=== PATIENT | male | born 2000 | race African-American/Black ===

== ENCOUNTER 2018-03-24 13:01 | Emergency (ER) | payer MEDICAID, SELFPAY ==
[2018-03-24 13:02] VITALS: BP 132/106; PULSE 88; RESP 18; TEMP 36.1; O2SAT 99; BMI 30.9
--- NOTE | 2018-03-24 13:22 | RAD_ITS ---
STUDY: X-RAY - RIGHT SHOULDER REASON FOR EXAM: Male, 17 years old. Right shoulder pain following injury. TECHNIQUE: 4 view(s) of the shoulder. COMPARISON: None. FINDINGS: Normal glenohumeral articulation. Normal acromioclavicular joint. Normal acromion. Normal humeral head and visualized proximal humerus. The soft tissue structures are unremarkable. Normal visualized pulmonary apex. RAD/Shoulder min 2 Views IMPRESSION: Normal x-ray examination of the shoulder. Electronically Signed: Hakeem Delcid MD at 14:14 EST Tel [phone], Service support ,
[2018-03-24] MEDS: Ibuprofen 600 MG Tablet PO (13:27)
--- NOTE | 2018-03-24 14:26 | ED.VISSUMM ---
- ER Visit Summary Date of Service: 03/24/18 Chief Complaint: Right shoulder pain History of Present Illness: The patient is a 17 M with right shoulder pain for days. The patient placed some a portion football. He felt something move or shift in his right shoulder. Complains of pain to the area near the AC joint. No other associated symptoms like weakness or numbness. No chest pain or shortness of breath. No neck pain. Physical Examination: Vitals unremarkable. Neck is unremarkable. Nontender. Shoulder inspection shows some diffuse swelling, very mild. Tender to palpation near the AC joint. No other tenderness. No deformities. No laxity. Good range of motion. Neurovascular intact distally. Test Results: X-rays negative. Emergency Department Course and Treatment: Patient likely has a strain. Rest, ice. Anti-inflammatories for pain. Follow-up with primary care. Treatment Plan: As above Disposition: Discharged Impression: 1. Right shoulder pain This note was generated with [employer] dictation software. It may contain incorrect words, spelling, and punctuation that were not noted in review of the chart prior to signing ED Disposition - Plan for ED Patient: Chief Complaint: Upper Extremity Injury Referrals: Sara Bonilla DO [Primary Care Provider] -
--- NOTE | 2018-03-24 14:28 | ED.DEP ---
ED Disposition - Plan for ED Patient: Chief Complaint: Upper Extremity Injury Instructions: Shoulder Problems Prescriptions: Ibuprofen [Motrin] 800 mg PO TID PRN PRN #20 tab PRN Reason: Pain Referrals: Sara Bonilla DO [Primary Care Provider] -
--- OUTSIDE RECORDS SUMMARY | 2018-05-10 18:53 | XMS RPT_ITS ---
:2000 Author Organization [facility] Care Team Providers Name Role Phone Sara Bonilla Primary Care Unavailable Rhys Cotter Attending Unavailable PROBLEMS PROBLEMS No Problem Records FoundPROCEDURES PROCEDURES No Procedure Records FoundRESULTS RESULTS EMERGENCY DEPARTMENT Observed: 03/24/2018 Status: F Source: [place] SUMMARY 3:36 PM [facility] Medical Records Department [address] [facility] [address] Emergency Department Summary 03/24/18 1426 MR#: [id number] Acct: [id number] Name: MARK RUTH Rep #: [id number] : 2000 17 From: Rhys Cotter MD PCP: Sara Bonilla DO Status: DEP ER - ER Visit Summary Date of Service: 03/24/18 Chief Complaint: Right shoulder pain History of Present Illness: The patient is a 17 M with right shoulder pain for days. The patient placed some a portion football. He felt something move or shift in his right shoulder. Complains of pain to the area near the AC joint. No other associated symptoms like weakness or numbness. No chest pain or shortness of breath. No neck pain. Physical Examination: Vitals unremarkable. Neck is unremarkable. Nontender. Shoulder inspection shows some diffuse swelling, very mild. Tender to palpation near the AC joint. No other tenderness. No deformities. No laxity. Good range of motion. Neurovascular intact distally. Test Results: X-rays negative. Emergency Department Course and Treatment: Patient likely has a strain. Rest, ice. Anti-inflammatories for pain. Follow-up with primary care. Treatment Plan: As above Disposition: Discharged Impression: 1. Right shoulder pain This note was generated with [employer] dictation software. It may contain incorrect words, spelling, and punctuation that were not noted in review of the chart prior to signing ED Disposition - Plan for ED Patient: Chief Complaint: Upper Extremity Injury Referrals: Sara Bonilla DO [Primary Care Provider] - What to do if you have Problems For any increased pain, shortness of breath, bleeding, nausea or vomiting, chest pain, or any unexpected problems, contact your Primary Care Provider. Call [facility] ([phone]) or report to the closest Emergency Room. Call 911 if necessary. 03/24/18 1536 <Electronically signed by Rhys Cotter MD> Date Rhys Cotter MD Cosigner Signature (If Indicated): Date CC: Sara Bonilla DO DISCHARGE INSTRUCTION Observed: 03/24/2018 Status: F Source: [place] 3:36 PM [facility] Medical Records Department [address] [place] [id number] Discharge Instruction 03/24/18 1428 MR#: [id number] Acct: [id number] Name: MARK RUTH SHANTANU Andre Rep #: [id number] : 2000 17 From: Rhys Cotter MD PCP: Sara Bonilla DO Status: DEP ER ED Disposition - Plan for ED Patient: Chief Complaint: Upper Extremity Injury Instructions: Shoulder Problems Prescriptions: Ibuprofen [Motrin] 800 mg PO TID PRN PRN #20 tab PRN Reason: Pain Referrals: Sara Bonilla DO [Primary Care Provider] - What to do if you have Problems For any increased pain, shortness of breath, bleeding, nausea or vomiting, chest pain, or any unexpected problems, contact your Primary Care Provider. Call [facility] ([phone]) or report to the closest Emergency Room. Call 911 if necessary. 03/24/18 1536 <Electronically signed by Rhys Cotter MD> Date Rhys Cotter MD Cosigner Signature (If Indicated): Date CC: Sara Bonilla DO SHOULDER MIN 2 VIEWS Observed: 03/24/2018 Status: F Source: [place] 1:22 PM [facility] Imaging Services [address] [place] [address] [place] [address] Shoulder min 2 Views MR#: [id number] Acct: [id number] Name: MARK RUTH Rep #: [id number] : 2000 M 17 From: Hakeem Delcid MD PCP: Sara Bonilla DO Status: REG ER Study: Shoulder min 2 Views Date of Exam: 03/24/18 Exam# [id number] Ordering Dr: Rhys Cotter MD STUDY: X-RAY - RIGHT SHOULDER REASON FOR EXAM: Male, 17 years old. Right shoulder pain following injury. TECHNIQUE: 4 view(s) of the shoulder. COMPARISON: None. FINDINGS: Normal glenohumeral articulation. Normal acromioclavicular joint. Normal acromion. Normal humeral head and visualized proximal humerus. The soft tissue structures are unremarkable. Normal visualized pulmonary apex. RAD/Shoulder min 2 Views IMPRESSION: Normal x-ray examination of the shoulder. Electronically Signed: Hakeem Delcid MD at 14:14 EST Tel [phone], Service support , CC: Rhys Cotter MD; Sara Bonilla DO Hose Inspector: Signed ALLERGIES ALLERGIES DATE TYPE / CODE NAME / CODE REACTION SEVERITY SOURCE 03/24/2018 Drug iodine/F0060 Hives Unknown [facility] Allergy/4160 84248([facility] 96300(SNOMED ) Repository CT) ENCOUNTERS ENCOUNTERS ADMIT/DISCHARGE ACCOUNT ADMITTING ENCOUNTER LOCATION SOURCE NUMBER CLASS 03/24/2018/ [id number] Emergency Navarro Navarro 8 [facility] ing:ED Repository PAYERS PAYERS ENCOUNTER GUARANTOR PAYER SUBSCRIBER SOURCE 03/24/2018 MARK SHANTANU L Primary MARKDanny FOURNIER L [facility] Insurance:EV VINSONOB: [facility] [id number] [address] StreetPolic Number: Repository [address]Qbe: [phone] [phone] () Date:[id number] [address] [place] [address]ST: 03/24/2018 Secondary NOT GIVENUNK [place] Insurance:SELF PAY [facility] Number: Effective Repository Date:2018-03-24
== END 2018-03-24 14:49 | disposition home or self-care (01) ==
PROVIDERS: Emergency Provider Emergency Medicine; Family Provider Internal Medicine; PCP Internal Medicine
DX: M25.511 Pain in right shoulder (principal)
CPT/HCPCS: 73030; 99283

== ENCOUNTER 2018-05-12 13:07 | Emergency (ER) | payer MEDICAID, SELFPAY ==
[2018-05-12 13:09] VITALS: PULSE 87; RESP 18; TEMP 36.3; O2SAT 99; BMI 30.7
--- NOTE | 2018-05-12 14:21 | CT_ITS ---
STUDY: CT BRAIN WITHOUT CONTRAST REASON FOR EXAM: Male, 17 years old. Headaches and confusion. History of head trauma. RADIATION DOSAGE (If Supplied By Facility): CTDIvol = ( 60.81 ) mGy, DLP = ( 1604.86 ) mGycm TECHNIQUE: Transaxial CT imaging of the brain was performed without administration of intravenous contrast material. Individualized dose optimization techniques were used for this CT. COMPARISON: None. FINDINGS: Normal soft tissue structures. Normal calvarium. Normal size ventricles and extra-axial spaces for the patient's age. Normal white matter tracts of the cerebral hemispheres. Normal basal ganglia and thalami. Normal brainstem. Normal cerebellum. There is no intracranial hemorrhage. There are no findings of an acute ischemic infarction. Normal visualized paranasal sinuses. CT/Brain/Head without Contrast IMPRESSION: Normal unenhanced CT scan of the brain. Electronically Signed: Hakeem Delcid MD at 15:06 EST , Service support ,
--- NOTE | 2018-05-12 14:56 | ED.DCSUM_ITS ---
- ER Visit Summary Date of Service: 05/12/18 Chief Complaint: Head injury History of Present Illness: The patient is a 17 M presenting after head injury. 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 He states on Friday he was at practice and collided with another player. He states their helmets hit. He did not lose consciousness. No amnesia to the event. He states initially he felt well and developed a gradual onset headache yesterday. He has had no dizziness. Denies nausea or vomiting. He had some trouble focusing and concentrating. Denies other complaints. Physical Examination: Vitals are stable. Patient is afebrile. Alert no acute distress. HEENT exam is unremarkable. Neck is supple, nontender Lungs are clear and equal bilaterally. Heart is regular rate and rhythm. Abdomen is soft nontender nondistended. Extremities are unremarkable. Skin is warm and dry. No focal neurologic deficit. Normal strength and sensation Remainder of exam is unremarkable. Emergency Department Course and Treatment: CT head shows no acute process. Advised head injury instructions. Advised to follow-up with his instructor trainer canine service and Dr Oakley pesticide control inspector for no doc. Advised return to ED for worsening complaints. Just prior to discharge, patient is now requesting STD testing. Patient states he had unprotected intercourse and is now experiencing mild penile discharge. He denies dysuria or rash. Denies pain. Gonorrhea chlamydia test sent. He is given Rocephin and Zithromax. Advised to follow-up with primary care physician. Disposition: Discharge home Impression: Concussion without loss of consciousness, concern for STD This note was generated with [employer] dictation software. It may contain incorrect words, spelling, and punctuation that were not noted in review of the chart pr ior to signing ED Disposition - Plan for ED Patient: Chief Complaint: Confusion Instructions: ED Concussion Referrals: Abel Oakley MD [STAFF PHYSICIAN] -
--- NOTE | 2018-05-12 15:11 | ED.DEP ---
ED Disposition - Plan for ED Patient: Chief Complaint: Confusion Instructions: ED Concussion Referrals: Abel Oakley MD [STAFF PHYSICIAN] -
[2018-05-12 15:33] VITALS: BP 130/79
[2018-05-12] MEDS: Azithromycin 250 MG Tablet 1000 MG PO (15:45)
[2018-05-12 17:33] LABS: Chlamydia Trachomatis by PCR POSITIVE (Negative); Neisserai gonorrhoeae by PCR Positive (Negative); Probe Check PASS
--- NOTE | 2018-05-12 18:04 | ED.RN ---
LAB CALLED POSITIVE CHLAM/ESTHER RESULT. ATTEMPTED TO CONTACT PT AT 3500 BY PHONE. UNABLE TO LEAVE MESSAGE DUE TO VOICE MAILBOX NOT BEING SET UP. INFORMED CHARGE NURSE TYREE HOPKINS.
== END 2018-05-12 16:24 | disposition home or self-care (01) ==
LOC: ED 14:58
PROVIDERS: Emergency Provider Emergency Medicine
DX: S06.0X0A Concussion without loss of consciousness, initial encounter (principal); W51.XXXA Accidental striking against or bumped into by another person, initial encounter; Y93.61 Activity, american tackle football; Y92.9 Unspecified place or not applicable; Y99.8 Other external cause status; R36.9 Urethral discharge, unspecified
CPT/HCPCS: 70450; 87491; 87591; 96372; 99283

== ENCOUNTER 2018-08-13 22:29 | Emergency (ER) | payer MEDICAID, SELFPAY ==
[2018-08-13 22:31] VITALS: BP 128/75; PULSE 67; RESP 18; TEMP 36.6; O2SAT 99; BMI 30.5
--- NOTE | 2018-08-13 22:57 | RAD_ITS ---
STUDY: X-RAY - RIGHT HAND REASON FOR EXAM: Male, 17 years old. Right hand pain after punching injury. TECHNIQUE: 3 view(s) of the hand. COMPARISON: None. FINDINGS: Normal radiocarpal articulation. Normal distal radioulnar joint. Normal visualized carpal bones. Normal carpal articulations Normal carpometacarpal articulation of the thumb. Normal second through fifth carpometacarpal joints. Normal metacarpi. Normal metacarpophalangeal joint of the thumb. Normal interphalangeal joint of the thumb. Normal proximal and distal phalanges of the thumb. Normal metacarpophalangeal joints of the second through fifth fingers. Normal proximal and distal interphalangeal joints of the second through fifth fingers. Normal phalanges of the second through fifth fingers. Soft tissue swelling. RAD/Hand Min 3 Views IMPRESSION: Soft tissue injury without underlying fracture or dislocation. Electronically Signed: Linnette Martinez MD at 23:32 EDT , Service support ,
--- NOTE | 2018-08-13 22:57 | EKG12_ITS ---
Test Reason : CP Blood Pressure : / mmHG Vent. Rate : 062 BPM Atrial Rate : 062 BPM P-R Int : 148 ms QRS Dur : 080 ms QT Int : 362 ms P-R-T Axes : 049 086 036 degrees QTc Int : 367 ms Normal sinus rhythm with sinus arrhythmia Normal ECG Confirmed by GEGE CHUN, CINDY ([id number]), acquisition editor KORIN ESCOBAR ([id number]) on 08/18/2018 1:55:06 PM Referred By: LALY Confirmed By:CINDY DE GUZMAN MD
--- NOTE | 2018-08-13 23:00 | ED.RN ---
NO OLD EKGS IN MUSE
--- NOTE | 2018-08-13 23:10 | RAD_ITS ---
STUDY: X-RAY CHEST REASON FOR EXAM: Male, 17 years old. Intermittent chest pain. TECHNIQUE: Single AP portable view of the chest. COMPARISON: None. FINDINGS: The lungs are clear and expanded. There is no demonstrated pleural abnormality. Normal size heart. Normal mediastinum and cecilia. Normal visualized pulmonary arteries. Normal visualized aortic arch and descending thoracic aorta. Normal visualized thoracic spine. Normal visualized ribs, clavicles, and shoulders. There is no demonstrated abnormality of the visualized soft tissue structures of the upper abdomen. RAD/Chest 1 View (Portable) IMPRESSION: Normal x-ray examination of the chest. Electronically Signed: Linnette Martinez MD at 23:31 EDT , Service support ,
[2018-08-13 23:14] LABS: Absolute Lymphocyte Count 2.64 X10^3/ul (0.83-4.51); Absolute Neutrophil Count 2.4 X10^3/uL (2.0-7.7); Basophil# 0.02 X10^3/uL; Basophil% 0.3 % (0-1); Eosinophil# 0.25 X10^3/uL; Eosinophils% 4.4 % (0-5); Hematocrit 39.6 % (40-54); Hemoglobin 13.7 g/dl (13.0-16.5); Lymphocyte # 2.64 X10^3/ul (4.0); Lymphocyte % 46.1 % (19-41); Mean Corp Hgb Conc 34.6 g/gl (32-36); Mean Corpuscular Hgb 26.6 pg (27.0-32.0); Mean Corpuscular Volume 76.7 fL (80-94); Mean Platelet Vol. 10.1 fl (6.2-12.0); Monocyte# 0.45 X10^3/uL; Monocyte% 7.9 % (0-10); Neutrophil # 2.36 X10^3/uL (2.7-7.7); Neutrophil % 41.1 % (47-70); POSITIVE COUNT NO; POSITIVE DIFFERENTIAL NO; POSITIVE MORPHOLOGY NO; Platelet Count 205 K/mm3 (150-450); RBC Distribution Width CV 13.3 % (11.6-14.6); RBC Distribution Width SD 37.7 fl (35.1-43.9); Red Blood Count 5.16 M/mm3 (4.6-6.2); White Blood Count 5.7 K/mm3 (4.4-11.0)
[2018-08-13 23:30] LABS: Anion Gap 4 (5-15); BUN 14 mg/dL (7-18); BUN/Creat Ratio 11.6 RATIO (10-20); Calcium,Total 9.1 mg/dL (8.5-10.1); Chloride 106 mmol/L (98-107); Creatinine, Serum 1.21 mg/dL (0.70-1.30); EST Glomerular Filtration Rate 81 mL/min (>60); Est Glom Filt Rate - Afr Amer 99 mL/min (>60); Estimated Creatinine Clearance 101.39 ml/min; Glucose 89 mg/dL (74-106); Potassium 4.4 mmol/L (3.5-5.1); Sodium Level 138 mmol/L (136-145)
[2018-08-13 23:31] LABS: D-Dimer Quantitative (DVT/PE) 0.38 FEU/ug/m (0.27-0.49)
[2018-08-13] MEDS: Ketorolac 30 MG/ML Syringe IV (23:34)
[2018-08-13] MEDS: 0.9% Normal Saline 1,000 ML 150 ML IV (23:34)
--- NOTE | 2018-08-13 23:40 | ED.VISSUMM ---
- ER Visit Summary Date of Service: 08/13/18 Chief Complaint: Chest pain, hand injury History of Present Illness: The patient is a 17 M who complains of right hand pain after punching a door earlier today. He is right-hand dominant. He is also complaining of intermittent chest pain over the past couple of months. He states it occurs approximately twice a week. He gets sudden sharp pain in the left upper chest that lasts up to 10 minutes and then resolves. He does not get short of breath with it. He denies chest pain currently. Most recent episode was last evening. Physical Examination: Vital signs unremarkable. Patient resting in bed in no acute distress. Head neck examination unremarkable. Heart is regular rate and rhythm. Lung sounds are clear. Chest wall is nontender. Abdomen is soft and nontender. Right upper extremity examination was tenderness of the fifth metacarpal with edema. Superficial lacerations are noted to the PIP joint of the third and fourth fingers were consistent with skin tears. He has full range of motion of all digits. There is no tenderness to palpation of the elbow, wrist, or shoulder. Test Results: EKG is sinus at 62 with no sign of acute ischemia. CBC and chemistry studies normal. Troponin and d-dimer are both negative. Portable chest x-ray is normal. Right hand x-ray reveals soft tissue injury without fracture. Emergency Department Course and Treatment: Patient was given Toradol for pain. Test results were discussed with him. Right hand wounds will be cleansed and dressed. Patient be referred to Dr. Mackay for follow-up, next doc on no doc list. Treatment Plan: [] Disposition: Discharge Impression: 1. Atypical chest pain 2. Right hand contusion This note was generated with [employer] dictation software. It may contain incorrect words, spelling, and punctuation that were not noted in review of the chart prior to signing ED Disposition - Plan for ED Patient: Disposition: Home or Assisted Living Instructions: ED Chest Pain Atypical Unkn Cause, ED Contusion Hand Referrals: Kristine Mackay MD [STAFF PHYSICIAN] - As soon as possible
[2018-08-13 23:56] VITALS: BP 148/88; PULSE 66; RESP 16; O2SAT 98
== END 2018-08-13 23:57 | disposition home or self-care (01) ==
PROVIDERS: Emergency Provider Emergency Medicine
DX: R07.89 Other chest pain (principal); S60.221A Contusion of right hand, initial encounter; S61.212A Laceration without foreign body of right middle finger without damage to nail, initial encounter; S61.214A Laceration without foreign body of right ring finger without damage to nail, initial encounter; W22.8XXA Striking against or struck by other objects, initial encounter; Y93.9 Activity, unspecified; Y92.9 Unspecified place or not applicable
CPT/HCPCS: 71045; 73130; 80048; 84484; 85025; 85379; 93005; 96374; 99284

== ENCOUNTER 2019-05-23 21:05 | Emergency (ER) | payer MEDICAID, SELFPAY ==
[2019-05-23 21:05] VITALS: BP 137/96; PULSE 73; RESP 16; TEMP 36.9; O2SAT 100; BMI 29.4
--- NOTE | 2019-05-23 21:20 | ED.VIS.INJ ---
History of Present Illness Chief Complaint: Head Injury Informant: Patient Onset: Yesterday Mechanism/Context: Blunt Injury Quality of Pain: Dull, Aching Location: Global headache with associated symptoms Current Severity: Mild Maximum Severity: Moderate Worsened by: Activity Relieved by: Nothing Associated Symptoms: - - Dazed. Negative for: Parasthesias, Weakness, Loss of function, Inability to ambulate, Loss of consciousness, Amnesia Narrative: Patient is a 18-year-old who was involved in a closed head injury in football yesterday. He was dazed. No loss of conscious. He states he rested for 20 minutes . He then went back in and exited from the game because of worsening symptoms. He does report sleep disturbance, nausea, visual disturbance, feeling foggy. Patient states he does not feel his normal self. Because his symptoms did not resolve he presents for evaluation. He has had a prior concussion. He is not on an anticoagulant. Prior similar symptoms: Yes Recent Illness/Hospitalization: No - Past Medical History (1) Closed head injury Status: Acute Past Medical History - Allergies and Home Meds Allergies/Adverse Reactions: Allergies iodine Allergy (Verified 05/23/19 21:05) Hives banana Adverse Reaction (Verified 05/23/19 21:05) Nausea/Vom/Diarrhea Primary Care Physician: Care Physician,No Primary [Primary Care Provider] - Prior records reviewed: Yes Surgical History: no surgical history Lives: Spouse/ Significant Other Smoking Status: Never smoker Alcohol: Rare Drugs: None Review of Systems General: Reports: Malaise. Denies: Chills, Fever, Sweats Eyes: Reports: Blurred Vision - bilaterally. Denies: Visual changes - bilaterally ENT: Reports: - - Denies tinnitus or decreased hearing. Denies: Bilateral ear pain, Rhinorrhea, Sore throat Cardiovascular: Denies: Chest pain, Palpitations Respiratory: Denies: Dyspnea, Cough, Dyspnea on exertion Gastrointestinal: Reports: Nausea. Denies: Abdominal pain, Vomiting, Diarrhea, Constipation, Melena, Hematochezia, -, - Genitourinary: Denies: Dysuria, Hematuria, Frequency Musculoskeletal: Denies: Myalgias, Arthralgias, Neck pain, Back pain, Swelling, Extremity Pain Skin: Denies: Rash, Wounds Neurological: Reports: Headache. Denies: Weakness, Parasthesia, Numbness Hematologic: Denies: Easy bruising, Easy bleeding Physical Exam Vital Signs/Narrative: Vital Signs Temp Pulse Resp BP Pulse Ox 05/23/19 21:05 98.4 F 73 16 137/96 H 100 Inital Vital Signs reviewed: Yes General: Well nourished, Well developed Head: Normocephalic, Atraumatic Eyes: Perrl, EOMI ENT: TM's clear, No hemotympanum or drainage, No trauma Neck: Nontender, Full ROM Cardiovascular: Regular rate, Regular rhythm, No murmurs, Normal S1, Normal S2 Respiratory: No distress, CTA bilaterally, Chest nontender Abdomen: Soft, Nontender, Nondistended, Normal bowel sounds Back: Nontender Skin: Normal color, No rash Neurological: Alert, Oriented x3, Cranial nerves II-XII grossly intact, Normal Strength, Normal Sensation, Normal DTR - There is no clonus or Babinski sign. S, Normal Gait, - - Cerebellar exam is normal Psychological: Normal affect - Glascow Coma Scale Eye Opening: Spontaneous Motor: Obeys Commands Verbal: Oriented Coma Scale Total: 15 Diagnostic/Tx/Re-eval - Medical Decision Making With history of being dazed and symptoms of concussion and a normal neurologic exam and no history of loss conscious or use of anticoagulant imaging is not indicated per the [place] CT head rule in the [place] rule. Patient was made aware of this. Patient was told 95% of patients with concussion have resolution of their symptoms within 4 to 6 weeks. Was instructed to avoid activity that causes his symptoms to worsen. ED Disposition - Plan for ED Patient: Disposition: Home or Assisted Living Diagnosis: Concussion without loss of consciousness Instructions: CONCUSSION, No Wake Up Referrals: Care Physician,No Primary [Primary Care Provider] - Additional Instructions: Low up with the primary care physician you were assigned to by your insurance carrier, Enevate if no improvement in 4 weeks
[2019-05-23 21:40] VITALS: BP 139/85; PULSE 67
[2019-05-23] MEDS: Ibuprofen 400 MG Tablet 800 MG PO (21:48)
[2019-05-23 21:49] VITALS: BP 139/85; PULSE 67; RESP 14
== END 2019-05-23 21:50 | disposition home or self-care (01) ==
PROVIDERS: Emergency Provider Emergency Medicine
DX: S06.0X0A Concussion without loss of consciousness, initial encounter (principal); X58.XXXA Exposure to other specified factors, initial encounter; Y93.61 Activity, american tackle football; Y99.8 Other external cause status
CPT/HCPCS: 99283

== ENCOUNTER 2019-06-06 19:18 | Emergency (ER) | payer MEDICAID, SELFPAY ==
[2019-06-06 19:19] VITALS: BP 150/111; PULSE 74; RESP 18; TEMP 37.2; O2SAT 97; BMI 29.4
--- NOTE | 2019-06-06 19:30 | RAD_ITS ---
STUDY: X-RAY - RIGHT FOOT CLINICAL: Male, 18 years old patient with right-sided foot pain and swelling after playing football yesterday. TECHNIQUE: 3 view(s) of the foot. COMPARISON: Prior comparison studies are not available for review at this time. FINDINGS: Normal talus, calcaneus, and tarsal bones. Intertarsal articulations are within normal limits. There is a nondisplaced fracture of the proximal fifth metatarsal approximately 3.2 cm distal to the tarsal metatarsal articulation. The first, second, third and fourth metatarsals have a grossly normal appearance. Normal metatarsophalangeal joint of the great toe. Normal tibial and fibular sesamoid bones. Normal interphalangeal joint of the great toe. Normal phalanges of the great toe. Normal second through fifth metatarsophalangeal joints. Normal interphalangeal joints and phalanges of the lesser toes. There is non-specific soft tissue swelling of the foot. RAD/Foot min 3 Views IMPRESSION: Acute undisplaced fracture of the proximal fifth metatarsal is suggestive of a [place] fracture. Electronically Signed: Liliam Allen MD at 20:10 EST , Service support ,
--- NOTE | 2019-06-06 21:11 | ED.DCSUM_ITS ---
History of Present Illness Chief Complaint: Lower Extremity Injury Informant: Patient Onset: Yesterday Current Severity: Moderate Maximum Severity: Moderate Narrative: Patient presents for injury to the right foot. Patient states he was at practice yesterday and wearing some new cleats. When he planted his foot and went to turn he felt a popping sensation in the lateral portion of his right foot. He did have surgery for a fracture of the fifth metatarsal on the left foot in the past. He is concerned he may have broken his foot again. Patient also presents with a burn to his left index finger that occurred yest erday. - Past Medical History (1) S/P foot surgery, left Status: Resolved Past Medical History - Allergies and Home Meds Allergies/Adverse Reactions: Allergies iodine Allergy (Verified 06/06/19 19:19) Hives banana Adverse Reaction (Verified 06/06/19 19:19) Nausea/Vom/Diarrhea Primary Care Physician: Hector Allen DPM [STAFF PHYSICIAN] - As soon as possible Prior records reviewed: Yes Surgical History: no surgical history Lives: With Family Smoking Status: Never smoker Review of Systems General: Denies: Chills, Fever Eyes: Denies: Visual changes - bilaterally ENT: Denies: Bilateral ear pain Cardiovascular: Denies: Chest pain Respiratory: Denies: Dyspnea, Cough Gastrointestinal: Denies: Abdominal pain, Nausea, Vomiting, Diarrhea Musculoskeletal: Reports: Extremity Pain Skin: Denies: Rash Neurological: Denies: Headache Allergy: Denies: Uticaria Physical Exam Vital Signs/Narrative: Vital Signs Temp Pulse Resp BP Pulse Ox 06/06/19 19:19 98.9 F 74 18 150/111 H 97 Inital Vital Signs reviewed: Yes General: Well nourished, Well developed Head: Normocephalic ENT: Moist mucous membranes Neck: Supple Cardiovascular: Regular rate, Regular rhythm Respiratory: No distress, CTA bilaterally Abdomen: Soft, Nontender Extremities: - - Patient has a second-degree burn to the distal aspect left index finger with blister intact. No sign of infection.Right lower extremity examination reveals tenderness and edema over the fifth metatarsal. Strong pulses are noted. Neurological: Alert, Oriented x3 Psychological: Normal affect Diagnostic/Tx/Re-eval Impressions Foot X-Ray 06/06/19 19:30 IMPRESSION: Acute undisplaced fracture of the proximal fifth metatarsal is suggestive of a Longo fracture. Electronically Signed: Liliam Allen MD at 20:10 EST , Service support , 06/06/19 19:30 Xray Foot [Foot min 3 Views] [RAD] Stat - Medical Decision Making X-ray results are discussed with the patient. Foot is placed in a posterior splint and he is given crutches. He is to remain nonweightbearing on the right leg. 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 Left index finger burn is cleansed and dressed with Silvadene cream. Patient given a prescription for [place] for pain control. ED Disposition - Plan for ED Patient: Disposition: Home or Assisted Living Diagnosis: Longo fracture, Second degree burn Instructions: FRACTURE, Foot Prescriptions: Hydrocodone Bitart/Apap 5-325 [[place] 5MG-325MG] 1 tab PO Q6H PRN PRN 3 Days #10 tab PRN Reason: Pain Prescription Printed Referrals: Hector Allen DPM [STAFF PHYSICIAN] - As soon as possible
[2019-06-06] MEDS: Silver Sulfadiazine 1% Crm 50 gm Bottle 1 APPLIC TOPICAL (21:16)
[2019-06-06 21:30] VITALS: RESP 16
== END 2019-06-06 21:30 | disposition home or self-care (01) ==
PROVIDERS: Emergency Provider Emergency Medicine
DX: S92.354A Nondisplaced fracture of fifth metatarsal bone, right foot, initial encounter for closed fracture (principal); X58.XXXA Exposure to other specified factors, initial encounter; Y93.61 Activity, american tackle football; Y92.9 Unspecified place or not applicable; Y99.8 Other external cause status; T23.222A Burn of second degree of single left finger (nail) except thumb, initial encounter; X08.8XXA Exposure to other specified smoke, fire and flames, initial encounter
CPT/HCPCS: 29515; 73630; 99283; A4216

== ENCOUNTER 2019-06-09 19:31 | Emergency (ER) | payer MEDICAID, SELFPAY ==
[2019-06-09 19:32] VITALS: BP 128/104; PULSE 63; RESP 18; TEMP 36.7; O2SAT 99; BMI 29.4
[2019-06-09 20:17] VITALS: RESP 16
--- NOTE | 2019-06-09 20:18 | ED.VISSUMM ---
- ER Visit Summary Date of Service: 06/09/19 Chief Complaint: Right foot pain History of Present Illness: The patient is a 18 M who continues with right foot pain. He was seen here a couple of days ago and diagnosed with a Longo fracture. He was given [place] for pain but it is not helping. He is scheduled to see orthopedics in 2 days. He has not been using ice and he has been elevating at home. He states his pain was unbearable tonight so he called EMS to bring him in. He has not been using any NSAIDs with this. He has not been walking on it. Physical Examination: Vital signs reviewed. Right foot exam reveals a splint in place and intact. He has no upper leg pain. No swelling. He can wiggle his toes normally. Capillary refills less than 2 seconds. Test Results: None performed Emergency Department Course and Treatment: The patient has been nonweightbearing. His splint appears clean and dry as if he has not been walking on it. There is no swelling. I will give the patient oxycodone here and for home to take instead of his [place]. I did do an OARRS report and his only prescription was the one given to him here. He will follow-up as scheduled in less than 48 hours Treatment Plan: [] Disposition: Discharge Impression: Right fifth metatarsal fracture, subsequent visit This note was generated with [employer] dictation software. It may contain incorrect words, spelling, and punctuation that were not noted in review of the chart prior to signing ED Disposition - Plan for ED Patient: Disposition: Home or Assisted Living Instructions: FRACTURE, Foot Prescriptions: Oxycodone [Oxyir] 5 mg PO Q6H PRN PRN 3 Days #10 tablet PRN Reason: Pain/Inflammation Transmission Status: Received by ANKITA PARED[facility]-[address] [facility] Referrals: Care Physician,No Primary [Primary Care Provider] -
[2019-06-09] MEDS: oxyCODONE 5 MG Tablet PO (20:33)
== END 2019-06-09 20:35 | disposition home or self-care (01) ==
PROVIDERS: Emergency Provider Emergency Medicine
DX: S92.351A Displaced fracture of fifth metatarsal bone, right foot, initial encounter for closed fracture (principal); X58.XXXA Exposure to other specified factors, initial encounter; Y93.9 Activity, unspecified; Y92.9 Unspecified place or not applicable
CPT/HCPCS: 99284

== ENCOUNTER 2019-06-24 11:07 | Day surgery (SDC) | payer MEDICAID, SELFPAY ==
[2019-06-24] VITALS (8 sets, daily range): BP systolic 120–134; BP diastolic 63–93; PULSE 63–80; RESP 15–16; TEMP 36.1–36.8; O2SAT 95–100; BMI 29.7
[2019-06-24] MEDS: Lactated Ringers 1,000 ML 100 ML IV ×2 (11:33→15:05)
[2019-06-24] MEDS: Cefazolin 2 GM in 0.9% Normal Saline 100 ML IV (12:30)
--- NOTE | 2019-06-24 12:52 | RAD_ITS ---
STUDY: X-RAY - RIGHT FOOT CLINICAL: Fracture repair. TECHNIQUE: 17 intraoperative images of the foot. COMPARISON: Radiographs 06/06/2019. FINDINGS: There is an orthopedic screw transfixing a fifth metatarsal fracture in anatomic alignment and position. 418 seconds of fluoroscopy time was used. Electronically Signed: Camden Valadez MD at 15:28 EDT Tel , Service support , RAD/Foot min 3 Views
[2019-06-24] MEDS: Bupivacaine Mpf 0.5% 30 ML VIAL (14:00)
--- NOTE | 2019-06-24 14:24 | DCINST_ITS ---
Discharge Diet: No Restrictions Discharge Activity: May Not Drive, May Not Shower, Use Walker, Use Crutches Weight Bearing Status: No weight bearing Keep extremity elevated above heart level: Right Leg Additional Activity Instructions:: 1. Keep dressing clean, dry, intact to the right foot, ankle, leg. Do not get dressing wet. If get dressing wet, call office immediately for further instructions. Protect dressing when bathing with a cast protector or plastic bag and tape. I recommend sponge bathing at this time. Do not change or remove dressing. 2. Ice around right knee 20 minutes on, 20 minutes off, every hour while you are awake for the next 7 days. 3. Elevate right foot above level of heart as much as possible over the next 7 days. 4. No walking or standing on right foot. Use crutches or a walker for assistance. 5. Begin taking Percocet (pain medication) tonJune 24, 2019. Supplement with [id number] ibuprofen as needed. 6. Begin taking doxycycline (antibiotic) tomorrow, June 25, 2019 as instructed. This will be twice a day. 7. Begin taking aspirin tomorrow, June 25, 2019 as instructed. This will be once a day. Call your doctor if your incision/area has: Sudden Increased Bleeding, Increased Pain/ Swelling Call your doctor if you observe: Fever of 101 or Higher, Coldness, Increased Pain, Shortness of breath, Increased palpitations (irregular heartbeat), Calf discomfort, Uncontrolled pain Suture Line Care: Avoid Pulling/Pushing, Avoid Pinching/Bending Cleanse incision/area with: Do not get Incision Wet, Keep Dressing Clean & Dry Allergies/Adverse Reactions: Allergies iodine Allergy (Verified 06/24/19 11:15) Hives banana Adverse Reaction (Verified 06/24/19 11:15) Nausea/Vom/Diarrhea Medications to take at Discharge NK 06/23/19 Primary Care Physician: Care Physician,No Primary [Primary Care Provider] - Test Results: Test results from this visit will be discussed in further detail at your follow- up appointment, if applicable. Please Follow Up With: Hector Allen DPM When: as scheduled Proposed Discharge Date: 06/24/19
--- NOTE | 2019-06-24 14:32 | PCM.OPRPT ---
Problem List (1) Fracture of fifth metatarsal bone Status: Acute Qualifiers: Encounter type: subsequent encounter Fracture type: closed Fracture alignment: nondisplaced Laterality: right Fracture healing: with routine healing Qualified Code(s): S92.354D - Nondisplaced fracture of fifth metatarsal bone, right foot, subsequent encounter for fracture with routine healing (2) Longo fracture Status: Acute Qualifiers: Encounter type: subsequent encounter Fracture type: closed Laterality: right Fracture healing: with routine healing Qualified Code(s): S99.191D - Other physeal fracture of right metatarsal, subsequent encounter for fracture with routine healing Report of Operation Date of Procedure: 06/24/19 Pre-Operative Diagnosis: 1. Right foot fifth metatarsal fracture, nondisplaced. Classified as a Longo fracture. 2. Right foot metatarsus adductus Post-Operative Diagnosis: Same as preoperative Surgery/Procedure Performed:: Open reduction with internal fixation of fifth metatarsal fracture right foot Description of Surgical Findings:: Consistent with diagnosis. Reduction of deformity achieved and held with internal fixation. color maker formulator: Bettye Peres Type of Anesthesia:: General - With a lateral ankle block given to the right ankle consisting of 10 cc of 0.5% Marcaine plain Anesthesiologist: Chip Marshall Special Medications: 2 g of Ancef given preoperatively Specimen's removed: None Drains: None Estimated Blood Loss (mL): 2 Description of Procedure: Pathology: None Anesthesia: General with a lateral ankle block given to the right lower extremity consisting of 10 cc of 0.5 the Marcaine plain distributed in a lateral ankle block fashion Hemostasis: Pneumatic calf tourniquet placed to level the right calf at 250 mmHg for 83 Minutes Estimated blood loss: 2 mL Materials: Sherice 4.0 x 50 mm partially-threaded cannulated screw. Size 3-0 Vicryl. Size 3-0 nylon Injectables: None Complications: None Condition: Stable Indications: Patient is a 18-year-old male with no significant past medical history who has a chief complaint of painful ambulation of his right foot. 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 At that time, while patient was at football practice, he felt a pop in his right foot. He had immediate pain afterwards and had difficulty ambulating. This was located over the fifth metatarsal. Patient followed up in the emergency department on June 06 at [facility]. X-rays were taken at that time. This revealed a transverse nondisplaced fracture of the fifth metatarsal of the right foot. This was classified as a Longo fracture. Patient ended up following up with me in my office on June 20. I discussed with the patient his current clinical condition along with his x-ray findings. I discussed with the patient his activities of daily living. 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 Patient states that he had a similar injury on his left foot which was surgically repaired. I discussed with the patient the conservative and surgical interventions for this along with the risks and benefits to both treatment options. Due to his level of activity and desire to return to sports quickly, I suggested surgical intervention. Patient was agreeable to this, and was requesting surgery so that he may return to activities as soon as possible. Operative report: Before the patient was brought to the operating room, the risks, benefits, possible outcomes, possible complications of the procedure discussed with the patient. All the patient's questions were answered to his satisfaction and all of his concerns were addressed. No guarantees were made as to the outcome of the procedure. Risks include but not limited to infection, delayed and nonhealing bone, delayed or nonhealing wounds, loss of limb, loss of life, DVT, limitation of function and use of foot after procedure. Patient understood all aspects of the procedure, and consent was then signed by the patient. Patient was then brought to the operating room and placed on the operating table in supine position. After timeout, under general anesthesia, well-padded pneumatic calf tourniquet was placed to level of the right calf. The right foot, ankle, leg were then scrubbed, prepped, draped in the usual sterile manner. Attention was then directed to the fifth metatarsal the right foot. At this time, radiographic evaluation was used to determine the base of the fifth metatarsal, level of the fracture, and fifth metatarsal head. Furthermore, K wires were used to determine the lateral and dorsal longitudinal axes of the fifth metatarsal. These were all drawn on the patient. Next, live radiographic evaluation was used to insert the K wire for the cannulated screw from the proximal aspect of the fifth metatarsal extending distally into the medullary canal. This proved difficult due to the patient's metatarsus adductus deformity. Multiple attempts were made to pass this K wire. Radiograph evaluation was performed until adequate positioning of the K wire was had. Once adequate positioning was had, multiple radiographic views were performed once again to make sure the K wire was centered in the medullary canal. This was confirmed after radiographic evaluation. At this time, an incision was made where the K wire entered the skin on the lateral aspect of the right foot proximal to the fifth metatarsal. This incision was approximately 1.5 cm in length and was in a longitudinal fashion. This incision was deepened utilizing sharp and blunt dissection. Care was taken to retract all vital neural and vascular structures. All bleeders were cauterized and ligated as necessary. At this time, drilling and tapping was performed in a cannulated fashion over the K wire of the fifth metatarsal medullary canal. This K wire was then measured at this time a BabyBus 4.0 x 50 mm partially-threaded cannulated screw was placed over the K wire and inserted in standard AO fixation. Of note during insertion of the screw was the adequate compression of the fifth metatarsal fracture. Once the screw was fully inserted, the K wire was then removed. Multiple radiographic views were performed. The fracture was noted to be reduced and compressed when compared to preoperative assessment and the screw was noted to be held within the medullary canal. At this time, the surgical site was irrigated with copious amounts of normal sterile saline. The subcutaneous tissues were reapproximated and coapted utilizing 3-0 Vicryl. The skin was reapproximated coapted utilizing 3-0 nylon in a a simple interrupted and horizontal mattress fashion. At this time, the pneumatic calf tourniquet was then released and a prompt hyperemic response noted to the entirety of the right lower extremity. The surgical site was then dressed with Xeroform, and a dry sterile dressing setting of 4 x 4 gauze, ABD pads, wrapped with Kerlix. The right foot and ankle were then wrapped with an Israel bandage. At this time, cast padding was wrapped for the metatarsal heads extending proximally to level just distal to the tibial tuberosity. A posterior splint was fashioned to the right lower extremity and was adhered to the right lower extremity utilizing Israel bandages. Care was taken to make sure that the foot and ankle held in neutral position as the posterior splint dried. Neurovascular status was assessed at the end of application and deemed intact to the right lower extremity. The patient tolerated the anesthesia and the procedure well and was transported to the PACU with vital signs stable neurovascular status intact to the right lower extremity. After period of postoperative monitoring, patient be discharged home with written and oral instructions for wound care and follow-up. The surgical garment fitter, the nurse practitioner, was utilized throughout the entire procedure. She help with patient positioning, holding of limb, holding of retractors. She helped with bandage application and cast application. Without the surgical garment fitter, surgical time would have been increased and surgical outcome could have been less optimal. - Complications None - Admit VTE Documentation VTE Present on Admission: No VTE Mechan Device Prophylaxis: SCD's VTE Pharm Prophylaxis ordered?: Yes
--- NOTE | 2019-06-24 15:40 | RAD_ITS ---
STUDY: X-RAY - RIGHT FOOT CLINICAL: Male, 18 years old. POST OP ORIF RIGHT 5TH MT TECHNIQUE: 3 view(s) of the foot. COMPARISON: June 06, 2019 FINDINGS: Normal talus, calcaneus, and tarsal bones. Normal visualized subtalar, talonavicular, calcaneocuboid, tarsal and tarsometatarsal articulations. There is a screw traversing fracture of the proximal shaft of the fifth metatarsal. Normal metatarsophalangeal joint of the great toe. Normal tibial and fibular sesamoid bones. Normal interphalangeal joint of the great toe. Normal phalanges of the great toe. Normal second through fifth metatarsophalangeal joints. Normal interphalangeal joints and phalanges of the lesser toes. There is casting material. RAD/Foot min 3 Views IMPRESSION: Status post ORIF fifth metatarsal fracture. Electronically Signed: Ibrahima Blakely MD at 16:15 EDT , Service support ,
== END 2019-06-24 17:06 | disposition home or self-care (01) ==
LOC: SDC 11:08 → AC 11:09
PROVIDERS: Referring Provider Podiatrist Foot & Ankle Surgery; Visit Provider Podiatrist Foot & Ankle Surgery
PROC: (CPT 28485; principal; 2019-06-24 12:15)
DX: S92.354A Nondisplaced fracture of fifth metatarsal bone, right foot, initial encounter for closed fracture (principal); X58.XXXA Exposure to other specified factors, initial encounter; Y93.61 Activity, american tackle football; Y92.9 Unspecified place or not applicable; Y99.8 Other external cause status; Q66.221 Congenital metatarsus adductus, right foot; Z79.82 Long term (current) use of aspirin
CPT/HCPCS: 01480; 28485; 73630; 76000; C1713; J7120; J2405

== ENCOUNTER 2019-08-17 16:21 | Emergency (ER) | payer MEDICAID, SELFPAY ==
[2019-06-24 11:20] VITALS: BMI 29.7
[2019-08-17 16:22] VITALS: BP 130/71; PULSE 76; RESP 16; TEMP 36.4
[2019-08-17 16:23] VITALS: BP 130/71; PULSE 76; RESP 16; TEMP 36.4; BMI 28.3
--- NOTE | 2019-08-17 17:16 | ED.VIS.GI ---
History of Present Illness Chief Complaint: Abd Pain Informant: Patient - Abdominal Pain/Flank Pain Onset: Month(s) Context: Gradual Onset Timing: Intermittent Quality: Dull Location: Epigastric - Nausea/Vomiting/Emesis GI Symptom: Nausea - Diarrhea/Melena/Hematochezia GI Symptom: Negative for: Diarrhea, Melena, Hematochezia Associated Symptoms: Dysuria. Negative for: Frequency, Hematuria, Urgency Narrative: Patient is a 18-year-old male presenting with 2 complaints. The first is that he has had intermittent abdominal pain for the past 2 months. He states it is in his epigastric region. It does not radiate. He notes for the past 2 days it is been more constant. He is had some mild associated nausea but no episodes of vomiting. He states his bowel movements have been less but he correlates that with decreased appetite as well. He denies any fever or chills. Patient also notes that he had unprotected sex recently. He has been having dysuria. He denies any penile discharge, testicular pain or rash. He is concerned he might have a sexually transmitted infections. He is not sure if his partner had an STD. He denies any other complaints at this time. He does not have a primary care doctor. Past Medical History - Allergies and Home Meds Allergies/Adverse Reactions: Allergies iodine Allergy (Verified 08/17/19 17:01) Hives banana Adverse Reaction (Verified 08/17/19 17:01) Nausea/Vom/Diarrhea Primary Care Physician: Neha Ponce DO [STAFF PHYSICIAN] - Past Medical History: None Surgical History: noncontributory Smoking Status: Never smoker Review of Systems General: Denies: Chills, Fever, Sweats Eyes: Denies: Visual changes - bilaterally, Diplopia ENT: Denies: Rhinorrhea, Sore throat Cardiovascular: Denies: Chest pain, Palpitations Respiratory: Denies: Dyspnea, Cough, Dyspnea on exertion Gastrointestinal: Reports: Abdominal pain, Nausea. Denies: Vomiting, Diarrhea, Melena, Hematochezia Genitourinary: Reports: Dysuria. Denies: Hematuria, Frequency Musculoskeletal: Denies: Back pain, Extremity Pain Skin: Denies: Rash, Wounds Neurological: Denies: Headache, Weakness, Numbness Physical Exam Vital Signs/Narrative: Vital Signs Temp Pulse Resp BP 08/17/19 16:23 97.6 F L 76 16 130/71 H 08/17/19 16:22 97.6 F L 76 16 130/71 H Inital Vital Signs reviewed: Yes General: Well nourished, Well developed, No Acute Distress Head: Normocephalic, Atraumatic Eyes: Perrl, EOMI ENT: Moist mucous membranes, No rhinorrhea Neck: Supple, Nontender Cardiovascular: Regular rate, Regular rhythm, No murmurs Respiratory: No distress, CTA bilaterally, Chest nontender Abdomen: Soft, Nontender, Nondistended, Normal bowel sounds : - - Deferred Back: Nontender, Normal Inspection Extremities: Nontender, No edema Skin: Normal color, No rash Neurological: Alert, Oriented x3, Cranial nerves II-XII grossly intact, Normal Strength, Normal Sensation Psychological: Normal affect, Normal Mood Diagnostic/Tx/Re-eval Laboratory Data 08/17/19 08/17/19 08/17/19 16:50 16:50 17:18 WBC 7.1 RBC 5.21 Hgb 13.9 Hct 41.5 MCV 79.7 L MCH 26.7 L MCHC 33.5 RDW Std Deviation 35.8 RDW Coeff of Rhonda 12.7 Plt Count 214 MPV 10.1 Immature Gran % (Auto) 0.300 Neut % (Auto) 53.2 Lymph % (Auto) 37.0 [place] % (Auto) 6.9 Eos % (Auto) 2.2 Baso % (Auto) 0.4 Absolute Neuts (auto) 3.8 Absolute Lymphs (auto) 2.64 Nucleated RBC % 0 Sodium 139 Potassium 3.9 Chloride 107 Carbon Dioxide 30.0 Anion Gap 2 L BUN 11 Creatinine 1.21 Estim Creat Clear Calc 100.55 Est GFR (MDRD) Af Amer 98 Est GFR (MDRD) Non-Af 81 BUN/Creatinine Ratio 9.1 L Glucose 104 Calcium 9.2 Total Bilirubin 1.40 H AST 21 ALT 25 Alkaline Phosphatase 97 Total Protein 7.6 Albumin 4.1 Globulin 3.5 Albumin/Globulin Ratio 1.2 Lipase 83 Urine Color Yellow Urine Clarity Clear Urine pH 7.0 Ur Specific [place] 1.015 Urine Protein Negative Urine Glucose (UA) Normal Urine Ketones Negative Urine Occult Blood Negative Urine Nitrite Negative Urine Bilirubin Negative Urine Urobilinogen 1 H Ur Leukocyte Esterase 25 H Urine RBC 0 SEEN Urine WBC 5-10 SEEN Ur Squamous Epith Cells 0 SEEN Urine Bacteria 0 SEEN Urine Mucus 1+ Chlam trachomat DNA PCR N.gonorrhoeae DNA (PCR) 08/17/19 17:18 WBC RBC Hgb Hct MCV MCH MCHC RDW Std Deviation RDW Coeff of Rhonda Plt Count MPV Immature Gran % (Auto) Neut % (Auto) Lymph % (Auto) [place] % (Auto) Eos % (Auto) Baso % (Auto) Absolute Neuts (auto) Absolute Lymphs (auto) Nucleated RBC % Sodium Potassium Chloride Carbon Dioxide Anion Gap BUN Creatinine Estim Creat Clear Calc Est GFR (MDRD) Af Amer Est GFR (MDRD) Non-Af BUN/Creatinine Ratio Glucose Calcium Total Bilirubin AST ALT Alkaline Phosphatase Total Protein Albumin Globulin Albumin/Globulin Ratio Lipase Urine Color Urine Clarity Urine pH Ur Specific [place] Urine Protein Urine Glucose (UA) Urine Ketones Urine Occult Blood Urine Nitrite Urine Bilirubin Urine Urobilinogen Ur Leukocyte Esterase Urine RBC Urine WBC Ur Squamous Epith Cells Urine Bacteria Urine Mucus Chlam trachomat DNA PCR Negative N.gonorrhoeae DNA (PCR) Negative - Medical Decision Making Patient is evaluated for concern for sexually has been infection secondary to dysuria and unprotected sex as well as 2 months of intermittent epigastric abdominal pain. He is hemodynamically stable. His physical exam is benign.Work-up including CBC, CMP, lipase and urinalysis are grossly unremarkable. He does have 25 leukoesterase in his urine with no bacteria and 0-5 white blood cells. Gonorrhea and Chlamydia are pending however patient be treated empirically with azithromycin and IV Rocephin. Patient total bili is mildly elevated at 1.4 but chart review shows that this seems to be his baseline. With normal vital signs in 2 months of symptoms I do not think patient requires emergent imaging. He is referred for PCP for further outpatient testing and evaluation. Patient does state that he eats a lot of spicy food and he is counseled to adhere to a more bland diet as this might help his symptoms. Patient is counseled on signs and symptoms requiring return to the emergency room. Patient verbalizes agreement and understand this plan. Patient discharged home in stable and improved condition. ED Disposition - Plan for ED Patient: Disposition: Home or Assisted Living Diagnosis: Abdominal pain in male, Concern about STD in male without diagnosis Instructions: ED GC Male, ED Unknown Causes of Abdominal Pain Male Referrals: Neha Ponce DO [STAFF PHYSICIAN] - Additional Instructions: The exact cause of your change in appetite abdominal discomfort is not clear. Your lab work for your abdomen was normal and I do not think you require emergent imaging or further testing at this time. You have been referred to primary care doctor for further evaluation of it. You been treated just in case for gonorrhea and chlamydia. Your lab results will result within 24 hours. You will be contacted if they are positive. Please do not have any sexual intercourse until your results either come back negative or both you and your partner have been treated for 7 days.
[2019-08-17 17:24] LABS: Absolute Lymphocyte Count 2.64 X10^3/uL (0.83-4.51); Absolute Neutrophil Count 3.8 X10^3/uL (2.0-7.7); Basophil# 0.03 X10^3/uL; Basophil% 0.4 % (0-1); Eosinophil# 0.16 X10^3/uL; Eosinophils% 2.2 % (0-5); Hematocrit 41.5 % (40-54); Hemoglobin 13.9 g/dL (13.0-16.5); Lymphocyte # 2.64 X10^3/ul (4.0); Mean Corp Hgb Conc 33.5 g/dL (32-36); Mean Corpuscular Hgb 26.7 pg (27.0-32.0); Mean Corpuscular Volume 79.7 fL (80-94); Mean Platelet Vol. 10.1 fl (6.2-12.0); Monocyte# 0.49 X10^3/uL; Monocyte% 6.9 % (0-10); NRBC Flagged by Analyzer 0 % (0-5); Neutrophil # 3.79 X10^3/uL (2.7-7.7); Neutrophil % 53.2 % (47-70); Platelet Count 214 K/mm3 (150-450); RBC Distribution Width CV 12.7 % (11.6-14.6); RBC Distribution Width SD 35.8 fl (35.1-43.9); Red Blood Count 5.21 M/mm3 (4.6-6.2); White Blood Count 7.1 K/mm3 (4.4-11.0)
[2019-08-17 17:26] LABS: Bacteria 0 SEEN /hpf (None Seen); Red Blood Cells-Urine 0 SEEN /hpf (0-5); Squamous Epithelial Cells - UA 0 SEEN /hpf (0-5)
[2019-08-17] MEDS: 0.9% Normal Saline 1,000 ML 1000 ML IV (17:44)
[2019-08-17] MEDS: Ondansetron 4 MG/2 ML Vial IV (17:44)
[2019-08-17 17:48] LABS: ALB/GLOB Ratio 1.2 RATIO (0.9-2.4); AST(SGOT) 21 U/L (15-37); Alanine Aminotransfer ALT/SGPT 25 U/L (16-61); Albumin, Serum 4.1 g/dL (3.2-5.0); Alkaline Phosphatase 97 U/L (45-117); Anion Gap 2 (5-15); BUN 11 mg/dL (7-18); BUN/Creat Ratio 9.1 RATIO (10-20); Calcium,Total 9.2 mg/dL (8.5-10.1); Chloride 107 mmol/L (98-107); Creatinine, Serum 1.21 mg/dL (0.70-1.30); EST Glomerular Filtration Rate 81 mL/min (>60); Est Glom Filt Rate - Afr Amer 98 mL/min (>60); Estimated Creatinine Clearance 100.55 ml/min; Globulin 3.5 g/dL (2.2-4.2); Glucose 104 mg/dL (74-106); Lipase 83 U/L (73-393); Potassium 3.9 mmol/L (3.5-5.1); Protein, Total 7.6 g/dL (6.4-8.2); Sodium Level 139 mmol/L (136-145)
[2019-08-17 18:10] LABS: Color, Urine Yellow (Yellow); Glucose, Dipstick Normal (Normal); Ketone-Dipstick Negative (Negative); Leukocyte Esterase-Dipstick 25 /ul (Negative); Nitrite-Dipstick Negative (Negative); Occult Blood-Urine Negative /ul (Negative); Protein-Dipstick Negative (Negative); Specific Gravity, Urine 1.015 (1.002-1.030); Urine Bilirubin Dipstick Negative (Negative); Urine Clarity Clear (Clear); Urine Urobilinogen 1 mg/dl (Normal)
[2019-08-17] MEDS: Famotidine 200 MG/20 ML MDV 20 MG in 0.9% Normal Saline (Pres. free 8 ML 300 MG IV (18:10)
[2019-08-17 18:36] LABS: Mucous, Urine 1+ /hpf (<or=2+); White Blood Cells 5-10 SEEN /hpf (0-5)
[2019-08-17] MEDS: Azithromycin 250 MG Tablet 1000 MG PO (19:20)
[2019-08-17 20:01] LABS: Chlamydia Trachomatis by PCR Negative (Negative); Neisserai gonorrhoeae by PCR Negative (Negative); Probe Check PASS; Sample Adequacy Control PASS; Specimen Processing Control PASS
== END 2019-08-17 19:36 | disposition home or self-care (01) ==
PROVIDERS: Emergency Provider Emergency Medicine
DX: R10.13 Epigastric pain (principal); R30.0 Dysuria; Z72.51 High risk heterosexual behavior
CPT/HCPCS: 80053; 81001; 83690; 85025; 87491; 87591; 96361; 96372; 96374; 96375; 99284; J7030; A4216; J2405; J3490

== ENCOUNTER 2020-04-25 12:36 | Emergency (ER) | payer MEDICAID, SELFPAY ==
[2020-04-25 12:36] VITALS: BP 144/94; PULSE 75; RESP 16; TEMP 37.1; O2SAT 98; BMI 31.2
--- NOTE | 2020-04-25 13:04 | EKG12_ITS ---
Test Reason : CP Blood Pressure : / mmHG Vent. Rate : 073 BPM Atrial Rate : 073 BPM P-R Int : 142 ms QRS Dur : 082 ms QT Int : 340 ms P-R-T Axes : 047 081 047 degrees QTc Int : 374 ms Normal sinus rhythm with sinus arrhythmia Normal ECG Confirmed by BRIAN CHUN, JESSENIA ([id number]), editor news URBAN MARES ([id number]) on 04/27/2020 11:29:21 AM Referred By: MECHELLE Confirmed By:JESSENIA TORRES MD
--- NOTE | 2020-04-25 13:04 | ED.VIS.GEN ---
History of Present Illness Chief Complaint: Chest Pain Informant: Patient Narrative: 1-year-old male presenting with chest pain. He states is been ongoing problem for months although over the last week its been hurting more constantly. He describes it as stinging pain. He does not have shortness of breath, lightheadedness. He has no cough or cold symptoms. 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 Patient has no cardiac history. No history of DVT/PE. Past Medical History - Allergies and Home Meds Allergies/Adverse Reactions: Allergies iodine Allergy (Verified 04/25/20 13:01) Hives banana Adverse Reaction (Verified 04/25/20 13:01) Nausea/Vom/Diarrhea Primary Care Physician: Care Physician,No Primary [Primary Care Provider] - Prior records reviewed: Yes Past Medical History: None Surgical History: noncontributory Lives: Alone Smoking Status: Former smoker Alcohol: Rare Drugs: None Review of Systems General: Denies: Chills, Fever, Sweats Eyes: Denies: Visual changes - bilaterally, Diplopia ENT: Denies: Rhinorrhea, Sore throat Cardiovascular: Reports: Chest pain. Denies: Palpitations, Heart racing Respiratory: Denies: Dyspnea, Cough, Dyspnea on exertion Gastrointestinal: Denies: Abdominal pain, Nausea, Vomiting, Diarrhea, Melena, Hematochezia Musculoskeletal: Denies: Back pain, Extremity Pain Skin: Denies: Rash, Wounds Neurological: Denies: Headache, Weakness, Numbness Psych: Denies: Depression, Anxiety Physical Exam Vital Signs/Narrative: Vital Signs Temp Pulse Resp BP Pulse Ox 04/25/20 12:36 98.7 F 75 16 144/94 H 98 Inital Vital Signs reviewed: Yes Head: Normocephalic, Atraumatic Eyes: Perrl, EOMI ENT: Moist mucous membranes, No rhinorrhea Cardiovascular: Regular rate, Regular rhythm Respiratory: No distress, CTA bilaterally, Chest nontender Extremities: Nontender, No edema Skin: Normal color, No rash. Negative for: Cyanosis, Diaphoresis Neurological: Alert, Oriented x3, Cranial nerves II-XII grossly intact Psychological: Normal affect, Normal Mood Diagnostic/Tx/Re-eval - Rhythm Strip Rhythm Strip: Sinus Rhythm Rate: 73 - EKG Initial EKG Interpretation: No Acute Injury Pattern, Sinus Arrythmia - Medical Decision Making Patient presenting with intermittent chest pain which he states has been going on for a couple of months. He states he previously had chest pain several years ago and was diagnosed with anemia. He has not really followed up since then. Patient states that he was having chest pain for the past week. He does not have any red flag signs or symptoms with it. This pain is nonradiating. Heart score is 0. AG performed on arrival and interpreted by myself shows a normal sinus rhythm with slight sinus arrhythmia. There is no ST elevations or depressions. Chest x-ray is interpreted by myself shows no acute process. Patient's blood work is within normal limits. Troponin is negative. Patient is PERC negative so I have a low suspicion for PE. Feel patient is safe to be discharged home in stable condition at this time. He is given return precautions. Impression: 1. Chest pain ED Disposition - Plan for ED Patient: Disposition: Home or Assisted Living Instructions: ED Chest Pain, Uncertain Cause Referrals: Care Physician,No Primary [Primary Care Provider] -
[2020-04-25 13:11] VITALS: O2SAT 99
[2020-04-25 13:11] LABS: Absolute Lymphocyte Count 2.01 X10^3/uL (0.83-4.51); Absolute Neutrophil Count 1.9 X10^3/uL (2.0-7.7); Basophil# 0.02 X10^3/uL; Basophil% 0.5 % (0-1); Eosinophil# 0.18 X10^3/uL; Eosinophils% 4.1 % (0-5); Hematocrit 41.8 % (40-54); Hemoglobin 13.8 g/dL (13.0-16.5); Lymphocyte # 2.01 X10^3/ul (4.0); Lymphocyte % 45.6 % (19-41); Mean Corpuscular Hgb 25.7 pg (27.0-32.0); Mean Corpuscular Volume 77.8 fL (80-94); Mean Platelet Vol. 10.3 fl (6.2-12.0); Monocyte# 0.34 X10^3/uL; Monocyte% 7.7 % (0-10); NRBC Flagged by Analyzer 0 % (0-5); Neutrophil # 1.85 X10^3/uL (2.7-7.7); Neutrophil % 41.9 % (47-70); Platelet Count 217 K/mm3 (150-450); RBC Distribution Width CV 12.8 % (11.6-14.6); RBC Distribution Width SD 36.2 fl (35.1-43.9); Red Blood Count 5.37 M/mm3 (4.6-6.2); White Blood Count 4.4 K/mm3 (4.4-11.0)
--- NOTE | 2020-04-25 13:15 | RAD_ITS ---
STUDY: X-RAY CHEST REASON FOR EXAM: Male, 19 years old. COMPLAINS OF and quot;ACHING and quot; IN LEFT ARM SINCE THIS AM. EXERTIONAL DYSPNEA, DISCOMFORT MOVES UP NECK AND JAW WITH EXERTION. TECHNIQUE: Single AP portable view of the chest. COMPARISON: Comparison is made with prior study dated 08/13/2018. FINDINGS: EKG electrodes are seen. The lungs are clear and expanded. There is no demonstrated pleural abnormality. Normal size heart. Normal mediastinum and cecilia. Normal visualized pulmonary arteries. Normal visualized aortic arch and descending thoracic aorta. Normal visualized thoracic spine. Normal visualized ribs, clavicles, and shoulders. There is no demonstrated abnormality of the visualized soft tissue structures of the upper abdomen. RAD/Chest 1 View (Portable) IMPRESSION: Normal x-ray examination of the chest. Electronically Signed: Hakeem Delcid, at 13:56 EST , Service support ,
[2020-04-25 13:30] LABS: Anion Gap 5 (5-15); BUN 10 mg/dL (7-18); Calcium,Total 9.1 mg/dL (8.5-10.1); Chloride 108 mmol/L (98-107); Creatinine, Serum 1.11 mg/dL (0.70-1.30); EST Glomerular Filtration Rate 89 mL/min (>60); Est Glom Filt Rate - Afr Amer 107 mL/min (>60); Glucose 96 mg/dL (74-106); Potassium 3.9 mmol/L (3.5-5.1); Sodium Level 140 mmol/L (136-145)
[2020-04-25 14:00] VITALS: BP 112/78; PULSE 78; RESP 16; O2SAT 98
== END 2020-04-25 14:03 | disposition home or self-care (01) ==
PROVIDERS: Emergency Provider Student in an Organized Health Care Education/Training Program
DX: R07.9 Chest pain, unspecified (principal); Z87.891 Personal history of nicotine dependence
CPT/HCPCS: 71045; 80048; 84484; 85025; 93005; 99285; A4216

== ENCOUNTER 2020-07-08 15:46 | Emergency (ER) | payer MEDICAID, SELFPAY ==
[2020-07-08 15:47] VITALS: BP 139/78; PULSE 89; RESP 16; TEMP 36.8; O2SAT 100; BMI 31.7
--- NOTE | 2020-07-08 15:56 | ED.VIS.GEN ---
History of Present Illness Chief Complaint: Ear Problem Informant: Patient Onset: Days Context: Gradual Onset Current Severity: Moderate Maximum Severity: Moderate Narrative: Patient presents with bilateral ear pressure for the past several days. Patient states has had problems with wax buildup in his ears in the past but is never required irrigation. He has pressure in the bilateral ears and some decreased hearing. He states it feels as if there are earplugs in his ears. He denies any other URI type symptoms. Past Medical History - Allergies and Home Meds Allergies/Adverse Reactions: Allergies iodine Allergy (Verified 07/08/20 15:47) Hives banana Adverse Reaction (Verified 07/08/20 15:47) Nausea/Vom/Diarrhea Primary Care Physician: Care Physician,No Primary [Primary Care Provider] - Surgical History: noncontributory Lives: With Family Smoking Status: Former smoker Review of Systems General: Denies: Chills, Fever Eyes: Denies: Visual changes - bilaterally ENT: Reports: Bilateral ear pain Cardiovascular: Denies: Chest pain, Palpitations Respiratory: Denies: Dyspnea, Cough Gastrointestinal: Denies: Abdominal pain, Vomiting Musculoskeletal: Denies: Extremity Pain Skin: Denies: Rash Neurological: Denies: Headache Hematologic: Denies: Easy bruising, Easy bleeding Allergy: Denies: Uticaria Physical Exam Vital Signs/Narrative: Vital Signs Temp Pulse Resp BP Pulse Ox 07/08/20 15:47 98.2 F 89 16 139/78 H 100 Inital Vital Signs reviewed: Yes General: Well nourished, Well developed Head: Normocephalic ENT: Moist mucous membranes, - - Dense cerumen bilateral ear canals Neck: Supple Cardiovascular: Regular rate, Regular rhythm Respiratory: No distress, CTA bilaterally Abdomen: Soft, Nontender Extremities: Nontender Skin: Normal color Neurological: Alert, Oriented x3 Psychological: Normal affect Diagnostic/Tx/Re-eval - Medical Decision Making Debrox drops were placed in both ears. Both ears were irrigated. Significant cerumen was irrigated from the left ear and on repeat evaluation TM is clear. Small amount of cerumen was cleared from the right ear and on reevaluation he does still have significant cerumen. He does feel that the right ear is improved. He will go home with Debrox and use this before showers. ED Disposition - Plan for ED Patient: Disposition: Home or Assisted Living Diagnosis: Cerumen impaction Instructions: ED Cerumen Impaction Treated Referrals: Chandrakant Sandhu MD [STAFF PHYSICIAN] - As Needed
[2020-07-08] MEDS: Carbamide Peroxide 15 ML Bottle 5 DRP OTIC (16:00)
== END 2020-07-08 17:15 | disposition home or self-care (01) ==
PROVIDERS: Emergency Provider Emergency Medicine
DX: H61.23 Impacted cerumen, bilateral (principal); Z87.891 Personal history of nicotine dependence
CPT/HCPCS: 99282

== ENCOUNTER 2020-07-09 12:19 | Emergency (ER) | payer MEDICAID, SELFPAY ==
[2020-07-08 15:47] VITALS: BMI 31.7
[2020-07-09 12:20] VITALS: BP 151/81; PULSE 99; RESP 16; TEMP 35.7; O2SAT 99; BMI 31.8
--- NOTE | 2020-07-09 12:53 | ED.VIS.GEN ---
History of Present Illness Chief Complaint: Laceration Informant: Patient Narrative: Patient is a 19-year-old previously healthy male who [facility] for laceration to his right cheek. He states that he was playing competitive flag football whenever one of his competitors duct and hit him with his head. Bleeding has been controlled prior to arrival in the ED. Not any blood thinning medications. Patient denies losing consciousness during the episode. He does have a mild headache and states he does have photophobia. He did get nauseous at one point but no episodes of vomiting. The nausea has since improved. Denies any neck pain. No chest pain or shortness of breath. He states that his last tetanus shot was 1 year ago. Past Medical History - Allergies and Home Meds Allergies/Adverse Reactions: Allergies iodine Allergy (Verified 07/09/20 12:20) Hives banana Adverse Reaction (Verified 07/09/20 12:20) Nausea/Vom/Diarrhea Primary Care Physician: Care Physician,No Primary [Primary Care Provider] - 7 Days for suture removal Prior records reviewed: Yes Past Medical History: None Surgical History: noncontributory Smoking Status: Former smoker Review of Systems All systems negative except as indicated General: Denies: Chills, Fever, Sweats Eyes: Denies: Diplopia ENT: Denies: Rhinorrhea, Sore throat Cardiovascular: Denies: Chest pain, Palpitations Respiratory: Denies: Dyspnea, Cough, Dyspnea on exertion Gastrointestinal: Reports: Nausea - Resolved. Denies: Abdominal pain, Vomiting Musculoskeletal: Denies: Neck pain, Back pain, Extremity Pain Skin: Reports: Wounds. Denies: Rash Neurological: Reports: Headache. Denies: Weakness, Numbness Physical Exam Vital Signs/Narrative: Vital Signs Temp Pulse Resp BP Pulse Ox 07/09/20 12:20 96.3 F L 99 16 151/81 H 99 General: Well nourished, Well developed, No Acute Distress Head: Normocephalic, - - Stable facial bones. No raccoon eyes or pacheco sign. Eyes: Perrl, EOMI ENT: Moist mucous membranes, No rhinorrhea Neck: Supple, Nontender Cardiovascular: Regular rate, Regular rhythm, No murmurs Respiratory: No distress, CTA bilaterally, Chest nontender Abdomen: Soft, Nontender, Nondistended, Normal bowel sounds Back: Nontender Extremities: Nontender Skin: Normal color, No rash, - - 2 cm horizontal linear laceration over the right maxilla. No active bleeding. Neurological: Alert, Oriented x3, Cranial nerves II-XII grossly intact, Normal Strength, Normal Sensation Psychological: Normal affect, Normal Mood Diagnostic/Tx/Re-eval - Medical Decision Making Patient presents to the ED for laceration to right cheek. I believe patient likely sustained a mild concussion given his photophobia and mild headache. I do not feel he needs any CT imaging of his head as he is neuro intact. Symptoms are mild at this point. I have very low concern for traumatic intracranial bleed. Will repair the laceration with sutures. This is being anesthetized with topical let. Wound was repaired without issue. He is to monitor for evidence of infection. Scar formation was addressed with him including using sunscreen as well as Mederma lotion. Sutures will need removed in 5 to 7 days. Concussion symptoms were discussed with him. He understands and is agreeable this plan. Discharged home in stable condition. All questions answered. Procedures Procedure(s): Laceration repair: Informed consent was obtained before procedure started. The appropriate timeout was taken. The area was prepped and draped in the usual sterile fashion. Local anesthesia was achieved using LET. The wound was copiously irrigated. 4 6-0 Ethilon simple interrupted sutures were placed. Antibiotic ointment was applied to the area and anticipatory guidance, as well as standard post procedure care, was explained. Return precautions are given. The patient tolerated the procedure well without any apparent complications. Follow-up visit set for suture removal and evaluation of laceration. ED Disposition - Plan for ED Patient: Disposition: Home or Assisted Living Diagnosis: Facial laceration, Concussion Instructions: ED Concussion, ED Laceration: All Closures Referrals: Care Physician,No Primary [Primary Care Provider] - 7 Days for suture removal
--- NOTE | 2020-07-09 12:54 | ED.RN ---
PT DEMANDING TO BE SEEN CAN YOU GET SOMEONE IN HERE NOW, IT HURTS REALLY BAD. EXPLAINED THEY WOULD BE IN SOON POSSIBLE. PT MUMBLED SOMETHING AND WENT BACK IN ROOM.
[2020-07-09] MEDS: Lidocaine/Epi/Tetracaine 50 ML 1 APPLIC TOPICAL (13:00)
== END 2020-07-09 13:50 | disposition home or self-care (01) ==
PROVIDERS: Emergency Provider Emergency Medicine
DX: S06.0X0A Concussion without loss of consciousness, initial encounter (principal); S01.411A Laceration without foreign body of right cheek and temporomandibular area, initial encounter; W50.0XXA Accidental hit or strike by another person, initial encounter; Y93.62 Activity, american flag or touch football; Y92.9 Unspecified place or not applicable; Y99.9 Unspecified external cause status; Z87.891 Personal history of nicotine dependence
CPT/HCPCS: 12011; 99282

== ENCOUNTER 2020-07-17 13:37 | Emergency (ER) | payer MEDICAID, SELFPAY ==
[2020-07-17 13:38] VITALS: BP 129/86; PULSE 73; RESP 15; TEMP 36.8; O2SAT 97; BMI 31.4
--- NOTE | 2020-07-17 14:01 | ED.VIS.GEN ---
History of Present Illness Chief Complaint: Suture Remv Informant: Patient Narrative: 27-year-old male presents for wound check and suture removal. Patient stated laceration to the right cheek. He states that it seems to be healing up okay does have any concerns for infection. Past Medical History - Allergies and Home Meds Allergies/Adverse Reactions: Allergies iodine Allergy (Verified 07/17/20 13:38) Hives banana Adverse Reaction (Verified 07/17/20 13:38) Nausea/Vom/Diarrhea Primary Care Physician: Care Physician,No Primary [Primary Care Provider] - Past Medical History: None Surgical History: noncontributory Smoking Status: Former smoker Alcohol: None Drugs: None Review of Systems General: Denies: Chills, Fever, Sweats Eyes: Denies: Visual changes - bilaterally, Diplopia ENT: Denies: Rhinorrhea, Sore throat Cardiovascular: Denies: Chest pain, Palpitations Respiratory: Denies: Dyspnea, Cough, Dyspnea on exertion Gastrointestinal: Denies: Abdominal pain, Nausea, Vomiting, Diarrhea, Melena, Hematochezia Genitourinary: Denies: Dysuria, Hematuria, Frequency Musculoskeletal: Denies: Back pain, Extremity Pain Skin: Reports: Wounds. Denies: Rash Neurological: Denies: Headache, Weakness, Numbness Physical Exam Vital Signs/Narrative: Vital Signs Temp Pulse Resp BP Pulse Ox 07/17/20 13:38 98.3 F 73 15 129/86 H 97 Inital Vital Signs reviewed: Yes General: Well nourished, Well developed, No Acute Distress Head: Normocephalic, - - There is a healing linear laceration over the right anterior cheek. No concerns of infection Eyes: Perrl, EOMI ENT: Moist mucous membranes, No rhinorrhea Neck: Supple, Nontender Cardiovascular: Regular rate, Regular rhythm, No murmurs Respiratory: No distress, CTA bilaterally, Chest nontender Abdomen: Soft, Nontender, Nondistended, Normal bowel sounds Back: Nontender, Normal Inspection Extremities: Nontender, No edema Skin: Normal color, No rash Neurological: Alert, Oriented x3, Cranial nerves II-XII grossly intact, Normal Strength, Normal Sensation Psychological: Normal affect, Normal Mood Diagnostic/Tx/Re-eval - Medical Decision Making 4 sutures were removed. Wound care discussed with patient. He notes understanding including skin hydration and sunscreen. ED Disposition - Plan for ED Patient: Disposition: Home or Assisted Living Diagnosis: Visit for wound check, Visit for suture removal Instructions: ED Stitches/Staple Removal No ... Referrals: Care Physician,No Primary [Primary Care Provider] -
== END 2020-07-17 14:06 | disposition home or self-care (01) ==
PROVIDERS: Emergency Provider Emergency Medicine
DX: Z48.02 Encounter for removal of sutures (principal); Z87.891 Personal history of nicotine dependence
CPT/HCPCS: 99282

== ENCOUNTER 2020-10-24 10:33 | Emergency (ER) | payer MEDICAID, SELFPAY ==
[2020-10-24 10:34] VITALS: BP 156/75; PULSE 103; RESP 18; TEMP 36.6; O2SAT 100; BMI 30.8
--- NOTE | 2020-10-24 10:47 | EDS_ITS ---
HPI History of Present Illness Chief Complaint: Sore Throat Detail of Chief Complaint: Patient presents with a sore throat that he has had off and on all year but Informant: patient Narrative Narrative: Patient complains of increased soreness to the left side of his neck. He states that oftentimes while he sleeping he will stop breathing for 30 seconds at a time according to his girlfriend. He will often wake up tired in the morning. Denies any fevers or cough. No sick contacts noted. He has no primary care physician. Prior similar symptoms: Yes PFSH PFSH Home Medications NK 06/23/19 [History Last Taken Unknown] Allergy/AdvReac Type Severity Reaction Status Date / Time iodine Allergy Hives Verified 10/24/20 10:34 banana AdvReac Nausea/Vom/ Verified 10/24/20 10:34 Diarrhea Social History Smoking Status: Never smoker ROS ROS ED Constitutional Constitutional ED: Reports systems reviewed and no addt'l complaints, except as documented and other Details: Snoring ; Denies body ache(s), change in weight or chills Eyes Eyes: Denies acute decrease in peripheral vision, change in vision, double vision or loss of vision ENT ENT ED: Reports none and sore throat; Denies ear pain, lip swelling, loss taste/smell, neck pain or otalgia Cardiovascular Cardiovascular: Reports none; Denies abdominal pain, chest pain with activity, leg edema, lightheadedness, palpitations, rapid heart rate or syncope Respiratory/Chest Respiratory/Chest: Reports none; Denies change in mental status, dry cough, dyspnea, hemoptysis, shortness of breath at rest or shortness of breath with exertion Gastrointestinal Gastrointestinal: Reports none; Denies abdominal pain, change in stool character, diarrhea, hematemesis, hematochezia, melena, rectal bleeding or vomiting Genitourinary Genitourinary ED: Reports none; Denies abdominal discomfort, anuria, dysuria, genital pain or polyuria Musculoskeletal Musculoskeletal: Reports none; Denies arthralgias, back pain, difficulty walking, extremity pain, muscle weakness or myalgias Integumentary Reports none; Denies abscess or rash Neurologic Neurologic: Reports none; Denies abnormal gait, confusion, focal weakness, frequent falls, headache(s), loss of vision, numbness, paresthesias, radicular pain, vertigo or weakness Psychiatric Psychiatric: Reports systems reviewed and no addt'l complaints, except as d ocumented and none; Denies behavioral changes, confusion, difficulty concentrating, hallucinations, suicidal ideation, tactile hallucinations or visual hallucinations Endocrine Endocrinology: Denies none, cold intolerance, excessive sweating, fatigue or heat intolerance Hematologic/Lymphatic Hematologic/Lymphatic: Reports none; Denies anemia, easy bleeding or easy bruising Allergic/Immunologic Allergic/Immunologic ED: Denies as per HPI, none, lip swelling, mouth swelling, throat swelling, tongue swelling or hives EXAM Physical Exam Const Vital Signs: 10/24/20 10:34 Temperature 98 F Temperature Source Temporal Pulse Rate 103 H Respiratory Rate 18 Blood Pressure 156/75 H Blood Pressure Mean 102 Pulse Ox 100 Oxygen Delivery Method Room Air Positive well nourished and well developed General Appearance ED: well developed and NAD HEENT Reports TM's clear and moist mucous membranes HEENT Narrative: No significant pharyngeal erythema noted. Right tonsil slightly smaller than left on exam. Uvula midline. No trismus. No exudates. No cervical adenopathy noted. Patient does have some tenderness palpation over the left anterior sternocleidomastoid that seems to reproduce his pain. normocephalic and atraumatic; Negative for trauma or tenderness Tympanic Membrane ED: Yes TM's clear Eyes PERRL and EOMs intact bilaterally General Eye ED: Negative for pale conjunctiva or scleral icterus Neck no lymphadenopathy, supple and no JVD General: Negative for tenderness Chest Wall inspection of chest normal and palpation of chest normal Chest: Negative for tenderness Resp normal respiratory effort and clear to auscultation bilaterally Effort and Inspection: Negative for respiratory distress or pain with movement Auscultation: Negative for rhonchi, wheezes or diminished lung sounds Cardio regular rate, regular rhythm, S1 normal heart sound, S2 normal heart sound and no murmurs Peripheral Pulses: pulses 2+ throughout GI normal to inspection, nondistended, normoactive bowel sounds, soft to palpation, non-tender, non-distended and no masses Back/Spine no CVA tenderness and no thoracic nor lumbar tenderness Extremity normal to inspection General Extremety ED: Negative for edema General Extremity: Negative for edema Neuro oriented x3, CN's II-XII intact bilaterally, no sensory deficits noted and gait normal Sensorium / Orientation: awake, alert, oriented to person, oriented to place and oriented to time Motor Exam: strength 5/5 throughout and strength abnormal Psych mental status grossly normal Skin no rashes or lesions noted and no wounds MDM MDM MDM Narrative Medical decision making narrative: Patient's strep screen was negative. I suspect some of the sore throat may be irritation from snoring and possible sleep apnea. Patient will be referred to primary care physician for follow-up in possible further testing such as sleep study. Discharge Plan Triage Chief Complaint: Sore Throat ED Provider: Ramesh Peterson Dx/Rx/DC Orders Clinical Impression: Pharyngitis, Apnea, sleep Instructions: What Are Snoring and Sleep Apnea?, ED Sleep Apnea, Obstructive, ED Pharyngitis, Viral Prescriptions: No Action NK RF: 0 Primary Care Provider: Care Physician,No Primary Referrals: Abdoul Epstein MD [STAFF PHYSICIAN] - 3-5 Days Care Physician,No Primary [Primary Care Provider] - Disposition Disposition: Home, Self Care
== END 2020-10-24 11:45 | disposition home or self-care (01) ==
PROVIDERS: Emergency Provider Emergency Medicine
DX: J02.9 Acute pharyngitis, unspecified (principal); G47.30 Sleep apnea, unspecified
CPT/HCPCS: 87880; 99282

== ENCOUNTER 2020-11-28 15:41 | Emergency (ER) | payer MEDICAID, SELFPAY ==
[2020-11-28 15:42] VITALS: BP 133/80; PULSE 66; RESP 18; TEMP 37.1; O2SAT 100; BMI 32.8
--- NOTE | 2020-11-28 16:14 | RAD_ITS ---
STUDY: X-RAY - UNILATERAL RIBS ( RIGHT ) WITH CHEST REASON FOR EXAM: Male, 20 years old. injury/pain TECHNIQUE - RIBS: 4 view(s) of the ribs. TECHNIQUE - CHEST: Single PA view of the chest. COMPARISON: Chest x-ray dated April 25, 2020 FINDINGS - RIBS: Normal visualized ribs without a demonstrated fracture. FINDINGS - CHEST: The lungs are clear and expanded. There is no demonstrated pleural abnormality. Normal size heart. Normal mediastinum and cecilia. Normal visualized pulmonary arteries. Normal visualized aortic arch and descending thoracic aorta. Normal visualized thoracic spine. Normal visualized ribs, clavicles, and shoulders. There is no demonstrated abnormality of the visualized soft tissue structures of the upper abdomen. RAD/Ribs Uni Min 3V w/PA Chest IMPRESSION: RIBS: Normal x-ray examination of the ribs. CHEST: Normal x-ray examination of the chest. Electronically Signed: Real Reddy MD at 17:19 EDT , Service support ,
--- NOTE | 2020-11-28 16:16 | EDS_ITS ---
HPI History of Present Illness Chief Complaint: Chest Other Informant: patient Onset/Context/Timing Onset: Days (2) Mechanism/Context: Blunt Injury (catching football and landing on back) Location of pain/injuries: - (right ribcage) Quality of Pain: Aching Location: right lateral, anterior lower, and posterior lower ribs Current Severity: Moderate Maximum Severity: Severe Worsened by: moving, breathing, palpation Relieved by: remaining still Associated Symptoms Associated Symptoms: Negative for Parasthesias, Weakness, Loss of function, Inability to ambulate and Loss of consciousness Narrative Narrative: Patient was playing flag football with some friends, he jumped and landed on his back catching a ball and had immediate pain in his right side. The next morning it hurt a lot worse as it does today. He went to urgent care but they did nothing and sent him here. He has been urinating without any difficulty or hematuria. He has had no hemoptysis. It does hurt to breathe. He has been having normal bowel movements without any blood. No nausea or vomiting. The discomfort goes into his right abdomen a little. He mostly indicates areas with ribs. PFSH PFSH no medical history Home Medications tramadol 50 mg PO Q4H PRN PRN 2 Days #12 tab 11/28/20 [Rx Last Taken Unknown] Allergy/AdvReac Type Severity Reaction Status Date / Time iodine Allergy Hives Verified 11/28/20 15:44 banana AdvReac Nausea/Vom/ Verified 11/28/20 15:44 Diarrhea Surgical History (Updated 11/28/20 @ 15:49 by Carolina Bowman) History of foot surgery Social History Smoking Status: Never smoker ROS ROS ED Constitutional Constitutional ED: Denies chills or fever(s) Eyes Eyes: Denies change in vision or diplopia ENT ENT ED: Denies rhinorrhea or sore throat Cardiovascular Cardiovascular: Denies chest pain or palpitations Respiratory/Chest Respiratory/Chest: Denies cough or dyspnea Gastrointestinal Gastrointestinal: Denies abdominal pain, diarrhea, nausea or vomiting Genitourinary Genitourinary ED: Denies dysuria or hematuria Musculoskeletal Musculoskeletal: Denies back pain or neck pain Integumentary Denies abscess or rash Neurologic Neurologic: Denies headache(s), paresthesias or weakness Psychiatric Psychiatric: Denies anxiety or suicidal thoughts EXAM Physical Exam Const Vital Signs: 11/28/20 15:42 Temperature 98.7 F Temperature Source Oral Pulse Rate 66 Respiratory Rate 18 Blood Pressure 133/80 H Blood Pressure Mean 97 Pulse Ox 100 Oxygen Delivery Method Room Air Positive well nourished and well developed General Appearance ED: well developed and NAD HEENT Reports moist mucous membranes normocephalic and atraumatic Eyes PERRL and EOMs intact bilaterally Neck full ROM and supple Resp normal respiratory effort and clear to auscultation bilaterally Resp Narrative: Equal breath sounds present bilaterally Cardio regular rate, regular rhythm and no murmurs GI non-tender and non-distended GI Narrative: Specifically no right upper quadrant subcostal tenderness Auscultation: normoactive bowel sounds Palpation: soft Back/Spine no CVA tenderness and normal to inspection Back/Spine Narrative: R posterior lower-lateral rib cage, but more at the lowermost right anterior ribs. No crepitance. Patient states this area is swollen, I do not palpate any subcutaneous emphysema. Sternum and spine are both nontender. General Back: other FROM but w/ pain Extremity normal to inspection General Extremety ED: Negative for edema, pulses abnormal or tenderness General Extremity: Negative for edema or pulses abnormal Neuro oriented x3, CN's II-XII intact bilaterally and no sensory deficits noted Sensorium / Orientation: awake and alert Motor Exam: strength 5/5 throughout Skin no rashes or lesions noted and no wounds MDM MDM MDM Narrative Medical decision making narrative: X-ray showed no acute rib fractures or pneumothorax. I am not concerned about an intra-abdominal organ injury given his lack of any concerning symptoms there. No sign of pulmonary contusion on radiography. Patient is ambulatory and very little discomfort in the emergency department after [place]. Certainly not able to rule out a nondisplaced rib fracture, given appropriate discharge instructions. 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 Radiography Diagnostic Testing: Radiology Impression Ribs w/Chest X-Ray 11/28/20 16:14 IMPRESSION: RIBS: Normal x-ray examination of the ribs. CHEST: Normal x-ray examination of the chest. Electronically Signed: Real Reddy MD at 17:19 EDT , Service support , Discharge Plan Triage Chief Complaint: Chest Other Other Complaint: Abd Pain ED Provider: Ibrahima Galloway Dx/Rx/DC Orders Clinical Impression: Contusion of rib on right side Instructions: ED Rib Contusion or Minor Fracture Prescriptions: New tramadol 50 MG tablet 50 mg PO Q4H PRN PRN (Reason: Pain) 2 Days Qty: 12 RF: 0 Primary Care Provider: Care Physician,No Primary Referrals: [facility] [GROUP OF PHYSICIANS] - As Needed Care Physician,No Primary [Primary Care Provider] - Disposition Disposition: Home, Self Care
[2020-11-28] MEDS: HYDROcodone Bitartrate/Apap 5/325 Tablet PO (16:19)
[2020-11-28 18:26] VITALS: PULSE 80; RESP 14; O2SAT 99
== END 2020-11-28 18:27 | disposition home or self-care (01) ==
PROVIDERS: Emergency Provider Emergency Medicine
DX: S20.211A Contusion of right front wall of thorax, initial encounter (principal); W18.39XA Other fall on same level, initial encounter; Y93.61 Activity, american tackle football; Y92.9 Unspecified place or not applicable; Y99.8 Other external cause status
CPT/HCPCS: 71101; 99282

== ENCOUNTER 2021-07-23 08:01 | Day surgery (SDC) | payer MEDICAID, SELFPAY ==
[2021-07-23] VITALS (7 sets, daily range): BP systolic 121–129; BP diastolic 51–87; PULSE 67–84; RESP 16; TEMP 36.1–36.8; O2SAT 96–100; BMI 32.0
[2021-07-23] MEDS: Lactated Ringers 1,000 ML 15 ML IV (08:52)
[2021-07-23] MEDS: Cefazolin 2 GM in 0.9% Normal Saline 100 ML IV (09:56)
[2021-07-23] MEDS: Epinephrine (1 mg/ml) 1 MG/ML VIAL (10:04)
[2021-07-23] MEDS: Lidocaine 1% /Epi 1:100 (50ml) 50 ML VIAL (10:05)
--- NOTE | 2021-07-23 11:06 | PCM.OPRPT ---
Report of Operation Date of Procedure: 07/23/21 Pre-Operative Diagnosis: Internal derangement left knee Post-Operative Diagnosis: same Surgery/Procedure Performed:: Arthroscopically assisted partial medial meniscectomy Description of Surgical Findings:: Report of Operation Date of Procedure: 07/23/2021 Preoperative Diagnosis: Left knee, internal derangement Postoperative Diagnosis: Left knee, posterior horn medial meniscal tear Operation: Diagnostic and operative arthroscopy of the left knee with arthroscopic partial medial meniscectomy Surgeon: Dr Vern Olson DO Anesthesia: General Anesthesiologist: Roger Sylvester M.D. Description of Procedure: With appropriate informed consent, the patient was taken to the operative suite. After induction of general and regional anesthesia and administration of the preoperative antibiotics, the well leg was fitted with JONG and SCD's and well padded. The left knee was placed into the arthroscopy leg stephenson, prepped and draped sterilely. The standard arthroscopy portals were pre-injected with 0.5% Marcaine with epinephrine. A lateral portal was established. The diagnostic arthroscopy was begun. The patellofemoral joint revealed no pathology. The medial compartment was entered and the medial portal was established. A probe was utilized to probe the medial meniscus. There was a posterior horn, macerated MMT. ACL and PCL were probed and intact. The lateral compartment was entered. There was no pathology. Subsequently, a partial [medial ] meniscectomy was performed using a combination of straight and angled basket punches. The meniscotome was then utilized to remove the fragments of cartilage and then to smooth the remainder of the meniscus to a firm and stable rim. Thereafter, the arthroscopy instruments and fluid were removed. The portals were closed with interrupted sutures of 4-0 nylon followed by application of a sterile well-padded dressing and MARIO wrap. The patient was extubated and transferred to the PACU in stable and satisfactory condition. Vern Olson DO Surgeon: Vern Olson Type of Anesthesia: General Anesthesiologist: Roger Sylvester Admit VTE Documentation VTE Present on Admission: No VTE Mechan Device Prophylaxis: SCD's and Thigh High JONG Hose Reason prophylaxis not ordered:: Treatment Not Indicated
[2021-07-23] MEDS: HYDROcodone Bitartrate/Apap 5/325 Tablet PO (12:11)
== END 2021-07-23 23:59 | disposition home or self-care (01) ==
LOC: SDC 08:06 → AC 08:07
PROVIDERS: Referring Provider Orthopaedic Surgery; Visit Provider Orthopaedic Surgery
PROC: (CPT 29870; principal; 2021-07-23 09:30)
DX: S83.242A Other tear of medial meniscus, current injury, left knee, initial encounter (principal); X58.XXXA Exposure to other specified factors, initial encounter; Y93.61 Activity, american tackle football
CPT/HCPCS: 29881; 87426; J7120; J2405

== ENCOUNTER 2021-10-25 07:56 | Emergency (ER) | payer MEDICAID, SELFPAY ==
[2021-10-25 07:57] VITALS: BP 134/85; PULSE 67; RESP 16; TEMP 36.6; O2SAT 100; BMI 31.4
--- NOTE | 2021-10-25 08:03 | ED.RN ---
PRAKASH COLLINS NOT FOUND IN DIRECTORY FOR TESTING. 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
--- NOTE | 2021-10-25 08:09 | ED.VIS.LOWEX ---
HPI History of Present Illness Chief Complaint: Wound Detail of Chief Complaint: Puncture wound to left foot Informant: patient Narrative Narrative: Patient presents the emergency department complaint of a puncture wound to his left foot that occurred yesterday while at work. Patient states that he stepped backwards and stepped on a board with a michael nail in it. Patient was wearing tennis shoes and socks. Patient immediately pulled his foot off of it. Initially he did not think much of it. Patient woke up this morning with soreness in his foot with walking. Patient unsure of his last tetanus shot. [facility] Medical History (Updated 10/25/21 @ 08:[address] Ramesh Peterson DO) Anemia Anxiety Depression Former smoker Injury of head and neck Rash Seizures Shortness of breath on exertion Home Medications ciprofloxacin HCl 500 mg tablet 500 mg PO BID #20 TABLETS 10/25/21 [Rx Last Taken Unknown] Allergy/AdvReac Type Severity Reaction Status Date / Time iodine Allergy Hives Verified 10/25/21 08:00 banana AdvReac Nausea/Vom/ Verified 10/25/21 08:00 Diarrhea Surgical History (Updated 07/16/21 @ 15:00 by Re Zarco) History of foot surgery Social History Smoking Status: Former smoker ROS ROS ED Review of Systems ROS Unobtainable: other Constitutional Constitutional ED: Reports lethargy; Denies chills, fever(s), sweats or weight loss Eyes Eyes: Denies blurry vision, change in vision or diplopia ENT ENT ED: Denies rhinorrhea or sore throat Cardiovascular Cardiovascular: Denies chest pain, orthopnea or racing heartbeat Respiratory/Chest Respiratory/Chest: Reports dyspnea and dyspnea on exertion; Denies cough, orthopnea or sputum Gastrointestinal Gastrointestinal: Denies abdominal pain, diarrhea, nausea or vomiting Genitourinary Genitourinary ED: Denies dysuria, hematuria or urinary frequency Musculoskeletal Musculoskeletal: Reports other Details: Left foot puncture wound/discomfort left foot ; Denies arthralgias, back pain, myalgias or neck pain Integumentary Denies abscess, Abrasions or rash Neurologic Neurologic: Denies headache(s) or weakness Psychiatric Psychiatric: Denies anxiety, depression or suicidal thoughts Endocrine Endocrinology: Denies polydipsia, polyphagia or polyuria Hematologic/Lymphatic Hematologic/Lymphatic: Denies easy bleeding, easy bruising or lymphadenopathy Allergic/Immunologic Allergic/Immunologic ED: Denies mouth swelling, tongue swelling or urticaria EXAM Physical Exam Const Vital Signs: 10/25/21 07:57 Temperature 98 F Temperature Source Temporal Pulse Rate 67 Respiratory Rate 16 Blood Pressure 134/85 H Blood Pressure Mean 101 Pulse Ox 100 Oxygen Delivery Method Room Air Positive well nourished and well developed General Appearance ED: well developed and NAD HEENT Reports TM's clear and moist mucous membranes normocephalic and atraumatic; Negative for trauma or tenderness Tympanic Membrane ED: Yes TM's clear Eyes PERRL and EOMs intact bilaterally General Eye ED: Negative for pale conjunctiva or scleral icterus Neck no lymphadenopathy, supple and no JVD General: Negative for tenderness Chest Wall inspection of chest normal and palpation of chest normal Chest: Negative for tenderness Resp normal respiratory effort and clear to auscultation bilaterally Effort and Inspection: Negative for respiratory distress or pain with movement Auscultation: Negative for rhonchi, wheezes or diminished lung sounds Cardio regular rate, regular rhythm, S1 normal heart sound, S2 normal heart sound and no murmurs Peripheral Pulses: pulses 2+ throughout GI normal to inspection, nondistended, normoactive bowel sounds, soft to palpation, non-tender, non-distended and no masses Back/Spine no CVA tenderness and no thoracic nor lumbar tenderness Extremity Extremity Narrative: Left foot-patient has a small puncture wound noted to the plantar aspect of the midfoot. No bleeding. No foreign bodies noted within the wound. No significant erythema noted. He has some mild tenderness to palpation of the area. Neurovascular intact distally. General Extremety ED: Negative for edema General Extremity: Negative for edema Neuro oriented x3, CN's II-XII intact bilaterally, no sensory deficits noted and gait normal Sensorium / Orientation: awake, alert, oriented to person, oriented to place and oriented to time Motor Exam: strength 5/5 throughout and strength abnormal Psych mental status grossly normal Skin no rashes or lesions noted and no wounds MDM MDM MDM Narrative Medical decision making narrative: Patient had an x-ray of the foot to rule out foreign body. Given that he was wearing tennis shoes with rubber soles we started patient on Cipro to cover for Pseudomonas. Patient was given Adacel tetanus booster. Patient will be referred to corporate care for follow-up within the next 3 to 5 days. Patient advised to return if worsening pain, increased swelling, redness, fever, or condition should worsen anyway. Radiography Diagnostic Testing: Three-view x-rays left foot obtained interpreted by myself as no acute foreign bodies. Radiology in agreement. Discharge Plan Triage Chief Complaint: Wound ED Provider: Ramesh Peterson Dx/Rx/DC Orders Clinical Impression: Puncture wound of foot, left Instructions: ED Puncture Wound (Foot) Prescriptions: New ciprofloxacin HCl [ciprofloxacin HCl] 500 mg tablet 500 mg PO BID Qty: 20 0RF Primary Care Provider: Care Physician,No Primary Referrals: [facility] [GROUP OF PHYSICIANS] - 3-5 Days Care Physician,No Primary [Primary Care Provider] - Disposition Disposition: Home, Self Care
[2021-10-25] MEDS: Ciprofloxacin 500 MG Tablet PO (08:12)
[2021-10-25] MEDS: Diphth,Pertuss(Acell),Tet Vac 0.5 ML Vial IM (08:13)
--- NOTE | 2021-10-25 08:30 | RAD_ITS ---
STUDY: X-RAY - LEFT FOOT CLINICAL: Male, 20 years old. Puncture wound, ro FB TECHNIQUE: 3 view(s) of the foot. COMPARISON: Comparison is made with prior study dated 06/24/2019. FINDINGS: Normal talus, calcaneus, and tarsal bones. Normal visualized subtalar, talonavicular, calcaneocuboid, tarsal and tarsometatarsal articulations. Healed fracture at the base of the fifth metatarsal with screw fixation device. Normal metatarsophalangeal joint of the great toe. Normal tibial and fibular sesamoid bones. Normal interphalangeal joint of the great toe. Normal phalanges of the great toe. Normal second through fifth metatarsophalangeal joints. Normal interphalangeal joints and phalanges of the lesser toes. No radiopaque foreign body is seen. RAD/Foot min 3 Views IMPRESSION: Healed fracture of the base of the fifth metatarsal with screw fixation. No radiopaque foreign body is seen. Electronically Signed: Hakeem Delcid MD at 8:50 EDT ,
== END 2021-10-25 08:45 | disposition home or self-care (01) ==
PROVIDERS: Emergency Provider Emergency Medicine; Visit Provider Emergency Medicine
DX: S91.332A Puncture wound without foreign body, left foot, initial encounter (principal); W45.0XXA Nail entering through skin, initial encounter; Y99.0 Civilian activity done for income or pay; Z23 Encounter for immunization; Z87.891 Personal history of nicotine dependence
CPT/HCPCS: 73630; 90471; 90715; 99283

== ENCOUNTER 2021-11-20 10:23 | Emergency (ER) | payer MEDICAID, SELFPAY ==
[2021-11-20 10:24] VITALS: BP 145/93; PULSE 67; RESP 18; TEMP 36.6; O2SAT 100; BMI 33.1
--- NOTE | 2021-11-20 11:26 | RAD_ITS ---
STUDY: X-RAY - RIGHT SHOULDER REASON FOR EXAM: Male, 21 years old. Injury/Pain TECHNIQUE: 4 view(s) of the shoulder. COMPARISON: Comparison is made with prior study dated 03/24/2018. FINDINGS: Normal glenohumeral articulation. Normal acromioclavicular joint. Normal acromion. Normal humeral head and visualized proximal humerus. The soft tissue structures are unremarkable. Normal visualized pulmonary apex. RAD/Shoulder min 2 Views IMPRESSION: Normal x-ray examination of the shoulder. Electronically Signed: Hakeem Delcid MD at 12:02 EDT ,
--- NOTE | 2021-11-20 11:53 | CM.ED ---
SW Note Referral Source: Case Find Referral Reason: No Primary Care Physician (PCP) SW reviewed chart and noted that patient has no PCP. SW provided patient with list of [facility] and [facility] Physician List for reference. No other issues or concerns voiced at this time. SW remains available for any additional needs. Plan: Provided patient with PCP information Mariposa RODRIGUEZ
--- NOTE | 2021-11-20 12:35 | EX.ED.UPPERE ---
HPI History of Present Illness HPI Narrative: Patient presents with right shoulder pain that has been getting worse over the last 3 days. Patient states he was hit on his shoulder. Patient states this occurred while he was playing football. Patient describes the pain as sharp and aching. Patient states the pain is worse whenever he throws a football. Patient states nothing makes his pain any better. Patient does admit to some numbness and tingling in the shoulder area. Patient denies any weakness. Patient denies any other injuries. Chief Complaint: Upper Extremity Injury Informant: patient Occured/Mechanism Mechanism/Context: Yes direct blow Onset/Context/Timing Onset: Days (3) Context: Sudden Onset Timing: Continuous Quality of Pain: Sharp and Aching Location: Right shoulder Worsened by: Throwing Relieved by: Nothing Associated Symptoms Associated Symptoms: Positive for Parasthesia; Negative for Weakness or Loss of Funtion [facility] Medical History Anemia Anxiety Depression Former smoker Injury of head and neck Rash Seizures Shortness of breath on exertion Home Medications ciprofloxacin HCl 500 mg tablet 500 mg PO BID #20 TABLETS 10/25/21 [Rx Last Taken Unknown] hydrocodone-acetaminophen 5-325mg 5mg-325mg 1 tab PO Q6H PRN PRN Pain 3 days #10 TABLETS 11/20/21 [Rx Last Taken Unknown] naproxen 500 mg tablet 500 mg PO BID PRN #20 tabs 11/20/21 [Rx Last Taken Unknown] Allergy/AdvReac Type Severity Reaction Status Date / Time iodine Allergy Hives Verified 11/20/21 10:25 banana AdvReac Nausea/Vom/ Verified 11/20/21 10:25 Diarrhea Surgical History History of foot surgery Social History Smoking Status: Former smoker ROS ROS ED Constitutional Constitutional ED: Denies chills or fever(s) Eyes Eyes: Denies blurry vision or change in vision ENT ENT ED: Denies rhinorrhea or sore throat Cardiovascular Cardiovascular: Denies chest pain or palpitations Respiratory/Chest Respiratory/Chest: Denies cough or dyspnea Gastrointestinal Gastrointestinal: Denies nausea or vomiting Genitourinary Genitourinary ED: Denies dysuria or hematuria Musculoskeletal Musculoskeletal: Denies back pain or neck pain Integumentary Denies abscess or rash Neurologic Neurologic: Denies headache(s) or weakness Allergic/Immunologic Allergic/Immunologic ED: Denies mouth swelling or urticaria EXAM Physical Exam Const Vital Signs: 11/20/21 10:24 Temperature 97.8 F Temperature Source Temporal Pulse Rate 67 Respiratory Rate 18 Blood Pressure 145/93 H Blood Pressure Mean 110 Pulse Ox 100 Oxygen Delivery Method Room Air Positive well nourished and well developed General Appearance ED: well developed and NAD HEENT Reports moist mucous membranes normocephalic and atraumatic Extremity Extremity Narrative: There is diffuse tenderness over the right shoulder. There is no bony crepitance or step-off. There is no edema or ecchymosis. Range of motion was limited in all motions of the right shoulder secondary to pain. Strength is 5/5 bilaterally in the upper extremities. Sensation was intact to light touch in the radial, median, ulnar, and axillary areas. Radial pulses are equal bilaterally. Neuro oriented x3, CN's II-XII intact bilaterally, moves all extremities, no focal motor deficits and no sensory deficits noted Sensorium / Orientation: alert Motor Exam: strength 5/5 throughout Psych mental status grossly normal MDM MDM MDM Narrative Medical decision making narrative: X-rays of the right shoulder were obtained. There are 4 views. On my interpretation, there is no acute fracture. There is no dislocation. There is no soft tissue swelling. Radiologist also interpreted the x-rays and agrees. Patient was advised of his findings. Patient was given a prescription for a short course of [place]. Patient was instructed use ice to the area. Patient was given a sling for comfort. Patient was given a note for work. Patient was instructed to follow-up with his primary care physician in 5 to 7 days. Patient understood and was agreeable with the plan. All questions were answered. Radiography Diagnostic Testing: Clinical Impression(s) from Imaging Studies Shoulder X-Ray 11/20/21 11:26 IMPRESSION: Normal x-ray examination of the shoulder. Electronically Signed: Hakeem Delcid MD at 12:02 EDT , Discharge Plan Triage Chief Complaint: Upper Extremity Injury ED Provider: Rufus Larson Dx/Rx/DC Orders Clinical Impression: Right shoulder strain Instructions: ED Shoulder Sprain Prescriptions: New hydrocodone-acetaminophen [hydrocodone-acetaminophen] 5-325 mg tablet 1 tab PO Q6H PRN PRN (Reason: Pain) 3 Days Qty: 10 0RF naproxen 500 mg tablet 500 mg PO BID PRN Qty: 20 0RF No Action ciprofloxacin HCl [ciprofloxacin HCl] 500 mg tablet 500 mg PO BID Qty: 20 0RF Stand Alone Forms: Work Status Form Primary Care Provider: Care Physician,No Primary Referrals: Rashid Avila MD [NON-STAFF] - 5-7 Days Care Physician,No Primary [Primary Care Provider] - Disposition Disposition: Home, Self Care
== END 2021-11-20 12:53 | disposition home or self-care (01) ==
PROVIDERS: Emergency Provider Emergency Medicine; Visit Provider Emergency Medicine
DX: S46.911A Strain of unspecified muscle, fascia and tendon at shoulder and upper arm level, right arm, initial encounter (principal); W22.8XXA Striking against or struck by other objects, initial encounter; Y93.61 Activity, american tackle football; Z87.891 Personal history of nicotine dependence
CPT/HCPCS: 73030; 99283

== ENCOUNTER 2021-12-05 16:04 | Emergency (ER) | payer MEDICAID, SELFPAY ==
[2021-12-05 16:05] VITALS: BP 142/85; PULSE 96; RESP 14; TEMP 36.9; O2SAT 99; BMI 32.8
--- NOTE | 2021-12-05 16:27 | RAD_ITS ---
STUDY: X-RAY - RIGHT HAND REASON FOR EXAM: Male, 21 years old. trauma TECHNIQUE: 3 view(s) of the hand. COMPARISON: None. FINDINGS: Normal radiocarpal articulation. Normal distal radioulnar joint. Normal visualized carpal bones. Normal carpal articulations Normal carpometacarpal articulation of the thumb. Normal second through fifth carpometacarpal joints. Normal metacarpi. Normal metacarpophalangeal joint of the thumb. Normal interphalangeal joint of the thumb. Normal proximal and distal phalanges of the thumb. Normal metacarpophalangeal joints of the second through fifth fingers. Normal proximal and distal interphalangeal joints of the second through fifth fingers. Normal phalanges of the second through fifth fingers. The soft tissue structures are unremarkable. RAD/Hand Min 3 Views IMPRESSION: Normal x-ray examination of the hand. Electronically Signed: Vj Ramirez MD at 16:47 EDT ,
--- NOTE | 2021-12-05 16:54 | EX.ED.UPPERE ---
HPI History of Present Illness Chief Complaint: Upper Extremity Injury Informant: patient Narrative Narrative: Patient was playing with his young son last night. He jumped back and his right hand hit back against a wall. He is right-hand dominant. He has discomfort in the dorsum of the right hand really overlying the third through fifth metacarpal area. No other injury. Pressing makes it worse rest makes it better. PFSH PFSH Medical History Anemia Anxiety Depression Former smoker Injury of head and neck Rash Seizures Shortness of breath on exertion Allergy/AdvReac Type Severity Reaction Status Date / Time iodine Allergy Hives Verified 12/05/21 16:05 banana AdvReac Nausea/Vom/ Verified 12/05/21 16:05 Diarrhea Surgical History History of foot surgery Social History Smoking Status: Former smoker EXAM Physical Exam Const Vital Signs: 12/05/21 16:05 Temperature 98.4 F Temperature Source Temporal Pulse Rate 96 Respiratory Rate 14 Blood Pressure 142/85 H Blood Pressure Mean 104 Pulse Ox 99 Oxygen Delivery Method Room Air Positive well nourished and well developed General Appearance ED: well developed HEENT atraumatic Resp normal respiratory effort Extremity full ROM Extremity Narrative: There may be just a hint of dorsal swelling in the right hand. There is some local tenderness overlying the fourth and fifth metatarsal area. No wrist scaphoid or other tenderness. No tenderness in the fingers. No rotational or angular deformity noted. Capillary refill sensation is normal. Neuro no focal motor deficits and no sensory deficits noted Psych mental status grossly normal Skin General Skin Exam: Negative for petechiae Lesions: no lesions Rashes: no rashes MDM MDM MDM Narrative Medical decision making narrative: 4 view x-ray of the hand on right side looked at by me and read by radiology shows no acute process. There is an ulnar styloid fracture but this looks to be old and well calcified. Ice rest should be appropriate for this. Radiography Diagnostic Testing: Clinical Impression(s) from Imaging Studies Hand X-Ray 12/05/21 16:27 IMPRESSION: Normal x-ray examination of the hand. Electronically Signed: Vj Ramirez MD at 16:47 EDT , Discharge Plan Triage Chief Complaint: Upper Extremity Injury ED Provider: Arnaldo Mello Dx/Rx/DC Orders Clinical Impression: Contusion of hand, right Instructions: ED Hand Contusion Primary Care Provider: Care Physician,No Primary Referrals: Chandrakant Sandhu MD [Med Staff - Active Staff] - 1 Week if not improving Care Physician,No Primary [Primary Care Provider] - Disposition Disposition: Home, Self Care
[2021-12-05 17:08] VITALS: BP 124/77; PULSE 62; RESP 15; O2SAT 98
== END 2021-12-05 17:09 | disposition home or self-care (01) ==
PROVIDERS: Emergency Provider Emergency Medicine; Visit Provider Emergency Medicine
DX: S60.221A Contusion of right hand, initial encounter (principal); W22.01XA Walked into wall, initial encounter; Y93.89 Activity, other specified; Y99.8 Other external cause status; Z87.891 Personal history of nicotine dependence
CPT/HCPCS: 73130; 99281

== ENCOUNTER 2021-12-08 20:04 | Emergency (ER) | payer MEDICAID, SELFPAY ==
[2021-12-08 20:04] VITALS: BP 122/82; PULSE 78; RESP 16; TEMP 37; O2SAT 96; BMI 32.3
--- NOTE | 2021-12-08 21:38 | EX.ED.DYSGE1 ---
HPI History of Present Illness Chief Complaint: Headache Informant: patient Narrative Narrative: Patient complains that there is a small bump on the front right side of his head that is been there for for 5 years. His grandmother learned about it today and said he has to go to the emergency department because that could be a tumor or a cyst. There has been no change in this in years. It does not really hurt. If he presses on it a lot it bothers him. He is not having headaches nausea vomiting or weight loss. No fevers. Nothing specific brought him today other than his grandmother recommending he come in today. [facility] Medical History Anemia Anxiety Depression Former smoker Injury of head and neck Rash Seizures Shortness of breath on exertion Home Medications NK 12/08/21 [History Last Taken Unknown] Allergy/AdvReac Type Severity Reaction Status Date / Time iodine Allergy Hives Verified 12/08/21 20:07 banana AdvReac Nausea/Vom/ Verified 12/08/21 20:07 Diarrhea Surgical History History of foot surgery Social History Smoking Status: Former smoker ROS ROS ED Constitutional Constitutional ED: Denies chills or fever(s) Eyes Eyes: Denies blurry vision, change in vision or diplopia ENT ENT ED: Reports other Details: See history of present illness ; Denies ear pain, rhinorrhea or sore throat Gastrointestinal Gastrointestinal: Denies nausea or vomiting Musculoskeletal Musculoskeletal: Denies arthralgias or myalgias Integumentary Reports other Details: See history of present illness. No drainage or change in size of spot. Neurologic Neurologic: Denies headache(s) Hematologic/Lymphatic Hematologic/Lymphatic: Denies easy bleeding or easy bruising Allergic/Immunologic Allergic/Immunologic ED: Denies urticaria EXAM Physical Exam Const Vital Signs: 12/08/21 20:04 Temperature 98.6 F Temperature Source Temporal Pulse Rate 78 Respiratory Rate 16 Blood Pressure 122/82 H Blood Pressure Mean 95 Pulse Ox 96 Oxygen Delivery Method Room Air Positive well nourished and well developed General Appearance ED: well developed and NAD HEENT HEENT Narrative: In the front right side of his head there is an area that is missing a little bit of hair. There may be a small epidermal inclusion cyst type structure in that area. It is not red. It is not tender. It is not fluctuant. It does not need drainage or acute treatment Eyes EOMs intact bilaterally General Eye ED: Negative for scleral icterus Neck no lymphadenopathy and supple Neuro oriented x3 Neuro Narrative: Normal gait balance and coordination. Psych mental status grossly normal Skin Skin Narrative: See above description MDM MDM MDM Narrative Medical decision making narrative: Patient had a very small bump on his head. This is about 1/2 cm round. It has been unchanged for 4 or 5 years. This is appropriate for outpatient therapy. This needs no treatment at this time. He will be referred to dermatology. Discharge Plan Triage Chief Complaint: Headache ED Provider: Arnaldo Mello Dx/Rx/DC Orders Clinical Impression: Lesion of skin of scalp Instructions: ED Epidermoid Cyst, No Infection Prescriptions: No Action NK Primary Care Provider: Care Physician,No Primary Referrals: Bakari Pizarro MD [Med Staff - Seasonal Tax Preparer] - As Needed (Call Friday for an appointment when able to get in) Care Physician,No Primary [Primary Care Provider] - Disposition Disposition: Home, Self Care
[2021-12-08 22:01] VITALS: BP 120/76; PULSE 79; RESP 18; O2SAT 100
== END 2021-12-08 22:02 | disposition home or self-care (01) ==
PROVIDERS: Emergency Provider Emergency Medicine; Visit Provider Emergency Medicine
DX: L98.9 Disorder of the skin and subcutaneous tissue, unspecified (principal); Z87.891 Personal history of nicotine dependence
CPT/HCPCS: 99281

== ENCOUNTER 2023-03-12 12:45 | Emergency (ER) | payer MEDICAID, SELFPAY ==
[2023-03-12 12:46] VITALS: BP 141/103; PULSE 97; RESP 16; TEMP 36.2; O2SAT 99; BMI 29.1
--- NOTE | 2023-03-12 13:16 | EX.ED.UPPERE ---
HPI History of Present Illness Chief Complaint: Laceration Informant: patient Narrative Narrative: Ambidextrous male presents with laceration left hand prior to arrival. Open of car door handle that had broken plastic he pulled on it cut his hand. Bleeding controlled. Tetanus 2 years ago. No anticoagulation medicines. History of sutures in the past. [facility] Medical History Anemia Anxiety Depression Former smoker Injury of head and neck Rash Seizures Shortness of breath on exertion Home Medications NK 12/08/21 [History Last Taken Unknown] Allergy/AdvReac Type Severity Reaction Status Date / Time iodine Allergy Hives Verified 03/12/23 12:47 banana AdvReac Nausea/Vom/ Verified 03/12/23 12:47 Diarrhea Surgical History History of foot surgery Social History Smoking Status: Current every day smoker tobacco type: e-cigarettes ROS ROS ED Constitutional Constitutional ED: Denies chills, fever(s) or sweats Eyes Eyes: Denies change in vision ENT ENT ED: Denies dysphagia or sore throat Cardiovascular Cardiovascular: Denies chest pain, leg edema, palpitations or racing heartbeat Respiratory/Chest Respiratory/Chest: Denies cough, dyspnea or dyspnea on exertion Gastrointestinal Gastrointestinal: Denies abdominal pain, diarrhea, nausea or vomiting Genitourinary Genitourinary ED: Denies dysuria, hematuria or urinary frequency Musculoskeletal Musculoskeletal: Denies back pain, extremity pain or neck pain Integumentary Reports wounds; Denies rash Neurologic Neurologic: Denies headache(s), paresthesias or weakness EXAM Physical Exam Const Vital Signs: 03/12/23 12:46 Temperature 97.2 F L Temperature Source Temporal Pulse Rate 97 Respiratory Rate 16 Blood Pressure 141/103 H Blood Pressure Mean 115 Pulse Ox 99 Oxygen Delivery Method Room Air Positive well nourished and well developed General Appearance ED: well developed and NAD HEENT Reports moist mucous membranes normocephalic and atraumatic Eyes PERRL, EOMs intact bilaterally and conjunctivae normal General Eye ED: Yes normal appearance of both eyes Neck no lymphadenopathy and supple General: Negative for tenderness Chest Wall Chest: Negative for tenderness Resp normal respiratory effort and normal air movement Effort and Inspection: symmetric chest movement; Negative for respiratory distress Cardio regular rate, regular rhythm and no murmurs Peripheral Pulses: pulses 2+ throughout GI normal to inspection, nondistended, normoactive bowel sounds and non-tender Palpation: Negative for guarding or rebound tenderness present Back/Spine no CVA tenderness and no thoracic nor lumbar tenderness Extremity Extremity Narrative: Left upper extremity: Hand examination. First webspace between thumb and index 1 cm laceration right the middle of the web, no subcu to exposure. There is dried blood around the area, there is no active bleeding. Full range of motion of the digits without paresthesias. General Extremety ED: Negative for edema or tenderness General Extremity: Negative for edema Neuro oriented x3 and no sensory deficits noted Sensorium / Orientation: awake and alert Skin Skin Narrative: See above MDM MDM MDM Narrative Medical decision making narrative: Interventions / MDM: Differential diagnosis: Left hand laceration Diagnosis considered but do not suspect: No clinical tendon injury My EKG interpretation: N/A Imaging independently reviewed and interpreted by myself: N/A External documents reviewed: N/A Test considered but not ordered:N/A ED course: Patient laceration is superficial injury dried blood however in a high tension area at the webspace. Area was cleansed and 2 sutures were placed. Discussed refraining from heavy lifting and allow this to heal. Wound care discussed. Outpatient follow-up given. All questions answered. Procedure note: Verbal consent. Normal sterile conditions. Skin areas prepped normal sterile fashion. 2 cc 1% lidocaine used for local analgesia. wound cleansed with normal saline. Total of 2, 5-0 simple interrupted nylon sutures were placed with good approximation. Bacitracin placed myself, dressing placed by myself. Patient tolerated procedure well. Re-evaluation: stable Disposition discussed with patient/family/significant other: Patient Case discussed with consulting clinician: N/A This note was generated with [employer] dictation software. It may contain incorrect words, spelling, and punctuation that were not noted in checking the note before signing. Discharge Plan Triage Chief Complaint: Laceration ED Provider: Max Krueger Dx/Rx/DC Orders Clinical Impression: Injury of hand, left, Laceration of hand, left Instructions: ED Laceration, Hand: All Closures Prescriptions: No Action NK Stand Alone Forms: ED Work / School Excuse Primary Care Provider: Care Physician,No Primary Referrals: Linda Vee MD [Med Staff - [employer] Manager] - 10-14 Days suture removal Care Physician,No Primary [Primary Care Provider] - Activity Restrictions/Additional Instructions: 2 sutures placed to your left hand. No heavy lifting with left hand avoid dehiscence. Wound care as discussed. Sutures to stay 10 to 14 days before removal. Call for follow-up as given for you. Disposition Disposition: Home, Self Care Discharge Date/Time: 03/12/23 14:10
[2023-03-12] MEDS: Lidocaine 1% (20 ml mdv) 20 ML Vial INFILT (13:21)
== END 2023-03-12 14:10 | disposition home or self-care (01) ==
PROVIDERS: Emergency Provider Emergency Medicine; Visit Provider Emergency Medicine
DX: S61.412A Laceration without foreign body of left hand, initial encounter (principal); F17.290 Nicotine dependence, other tobacco product, uncomplicated; X58.XXXA Exposure to other specified factors, initial encounter
CPT/HCPCS: 12001; 99283

== ENCOUNTER 2023-10-24 19:56 | Emergency (ER) | payer MEDICAID, SELFPAY ==
[2023-10-24 19:57] VITALS: BP 142/90; PULSE 96; RESP 16; TEMP 37.2; O2SAT 97; BMI 30.9
--- NOTE | 2023-10-24 20:07 | EDS_ITS ---
HPI History of Present Illness Chief Complaint: Ear Problem Detail of Chief Complaint: Decreased hearing, right ear pain and wooziness Informant: patient Onset/Context/Timing Onset: Yesterday Context: Sudden Onset Timing: Continuous and Waxes and wanes Quality: Pain Location: Right ear Current Severity: Mild Maximum Severity: Severe Worsened by: Lying on his right side Relieved by: Nothing Associated Symptoms Associated Symptoms: Movement/motion Narrative Narrative: Patient is 22-year-old male. Patient's symptoms started after he used a Q-tip. He had decreased hearing. He also complains of ear pain. Complains of wooziness or his balance being off. He denies double vision blurred vision loss of vision. He does report mild nasal congestion. Eyes postnasal drainage. No sore throat. [place] cough. No shortness of breath. [place] fever or chills. He denies dental pain. Prior similar symptoms: No Recent Illness/Hospitalization: No PFSH PFSH Medical History Depression Anxiety Rash Anemia Injury of head and neck Seizures Former smoker Shortness of breath on exertion Home Medications ?Medication ?Instructions ?Recorded ?Last Taken ?Type NK 12/08/21 Unknown History Allergy/AdvReac Type Severity Reaction Status Date / Time iodine Allergy Hives Verified 10/24/23 19:59 banana AdvReac Nausea/Vom/ Verified 10/24/23 19:59 Diarrhea Surgical History History of foot surgery Social History Smoking Status: Current every day smoker tobacco type: e-cigarettes ROS ROS ED Constitutional Constitutional ED: Denies chills, fever(s), subjective, sweats or weight loss Eyes Eyes: Denies blurry vision, change in vision or diplopia ENT ENT ED: Reports ear pain right; Denies rhinorrhea or sore throat Cardiovascular Cardiovascular: Denies chest pain Respiratory/Chest Respiratory/Chest: Denies cough, dyspnea or dyspnea on exertion Gastrointestinal Gastrointestinal: Denies nausea or vomiting Musculoskeletal Musculoskeletal: Denies neck pain Neurologic Neurologic: Denies headache(s) or paresthesias Allergic/Immunologic Allergic/Immunologic ED: Denies mouth swelling, tongue swelling or urticaria EXAM Physical Exam Const Vital Signs: 10/24/23 19:57 Temperature 99.0 F Temperature Source Oral Pulse Rate 96 Respiratory Rate 16 Blood Pressure 142/90 H Blood Pressure Mean 107 Pulse Ox 97 Oxygen Delivery Method Room Air Positive well nourished and well developed General Appearance ED: well developed and NAD; Negative for pallor HEENT Reports moist mucous membranes HEENT Narrative: Ears are normal. Patient complains of pain with pulling on the right auricle portion of the right tragus. External auditory canal on the right is remarkable for cerumen impaction. There is mild amount of wax noted in the left external canal. TM on the left is normal. There is no discomfort or pulling on the auricle portion of the tragus. There is no TMJ tenderness. Posterior pharynx is normal. Uvula is midline. There is no deviation with protrusion. Eyes PERRL and EOMs intact bilaterally General Eye ED: Negative for pale conjunctiva or scleral icterus Neck no lymphadenopathy, supple and no JVD Resp normal respiratory effort Cardio regular rate and regular rhythm Neuro oriented x3 and CN's II-XII intact bilaterally Sensorium / Orientation: alert Psych mental status grossly normal Skin no rashes or lesions noted, no wounds and skin turgor normal General Skin Exam: Negative for jaundice or pallor MDM MDM MDM Narrative Medical decision making narrative: Patient has symptoms consistent with peripheral positional vertigo due to cerumen impaction. Will instill/place Debrox right side and then irrigate. Will reassess patient after treatments. This would explain all of his symptoms. Treatment and Re-Evaluation :: Nurse did Debrox. She was unsuccessful in removing the cerumen. Patient's ear was irrigated multiple times by me. The cerumen has been removed. Able to see the TM. There is significant irritation of the external auditory canal. Will prescribe Cortisporin otic drops. Discharge Plan Triage Chief Complaint: Ear Problem ED Provider: Ramez Partida Dx/Rx/DC Orders Clinical Impression: Hearing loss of right ear due to cerumen impaction, Otitis externa of right ear Instructions: ED External Ear Infection (Adult), ED Earwax Removal Prescriptions: No Action NK Primary Care Provider: Care Physician,No Primary Referrals: Care Physician,No Primary [Primary Care Provider] - Doctor,Your [Non-Staff] - 3-5 Days if not improving Activity Restrictions/Additional Instructions: Instill 4 drops of Cortisporin suspension right ear 4 times a day for the next 5 to 7 days Do not use Q-tips in an attempt to clean your ears. There is a product you can buy from the pharmacy to help clean your ear canals. The name of your doctor is located on your insurance card issued to you by [facility] Print Language: [place]an Disposition Disposition: Home, Self Care
[2023-10-24] MEDS: Carbamide Peroxide 15 ML Bottle 5 DRP OTIC (20:19)
[2023-10-25 00:40] VITALS: BP 125/70; PULSE 88; RESP 16; TEMP 36.6; O2SAT 99
== END 2023-10-25 00:42 | disposition home or self-care (01) ==
PROVIDERS: Emergency Provider Emergency Medicine; Visit Provider Emergency Medicine
DX: H61.21 Impacted cerumen, right ear (principal); H60.501 Unspecified acute noninfective otitis externa, right ear; F17.290 Nicotine dependence, other tobacco product, uncomplicated
CPT/HCPCS: 99282

== ENCOUNTER 2024-01-25 22:25 | Emergency (ER) | payer MEDICAID, SELFPAY ==
[2024-01-25 22:25] VITALS: BP 139/88; PULSE 77; RESP 16; TEMP 36.6; O2SAT 98; BMI 33.4
--- NOTE | 2024-01-25 22:38 | EX.ED.GENINJ ---
HPI History of Present Illness Chief Complaint: Other, Pain/Inj Informant: patient Onset/Context/Timing Onset: Today and Hours Mechanism/Context: Blunt Injury Current Severity: Mild Maximum Severity: Mild Narrative Narrative: Healthy 23-year-old male was playing with a little boy when the little boy accidentally moved his head quickly and hit the patient in the nose. No LOC. No vomiting. No bleeding. He is not on any blood thinners. Denies any other acute complaints. Prior similar symptoms: No Recent Illness/Hospitalization: No PFSH PFSH Medical History Depression Anxiety Rash Anemia Injury of head and neck Seizures Former smoker Shortness of breath on exertion Home Medications ?Medication ?Instructions ?Recorded ?Last Taken ?Type NK 12/08/21 Unknown History Allergy/AdvReac Type Severity Reaction Status Date / Time iodine Allergy Hives Verified 01/25/24 22:27 banana AdvReac Nausea/Vom/ Verified 01/25/24 22:27 Diarrhea Surgical History History of foot surgery Social History Smoking Status: Current every day smoker tobacco type: e-cigarettes ROS ROS ED ROS Narrative Denies recent illness. Constitutional Constitutional ED: Denies chills or fever(s) Eyes Eyes: Denies blurry vision ENT ENT ED: Denies ear pain Cardiovascular Cardiovascular: Denies chest pain Respiratory/Chest Respiratory/Chest: Denies cough Gastrointestinal Gastrointestinal: Denies abdominal pain Genitourinary Genitourinary ED: Denies dysuria Musculoskeletal Musculoskeletal: Denies arthralgias Integumentary Denies abscess Neurologic Neurologic: Denies headache(s) Psychiatric Psychiatric: Denies anxiety Endocrine Endocrinology: Denies cold intolerance Hematologic/Lymphatic Hematologic/Lymphatic: Denies easy bleeding Allergic/Immunologic Allergic/Immunologic ED: Denies mouth swelling EXAM Physical Exam Narrative Exam Narrative: Well-appearing 23-year-old male. Vital signs stable afebrile. H EENT exam pupils round react to light. Minimal tenderness of the proximal nasal bridge. No deformity. No laceration. No significant swelling. There is no blood in his nares or active bleeding. No blood in his posterior pharynx. TMs are normal bilaterally. Scalp and the rest of his face there is no tenderness or bruising or swelling. Neck nontender full range of motion. Lungs clear. Heart regular rate and rhythm. Otherwise exam normal. Neurologic exam normal. GCS 15. NIH 0. He ambulates without any difficulty. Const Vital Signs: 01/25/24 22:25 Temperature 98 F Temperature Source Oral Pulse Rate 77 Respiratory Rate 16 Blood Pressure 139/88 H Blood Pressure Mean 105 Pulse Ox 98 Oxygen Delivery Method Room Air Positive well nourished and well developed; Negative for cachectic, contractures or unkempt General Appearance ED: well developed; Negative for unkempt, cachectic or contractures Nutritional Appearance: Negative for cachectic HEENT Reports TM's clear HEENT Narrative: Minimal nasal bridge tenderness. No bony deformity or swelling. trauma and tenderness; Negative for atraumatic Tympanic Membrane ED: Yes TM's clear Eyes PERRL and EOMs intact bilaterally Neck full ROM General: Negative for tenderness Chest Wall inspection of chest normal and palpation of chest normal Resp normal respiratory effort and clear to auscultation bilaterally Cardio regular rhythm, S1 normal heart sound, S2 normal heart sound and no murmurs GI normal to inspection, nondistended, normoactive bowel sounds, non-tender, non-distended and no masses Back/Spine normal to inspection and no thoracic nor lumbar tenderness Extremity normal to inspection and full ROM Neuro oriented x3, CN's II-XII intact bilaterally, moves all extremities, no focal motor deficits, no sensory deficits noted and gait normal An Coma Scale: document GCS findings Spontaneous Obeys Commands Oriented 15 Sensorium / Orientation: alert Motor Exam: strength 5/5 throughout Psych mental status grossly normal and thought process normal Appearance: Negative for unkempt Skin no rashes or lesions noted, no wounds, skin turgor normal and no jaundice MDM MDM MDM Narrative Medical decision making narrative: 23-year-old male with minor head injury earlier today. No LOC. No blood thinners. Normal neurologic exam. He does not need any imaging. There is no signs of any bony deformity, significant swelling or significant tenderness. He does not need any facial bone imaging. Ice to the area. Tylenol Motrin for pain. Follow-up as needed. Discharge Plan Triage Chief Complaint: Other, Pain/Inj ED Provider: Pedro Goodman Dx/Rx/DC Orders Clinical Impression: Closed head injury, Facial contusion Instructions: ED Facial Contusion Prescriptions: No Action NK Primary Care Provider: Care Physician,No Primary Referrals: Jostin Degroot MD [Med Staff - Binder [employer] Wrapper Packer] - As Needed Care Physician,No Primary [Primary Care Provider] - Activity Restrictions/Additional Instructions: Ice to your face. To decrease pain and swelling. Alternate Tylenol for pain and Motrin for pain and swelling. Follow-up as needed. Print Language: [place]an Disposition Disposition: Home, Self Care
== END 2024-01-25 22:50 | disposition home or self-care (01) ==
LOC: ED 22:42
PROVIDERS: Emergency Provider Emergency Medicine; Visit Provider Emergency Medicine
DX: S00.83XA Contusion of other part of head, initial encounter (principal); F17.290 Nicotine dependence, other tobacco product, uncomplicated; X58.XXXA Exposure to other specified factors, initial encounter
CPT/HCPCS: 99282

== ENCOUNTER 2024-02-03 23:18 | Emergency (ER) | payer MEDICAID, SELFPAY ==
[2024-02-03 23:20] VITALS: BP 129/109; PULSE 67; RESP 18; TEMP 35.9; O2SAT 99; BMI 32.1
--- OUTSIDE RECORDS SUMMARY | 2024-02-04 00:09 | XMS RPT_ITS | CCD ---
Author Organization [facility] Care Team Providers Care Relish Blender Name Role Phone [facility] Ad[facility] Unava ilable [facility] Attending Unava ilable [facility] Primary Care Unava ilable [facility] Attending Unava ilable [facility] Primary Care Unava ilable [facility] Admitting Unava DR DODIE Khoury MD Primary Care Physician [phone] Unavailable Primary Care Provider UnavailAysha Sanders MD Primary Care Provider Aysha Dolan MD Primary Care Provider Aysha Dolan MD Primary Care Provider DR DODIE JOHNSON MD Primary Care Physician DR DODIE JOHNSON MD Primary Care Unavailab MARSHA Watkins DO Attending Unavailable Unavailable Primary Care Provider Unavailabl e Unavailable Primary Care Provider Unavailabl STONEY Grover Referring Unavailable Tomas Wheeler (Hist) Primary Care Provider Un available Allergies Allergy Classification Reported Allergen(s) Allergy Type Date of Onset Reaction(s) Facility (3 sources) Bananas Food allergy [facility] (3 sources) Povidone-Iodine; Translations: [povidone iodine topical] Drug Allergy [facility] Comment on above: Hives (20 sources) Iodine; Translations: [IODINE] Drug Allergy 01-26-2021 Rash [facility] (12 sources) Banana Extract; Translations: [BANANA] Drug Allergy 11-28-2020 Other: See Comments [facility] Medications Current Medications Medication Drug Class(es) Dates Sig (Normalized) Sig (Original) amoxicillin 875 mg / clavulanate 125 mg oral tablet (1 source) Penicillin-class Antibacterial Start: 12-11-2023 End: 12-18-2023 take 1 tablet by mouth twice daily amoxicillin-clavu lanate potassium (AUGMENTIN) 875-125 mg per tablet Take 1 tablet by mouth two times a day for 7 days. 14 tablet 12/11/2023 12/18/2023 Active benzonatate 100 mg oral capsule (2 sources) Non-narcotic Antitussive Start: 12-10-2023 End: 12-25-2023 take 1 capsule by mouth every eight hours as needed for cough benzonatate (TESSALON PERLE) 100 mg capsule Indications: URI, acute Take 1 capsule by mouth every 8 hours as needed for cough for up to 15 days. 30 capsule 12/10/2023 12/25/2023 Active doxycycline monohydrate 100 mg oral capsule (4 sources) Tetracycline-class Drug Start: 06-25-2023 End: 07-02-2023 take 1 capsule by mouth twice daily doxycycline monohydrate (MONODOX) 100 mg capsule Take 1 capsule by mouth two times a day for 7 days. 14 capsule 0 06/25/2023 07/02/2023 Active Start: 03-25-2023 End: 04-01-2023 take 1 tablet by mouth twice daily doxycycline monohydrate 100 mg tablet Indications: Skin infection Take 1 tablet by mouth two times a day for 7 days. 14 tablet 0 03/25/2023 04/01/2023 Active Comment on above: Take 1 tablet by frankie two times a day for 7 days. Take 1 capsule by mo [facility] two times a day for 7 days. Completed/Discontinued Medications Medication Drug Class(es) Dates Sig (Normalized) Sig (Original) polyethylene glycol 3350 42645 mg powder for oral solution (20 sources) Osmotic Laxative Start: 05-15-2021 End: 12-10-2023 polyethylene glycol 3350 (MIRALAX) 17 gram packet Take 1 Packet by mouth once daily. Dissolve dose in 4 - 8 ounces of liquid and take as directed. 14 Each 05/15/2021 12/10/2023 Discontinued Comment on above: Take 1 Packet by frankie th once daily. Dissolve dose in 4 - 8 ounces of liquid and take as directed. predniSONE 10 mg oral tablet (10 sources) Start: 09-13-2022 End: 12-10-2023 predniSONE (DELTASONE) 10 mg tablet Take 4 tabs daily for 3 days, then 2 tabs daily for 3 days, then 1 tab daily for 3 days with food. 21 tablet 09/13/2022 12/10/2023 Discontinued Comment on above: Take 4 tabs daily fo r 3 days, then 2 tabs daily for 3 days, then 1 tab daily for 3 days with food. Problems Active Problems Problem Classification Problem Date Documented Da te Episodic/Chronic Abdominal pain (1 source) Generalized abdominal pain; Translations: [Generalized abdominal pain] 05-15-2021 Episodic Genitourinary symptoms and ill-defined conditions (1 source) Scalding pain on urination ; Translations: [Dysuria] Episodic Other aftercare (1 source) Removal of sutures done; Translations: [Encounter for removal of sutures] 03-25-2023 Episodic Other bone disease and musculoskeletal deformities (1 source) Tietze's disease; Translations: [Chondrocostal junction syndrome [Tietze]] Onset: 09-16-2022 Episodic Other gastrointestinal disorders (1 source) Acute constipation; Translations: [Constipation, unspecified] 05-15-2021 Episodic Other injuries and conditions due to external causes (1 source) Injury of lower leg; Translations: [Unspecified injury of unspecified lower leg, initial encounter] Onset: 02-25-2021 Episodic Other non-traumatic joint disorders (1 source) Pain in right knee; Translations: [Other acute pain] Episodic Other skin disorders (1 source) Disorder of skin; Translations: [Disorder of the skin and subcutaneous tissue, unspecified] Onset: 11-29-2022 Episodic Other upper respiratory infections (1 source) Bacterial sinusitis; Translations: [Chronic sinusitis, unspecified] 12-11-2023 Chronic Other upper respiratory infections (7 sources) Pharyngitis; Translations: [Acute pharyngitis, unspecified] Episodic Skin and subcutaneous tissue infections (1 source) Infection of skin; Translations: [Local infection of the skin and subcutaneous tissue, unspecified] 03-25-2023 Episodic Spondylosis; intervertebral disc disorders; other back problems (1 source) Low back pain; Translations: [Right-sided low back pain without sciatica, unspecified chronicity] 02-03-2023 Episodic Viral infection (2 sources) Viral disease; Translations: [Viral infection, unspecified] Episodic Past or Other Problems Problem Classification Problem Date Documented Da te Episodic/Chronic Immunizations and screening for infectious disease (7 sources) Contact with or exposure to other viral diseases; Translations: [Close exposure to COVID-19 virus] Onset: 03-25-2023 Episodic Results Test Name Value Interpretation Reference Range Jonh Morton 12-11-2023 CNOV Office Visit ([facility]WSTR) SEKOU RUTH ([id number]) 2000 M Date Time Provider Department 12/11/23 11:00 AM NURIS SANCHEZ [facility] During your visit today, we recorded the following information about you: Temperature Pulse Respiration Blood pressure 98.5 degrees 107/minute 21/minute 112/78 Weight 104 kg Nuris Sanchez PA 12/11/2023 11:22 AM Signed This note was created using NoteWriter. Subjective Sekou Ruth is a 23 year old male. HPI 23-year-old male presents for sinus congestion, sore throat, cough for about 8 or 9 days. Patient was seen here yesterday and had COVID/flu/RSV and strep swabs which were negative. Patient states that today symptoms are worse. He is having worsening nasal congestion, sinus pressure, sinus pain, cough. He was wheezing yesterday. No chest pain or shortness of breath. States he has a history of asthma as a child, does not use inhalers regularly. He was given Tessalon Perles yesterday for his cough which helped slightly. Patient denies any vomiting or diarrhea. His kids were recently sick as well. No other complaint. No past medical history on file. No past surgical history on file. ALLERGIES Banana and Iodine MEDICATIONS benzonatate (TESSALON PERLE) 100 mg capsule Take 1 capsule by mouth every 8 hours as needed for cough for up to 15 days. amoxicillin-clavulan ate potassium (AUGMENTIN) 875-125 mg per tablet Take 1 tablet by mouth two times a day for 7 days. No family history on file. Social History Tobacco Use Smoking status: Never Passive exposure: Yes Smokeless tobacco: Current Tobacco comments: mom smokes outside of home, vape Substance Use Topics Alcohol use: No Drug use: Never Review of Systems Constitutional: Positive for fever (Last week, resolved). Negative for chills. HENT: Positive for congestion, sinus pressure, sinus pain and sore throat. Respiratory: Positive for cough and wheezing. Negative for shortness of breath. Gastrointestinal: Negative for diarrhea and vomiting. Objective BP 112/78 Pulse 107 Temp 36.9 ?C (98.5 ?F) Resp 21 Wt 104 kg (229 lb 4.5 oz) SpO2 97% Physical Exam Vitals and nursing note reviewed. Constitutional: General: He is not in acute distress. Appearance: Normal appearance. He is not toxic-appearing. HENT: Right Ear: Tympanic membrane and ear canal normal. Left Ear: Tympanic membrane and ear canal normal. Nose: Mucosal edema and congestion present. Right Sinus: Maxillary sinus tenderness and frontal sinus tenderness present. Left Sinus: Maxillary sinus tenderness and frontal sinus tenderness present. Mouth/Throat: Mouth: Mucous membranes are moist. Eyes: Conjunctiva/sclera: Conjunctivae normal. Cardiovascular: Rate and Rhythm: Normal rate and regular rhythm. Pulmonary: Effort: Pulmonary effort is normal. Breath sounds: Normal breath sounds. No wheezing, rhonchi or rales. Skin: General: Skin is warm and dry. Neurological: Mental Status: He is alert. Assessment and Plan ASSESSMENT/PLAN: 1. Bacterial sinusitis - ICD9: 473.9, 041.9, ICD10: J32.9, B96.89 -Symptoms x 8 to 9 days. Seen yesterday, viral swabs negative. Worsening sinus symptoms today. - Will begin treatment with Augmentin 875 mg PO BID for 7 days - The patient should also be given OTC decongestants prn for the first 5-7 days of treatment. - Supportive care with plenty of fluids, rest, and analgesia prn. Diagnosis and treatment plan were discussed and questions were answered to the patient's satisfaction. Pt acknowledged understanding of concepts and follow up plan. Specific signs and symptoms that would indicate the need for higher level of care were discussed in detail warranting prompt ER evaluation. JEFFERSON Boyle Allergies As of Date: 12/11/2023 Noted Allergy Reaction BANANA 11/28/2020 14 - Other: See Comments IODINE 01/26/2021 2 - Rash Date Reviewed: 12/11/2023 Reviewed by: Yelitza Davenport MA - Fully Assessed Reason for Visit: Sore Throat [200] Cmt: Runny nose, cough, congestion x 1 week Primary Visit Diagnosis:Bacterial sinusitis [J32.9, B96.89] Order(s):amoxicillin -clavulanate potassium (AUGMENTIN) 875-125 mg per tabletTake 1 tablet by mouth two times a day for 7 days.Disp: 14 tabletRfl: 0 Prescriptions as of 12/11/2023 - amoxicillin-clavulan ate potassium (AUGMENTIN) 875-125 mg per tablet Take 1 tablet by mouth two times a day for 7 days. - benzonatate (TESSALON PERLE) 100 mg capsule Take 1 capsule by mouth every 8 hours as needed for cough for up to 15 days. Problem List As Of Date: 12/11/2023 (None) Prescriptions ordered this encounter Disp Refills Start End AMOXICILLIN 875 MG-POTASSIUM CLAVULA* 14 t* 0 12/11/2023 12/18/2023 Route: ORAL Sig: Take 1 tablet by mouth two times a day for 7 days. Letter Text Encounter Status:Closed b (more content not included)... Normal [facility] CNOVon 12-10-2023 CNOV Office Visit ([facility]) SEKOU RUTH ([id number]) 2000 M Date Time Provider Department 12/10/23 11:00 AM STEPAN NICOLAS [facility] During your visit today, we recorded the following information about you: Temperature Pulse Respiration Blood pressure 97.5 degrees 79/minute 16/minute 114/78 Weight 103.2 kg Stepan Nicolas MD 12/10/2023 11:16 AM Signed Patient presents with: Cough: Cough, congestion, ANDRES and sinus x 1 week HPI: Feeling sick for 1 week. One of his kids were sick last week. Positive symptoms: Cough, wheezing, sputum production, Sinus pressure, Headache, Nasal Congestion, Chills, Malaise, Fatigue, Diarrhea, improving sore throat Negative symptoms: Fever, Vomiting, OTC: Tylenol MEDICATIONS: No current outpatient medications on file. No current facility-administere d medications for this visit. ALLERGIES: ALLERGIES Allergen Reactions Banana Other: See Comments Iodine Rash VITALS: BP 114/78 Pulse 79 Temp 36.4 ?C (97.5 ?F) (Tympanic) Resp 16 Wt 103.2 kg (227 lb 8.2 oz) SpO2 97% PHYSICAL EXAM: GEN: mildly ill appearing HEENT: PERRL, EOMI, conjunctiva clear Ears: canals clear. TMs without erythema, bulge, or effusion Sinuses: non-tender frontal sinus, non-tender maxillary sinuses Throat: moist mucous membranes, mild erythema, no exudate Neck: supple, no thyromegaly, no lymphadenopathy HEART: regular rate and rhythm, no murmurs LUNGS: clear to auscultation, no wheezes or crackles, no increased WOB ASSESSMENT/PLAN: 1. URI, acute - ICD9: 465.9, ICD10: J06.9 - suspect viral URI, differential includes COVID-19 which is prevalent in the community. - Discussed supportive care treatment with home isolation, rest, cold medicine, and analgesia. - Red flags to seek further treatment include chest pain, shortness of breath, and lethargy; in the ER if severe. - COVID AND INFLUENZA A/B AND RSV PCR, ROUTINE - BENZONATATE 100 MG CAPSULE Stepan Nicolas MD Allergies As of Date: 12/10/2023 Noted Allergy Reaction BANANA 11/28/2020 14 - Other: See Comments IODINE 01/26/2021 2 - Rash Date Reviewed: 12/10/2023 Reviewed by: Justyna Ellison LPN - Fully Assessed Reason for Visit: Cough [28] Cmt: Cough, congestion, ANDRES and sinus x 1 week Primary Visit Diagnosis:URI, acute [J06.9] Order(s):COVID AND INFLUENZA A/B AND RSV PCR, ROUTINE [SQCVFLRS] Order #: [id number] FUTURE benzonatate (TESSALON PERLE) 100 mg capsuleTake 1 capsule by mouth every 8 hours as needed for cough for up to 15 days.Disp: 30 capsuleRfl: 0 COVID AND INFLUENZA A/B AND RSV PCR, ROUTINE [SQCVFLRS] Order #: [id number]. #:[id number] Prescriptions as of 12/10/2023 - benzonatate (TESSALON PERLE) 100 mg capsule Take 1 capsule by mouth every 8 hours as needed for cough for up to 15 days. Problem List As Of Date: 12/10/2023 (None) Prescriptions ordered this encounter Disp Refills Start End BENZONATATE 100 MG CAPSULE 30 c* 0 12/10/2023 12/25/2023 Route: ORAL Sig: Take 1 capsule by mouth every 8 hours as needed for cough for up to 15 days. Medications Discontinued During This Encounter Prescriptions - polyethylene glycol 3350 (MIRALAX) 17 gram packet (Discontinued) Reported on 06/24/2023 - predniSONE (DELTASONE) 10 mg tablet (Discontinued) Reported on 06/24/2023 Level of Service: OFFICE/OUTPATIENT ESTABLISHED MOD MDM 30 MIN [25914] Letter Text Encounter Status:Closed by STEPNA NICOLAS on 12/10/23 Normal [facility] COVID AND INFLUENZA A/B AND RSV PCR, ROUTINEon 12-10-2023 SARS-CoV-2 (COVID-19) RNA ISREAL+probe Ql (Unsp spec) SARS-COV-2 (AGENT OF COVID-19) RNA: Not detected INFLUENZA A RNA: Not detected INFLUENZA B RNA: Not detected RESPIRATORY SYNCYTIAL VIRUS (RSV) RNA: Not detected Normal [facility] Comment on above: Performed By: #### C VFLRS ####[facility] LABCLIA [id number] [address] OF [facility] CNOVon 11-11-2023 CNOV Office Visit (WSTR) SEKOU RUTH ([id number]) 2000 M Date Time Provider Department 11/11/23 1:15 PM NURIS SANCHEZ [facility] During your visit today, we recorded the following information about you: Temperature Pulse Respiration Blood pressure 98.9 degrees 114/minute 16/minute 110/72 Weight 104.1 kg Nuris Sanchez PA 11/11/2023 1:10 PM Signed Rest, increase water intake Motrin or Tylenol as needed for fever or pain. Salt water gargles, chloraseptic spray or lozenges as needed for sore throat. Warm beverages, honey. Nasal saline spray as needed Cool mist humidifier at night A cold normally lasts 7-10 days. If your symptoms are lasting longer, develop fever, or worsening by that time instead of improving then return to clinic or follow up with PCP for re-evaluation. Tylenol (generic acetaminophen) 500 mg-2 tabs every 8 hrs. as needed for fever and aches Ibuprofen 600 mg (3-200mg tablets) every 6 hours -Mucinex (generic is fine) Guaifenesin 1200 mg twice daily to help with cough and to thin out mucus Nuris Sanchez PA 11/11/2023 1:16 PM Signed This note was created using Iterate Studioriter. Subjective Sekou Ruth is a 23 year old male. HPI 23-year-old male presents for runny nose, sore throat, headache x 4 days. Patient states he started getting sore throat and headache about 4 days ago. He started getting runny nose and mild cough yesterday. No vomiting or diarrhea. Still able to eat and drink. No fevers. No chest pain or shortness of breath. No sick contacts that he is aware of. Has not tried anything [id number] for symptoms. No other complaint. History reviewed. No pertinent past medical history. No past surgical history on file. ALLERGIES Banana and Iodine MEDICATIONS predniSONE (DELTASONE) 10 mg tablet Take 4 tabs daily for 3 days, then 2 tabs daily for 3 days, then 1 tab daily for 3 days with food. (Patient not taking: Reported on 06/24/2023) polyethylene glycol 3350 (MIRALAX) 17 gram packet Take 1 Packet by mouth once daily. Dissolve dose in 4 - 8 ounces of liquid and take as directed. (Patient not taking: Reported on 06/24/2023) No family history on file. Social History Tobacco Use Smoking status: Never Passive exposure: Yes Smokeless tobacco: Current Tobacco comments: mom smokes outside of home, vape Substance Use Topics Alcohol use: No Drug use: Never Review of Systems Constitutional: Negative for chills and fever. HENT: Positive for congestion and sore throat. Respiratory: Positive for cough. Negative for shortness of breath. Gastrointestinal: Negative for diarrhea and vomiting. Neurological: Positive for headaches. Objective BP 110/72 Pulse 114 Temp 37.2 ?C (98.9 ?F) (Tympanic) Resp 16 Wt 104.1 kg (229 lb 8 oz) SpO2 96% Physical Exam Vitals and nursing note reviewed. Constitutional: General: He is not in acute distress. Appearance: Normal appearance. He is not toxic-appearing. HENT: Right Ear: Tympanic membrane and ear canal normal. Left Ear: Tympanic membrane and ear canal normal. Nose: Nose normal. Mouth/Throat: Mouth: Mucous membranes are moist. Pharynx: Uvula midline. Posterior oropharyngeal erythema present. Tonsils: No tonsillar exudate or tonsillar abscesses. 1+ on the right. 1+ on the left. Eyes: Conjunctiva/sclera: Conjunctivae normal. Cardiovascular: Rate and Rhythm: Normal rate and regular rhythm. Pulmonary: Effort: Pulmonary effort is normal. Breath sounds: Normal breath sounds. No wheezing, rhonchi or rales. Skin: General: Skin is warm and dry. Neurological: Mental Status: He is alert. Assessment and Plan ASSESSMENT/PLAN: 1. Sore throat - ICD9: 462, ICD10: J02.9 (primary diagnosis) - suspect viral - Group A strep molecular testing negative - Discussed supportive care treatment with fluids, rest and analgesia. - The patient may also use warm salt water gargles, throat lozenges and/or OTC throat spray as needed. - STREP A MOLECULAR (POC) 2. URI, acute - ICD9: 465.9, ICD10: J06.9 - Discussed viral etiology and rationale for treatment. - Symptomatic treatment with prn analgesia - Supportive care with fluids and rest -Declines COVID/flu swab. Diagnosis and treatment plan were discussed and questions were answered to the patient's satisfaction. Pt acknowledged understanding of concepts and follow up plan. Specific signs and symptoms that would indicate the need for higher level of care were discussed in detail warranting prompt ER evaluation. JEFFERSON Boyle Allergies As of Date: 11/11/2023 Noted Allergy Reaction BANANA 11/28/2020 14 - Other: See Comments IODINE 01/26/2021 2 - Rash Date Reviewed: 11/11/2023 Reviewed by: Justyna Ellison LPN - Fully Assessed Reason for Visit: Cough [28] Cmt: Cough, congestion, ST, sinus and runny nose x 5 days Primary Visit Di (more content not included)... Normal [facility] STREP A MOLECULAR (POC)on Procedural Control Valid [facility] Strep A (POCT) Negative Negative [facility] CNPNon 07-02-2023 CNPN Telephone ([facility]) SEKOU RUTH ([id number]) 2000 M Date Time Provider Department [facility] your visit today, we recorded the following information about you: Rory Olivares, RN 07/02/2023 1:13 PM Signed Jackeline nurse from [facility] calling in regards to pt who in currently an inmate there. She states pt told them he is positive for chlamydia and is supposed to be on an antibiotic. Pt told her he had a prescription at the pharmacy. He told her either [facility] or [facility] in [place]. Jackeline called both pharmacies and they do not have a prescription for the patient. Per epic, pt did test positive for chlamydia and was prescribed Doxycycline which is supposed to be at [facility]. Called [facility] and prescription is there and ready to be picked up. Called Jackeline back and notified. She states pt will not be able to leave and pick it up. Prescription name, dosage and directions given to Jackeline. Allergies As of Date: 07/02/2023 Noted Allergy Reaction BANANA 11/28/2020 14 - Other: See Comments IODINE 01/26/2021 2 - Rash Date Reviewed: 06/24/2023 Reviewed by: Stoney Bullock APRN.POWER SYSTEM ELECTRICAL ENGINEER - Fully Assessed Reason for Visit: Patient Question [7646] antibiotic [Other] Prescriptions as of 07/02/2023 - doxycycline monohydrate (MONODOX) 100 mg capsule Take 1 capsule by mouth two times a day for 7 days. - predniSONE (DELTASONE) 10 mg tablet Take 4 tabs daily for 3 days, then 2 tabs daily for 3 days, then 1 tab daily for 3 days with food. - polyethylene glycol 3350 (MIRALAX) 17 gram packet Take 1 Packet by mouth once daily. Dissolve dose in 4 - 8 ounces of liquid and take as directed. Problem List As Of Date: 07/02/2023 (None) Encounter Status:Closed by RORY OLIVARES on 07/02/23 [facility] SEKOU RUTH ([id number]) 2000 M Date Time Provider Department 06/25/23 CIELO BAILEY [facility] During your visit today, we recorded the following information about you: Cielo Bailey APRN.POWER SYSTEM ELECTRICAL ENGINEER 06/25/2023 8:48 AM Signed Positive for chlamydia. Negative for gonorrhea. Negative for trichomonas. Chlamydia is an STI. IT is treatable with ATB. Doxycyline called into [facility] [place] need tested and treated. No sex for 2 weeks. Please advise patient. Yelitza Davenport MA 06/25/2023 9:12 AM Signed Left message for pt to call back. YUNI Burris Laurie Lynn, LPN 06/25/2023 9:23 AM Signed Spoke with pt and information listed below given. Pt verbalizes understanding. Thuy Hawley LPN Allergies As of Date: 06/25/2023 Noted Allergy Reaction BANANA 11/28/2020 14 - Other: See Comments IODINE 01/26/2021 2 - Rash Date Reviewed: 06/24/2023 Reviewed by: Stoney Bullock APRN.POWER SYSTEM ELECTRICAL ENGINEER - Fully Assessed Reason for Visit: Results [95] Order(s):doxycycline monohydrate (MONODOX) 100 mg capsuleTake 1 capsule by mouth two times a day for 7 days.Disp: 14 capsuleRfl: 0 Prescriptions as of 06/25/2023 - doxycycline monohydrate (MONODOX) 100 mg capsule Take 1 capsule by mouth two times a day for 7 days. - predniSONE (DELTASONE) 10 mg tablet Take 4 tabs daily for 3 days, then 2 tabs daily for 3 days, then 1 tab daily for 3 days with food. - polyethylene glycol 3350 (MIRALAX) 17 gram packet Take 1 Packet by mouth once daily. Dissolve dose in 4 - 8 ounces of liquid and take as directed. Problem List As Of Date: 06/25/2023 (None) Prescriptions ordered this encounter Disp Refills Start End DOXYCYCLINE MONOHYDRATE 100 MG CAPSU* 14 c* 0 06/25/2023 07/02/2023 Route: ORAL Sig: Take 1 capsule by mouth two times a day for 7 days. Encounter Status:Closed by THUY HAWLEY on 06/25/23 Normal [facility] C. trachomatis+N. gonorrhoea e DNA ISREAL+probe Ql (Unsp spec)on 06-24-2023 C. trachomatis rRNA ISREAL+probe Ql (Unsp spec) Positive Abnormal Negative for Chlamydia trachomatis by amplificaton [facility] Comment on above: Order Comment: Speci men Type: URINE SPECIMENOrdering Facility: [facility] Address: [address] [place] [address] Performed By: #### T RVAMP, [id number] ####[facility] [facility]IA [id number] [place] [address] [place] N. gonorrhoeae rRNA SIREAL+probe Ql (Unsp spec) Negative Normal Negative for Neisseria gonorrhoeae by amplification [facility] Comment on above: Order Comment: Speci men Type: URINE SPECIMENOrdering Facility: [facility] Address: [address] [place] [address] Performed By: #### T RVAMP, 63486-9 ####[facility] LABCLIA [id number] [place] [address] [place] CNOVon 06-24-2023 CNOV Office Visit (UCWSTR) RUTH,SEKOU ([id number]) 2000 M Date Time Provider Department 06/24/23 12:45 PM STONEY BULLOCK [facility] During your visit today, we recorded the following information about you: Temperature Pulse Respiration Blood pressure 98.1 degrees 80/minute 20/minute 138/84 Weight 98 kg Stoney Bullock APRN.POWER SYSTEM ELECTRICAL ENGINEER 06/24/2023 1:10 PM Signed Subjective HPI HPI Sekou Ruth is a 22 year old male who presents today for CC of girlfriend cheated, concerns for std. Denies any s/s. Denies gu rash, drainage. Denies urinary s/s. .Patient presents with: STD: Testing wanted d/t GF cheating, no s/s No past medical history on file. No past surgical history on file. ALLERGIES Banana and Iodine MEDICATIONS predniSONE (DELTASONE) 10 mg tablet Take 4 tabs daily for 3 days, then 2 tabs daily for 3 days, then 1 tab daily for 3 days with food. (Patient not taking: Reported on 06/24/2023) polyethylene glycol 3350 (MIRALAX) 17 gram packet Take 1 Packet by mouth once daily. Dissolve dose in 4 - 8 ounces of liquid and take as directed. (Patient not taking: Reported on 06/24/2023) No family history on file. Social History Tobacco Use Smoking status: Never Passive exposure: Yes Smokeless tobacco: Current Tobacco comments: mom smokes outside of home, vape Substance Use Topics Alcohol use: No Drug use: Never Review of Systems Constitutional: Negative for chills, fever and weight loss. Respiratory: Negative for cough, shortness of breath and wheezing. Cardiovascular: Negative for chest pain and palpitations. Gastrointestinal: Negative for abdominal pain, blood in stool, constipation, diarrhea, heartburn, melena, nausea and vomiting. Genitourinary: Negative for dysuria, flank pain, frequency, hematuria and urgency. Musculoskeletal: Negative for myalgias. Objective Blood pressure 138/84, pulse 80, temperature 36.7 ?C (98.1 ?F), resp. rate 20, weight 98 kg (216 lb 0.8 oz), SpO2 98%. Physical Exam Constitutional: General: He is not in acute distress. Appearance: Normal appearance. He is not toxic-appearing. Cardiovascular: Rate and Rhythm: Normal rate and regular rhythm. Heart sounds: Normal heart sounds. Pulmonary: Effort: Pulmonary effort is normal. Breath sounds: Normal breath sounds. Abdominal: General: Bowel sounds are normal. Palpations: Abdomen is soft. Tenderness: There is no abdominal tenderness. Skin: General: Skin is warm and dry. ASSESSMENT/PLAN: 1. Possible exposure to STD - ICD9: V01.6, ICD10: Z20.2 No treatment today Call/treat per results. - TRICHOMONAS VAGINALIS NAAT - GONORRHEA/CHLAMYDIA NAAT Stoney Bullock APRN.TERESA Allergies As of Date: 06/24/2023 Noted Allergy Reaction BANANA 11/28/2020 14 - Other: See Comments IODINE 01/26/2021 2 - Rash Date Reviewed: 06/24/2023 Reviewed by: Stoney Bullock APRN.POWER SYSTEM ELECTRICAL ENGINEER - Fully Assessed Reason for Visit: STD [102] Cmt: Testing wanted d/t GF cheating, no s/s Primary Visit Diagnosis:Possible exposure to STD [Z20.2] Order(s):TRICHOMONAS VAGINALIS NAAT [SQTRVAMP] Order #: [id number]. #:[id number] GONORRHEA/CHLAMYDIA NAAT [SQGCCT] Order #: [id number]. #:[id number] Prescriptions as of 06/24/2023 - predniSONE (DELTASONE) 10 mg tablet Take 4 tabs daily for 3 days, then 2 tabs daily for 3 days, then 1 tab daily for 3 days with food. - polyethylene glycol 3350 (MIRALAX) 17 gram packet Take 1 Packet by mouth once daily. Dissolve dose in 4 - 8 ounces of liquid and take as directed. Problem List As Of Date: 06/24/2023 (None) Encounter Status:Closed by STONEY BULLOCK on 06/24/23 Normal [facility] TRICHOMONAS VAGINALIS NAATon 06-24-2023 T. vaginalis DNA ISREAL+probe Ql (Unsp spec) Negative Normal Negative for Trichomonas vaginalis by amplification [facility] Comment on above: Order Comment: Speci men Type: URINE SPECIMENOrdering Facility: [facility] Address: [address] [place] [address] Performed By: #### T RVAMP, 85637-9 ####[facility] LABCLIA [id number] [address] OF [facility] 03[facility] SEKOU RUTH ([id number]) 2000 M Date Time Provider Department 03/26/23 CIELO BAILEY [facility] During your visit today, we recorded the following information about you: Cielo Bailey APRN.[facility] 03/26/2023 5:31 PM Signed Remaining labs have resulted. Hepatitis negative HIV negative Syphilis negative Follow up with PCP as needed. Janett Britt 03/26/2023 5:46 PM Signed Patient given results and verbalized understanding of instructions given. Janett Britt Allergies As of Date: 03/26/2023 Noted Allergy Reaction BANANA 11/28/2020 14 - Other: See Comments IODINE 01/26/2021 2 - Rash Date Reviewed: 03/25/2023 Reviewed by: Stoney Bullock APRN.POWER SYSTEM ELECTRICAL ENGINEER - Fully Assessed Reason for Visit: Results [95] Prescriptions as of 03/26/2023 - doxycycline monohydrate 100 mg tablet Take 1 tablet by mouth two times a day for 7 days. - predniSONE (DELTASONE) 10 mg tablet Take 4 tabs daily for 3 days, then 2 tabs daily for 3 days, then 1 tab daily for 3 days with food. - polyethylene glycol 3350 (MIRALAX) 17 gram packet Take 1 Packet by mouth once daily. Dissolve dose in 4 - 8 ounces of liquid and take as directed. Problem List As Of Date: 03/26/2023 (None) Encounter Status:Closed by JANETT BRITT on 03/26/23 [facility] SEKOU [facility] ([id number]) 2000 Date Time Provider Department 03/26/23 CIELO BAILEY [facility] During your visit today, we recorded the following information about you: Cielo Bailey APRN.[facility] 03/26/2023 9:31 AM Signed Gonorrhea and chlamydia are negative. Additional labs pending. We will reach out when those return. Suzy Pearson 03/26/2023 10:20 AM Signed Tried patients number and the number could not be completed as dialed ro when dial a 1 first it was a busy signal. Deb Simms LPN 03/26/2023 10:51 AM Signed Pt notified of results AND message, pt voiced understanding. Dbe Morales LPN Allergies As of Date: 03/26/2023 Noted Allergy Reaction BANANA 11/28/2020 14 - Other: See Comments IODINE 01/26/2021 2 - Rash Date Reviewed: 03/25/2023 Reviewed by: Stoney Bullock APRN.POWER SYSTEM ELECTRICAL ENGINEER - Fully Assessed Reason for Visit: Results [95] Prescriptions as of 03/26/2023 - doxycycline monohydrate 100 mg tablet Take 1 tablet by mouth two times a day for 7 days. - predniSONE (DELTASONE) 10 mg tablet Take 4 tabs daily for 3 days, then 2 tabs daily for 3 days, then 1 tab daily for 3 days with food. - polyethylene glycol 3350 (MIRALAX) 17 gram packet Take 1 Packet by mouth once daily. Dissolve dose in 4 - 8 ounces of liquid and take as directed. Problem List As Of Date: 03/26/2023 (None) Encounter Status:Closed by DEB MORALES on 03/26/23 Normal [facility] C. trachomatis+N. gonorrhoea e DNA ISREAL+probe Ql (Unsp spec)on 03-25-2023 C. trachomatis rRNA ISREAL+probe Ql (Unsp spec) Negative Normal Negative for Chlamydia trachomatis by amplificaton [facility] Comment on above: Order Comment: Speci men Type: URINE SPECIMENOrdering Facility: [facility] Address: [address] [place] [address] Performed By: #### 3 6902-5 ####[facility] LABCLIA [id number] [place] [address] [place] N. gonorrhoeae rRNA ISREAL+probe Ql (Unsp spec) Negative Normal Negative for Neisseria gonorrhoeae by amplification [facility] Comment on above: Order Comment: Speci men Type: URINE SPECIMENOrdering Facility: [facility] Address: [address] [place] [address] Performed By: #### 3 6902-5 ####[facility] LABCLIA [id number] [place] [address] [facility] [place] CNOVon 03-25-2023 CNOV Office Visit (UCWSTR) SEKOU RUTH ([id number]) 2000 M Date Time Provider Department 03/25/23 1:15 PM STONEY BULLOCK [facility] During your visit today, we recorded the following information about you: Temperature Pulse Respiration Blood pressure 97.4 degrees 94/minute 16/minute 110/80 Weight 98.4 kg Stoney Bullock APRN.POWER SYSTEM ELECTRICAL ENGINEER 03/25/2023 1:52 PM Signed Subjective HPI HPI Sekou Ruth is a 22 year old male who presents today for CC of stitches removed from left hand, placed 10 days ago. Has been getting red and painful. Possible std exposure, has been having urinary frequency/burning. Denies testicular pain or rash. .Patient presents with: STD check and suture removal: STD check-fatigue and burning x 1 month and suture removal x 1 left hand placed in ER x 10 days History reviewed. No pertinent past medical history. No past surgical history on file. ALLERGIES Banana and Iodine MEDICATIONS doxycycline monohydrate 100 mg tablet Take 1 tablet by mouth two times a day for 7 days. predniSONE (DELTASONE) 10 mg tablet Take 4 tabs daily for 3 days, then 2 tabs daily for 3 days, then 1 tab daily for 3 days with food. (Patient not taking: Reported on 02/03/2023) polyethylene glycol 3350 (MIRALAX) 17 gram packet Take 1 Packet by mouth once daily. Dissolve dose in 4 - 8 ounces of liquid and take as directed. (Patient not taking: No sig reported) No family history on file. Social History Tobacco Use Smoking status: Never Passive exposure: Yes Smokeless tobacco: Current Tobacco comments: mom smokes outside of home, vape Substance Use Topics Alcohol use: No Drug use: Never Review of Systems Constitutional: Negative for chills, fever and weight loss. Respiratory: Negative for cough, shortness of breath and wheezing. Cardiovascular: Negative for chest pain and palpitations. Gastrointestinal: Negative for abdominal pain, blood in stool, constipation, diarrhea, heartburn, melena, nausea and vomiting. Genitourinary: Positive for dysuria and frequency. Negative for flank pain, hematuria and urgency. Musculoskeletal: Negative for myalgias. Objective Blood pressure 110/80, pulse 94, temperature 36.3 ?C (97.4 ?F), temperature source Tympanic, resp. rate 16, weight 98.4 kg (217 lb), SpO2 97%. Physical Exam Constitutional: General: He is not in acute distress. Appearance: Normal appearance. He is not toxic-appearing. Cardiovascular: Rate and Rhythm: Normal rate and regular rhythm. Heart sounds: Normal heart sounds. Pulmonary: Effort: Pulmonary effort is normal. Breath sounds: Normal breath sounds. Abdominal: General: Bowel sounds are normal. Palpations: Abdomen is soft. Tenderness: There is no abdominal tenderness. Musculoskeletal: Hands: Skin: General: Skin is warm and dry. ASSESSMENT/PLAN: 1. Possible exposure to STD - ICD9: V01.6, ICD10: Z20.2 (primary diagnosis) Testing as below, treat per results Will be on doxy for infection around hand laceration - SYPHILIS TOTAL W/REFLEX - HIV 1 2 COMBO(AG/AB),WITH REFLEX TO DIFFERENTIATION - HEPATITIS C ANTIBODY IA WITH CONFIRMATION - HEP B SURF AG SCRN - GONORRHEA/CHLAMYDIA NAAT 2. Skin infection - ICD9: 686.9, ICD10: L08.9 - Begin treatment with doxy - No lymphangetic streaking, this was defined for patient to watch for and to seek medical care immediately if appears - Follow up for recheck in three days if no better or worse - DOXYCYCLINE MONOHYDRATE 100 MG TABLET 3. Visit for suture removal - ICD9: V58.32, ICD10: Z48.02 Site cleansed and 2 simple interrupted sutures removed. Laceration remained well approximated after removal. Stoney Bullock APRN.TERESA Allergies As of Date: 03/25/2023 Noted Allergy Reaction BANANA 11/28/2020 14 - Other: See Comments IODINE 01/26/2021 2 - Rash Date Reviewed: 03/25/2023 Reviewed by: Stoney Bullock APRN.POWER SYSTEM ELECTRICAL ENGINEER - Fully Assessed Reason for Visit: STD check and suture removal [Other] Cmt: STD check-fatigue and burning x 1 month and suture removal x 1 left hand placed in ER x 10 days Primary Visit Diagnosis:Possible exposure to STD [Z20.2] Other Visit Diagnoses:Skin infection [L08.9] Visit for suture removal [Z48.02] Order(s):SYPHILIS TOTAL W/REFLEX [SQSYPHTX] Order #: [id number] FUTURE HIV 1 2 COMBO(AG/AB),WITH REFLEX TO DIFFERENTIATION [SQHIV12] Order #: [id number] FUTURE HEPATITIS C ANTIBODY IA WITH CONFIRMATION [VAOKVQ1F] Order #: [id number] FUTURE HEP B SURF AG SCRN [SQHBSAG] Order #: [id number] FUTURE GONORRHEA/CHLAMYDIA NAAT [SQGCCT] Order #: [id number] FUTURE doxycycline monohydrate 100 mg tabletTake 1 tablet by mouth two times a day for 7 days.Disp: 14 tabletRfl: 0 Prescriptions as of 03/25/2023 - doxycycline monohydrate 100 mg tablet Take 1 tablet by mouth two times a day for 7 days. - predniSONE (DELTASONE) 10 mg tablet Take 4 tabs daily for 3 day (more content not included)... Normal [facility] HBV surface Ag Ser Qlon 03-14 HBV surface Ag Ql (S) Negative Normal Negative [facility] Comment on above: Order Comment: Speci men Type: BLOOD SPECIMENOrdering Facility: [facility] Address: [address] [place] [address] Performed By: #### 3 1201-7, 5195-3, 96625-8 ####[facility] LABCLIA [id number] [place] [address] [place] HCV Ab Ser Qlon 03-25-2023 HCV Ab Ql (S) Negative Normal Negative [facility] Comment on above: Order Comment: Speci men Type: BLOOD SPECIMENOrdering Facility: [facility] Address: [address] [place] [address] Result Comment: The result suggests no evidence of active infection with Hepatitis C virus. Should recent infection be suspected, repeat testing may be considered 4-6 weeks after this draw. Performed By: #### 1 6128-1 ####[facility] LABCLIA [id number] [place] [address] [place] HIV 1+2 Ab IA Qlon 3 HIV 1 and 2 Ab IA.rapid Nom Normal [facility] Comment on above: Order Comment: Speci men Type: BLOOD SPECIMENOrdering Facility: [facility] Address: [address] [place] [address] Result Comment: Test not indicated. Performed By: #### 3 1201-7, 5195-3, 93912-4 ####[facility] LABIA [id number] [place] [address] [place] HIV 1+2 Ab+HIV1 p24 Ag IA Ql Non-Reactive Normal Nonreactive [facility] Comment on above: Order Comment: Speci men Type: BLOOD SPECIMENOrdering Facility: [facility] Address: [address] [place] [address] Performed By: #### 3 1201-7, 5195-3, 58085-9 ####[facility] LABIA [id number] [place] [address] [place] HIV immunoassay testing algorithm interpretation (S/P/Bld) [Interp] Normal [facility] Comment on above: Order Comment: Speci men Type: BLOOD SPECIMENOrdering Facility: [facility] Address: [address] [place] [address] Result Comment: No e vidence of HIV-1 or HIV-2 infection. Should recent infection be suspected, repeat testing may be considered 2-3 weeks after this draw. [place] Rev. Code 3701.243(E): This information has been disclosed to you from confidential records protected from disclosure by state law. ???You shall make no further disclosure of this information without the specific, written, and informed release of the individual to whom it pertains or as otherwise permitted by state law. A general authorization for the release of medical or other information is not sufficient for the purpose of the release of HIV test results or diagnoses. Performed By: #### 3 1201-7, 5195-3, 81156-9 ####[facility] LABCLIA [id number] [place] [address] [place] Reagin and Treponema pallidu m IgG and IgM [Interp]on 03-25-2023 T. pallidum IgG+IgM IA Ql (S) Non-Reactive Normal Nonreactive [facility] Comment on above: Order Comment: Speci men Type: BLOOD SPECIMENOrdering Facility: [facility] Address: [address] [place] [address] Performed By: #### 3 1201-7, 5195-3, 23881-9 ####[facility] LABIA [id number] [place] [address] [place] Reagin+T pallidum IgG+IgM Se rPl-Impon 03-25-2023 Reagin and Treponema pallidum IgG and IgM [Interp] Cannot exclude recent Treponemal infection if specimen collected within 7-10 days after appearance of suspect lesions or 2-3 weeks after an exposure. Clinical correlation is required. Normal [facility] Comment on above: Order Comment: Speci men Type: BLOOD SPECIMENOrdering Facility: [facility] Address: [address] [place] [address] Performed By: #### 3 1201-7, 5195-3, 30984-3 ####[facility] [id number] [place] [address] [place] Bacteria Ur Culton 3 Bacteria identified Cx Nom (U) CULTURE, URINE: No growth (<1,000 CFU/ml) Normal [facility] Comment on above: Performed By: #### 6 30-4 ####[facility] LABIA [id number] [place] [address] [place] CNOVon 02-03-2023 CNOV Office Visit (UCWSTR) SEKOU RUTH ([id number]) 2000 M Date Time Provider Department 02/03/23 2:00 PM SANTO DELA CRUZ [facility] During your visit today, we recorded the following information about you: Temperature Pulse Respiration Blood pressure 98.7 degrees 92/minute 21/minute 112/78 Weight 94.3 kg Santo Dela Cruz PA-C 02/03/2023 3:12 PM Signed 02/03/2023 Patient presents with: Kidney Problem: Lower back/kidney pain on right side x 4 months SUBJECTIVE: This is a 22 year old that is here today for Complaint(s) of right flank pain x 4 months intermittent. No pain currently. Was having a dull aching pain this morning. States he notices when he runs the pain is worse. The past few days drinking more caffeine, soda. Denies fever/chills, hematuria, dysuria, increase frequency. Questionable history of kidney stones, never formally diagnosed with imaging. Denies nausea, vomiting, diarrhea, cough, SOB, No past medical history on file. ALLERGIES Banana and Iodine MEDICATIONS Current Outpatient Medications Medication Sig predniSONE (DELTASONE) 10 mg tablet Take 4 tabs daily for 3 days, then 2 tabs daily for 3 days, then 1 tab daily for 3 days with food. (Patient not taking: Reported on 02/03/2023) polyethylene glycol 3350 (MIRALAX) 17 gram packet Take 1 Packet by mouth once daily. Dissolve dose in 4 - 8 ounces of liquid and take as directed. (Patient not taking: No sig reported) No current facility-administere d medications for this visit. SOCIAL HISTORY Social History Tobacco Use Smoking status: Never Passive exposure: Yes Smokeless tobacco: Current Tobacco comments: mom smokes outside of home, vape Substance Use Topics Alcohol use: No Drug use: Never REVIEW OF SYSTEMS See HPI OBJECTIVE: BP 112/78 Pulse 92 Temp 37.1 ?C (98.7 ?F) Resp 21 Wt 94.3 kg (207 lb 12.8 oz) SpO2 97% APPEARANCE Well appearing, alert, in no acute distress, well-hydrated, well nourished. HEART RRR with normal S1 and S2, LUNG clear to auscultation, No wheezing, rhonchi, rales. ABDOMEN soft, non-tender, non-distended, without organomegaly or palpable masses, no tenderness to palpation. Negative Roberts's, no rebound, rigidity , guarding BACK: Normal exam, no CVA TTP ASSESSMENT/PLAN: 1. Right-sided low back pain without sciatica, unspecified chronicity - ICD9: 724.2, ICD10: M54.50 Reviewed red flags and when to seek care sooner. US kidney to evaluate, - UA DIP, URINE (POC)- + protein and bilirubin - URINE CULTURE - COMP METABOLIC PANEL - CBC + DIFF - US KIDNEY/BLADDER The patient indicates understanding of these issues and agrees with the plan. Santo Dela Cruz PA-C 02/03/2023 Allergies As of Date: 02/03/2023 Noted Allergy Reaction BANANA 11/28/2020 14 - Other: See Comments IODINE 01/26/2021 2 - Rash Date Reviewed: 02/03/2023 Reviewed by: Yelitza Davenport MA - Fully Assessed Reason for Visit: Kidney Problem [61] Cmt: Lower back/kidney pain on right side x 4 months Primary Visit Diagnosis:Right-side d low back pain without sciatica, unspecified chronicity [M54.50] Order(s):UA DIP, URINE (POC) [[id number]] Order #: [id number]. #:[id number] URINE CULTURE [SQURCUL] Order #: [id number]. #:[id number] COMP METABOLIC PANEL [SQCMP] Order #: [id number] FUTURE CBC + DIFF [SQCBCDIF] Order #: [id number] FUTURE US KIDNEY/BLADDER [[id number]] Order #: [id number] FUTURE Prescriptions as of 02/03/2023 - predniSONE (DELTASONE) 10 mg tablet Take 4 tabs daily for 3 days, then 2 tabs daily for 3 days, then 1 tab daily for 3 days with food. - polyethylene glycol 3350 (MIRALAX) 17 gram packet Take 1 Packet by mouth once daily. Dissolve dose in 4 - 8 ounces of liquid and take as directed. Problem List As Of Date: 02/03/2023 (None) Level of Service: OFFICE/OUTPATIENT ESTABLISHED LOW MDM 20-29 MIN [55930] Letter Text Encounter Status:Closed by SANTO DELA CRUZ on 02/03/23 Normal [facility] UA DIP, URINE (POC)on 2022 BILIRUBIN UA (POCT) Small Abnormal Negative [place] [facility] CLARITY UA (POCT) Clear [facility] COLOR UA (POCT) Dark yellow [facility] GLUCOSE UA (POCT) Negative Negative mg/dL [facility] Hemoglobin Ql (U) Negative Negative [facility] KETONE UA (POCT) 15 mg/dL Abnormal Negative mg/dL [facility] LEUKOCYTES UA (POCT) Negative Negative [facility] NITRITE UA (POCT) Negative Negative [facility] PH UA (POCT) 5.5 4.5 - 8.0 [facility] Protein Ql (U) 30 mg/dL Abnormal Negative mg/dL [facility] SPECIFIC GRAVITY UA (POCT) 1.020 1.005 - 1.030 [facility] UROBILINOGEN UA (POCT) 1.0 E.U./dL Normal E.U./dL [facility] .Auto Diffon 09-16-2022 Basophil, Absolute 0.0 10 3/mcL Normal 0.0-0.2 [facility] ([place]) Comment on above: Performed By: #### C DELICIA ALONZO ANEU, MDW, BMP, GFR, TROPHS #### [address] [address] Basophils/100 WBC (Bld) 0.5 % Normal 0.0-2.5 [facility] ([place]) Comment on above: Performed By: #### C DELICIA ALONZO ANEU, MDW, ESMER, GFR, TROPHS #### [id number] [place], [place] [address] Eosinophil, Absolute 0.1 10 3/mcL Normal 0.0-0.4 [facility] ([place]) Comment on above: Performed By: #### C DELICIA ALONZO ANEU, MDW, BMP, GFR, TROPHS #### [address] [address] Eosinophils/100 WBC (Bld) 2.5 % Normal 0.0-7.0 [facility] ([place]) Comment on above: Performed By: #### C BC, ADSANTOS, ANEU, MDW, BMP, GFR, TROPHS #### [address] [address] Lymphocyte, Absolute 1.9 10 3/mcL Normal 0.8-3.9 [facility] ([place]) Comment on above: Performed By: #### C BC, ADSANTOS, ANEU, MDW, BMP, GFR, TROPHS #### [address] [address] Lymphocytes/100 WBC (Bld) 40.6 % Normal 10.0-50.0 [facility] ([place]) Comment on above: Performed By: #### C BC, DELICIA, ANEU, MDW, BMP, GFR, TROPHS #### [address] [address] Monocyte, Absolute 0.4 10 3/mcL Normal 0.2-1.0 [facility] ([place]) Comment on above: Performed By: #### C CLINTON, DELICIA, ARBEN, MDW, BMP, GFR, TROPHS #### [address] [address] Monocytes/100 WBC (Bld) 8.5 % Normal 1.7-13.0 [facility] ([place]) Comment on above: Performed By: #### C BC, DELICIA, ARBEN, MDW, BMP, GFR, TROPHS #### [address] [address] Neutrophils/100 WBC (Bld) 47.9 % Normal 37.0-80.0 [facility] ([place]) Comment on above: Performed By: #### C BC, ADSANTOS, ANEU, MDW, BMP, GFR, TROPHS #### [address] [address] .GFRon 09-16-2022 GFR 106 ml/min/1.73sqm Normal [facility] ([place]) Comment on above: Result Comment: GFR Population mean for , Non- Americans Ages 20-29 = 116 mL/min/1.73 sq.m. Ages 30-39 = 107 mL/min/1.73 sq.m. Ages 40-49 = 99 mL/min/1.73 sq.m. Ages 50-59 = 93 mL/min/1.73 sq.m. Ages 60-69 = 85 mL/min/1.73 sq.m. Ages 70+ = 75 mL/min/1.73 sq.m. Chronic Kidney Disease: Less than 60 mL/min/1.73 square meters End Stage Renal Disease: Less than 15 mL/min/1.73 square meters Performed By: #### C DELICIA ALONZO ANEU, MDW, BMP, GFR, TROPHS #### [address] [address] GFR Non- 88 ml/min/1.73sqm Normal [facility] ([place]) Comment on above: Result Comment: GFR Population mean for , Non- Americans Ages 20-29 = 116 mL/min/1.73 sq.m. Ages 30-39 = 107 mL/min/1.73 sq.m. Ages 40-49 = 99 mL/min/1.73 sq.m. Ages 50-59 = 93 mL/min/1.73 sq.m. Ages 60-69 = 85 mL/min/1.73 sq.m. Ages 70+ = 75 mL/min/1.73 sq.m. Chronic Kidney Disease: Less than 60 mL/min/1.73 square meters End Stage Renal Disease: Less than 15 mL/min/1.73 square meters Performed By: #### C DELICIA ALONZO ANEU, MDW, BMP, GFR, TROPHS #### [address] [address] .MDWon 09-16-2022 Monocyte Distribution Width 17.24 Normal 0.00-20.00 [facility] ([place]) Comment on above: Result Comment: For ED adult patients suspected of sepsis, MDW<=20.0 does not rule out sepsis or risk of sepsis Performed By: #### C BC, ADIFF, ANEU, MDW, BMP, GFR, TROPHS #### [address] [address] .NEUABSon 09-16-2022 Neutrophil, Absolute 2.3 10 3/mcL Low 2.9-6.2 [facility] ([place]) Comment on above: Performed By: #### C BC, ADIFF, ANEU, MDW, BMP, GFR, TROPHS #### [address] [address] BMPon 09-16-2022 BUN/Creatinine Ratio 12 ratio Normal 7-27 [facility] ([place]) Comment on above: Performed By: #### C BC, ADSANTOS, ANEU, MDW, BMP, GFR, TROPHS #### [place] [id number] Calcium [Mass/Vol] 9.1 mg/dL Normal 8.4-10.2 [facility] ([place]) Comment on above: Performed By: #### C BC, ADSANTOS, ANEU, MDW, BMP, GFR, TROPHS #### [address] [address] Chloride [Moles/Vol] 103 mmol/L Normal 98-107 [facility] ([place]) Comment on above: Performed By: #### C BC, ADIFF, ANEU, MDW, BMP, GFR, TROPHS #### [address] [address] CO2 [Moles/Vol] 28 mmol/L Normal 22-29 [facility] ([place]) Comment on above: Performed By: #### C BC, ADIFF, ANEU, MDW, BMP, GFR, TROPHS #### [address] [address] Creatinine [Mass/Vol] 1.05 mg/dL Normal 0.70-1.30 [facility] ([place]) Comment on above: Performed By: #### C BC, ADIFF, ANEU, MDW, BMP, GFR, TROPHS #### [address] [address] Electrolyte Balance 9.0 mEq/L Normal 4.0-15.0 [facility] ([place]) Comment on above: Performed By: #### C CLINTON, ARBEN NESBITT, MDW, BMP, GFR, TROPHS #### [address] [address] Glucose [Mass/Vol] 95 mg/dL Normal 70-105 [facility] ([place]) Comment on above: Performed By: #### C CLINTON, DELICIA, ARBEN, MDW, BMP, GFR, TROPHS #### [address] [address] Potassium [Moles/Vol] 4.1 mmol/L Normal 3.5-5.1 [facility] ([place]) Comment on above: Performed By: #### C CLINTON, DELICIA, ARBEN, MDW, BMP, GFR, TROPHS #### [address] [address] Sodium [Moles/Vol] 140 mmol/L Normal 136-145 [facility] ([place]) Comment on above: Performed By: #### C CLINTON, DELICIA, ARBEN, MDW, BMP, GFR, TROPHS #### [address] [address] Urea nitrogen [Mass/Vol] 13 mg/dL Normal 7-18 [facility] ([place]) Comment on above: Performed By: #### C CLINTON, DELICIA, ARBEN, MDW, BMP, GFR, TROPHS #### [address] [address] CBCon 09-16-2022 Erythrocyte distribution width (RBC) [Ratio] 13.5 % Normal 11.5-14.5 [facility] ([place]) Comment on above: Performed By: #### C CLINTON, DELICIA, ARBEN, MDW, BMP, GFR, TROPHS #### [address] [address] Hematocrit (Bld) [Volume fraction] 42.4 % Normal 42.0-52.0 [facility] ([place]) Comment on above: Performed By: #### C CLINTON, DELICIA, ARBEN, MDW, BMP, GFR, TROPHS #### [address] [address] Hgb 14.1 G/dL Normal 14.0-18.0 [facility] ([place]) Comment on above: Performed By: #### C CLINTON, DELICIA, ARBEN, MDW, BMP, GFR, TROPHS #### [address] [address] MCH (RBC) [Entitic mass] 26.0 pg Low 27.0-31.2 [facility] ([place]) Comment on above: Performed By: #### C CLINTNO, DEILCIA, ARBEN, MDW, BMP, GFR, TROPHS #### [place] [address] MCHC 33.2 G/dL Normal 31.8-35.4 [facility] ([place]) Comment on above: Performed By: #### C CLINTON, DELICIA, ARBEN, MDW, BMP, GFR, TROPHS #### [place] [id number] MCV (RBC) [Entitic vol] 78.4 fL Low 80.0-94.0 [facility] ([place]) Comment on above: Performed By: #### C DELICIA ALONZO, ARBEN, MDW, BMP, GFR, TROPHS #### [address] [address] Platelet 224 10 3/mcL Normal 130-400 [facility] ([place]) Comment on above: Performed By: #### C DELICIA ALONZO ANEU, MDW, BMP, GFR, TROPHS #### [address] [address] Platelet mean volume (Bld) [Entitic vol] 8.0 fL Normal 7.4-10.4 [facility] ([place]) Comment on above: Performed By: #### C DELICIA ALONZO, ARBEN, MDW, BMP, GFR, TROPHS #### [address] [address] RBC 5.41 10 6/mcL Normal 4.04-6.13 [facility] ([place]) Comment on above: Performed By: #### C CLINTON, DELICIA, ARBEN, W, BMP, GFR, TROPHS #### [place] [id number] [place], [place] [address] WBC 4.8 10 3/mcL Normal 4.6-10.8 [facility] ([place]) Comment on above: Performed By: #### C CLINTON, DELICIA, ARBEN, W, BMP, GFR, TROPHS #### [facility] [address] [place], [place] [address] LABORATORYOrdered By: Cindy Valle on 09-16-2022 Basophil, Absolute 0.0 103/mcL Invalid Interpretation Code 0.0 - 0.2 10^3/mcL AO Workflow SS Basophils/100 WBC (Bld) 0.5 % Invalid Interpretation Code 0.0 - 2.5 % AO Workflow SS Eosinophil, Absolute 0.1 103/mcL Invalid Interpretation Code 0.0 - 0.4 10^3/mcL AO Workflow SS Eosinophils/100 WBC (Bld) 2.5 % Invalid Interpretation Code 0.0 - 7.0 % AO Workflow SS Erythrocyte distribution width (RBC) [Ratio] 13.5 % Invalid Interpretation Code 11.5 - 14.5 % AO Workflow SS Hematocrit (Bld) [Volume fraction] 42.4 % Invalid Interpretation Code 42.0 - 52.0 % AO Workflow SS Hemoglobin (Bld) [Mass/Vol] 14.1 G/dL Invalid Interpretation Code 14.0 - 18.0 G/dL AO Workflow SS Lymphocyte, Absolute 1.9 103/mcL Invalid Interpretation Code 0.8 - 3.9 10^3/mcL AO Workflow SS Lymphocytes/100 WBC (Bld) 40.6 % Invalid Interpretation Code 10.0 - 50.0 % AO Workflow SS MCH (RBC) [Entitic mass] 26.0 pg Invalid Interpretation Code 27.0 - 31.2 pg AO Workflow SS MCHC 33.2 G/dL Invalid Interpretation Code 31.8 - 35.4 G/dL AO Workflow SS MCV (RBC) [Entitic vol] 78.4 fL Invalid Interpretation Code 80.0 - 94.0 fL AO Workflow SS Monocyte distribution width Auto (Bld) [Entitic vol] 17.24 Invalid Interpretation Code 0.00 - 20.00 AO Workflow SS Comment on above: Result Comment: For ED adult patients suspected of sepsis, MDW<=20.0 does not rule out sepsis or risk of sepsis Monocyte, Absolute 0.4 103/mcL Invalid Interpretation Code 0.2 - 1.0 10^3/mcL AO Workflow SS Monocytes/100 WBC (Bld) 8.5 % Invalid Interpretation Code 1.7 - 13.0 % AO Workflow SS Neutrophil, Absolute 2.3 103/mcL Invalid Interpretation Code 2.9 - 6.2 10^3/mcL AO Workflow SS Neutrophils/100 WBC (Bld) 47.9 % Invalid Interpretation Code 37.0 - 80.0 % AO Workflow SS Platelet mean volume (Bld) [Entitic vol] 8.0 fL Invalid Interpretation Code 7.4 - 10.4 fL AO Workflow SS Platelets (Bld) [#/Vol] 224 103/mcL Invalid Interpretation Code 130 - 400 10^3/mcL AO Workflow SS RBC (Bld) [#/Vol] 5.41 106/mcL Invalid Interpretation Code 4.04 - 6.13 10^6/mcL AO Workflow SS WBC (Bld) [#/Vol] 4.8 103/mcL Invalid Interpretation Code 4.6 - 10.8 10^3/mcL AO Workflow SS LABORATORYOrdered By: SYSTEM SYSTEM on 09-16-2022 Calcium [Mass/Vol] 9.1 mg/dL Invalid Interpretation Code 8.4 - 10.2 mg/dL AO ADM SS Chloride [Moles/Vol] 103 mmol/L Invalid Interpretation Code 98 - 107 mmol/L AO ADM SS CO2 [Moles/Vol] 28 mmol/L Invalid Interpretation Code 22 - 29 mmol/L AO ADM SS Creatinine [Mass/Vol] 1.05 mg/dL Invalid Interpretation Code 0.70 - 1.30 mg/dL AO ADM SS Electrolyte Balance 9.0 mEq/L Invalid Interpretation Code 4.0 - 15.0 mEq/L AO ADM SS GFR/1.73 sq M.predicted among blacks MDRD (S/P/Bld) [Vol rate/Area] 106 ml/min/1.73sqm Invalid Interpretation Code AO Chemistry S GFR/1.73 sq M.predicted among non-blacks MDRD (S/P/Bld) [Vol rate/Area] 88 ml/min/1.73sqm Invalid Interpretation Code AO Chemistry S Glucose [Mass/Vol] 95 mg/dL Invalid Interpretation Code 70 - 105 mg/dL AO ADM SS Potassium [Moles/Vol] 4.1 mmol/L Invalid Interpretation Code 3.5 - 5.1 mmol/L AO ADM SS Sodium [Moles/Vol] 140 mmol/L Invalid Interpretation Code 136 - 145 mmol/L AO ADM SS Troponin I.cardiac DL <= 0.01 ng/mL [Mass/Vol] 4.5 ng/L Invalid Interpretation Code 0.0 - 76.2 ng/L AO ADM SS Urea nitrogen [Mass/Vol] 13 mg/dL Invalid Interpretation Code 7 - 18 mg/dL AO ADM SS Urea nitrogen/Creatinine [Mass ratio] 12 ratio Invalid Interpretation Code 7 - 27 ratio AO ADM SS TROPHSon 09-16-2022 Troponin I High Sensitivity 4.5 ng/L Normal 0.0-76.2 [facility] ([place]) Comment on above: Performed By: #### C CLINTON, DELICIA, ARBEN, MDW, BMP, GFR, TROPHS #### [place] [id number] [place], [place] [address] XR CHEST 1 VIEWon 09-16-2022 XR CHEST 1 VIEW ORIGINAL EXAMINATION: ONE XRAY VIEW OF THE CHEST 09/16/2022 11:25 am COMPARISON: None. HISTORY: ORDERING SYSTEM PROVIDED HISTORY: Reason for Exam: chest pain FINDINGS: The cardiomediastinal silhouette demonstrates a normal appearance. No consolidative opacity is identified. There is no pleural effusion or pneumothorax. No free air seen beneath the level of the diaphragm. The bony thorax appears acutely intact. IMPRESSION: No evidence of an acute process. Interpreted by: Wellington Martinez MD Preliminary Report By: Wellington Martinez MD Electronically signed By Wellington Martinez MD Dictated Date: 09/16/2022 11:28:15 AM Prelim Date: 09/16/2022 11:29:00 AM Sign Date: 09/16/2022 11:29:00 AM Ordering Provider: MARSHA Villaseñor [facility] ([place]) UA DIP, URINE (POC)on 2022 BILIRUBIN UA (POCT) Negative Negative [facility] CLARITY UA (POCT) Clear [facility] COLOR UA (POCT) Yellow [facility] GLUCOSE UA (POCT) Negative Negative mg/dL [facility] HEMOGLOBIN/BLOOD UA (POCT) Trace-intact Abnormal Negative [facility] KETONE UA (POCT) Negative Negative mg/dL [facility] LEUKOCYTES UA (POCT) Negative Negative [facility] NITRITE UA (POCT) Negative Negative [facility] PH UA (POCT) 7.0 4.5 - 8.0 [facility] Protein Ql (U) Negative Negative mg/dL [facility] SPECIFIC GRAVITY UA (POCT) 1.010 1.005 - 1.030 [facility] UROBILINOGEN UA (POCT) 0.2 E.U./dL Normal E.U./dL [facility] STREP A MOLECULAR (POC)on Procedural Control Valid [facility] Strep A (POCT) Negative Negative [facility] STREP A MOLECULAR (POC)on Procedural Control Valid [facility] Strep A (POCT) Negative Negative [facility] XR Abdomen Supine and Uprigh ton 05-15-2021 IMPRESSION: Nonobstructive bowel gas pattern. Director Professional Services: AGAPITO Transcribe Date/Time: May 15 2021 2:47P Dictated by : LAURIE OVIEDO MD This examination was interpreted and the report reviewed and electronically signed by: LAURIE OVIEDO MD on May 15 2021 2:48PM [facility] DIVISION OF RADIOLOGY * * *Final Report* * * DATE OF EXAM: May 15 2021 2:37PM WOX [id number] - XR ABDOMEN 1V SUPINE / PROCEDURE REASON: multiple diagnoses * * * * Physician Interpretation * * * * EXAM TITLE: XR ABDOMEN 1V SUPINE EXAM DATE/TIME: 05/15/2021 2:37 PM COMPARISON: None. CLINICAL INDICATION/HISTORY: Bloating. TECHNIQUE: AP views of the abdomen are presented. FINDINGS: No abnormally dilated bowel loops identified. Air is seen in a few nondistended small bowel loops. There are a few phleboliths in the pelvis. The bony structures appear intact. DIVISION OF RADIOLOGY Provider, [facility] [place] - 05/15/2021 * * *Final Report* * * DATE OF EXAM: May 15 2021 2:37PM WOX [id number] - XR ABDOMEN 1V SUPINE / PROCEDURE REASON: multiple diagnoses * * * * Physician Interpretation * * * * EXAM TITLE: XR ABDOMEN 1V SUPINE EXAM DATE/TIME: 05/15/2021 2:37 PM COMPARISON: None. CLINICAL INDICATION/HISTORY: Bloating. TECHNIQUE: AP views of the abdomen are presented. FINDINGS: No abnormally dilated bowel loops identified. Air is seen in a few nondistended small bowel loops. There are a few phleboliths in the pelvis. The bony structures appear intact. IMPRESSION IMPRESSION: Nonobstructive bowel gas pattern. Director Professional Services: PSCB Transcribe Date/Time: May 15 2021 2:47P Dictated by : LAURIE OVIEDO MD This examination was interpreted and the report reviewed and electronically signed by: LAURIE OVIEDO MD on May 15 2021 2:48PM EST [facility] Radiology Study observation (narrative) [facility] XR Abdomen Supine and Uprigh tOrdered By: Cctiff Provider on 05-15-2021 [facility] Vital Signs Date Time Vital Sign Value Performing Clinician Facility 12-11-2023 11:07-0400 Body temperature 98.49 [degF] Krislyn Aberegg PA Work Phone: [facility] 12-11-2023 11:07-0400 Body weight 104 kg Krislyn Aberegg PA Work Phone: [facility] 12-11-2023 11:07-0400 Diastolic blood pressure 78 mm[Hg] Krislyn Aberegg PA Work Phone: [facility] 12-11-2023 11:07-0400 Heart rate 107 /min Krislyn Aberegg PA Work Phone: [facility] 12-11-2023 11:07-0400 Respiratory rate 21 /min Krislyn Aberegg PA Work Phone: [facility] 12-11-2023 11:07-0400 SaO2% (BldA) [Mass fraction] 97 % Krislyn Aberegg PA Work Phone: [facility] 12-11-2023 11:07-0400 Systolic blood pressure 112 mm[Hg] Krislyn Aberegg PA Work Phone: [facility] 12-10-2023 10:48-0400 Body temperature 97.5 [degF] Stepan Nicolas MD Work Phone: [facility] 12-10-2023 10:48-0400 Body weight 103.2 kg Stepan Nicolas MD Work Phone: [facility] 12-10-2023 10:48-0400 Diastolic blood pressure 78 mm[Hg] Stepan Nicolas MD Work Phone: [facility] 12-10-2023 10:48-0400 Heart rate 79 /min Stepan Nicolas MD Work Phone: [facility] 12-10-2023 10:48-0400 Respiratory rate 16 /min Stepan Nicolas MD Work Phone: [facility] 12-10-2023 10:48-0400 SaO2% (BldA) [Mass fraction] 97 % Stepan Nicolas MD Work Phone: [facility] 12-10-2023 10:48-0400 Systolic blood pressure 114 mm[Hg] Stepan Nicolas MD Work Phone: [facility] 11-11-2023 13:01-0400 Body temperature 98.91 [degF] Krislyn Aberegg PA Work Phone: [facility] 11-11-2023 13:01-0400 Body weight 104.1 kg Krislyn Aberegg PA Work Phone: [facility] 11-11-2023 13:01-0400 Diastolic blood pressure 72 mm[Hg] Krislyn Aberegg PA Work Phone: [facility] 11-11-2023 13:01-0400 Heart rate 114 /min Krislyn Aberegg PA Work Phone: [facility] 11-11-2023 13:01-0400 Respiratory rate 16 /min Krislyn Aberegg PA Work Phone: [facility] 11-11-2023 13:01-0400 SaO2% (BldA) [Mass fraction] 96 % Krislyn Aberegg PA Work Phone: [facility] 11-11-2023 13:01-0400 Systolic blood pressure 110 mm[Hg] Nuris Sanchez PA Work Phone: [facility] 06-24-2023 12:49-0400 Body temperature 98.1 [degF] Stoney Kobe SANITATION WORKER.POWER SYSTEM ELECTRICAL ENGINEER Work Phone: [facility] 06-24-2023 12:49-0400 Body weight 98 kg Stoney Kobe SANITATION WORKER.POWER SYSTEM ELECTRICAL ENGINEER Work Phone: [facility] 06-24-2023 12:49-0400 Diastolic blood pressure 84 mm[Hg] Stoney Kobe SANITATION WORKER.POWER SYSTEM ELECTRICAL ENGINEER Work Phone: [facility] 06-24-2023 12:49-0400 Heart rate 80 /min Stoney Kobe SANITATION WORKER.POWER SYSTEM ELECTRICAL ENGINEER Work Phone: [facility] 06-24-2023 12:49-0400 Respiratory rate 20 /min Stoney Kobe SANITATION WORKER.POWER SYSTEM ELECTRICAL ENGINEER Work Phone: [facility] 06-24-2023 12:49-0400 SaO2% (BldA) [Mass fraction] 98 % Stoney Kobe SANITATION WORKER.POWER SYSTEM ELECTRICAL ENGINEER Work Phone: [facility] 06-24-2023 12:49-0400 Systolic blood pressure 138 mm[Hg] Stoney Kobe SANITATION WORKER.POWER SYSTEM ELECTRICAL ENGINEER Work Phone: [facility] 03-25-2023 12:55-0500 Body temperature 97.39 [degF] Stoney Kobe SANITATION WORKER.POWER SYSTEM ELECTRICAL ENGINEER Work Phone: [facility] 03-25-2023 12:55-0500 Body weight 98.43 kg Stoney Kobe SANITATION WORKER.POWER SYSTEM ELECTRICAL ENGINEER Work Phone: [facility] 03-25-2023 12:55-0500 Diastolic blood pressure 80 mm[Hg] Stoney Kobe SANITATION WORKER.POWER SYSTEM ELECTRICAL ENGINEER Work Phone: [facility] 03-25-2023 12:55-0500 Heart rate 94 /min Stoney Kobe SANITATION WORKER.POWER SYSTEM ELECTRICAL ENGINEER Work Phone: [facility] 03-25-2023 12:55-0500 Respiratory rate 16 /min Stoney Bullock SANITATION WORKER.POWER SYSTEM ELECTRICAL ENGINEER Work Phone: [facility] 03-25-2023 12:55-0500 SaO2% (BldA) [Mass fraction] 97 % Stoney Bullock SANITATION WORKER.POWER SYSTEM ELECTRICAL ENGINEER Work Phone: [facility] 03-25-2023 12:55-0500 Systolic blood pressure 110 mm[Hg] Stoney Bullock SANITATION WORKER.POWER SYSTEM ELECTRICAL ENGINEER Work Phone: [facility] 02-03-2023 14:29-0400 Heart rate 92 /min Santo Bogner PA-C Work Phone: [facility] 02-03-2023 14:11-0400 Body temperature 98.71 [degF] Santo Bogner PA-C Work Phone: [facility] 02-03-2023 14:11-0400 Body weight 94.26 kg Santo Bogner PA-C Work Phone: [facility] 02-03-2023 14:11-0400 Diastolic blood pressure 78 mm[Hg] Santo Bogner PA-C Work Phone: [facility] 02-03-2023 14:11-0400 Respiratory rate 21 /min Santo Bogner PA-C Work Phone: [facility] 02-03-2023 14:11-0400 SaO2% (BldA) [Mass fraction] 97 % Santo Bogner PA-C Work Phone: [facility] 02-03-2023 14:11-0400 Systolic blood pressure 112 mm[Hg] Santo Bogner PA-C Work Phone: [facility] 11-29-2022 18:53-0400 Body height 178 cm CARMELITA DANIELLE MD [facility] 11-29-2022 18:53-0400 Body temperature 98.78 [degF] CARMELITA DANIELLE MD [facility] 11-29-2022 18:53-0400 Body weight 102 kg CARMELITA DANIELLE MD [facility] 11-29-2022 18:53-0400 Diastolic Blood Pressure Non-Invasive 76 1 CARMELITA DANIELLE MD [facility] 11-29-2022 18:53-0400 Heart rate 86 /min CARMELITA DANIELLE MD [facility] 11-29-2022 18:53-0400 Respiratory rate 16 /min CARMELITA DANIELLE MD [facility] 11-29-2022 18:53-0400 Systolic Blood Pressure Non-Invasive 119 1 CARMELITA DANIELLE MD [facility] 09-16-2022 13:13-0400 Diastolic Blood Pressure Non-Invasive 74 1 MARSHA FROMMELT DO [facility] 09-16-2022 13:13-0400 Heart rate 75 /min MARSHA FROMMELT DO [facility] 09-16-2022 13:13-0400 Respiratory rate 16 /min MARSHA FROMMELT DO [facility] 09-16-2022 13:13-0400 Systolic Blood Pressure Non-Invasive 119 1 MARSHA FROMMELT DO [facility] 09-16-2022 12:14-0400 Heart rate 68 /min MARSHA FROMMELT DO [facility] 09-16-2022 12:14-0400 Respiratory rate 16 /min MARSHA FROMMELT DO [facility] 09-16-2022 11:30-0400 Diastolic Blood Pressure Non-Invasive 70 1 MARSHA JUAREZT DO [facility] 09-16-2022 11:30-0400 Heart rate 72 /min MARSHA JUAREZT DO [facility] 09-16-2022 11:30-0400 Respiratory rate 16 /min MARSHA JUAREZT DO [facility] 09-16-2022 11:30-0400 Systolic Blood Pressure Non-Invasive 108 1 MARSHA JUAREZT DO [facility] 09-16-2022 10:27-0400 Body height 177.8 cm MARSHA JUAREZT DO [facility] 09-16-2022 10:27-0400 Body temperature 97.16 [degF] MARSHA JUAREZT [facility] 09-16-2022 10:27-0400 Body weight 104.5 kg MARSHA JUAREZT DO [facility] 09-16-2022 10:27-0400 Diastolic Blood Pressure Non-Invasive 62 1 MARSHA JUAREZT DO [facility] 09-16-2022 10:27-0400 Heart rate 90 /min MARSHA JUAREZT DO [facility] 09-16-2022 10:27-0400 Systolic Blood Pressure Non-Invasive 109 1 MARSHA JUAREZT DO [facility] 09-13-2022 16:59-0400 Body temperature 98.6 [degF] Cielo Bailey APRN.POWER SYSTEM ELECTRICAL ENGINEER Work Phone: [facility] 06-02-2023 16:59-0400 Body weight 102.24 kg Cielo Bailey SANITATION WORKER.POWER SYSTEM ELECTRICAL ENGINEER Work Phone: [facility] 09-13-2022 16:59-0400 Diastolic blood pressure 68 mm[Hg] Cielo Bailey SANITATION WORKER.POWER SYSTEM ELECTRICAL ENGINEER Work Phone: [facility] 09-13-2022 16:59-0400 Heart rate 93 /min Cielo Bailey SANITATION WORKER.POWER SYSTEM ELECTRICAL ENGINEER Work Phone: [facility] 09-13-2022 16:59-0400 Respiratory rate 18 /min Cielo Bailey SANITATION WORKER.POWER SYSTEM ELECTRICAL ENGINEER Work Phone: [facility] 09-13-2022 16:59-0400 SaO2% (BldA) [Mass fraction] 97 % Cielo Bailey SANITATION WORKER.POWER SYSTEM ELECTRICAL ENGINEER Work Phone: [facility] 09-13-2022 16:59-0400 Systolic blood pressure 122 mm[Hg] Cielo Bailey SANITATION WORKER.POWER SYSTEM ELECTRICAL ENGINEER Work Phone: [facility] 07-03-2022 11:04-0400 Body temperature 98.1 [degF] Jerad Pendlebury SANITATION WORKER.POWER SYSTEM ELECTRICAL ENGINEER Work Phone: [facility] 07-03-2022 11:04-0400 Body weight 106.78 kg Jerad Pendlebury SANITATION WORKER.POWER SYSTEM ELECTRICAL ENGINEER Work Phone: [facility] 07-03-2022 11:04-0400 Diastolic blood pressure 72 mm[Hg] Jerad Pendlebury SANITATION WORKER.POWER SYSTEM ELECTRICAL ENGINEER Work Phone: [facility] 07-03-2022 11:04-0400 Heart rate 102 /min Jerad Pendlebury SANITATION WORKER.POWER SYSTEM ELECTRICAL ENGINEER Work Phone: [facility] 07-03-2022 11:04-0400 Respiratory rate 16 /min Jerad Pendlebury SANITATION WORKER.POWER SYSTEM ELECTRICAL ENGINEER Work Phone: [facility] 07-03-2022 11:04-0400 SaO2% (BldA) [Mass fraction] 97 % Jerad Pendlebury SANITATION WORKER.POWER SYSTEM ELECTRICAL ENGINEER Work Phone: [facility] 07-03-2022 11:04-0400 Systolic blood pressure 108 mm[Hg] Jerad Shultz SANITATION WORKER.POWER SYSTEM ELECTRICAL ENGINEER Work Phone: [facility] [facility] 03-27-2022 11:57-0500 Body temperature 97.81 [degF] Rosaura [place] Point SANITATION WORKER.POWER SYSTEM ELECTRICAL ENGINEER Work Phone: [facility] 03-27-2022 11:57-0500 Body weight 108.41 kg Rosaura Holden SANITATION WORKER.POWER SYSTEM ELECTRICAL ENGINEER Work Phone: [facility] 03-27-2022 11:57-0500 Diastolic blood pressure 62 mm[Hg] Rosaura [place] SANITATION WORKER.POWER SYSTEM ELECTRICAL ENGINEER Work Phone: [facility] 03-27-2022 11:57-0500 Heart rate 88 /min Rosaura [place] SANITATION WORKER.POWER SYSTEM ELECTRICAL ENGINEER Work Phone: [facility] 03-27-2022 11:57-0500 Respiratory rate 16 /min Rosaura [place] SANITATION WORKER.POWER SYSTEM ELECTRICAL ENGINEER Work Phone: [facility] 03-27-2022 11:57-0500 SaO2% (BldA) [Mass fraction] 98 % Rosaura [place] SANITATION WORKER.POWER SYSTEM ELECTRICAL ENGINEER Work Phone: [facility] 03-27-2022 11:57-0500 Systolic blood pressure 110 mm[Hg] Rosaura Holden SANITATION WORKER.POWER SYSTEM ELECTRICAL ENGINEER Work Phone: [facility] 12-11-2021 08:24-0400 Body temperature 97 [degF] Cielo Bailey SANITATION WORKER.POWER SYSTEM ELECTRICAL ENGINEER Work Phone: [facility] 12-11-2021 08:24-0400 Body weight 103.87 kg Cielo Bailey SANITATION WORKER.POWER SYSTEM ELECTRICAL ENGINEER Work Phone: [facility] 12-11-2021 08:24-0400 Diastolic blood pressure 72 mm[Hg] Cielo Bailey SANITATION WORKER.POWER SYSTEM ELECTRICAL ENGINEER Work Phone: [facility] 12-11-2021 08:24-0400 Heart rate 86 /min Icelo Bailey SANITATION WORKER.POWER SYSTEM ELECTRICAL ENGINEER Work Phone: [facility] 12-11-2021 08:24-0400 Respiratory rate 16 /min Cielo Bailey SANITATION WORKER.POWER SYSTEM ELECTRICAL ENGINEER Work Phone: [facility] 12-11-2021 08:24-0400 SaO2% (BldA) [Mass fraction] 99 % Cielo Bailey SANITATION WORKER.POWER SYSTEM ELECTRICAL ENGINEER Work Phone: [facility] 12-11-2021 08:24-0400 Systolic blood pressure 120 mm[Hg] Cielo Bailey SANITATION WORKER.POWER SYSTEM ELECTRICAL ENGINEER Work Phone: [facility] 10-18-2021 11:10-0400 Body temperature 97.81 [degF] Jerad Pendlebury SANITATION WORKER.POWER SYSTEM ELECTRICAL ENGINEER Work Phone: [facility] 10-18-2021 11:10-0400 Body weight 101.42 kg Jerad Pendlebury SANITATION WORKER.POWER SYSTEM ELECTRICAL ENGINEER Work Phone: [facility] 10-18-2021 11:10-0400 Diastolic blood pressure 74 mm[Hg] Jerad Pendlebury SANITATION WORKER.POWER SYSTEM ELECTRICAL ENGINEER Work Phone: [facility] 10-18-2021 11:10-0400 Heart rate 77 /min Jerad Pendlebury SANITATION WORKER.POWER SYSTEM ELECTRICAL ENGINEER Work Phone: [facility] 10-18-2021 11:10-0400 Respiratory rate 16 /min Jerad Pendlebury SANITATION WORKER.POWER SYSTEM ELECTRICAL ENGINEER Work Phone: [facility] 10-18-2021 11:10-0400 SaO2% (BldA) [Mass fraction] 96 % Jerad Pendlebury SANITATION WORKER.POWER SYSTEM ELECTRICAL ENGINEER Work Phone: [facility] 10-18-2021 11:10-0400 Systolic blood pressure 106 mm[Hg] Jerad Pendlebury SANITATION WORKER.POWER SYSTEM ELECTRICAL ENGINEER Work Phone: [facility] 09-06-2021 19:14-0400 Body temperature 98.4 [degF] Cielo Bailey SANITATION WORKER.POWER SYSTEM ELECTRICAL ENGINEER Work Phone: [facility] 09-06-2021 19:14-0400 Body weight 101.79 kg Cielo Bailey SANITATION WORKER.POWER SYSTEM ELECTRICAL ENGINEER Work Phone: [facility] 09-06-2021 19:14-0400 Diastolic blood pressure 76 mm[Hg] Cielo Bailey SANITATION WORKER.POWER SYSTEM ELECTRICAL ENGINEER Work Phone: [facility] 09-06-2021 19:14-0400 Heart rate 81 /min Cielo Bailey SANITATION WORKER.POWER SYSTEM ELECTRICAL ENGINEER Work Phone: [facility] 09-06-2021 19:14-0400 Respiratory rate 14 /min Cielo Bailey SANITATION WORKER.POWER SYSTEM ELECTRICAL ENGINEER Work Phone: [facility] 09-06-2021 19:14-0400 SaO2% (BldA) [Mass fraction] 97 % Cielo Bailey SANITATION WORKER.POWER SYSTEM ELECTRICAL ENGINEER Work Phone: [facility] 09-06-2021 19:14-0400 Systolic blood pressure 120 mm[Hg] Cielo Bailey SANITATION WORKER.POWER SYSTEM ELECTRICAL ENGINEER Work Phone: [facility] 09-05-2021 12:17-0400 Body temperature 98.71 [degF] Stoney Kobe SANITATION WORKER.POWER SYSTEM ELECTRICAL ENGINEER Work Phone: [facility] 09-05-2021 12:17-0400 Body weight 101.15 kg Stoney Kobe SANITATION WORKER.POWER SYSTEM ELECTRICAL ENGINEER Work Phone: [facility] 09-05-2021 12:17-0400 Diastolic blood pressure 72 mm[Hg] Stoney Kobe SANITATION WORKER.POWER SYSTEM ELECTRICAL ENGINEER Work Phone: [facility] 09-05-2021 12:17-0400 Heart rate 92 /min Stoney Kobe SANITATION WORKER.POWER SYSTEM ELECTRICAL ENGINEER Work Phone: [facility] 09-05-2021 12:17-0400 Respiratory rate 16 /min Stoney Kobe SANITATION WORKER.POWER SYSTEM ELECTRICAL ENGINEER Work Phone: [facility] 09-05-2021 12:17-0400 SaO2% (BldA) [Mass fraction] 99 % Stoney Kobe SANITATION WORKER.POWER SYSTEM ELECTRICAL ENGINEER Work Phone: [facility] 09-05-2021 12:17-0400 Systolic blood pressure 110 mm[Hg] Stoney Kobe AMISH Work Phone: [facility] 02-25-2021 20:38-0500 Body temperature 98.6 [degF] DR KIRTI ARORA MD [facility] 02-25-2021 20:38-0500 Diastolic blood pressure 88 mm[Hg] DR KIRTI ARORA MD [facility] 02-25-2021 20:38-0500 Heart rate 80 /min DR KIRTI ARORA MD [facility] 02-25-2021 20:38-0500 Mean blood pressure 100 mm[Hg] DR KIRTI ARORA MD [facility] 02-25-2021 20:38-0500 Respiratory rate 16 /min DR KIRTI ARORA MD [facility] 02-25-2021 20:38-0500 Systolic blood pressure 124 mm[Hg] DR KIRTI ARORA MD [facility] Encounters Encounter Date Encounter Type Care Provider Facility Start: 12-11-2023 End: 12-11-2023 [facility] Facility:[facility] Start: 12-11-2023 End: 12-11-2023 Patient encounter procedure Nuris PAULINO Work Phone: [facility] Comment on above: Bacterial sinusitis (Primary Dx) Start: 12-10-2023 End: 12-10-2023 [facility] Facility:[facility] Start: 12-10-2023 End: 12-10-2023 Office outpatient visit 25 minutes Stepan Nicolas MD Work Phone: [facility] Comment on above: URI, acute (Primary Dx) Start: 11-11-2023 End: 11-11-2023 [facility] Start: 11-11-2023 End: 11-11-2023 Patient encounter procedure Nuris PAULINO Work Phone: [facility] Comment on above: Sore throat (Primary Dx); URI, acute Start: 07-02-2023 Telephone encounter [facility] Work Phone: [facility] Comment on above: Patient Question; an tibiotic Start: 06-25-2023 Telephone encounter Cielo Abraham ggs SANITATION WORKER.POWER SYSTEM ELECTRICAL ENGINEER Work Phone: [facility] Comment on above: Results Start: 06-24-2023 End: 06-24-2023 [facility] Start: 06-24-2023 End: 06-24-2023 Patient encounter procedure Stoney Bullock SANITATION WORKER.POWER SYSTEM ELECTRICAL ENGINEER Work Phone: [facility] Comment on above: Possible exposure to STD (Primary Dx) Start: 03-26-2023 Telephone encounter Cielo Abraham ggs SANITATION WORKER.POWER SYSTEM ELECTRICAL ENGINEER Work Phone: [facility] Comment on above: Results Start: 03-25-2023 End: 03-25-2023 [facility] Start: 03-25-2023 End: 03-25-2023 Patient encounter procedure Stoney Kobe SANITATION WORKER.POWER SYSTEM ELECTRICAL ENGINEER Work Phone: [facility] Comment on above: Possible exposure to STD (Primary Dx); Skin infection; Visit for suture removal Start: 02-03-2023 End: 02-03-2023 [facility] Start: 02-03-2023 End: 02-03-2023 Office outpatient visit 15 minutes Santo Dela Cruz PA-C Work Phone: [facility] Comment on above: Right-sided low back pain without sciatica, unspecified chronicity (Primary Dx) Start: 11-29-2022 End: 11-29-2022 Emergency department patient visit CARMELITA DANIELLE MD [facility] Start: 11-07-2022 Telephone encounter No Pcp SANITATION WORKER Int martin Michelle Comment on above: Patient Question Start: 09-16-2022 End: 09-16-2022 Emergency department patient visit DR DODIE JOHNSON MD Facility:[facility] Start: 09-16-2022 End: 09-16-2022 Emergency department patient visit MARSHA SHANKS DO [facility] Start: 09-13-2022 End: 09-13-2022 Patient encounter procedure Cielo Bailey SANITATION WORKER.POWER SYSTEM ELECTRICAL ENGINEER Work Phone: [facility] Comment on above: Acute pain of both k nees (Primary Dx) Start: 07-04-2022 ambulatory Crissy GAMBOA [employer] Comment on above: Results, Lab Start: 07-03-2022 End: 07-03-2022 Office outpatient visit 15 minutes Jerad Shultz SANITATION WORKER.POWER SYSTEM ELECTRICAL ENGINEER Work Phone: [facility] Comment on above: Burning with urinati on (Primary Dx); Screening for STD (sexually transmitted disease) Start: 03-27-2022 End: 03-27-2022 Patient encounter procedure Rosaura Hatch SANITATION WORKER.POWER SYSTEM ELECTRICAL ENGINEER Work Phone: [facility] Comment on above: URI, acute (Primary Dx) Start: 02-12-2022 Telephone encounter Stoney cifuentes SANITATION WORKER.POWER SYSTEM ELECTRICAL ENGINEER Work Phone: [facility] Comment on above: Results Start: 12-25-2021 Telephone encounter Arabella Tran APRN.POWER SYSTEM ELECTRICAL ENGINEER Work Phone: [facility] Comment on above: Results Start: 12-12-2021 Telephone encounter Stoney cifuentes SANITATION WORKER.POWER SYSTEM ELECTRICAL ENGINEER Work Phone: [facility] Comment on above: Results Start: 12-11-2021 End: 12-11-2021 Patient encounter procedure Cielo Bailey SANITATION WORKER.POWER SYSTEM ELECTRICAL ENGINEER Work Phone: [facility] Comment on above: Exposure to COVID-19 virus (Primary Dx) Start: 10-18-2021 End: 10-18-2021 Patient encounter procedure Jerad Shultz SANITATION WORKER.POWER SYSTEM ELECTRICAL ENGINEER Work Phone: [facility] Comment on above: Pharyngitis, unspeci fied etiology (Primary Dx); Viral illness Start: 09-07-2021 Telephone encounter Arabella Tran SANITATION WORKER.POWER SYSTEM ELECTRICAL ENGINEER Work Phone: [facility] Comment on above: Results Start: 09-06-2021 End: 09-06-2021 Patient encounter procedure Cielo Bailey SANITATION WORKER.POWER SYSTEM ELECTRICAL ENGINEER Work Phone: [facility] Comment on above: Pharyngitis, unspeci fied etiology (Primary Dx); Exposure to COVID-19 virus; URI, acute Start: 09-06-2021 Telephone encounter Stepan Burton MD Work Phone: [facility] Comment on above: Results Start: 09-05-2021 End: 09-05-2021 Patient encounter procedure Stoney Bullock SANITATION WORKER.POWER SYSTEM ELECTRICAL ENGINEER Work Phone: [facility] Comment on above: Close exposure to [place] VID-19 virus (Primary Dx); Viral syndrome Start: 05-15-2021 End: 05-15-2021 Subsequent hospital visit by physician Xr [facility] Work Phone: Radiology Comment on above: Generalized abdomina l pain [R10.84] Start: 02-25-2021 End: 02-25-2021 Emergency department patient visit DR KIRTI ARORA MD [facility] Start: 04-05-2020 End: 04-05-2020 Patient encounter procedure [facility] Start: 11-12-2019 End: 11-12-2019 Patient encounter procedure [facility] Procedures Date Procedure Procedure Detail Performing Clinician Start: 11-11-2023 STREP A MOLECULAR (POC) Nuris PAULINO Work Phone: Start: 02-03-2023 Urnls dip stick/tabl et rgnt auto w/o microscopy Stepan Nicolas MD Work Phone: Start: 07-03-2022 Urnls dip stick/tabl et rgnt auto w/o microscopy Stoney Bullock SANITATION WORKER.POWER SYSTEM ELECTRICAL ENGINEER Work Phone: Start: 10-18-2021 STREP A MOLECULAR (POC) Jerad Shultz SANITATION WORKER.POWER SYSTEM ELECTRICAL ENGINEER Work Phone: Start: 09-06-2021 STREP A MOLECULAR (POC) Cielo Bailey SANITATION WORKER.POWER SYSTEM ELECTRICAL ENGINEER Work Phone: Start: 05-15-2021 Radiologic exam abdo men 1 view Cielo Bailey SANITATION WORKER.POWER SYSTEM ELECTRICAL ENGINEER Work Phone: Arthroscopy of knee MARSHA [facility] [employer] Comment on above: left mcl None (qualifier value) CHARL LIBRADO [facility] [employer] Open reduction of fr acture with internal fixation CARMELITA DANIELLE MD Comment on above: metatarsal Plan of Treatment Date Care Activity Detail Author Start: 10-26-2031 Urine microalbumin profile DTaP,Tdap,Td Vaccine (8 - Td or Tdap) [facility] Start: 12-14-2023 Covid-19 Vaccine ( season) Covid-19 Vaccine ( season) [facility] Start: 12-14-2023 Influenza vaccination Influenza Vacc ine (#1) [facility] Start: 12-10-2023 End: 12-24-2023 COVID & INFLUENZA A/B & RSV PCR, ROUTINE COVID & INFLUENZA A/B & RSV PCR, ROUTINE Microbiology Routine URI, acute Expected: 12/10/2023, Expires: 12/24/2023 [facility] Work Phone: Comment on above: Expected: 12/10/2023 , Expires: 12/24/2023 Start: 04-14-2023 Depression Assessment Depression Ass essment [facility] Start: 03-25-2023 End: 06-24-2023 Chlamydia trachomatis+Neisseria gonorrhoeae DNA [Presence] in Unspecified specimen by ISREAL with probe detection [facility] Work Phone: Comment on above: Expected: 03/25/2023 , Expires: 06/24/2023 Start: 03-25-2023 End: 06-24-2023 Hepatitis B virus surface Ag [Presence] in Serum [facility] Work Phone: Comment on above: Expected: 03/25/2023 , Expires: 06/24/2023 Start: 03-25-2023 End: 06-24-2023 Hepatitis C virus Ab [Presence] in Serum [facility] Work Phone: Comment on above: Expected: 03/25/2023 , Expires: 06/24/2023 Start: 03-25-2023 End: 06-24-2023 HIV 1+2 Ab [Presence] in Serum or Plasma by Immunoassay [facility] Work Phone: Comment on above: Expected: 03/25/2023 , Expires: 06/24/2023 Start: 03-25-2023 End: 06-24-2023 SYPHILIS TOTAL W/REFLEX [facility] Work Phone: Comment on above: Expected: 03/25/2023 , Expires: 06/24/2023 Start: 02-03-2023 End: 05-05-2023 CBC W Auto Differential panel - Blood CBC + DIFF Lab Routine Right-sided low back pain without sciatica, unspecified chronicity Expected: 02/03/2023, Expires: 05/05/2023 [facility] Work Phone: Comment on above: Expected: 02/03/2023 , Expires: 05/05/2023 Start: 02-03-2023 End: 05-05-2023 Comprehensive metabolic 2000 panel - Serum or Plasma COMP METABOLIC PANEL Lab Routine Right-sided low back pain without sciatica, unspecified chronicity Expected: 02/03/2023, Expires: 05/05/2023 [facility] Work Phone: Comment on above: Expected: 02/03/2023 , Expires: 05/05/2023 Start: 12-13-2022 Covid-19 Vaccine () Covid-19 Vaccine () [facility] Start: 12-13-2022 Influenza vaccination [facility] Start: 07-03-2022 End: 09-02-2022 Hepatitis B virus surface Ag [Presence] in Serum HEP B SURF AG SCRN Lab Routine Burning with urination Screening for STD (sexually transmitted disease) Expected: 07/03/2022, Expires: 09/02/2022 [facility] Work Phone: Comment on above: Expected: 07/03/2022 , Expires: 09/02/2022 Start: 07-03-2022 End: 09-02-2022 Hepatitis C virus Ab [Presence] in Serum HEP C AB IA W/CONF SCRN Lab Routine Burning with urination Screening for STD (sexually transmitted disease) Expected: 07/03/2022, Expires: 09/02/2022 [facility] Work Phone: Comment on above: Expected: 07/03/2022 , Expires: 09/02/2022 Start: 07-03-2022 End: 09-02-2022 HIV 1+2 Ab [Presence] in Serum or Plasma by Immunoassay HIV 1 2 COMBO(AG/AB),WITH REFLEX TO DIFFERENTIATION Lab Routine Burning with urination Screening for STD (sexually transmitted disease) Expected: 07/03/2022, Expires: 09/02/2022 [facility] Work Phone: Comment on above: Expected: 07/03/2022 , Expires: 09/02/2022 Start: 07-03-2022 End: 09-02-2022 SYPHILIS TOTAL W/REFLEX SYPHILIS TOTAL W/REFLEX Lab Routine Burning with urination Screening for STD (sexually transmitted disease) Expected: 07/03/2022, Expires: 09/02/2022 [facility] Work Phone: Comment on above: Expected: 07/03/2022 , Expires: 09/02/2022 Start: 04-14-2022 [facility] Start: 12-13-2021 Influenza vaccination [facility] Start: 12-11-2021 End: 12-25-2021 Influenza virus A and B RNA and SARS-CoV-2 (COVID-19) N gene panel - Respiratory specimen by ISREAL with probe detection COVID WITH FLUA+B, ROUTINE Microbiology Routine Exposure to COVID-19 virus Expected: 12/11/2021, Expires: 12/25/2021 [facility] Work Phone: Comment on above: Expected: 12/11/2021 , Expires: 12/25/2021 Start: 09-06-2021 End: 09-20-2021 Influenza virus A and B RNA and SARS-CoV-2 (COVID-19) N gene panel - Respiratory specimen by ISREAL with probe detection COVID WITH FLUA+B, ROUTINE Microbiology Routine Pharyngitis, unspecified etiology Expected: 09/06/2021, Expires: 09/20/2021 [facility] Work Phone: Comment on above: Expected: 09/06/2021 , Expires: 09/20/2021 Start: 04-14-2021 DEPRESSION ASSESSMENT DEPRESSION ASS [facility] Start: 2016 Anxiety Screening Anxiety Screening [facility] Start: 2016 Depression Screening Depression Scre [facility] Start: 2016 [facility] Start: 2016 Hepatitis C screening Hepatitis C [facility] Start: 2016 HIV SCREENING HIV SCREENING [facility] Start: 2016 HIV screening HIV Screening [facility] Start: 2014 Meningococcal B Vaccine: Consider Based On Risk (1 of 2 - Patient Seeks Protection) Meningococcal B Vaccine: Consider Based On Risk (1 of 2 - Patient Seeks Protection) [facility] Start: 2014 MENINGOCOCCAL B: Consider based on risk (1 of 2 - Patient Seeks Protection) MENINGOCOCCAL B: Consider based on risk (1 of 2 - Patient Seeks Protection) [facility] Start: 2013 HPV Vaccine (1 - Mal e 3-dose series) HPV Vaccine (1 - Male 3-dose series) [facility] Start: 2012 PEDS TO ADULT TRANSITION ANNUAL ASSESSMENT PEDS TO ADULT TRANSITION ANNUAL ASSESSMENT [facility] Start: 2010 Adult depression screening assessment DEPRESSION SCREENING [facility] Start: 2010 PEDS TO ADULT TRANSITION INITIAL DISCUSSION PEDS TO ADULT TRANSITION INITIAL DISCUSSION [facility] Start: 2009 HPV VACCINE (1 - Mal e 2-dose series) HPV VACCINE (1 - Male 2-dose series) [facility] Start: 2009 Urine microalbumin profile DTAP,TDAP,TD (5 - Tdap) [facility] Start: 2008 MENINGOCOCCAL B: Consider based on risk (1 of 2 - Risk Bexsero 2-dose series) MENINGOCOCCAL B: Consider based on risk (1 of 2 - Risk Bexsero 2-dose series) [facility] Start: 11-06-2007 HPV VACCINE (1 - Mal e 2-dose series) HPV VACCINE (1 - Male 2-dose series) [facility] Start: 11-06-2003 COVID-19 VACCINE (#1) COVID-19 VACCI NE (#1) [facility] Start: 07-25-2000 HEPATITIS B (4 of 4 - 4-dose series) HEPATITIS B (4 of 4 - 4-dose series) [facility] Start: 05-08-1999 COVID-19 VACCINE (#1) COVID-19 VACCI NE (#1) [facility] Bacteria identified in Urine by Culture URINE CULTURE Microbiology Routine Burning with urination Ordered: 07/03/2022 [facility] Work Phone: Comment on above: Ordered: 07/03/2022 Bacteria identified in Urine by Culture URINE CULTURE Microbiology Routine Right-sided low back pain without sciatica, unspecified chronicity 02/03/2023 2:47 PM EDT [facility] Work Phone: Chlamydia trachomatis+Neisseria gonorrhoeae DNA [Presence] in Unspecified specimen by ISREAL with probe detection GONORRHEA/CHLAMYDIA NAAT Lab Routine Possible exposure to STD 06/24/2023 1:22 PM EDT [facility] Work Phone: Chlamydia trachomatis+Neisseria gonorrhoeae DNA [Presence] in Urine by ISREAL with probe detection GC/CHLAMYDIA AMPLIF, URINE Microbiology Routine Burning with urination Screening for STD (sexually transmitted disease) Ordered: 07/03/2022 [facility] Work Phone: Comment on above: Ordered: 07/03/2022 Influenza virus A an d B RNA and SARS-CoV-2 (COVID-19) N gene panel - Respiratory specimen by ISREAL with probe detection COVID WITH FLUA+B, ROUTINE Microbiology Routine Viral illness 10/18/2021 11:20 AM EDT [facility] Work Phone: Influenza virus A an d B RNA and SARS-CoV-2 (COVID-19) N gene panel - Respiratory specimen by ISREAL with probe detection COVID WITH FLUA+B, ROUTINE Microbiology Routine URI, acute Ordered: 03/27/2022 [facility] Work Phone: Comment on above: Ordered: 03/27/2022 SARS-CoV-2 (COVID-19 ) RNA [Presence] in Respiratory specimen by ISREAL with probe detection 2019 CORONAVIRUS Microbiology Routine Close exposure to COVID-19 virus Viral syndrome Ordered: 09/05/2021 [facility] Work Phone: Comment on above: Ordered: 09/05/2021 TRICHOMONAS VAGINALI S NAAT TRICHOMONAS VAGINALIS NAAT Lab Routine Possible exposure to STD 06/24/2023 1:22 PM EDT [facility] Work Phone: End: 03-04-2024 US KIDNEY/BLADDER US KIDNEY/BLADDER Radiology Routine Right-sided low back pain without sciatica, unspecified chronicity 1 Occurrences starting 02/03/2023 until 03/04/2024 [facility] Work Phone: Comment on above: 1 Occurrences starti ng 02/03/2023 until 03/04/2024 End: 10-13-2023 XR KNEE GENERAL 4V AP BOTH/PA BOTH/LAT/MERC BILATERAL XR KNEE GENERAL 4V AP BOTH/PA BOTH/LAT/MERC BILATERAL Radiology STAT Acute pain of both knees 1 Occurrences starting 09/13/2022 until 10/13/2023 [facility] Work Phone: Comment on above: 1 Occurrences starti ng 09/13/2022 until 10/13/2023 [facility] Immunizations Immunization Date Immunization Notes Care Provider Sunil garcias 05-11-2020 influenza virus vaccine, unspecified formulation Santo Dela Cruz PA-C Work Phone: [facility] 12-24-2006 measles, mumps and rubella virus vaccine Stoney Kobe SANITATION WORKER.POWER SYSTEM ELECTRICAL ENGINEER Work Phone: [facility] Work Phone: 12-24-2006 poliovirus vaccine, inactivated Stoney Bullock SANITATION WORKER.[facility] Work Phone: [facility] Work Phone: 12-24-2006 tetanus and diphther ia toxoids, adsorbed, preservative free, for adult use (2 Lf of tetanus toxoid and 2 Lf of diphtheria toxoid) Stoney Bullock APRN.[facility] Work Phone: [facility] [facility] Work Phone: 12-24-2006 varicella virus vaccine Stoney Bullock SANITATION WORKER.POWER SYSTEM ELECTRICAL ENGINEER Work Phone: [facility] Work Phone: 12-14-2002 pneumococcal conjuga te vaccine, 7 valent Stoney Bullock SANITATION WORKER.[facility] Work Phone: [facility] Work Phone: 12-16-2001 haemophilus influenz ae type b vaccine, HbOC conjugate Stoney Bullock SANITATION WORKER.POWER SYSTEM ELECTRICAL ENGINEER Work Phone: [facility] Work Phone: 11-11-2000 diphtheria, tetanus toxoids and acellular pertussis vaccine Stoney Bullock SANITATION WORKER.POWER SYSTEM ELECTRICAL ENGINEER Work Phone: [facility] Work Phone: 09-15-2000 diphtheria, tetanus toxoids and acellular pertussis vaccine Stoney Bullock SANITATION WORKER.POWER SYSTEM ELECTRICAL ENGINEER Work Phone: [facility] Work Phone: 09-15-2000 haemophilus influenz ae type b vaccine, HbOC conjugate Stoney Bullock SANITATION WORKER.POWER SYSTEM ELECTRICAL ENGINEER Work Phone: [facility] Work Phone: 09-15-2000 pneumococcal conjuga te vaccine, 7 valent Stoney Kobe SANITATION WORKER.POWER SYSTEM ELECTRICAL ENGINEER Work Phone: [facility] Work Phone: 09-15-2000 poliovirus vaccine, inactivated Stoney King SANITATION WORKER.POWER SYSTEM ELECTRICAL ENGINEER Work Phone: [facility] Work Phone: 07-21-2000 diphtheria, tetanus toxoids and acellular pertussis vaccine Stoney King SANITATION WORKER.POWER SYSTEM ELECTRICAL ENGINEER Work Phone: [facility] Work Phone: 07-17-2000 haemophilus influenz ae type b vaccine, HbOC conjugate Stoney King SANITATION WORKER.POWER SYSTEM ELECTRICAL ENGINEER Work Phone: [facility] Work Phone: 07-17-2000 hepatitis B vaccine, pediatric or pediatric/adolescent dosage Stoney Kobe SANITATION WORKER.[facility] Work Phone: [facility] Work Phone: 07-17-2000 pneumococcal conjuga te vaccine, 7 valent Stoney Kobe SANITATION WORKER.POWER SYSTEM ELECTRICAL ENGINEER Work Phone: [facility] Work Phone: 07-17-2000 poliovirus vaccine, inactivated Stoney King SANITATION WORKER.POWER SYSTEM ELECTRICAL ENGINEER Work Phone: [facility] Work Phone: 07-17-2000 hepatitis B vaccine, unspecified formulation Cielo Bailey SANITATION WORKER.POWER SYSTEM ELECTRICAL ENGINEER Work Phone: [facility] 05-30-2000 diphtheria, tetanus toxoids and acellular pertussis vaccine Stoney King SANITATION WORKER.POWER SYSTEM ELECTRICAL ENGINEER Work Phone: [facility] Work Phone: 05-30-2000 haemophilus influenz ae type b vaccine, HbOC conjugate Stoney King SANITATION WORKER.POWER SYSTEM ELECTRICAL ENGINEER Work Phone: [facility] Work Phone: 05-30-2000 hepatitis B vaccine, pediatric or pediatric/adolescent dosage Stoney Kobe SANITATION WORKER.POWER SYSTEM ELECTRICAL ENGINEER Work Phone: [facility] Work Phone: 05-30-2000 poliovirus vaccine, inactivated Stoney Bullock SANITATION WORKER.POWER SYSTEM ELECTRICAL ENGINEER Work Phone: [facility] Work Phone: 03-10-2000 measles, mumps and rubella virus vaccine Stoney Bullock SANITATION WORKER.POWER SYSTEM ELECTRICAL ENGINEER Work Phone: [facility] Work Phone: 03-10-2000 varicella virus vaccine Stoney King SANITATION WORKER.POWER SYSTEM ELECTRICAL ENGINEER Work Phone: [facility] Work Phone: 1998 hepatitis B vaccine, pediatric or pediatric/adolescent dosage Stoney King SANITATION WORKER.POWER SYSTEM ELECTRICAL ENGINEER Work Phone: [facility] Work Phone: Payers Date Payer Category Payer Unknown [id number] 2014 Medicaid [place] [employer] [employer] [id number] 2014-Present [phone] [place] [id number] Medicaid [id number] 2014 Medicaid [id number] 1998 Unknown [id number] Social History Date Type Detail Facility Start: 03-21-2021 End: 12-11-2021 Never smoked tobacco (finding) [facility] Sex Assigned At [facility] Start: 05-15-2021 End: 09-05-2021 Alcohol intake Current non-drinker of alcohol (finding) [facility] Start: 2000 Sex Assigned At Not on file [facility] Start: 04-15-2021 End: 10-18-2021 Exposure to SARS-CoV-2 (event) Not sure [facility] Work Phone: History of tobacco use Passive smoker [facility] Work Phone: Start: 03-21-2021 End: 12-11-2021 Tobacco use and exposure Smokeless tobacco non-user [facility] Work Phone: Start: 12-11-2021 Tobacco Comment mom smokes out side of home [facility] Start: 12-01-2021 End: 12-11-2021 Exposure to SARS-CoV-2 (event) Yes [facility] Work Phone: Start: 09-13-2022 Tobacco use and exposure User of smokeless tobacco [facility] Start: 09-13-2022 Tobacco Comment mom smokes out side of home, vape [facility] Tobacco Nicotine Use: Va ping Product in Last 90 Days. Type: Electronic Cigarettes (Vaping). [facility] Start: 11-28-2020 End: 09-13-2022 History of Social function [facility] Start: 11-28-2020 End: 09-13-2022 Tobacco use panel [facility] National Score (1-100), lower number is lower risk 80 [facility] Functional Status Date Assessment Result Facility 11-29-2022 Functional Status ID band on, Allergy Band on, Call device within reach, Bed in low position, Wheels locked [facility] 09-16-2022 Functional Status Up ad rahat [facility] 09-16-2022 Functional Status Standard Safet y Visitor at bedside [facility] 09-16-2022 Functional Status [facility] Mental Status Date Assessment Result Facility 11-29-2022 Mental Status Oriented x 4 [facility] 09-16-2022 Mental Status Orientation Oriented x 4 [facility] 09-16-2022 Mental Status [facility] Clinical Notes 02-25-2021 to 12-11-2023 Nuris Sanchez PA - 12/11/2023 11:20 AM Stepan Wen MD - 12/10/2023 10:59 AM Nuris Rogers PA - 11/11/2023 1:10 PM EDTPatient InstructionsPatient Instructions Note Date & Type Note Facility 12-11-2023 Note HNO ID: [id number] Author: NURIS SANCHEZ PA Service: ? Author Type: Physician Senior Production Manager Type: Progress Notes Filed: 12/11/2023 11:22 Note Text: This note was created using [employer]. Subjective Sekou Ruth is a 23 year old male. HPI 23-year-old male presents for sinus congestion, sore throat, cough for about 8 or 9 days. Patient was seen here yesterday and had COVID/flu/RSV and strep swabs which were negative. Patient states that today symptoms are worse. He is having worsening nasal congestion, sinus pressure, sinus pain, cough. He was wheezing yesterday. No chest pain or shortness of breath. States he has a history of asthma as a child, does not use inhalers regularly. He was given Tessalon Perles yesterday for his cough which helped slightly. Patient denies any vomiting or diarrhea. His kids were recently sick as well. No other complaint. No past medical history on file. No past surgical history on file. ALLERGIES Banana and Iodine MEDICATIONS benzonatate (TESSALON PERLE) 100 mg capsule Take 1 capsule by mouth every 8 hours as needed for cough for up to 15 days. amoxicillin-clavulanate potassium (AUGMENTIN) 875-125 mg per tablet Take 1 tablet by mouth two times a day for 7 days. No family history on file. Social History Tobacco Use Smoking status: Never Passive exposure: Yes Smokeless tobacco: Current Tobacco comments: mom smokes outside of home, vape Substance Use Topics Alcohol use: No Drug use: Never Review of Systems Constitutional: Positive for fever (Last week, resolved). Negative for chills. HENT: Positive for congestion, sinus pressure, sinus pain and sore throat. Respiratory: Positive for cough and wheezing. Negative for shortness of breath. Gastrointestinal: Negative for diarrhea and vomiting. Objective BP 112/78 Pulse 107 Temp 36.9 ?C (98.5 ?F) Resp 21 Wt 104 kg (229 lb 4.5 oz) SpO2 97% Physical Exam Vitals and nursing note reviewed. Constitutional: General: He is not in acute distress. Appearance: Normal appearance. He is not toxic-appearing. HENT: Right Ear: Tympanic membrane and ear canal normal. Left Ear: Tympanic membrane and ear canal normal. Nose: Mucosal edema and congestion present. Right Sinus: Maxillary sinus tenderness and frontal sinus tenderness present. Left Sinus: Maxillary sinus tenderness and frontal sinus tenderness present. Mouth/Throat: Mouth: Mucous membranes are moist. Eyes: Conjunctiva/sclera: Conjunctivae normal. Cardiovascular: Rate and Rhythm: Normal rate and regular rhythm. Pulmonary: Effort: Pulmonary effort is normal. Breath sounds: Normal breath sounds. No wheezing, rhonchi or rales. Skin: General: Skin is warm and dry. Neurological: Mental Status: He is alert. Assessment and Plan ASSESSMENT/PLAN: 1. Bacterial sinusitis - ICD9: 473.9, 041.9, ICD10: J32.9, B96.89 -Symptoms x 8 to 9 days. Seen yesterday, viral swabs negative. Worsening sinus symptoms today. - Will begin treatment with Augmentin 875 mg PO BID for 7 days - The patient should also be given OTC decongestants prn for the first 5-7 days of treatment. - Supportive care with plenty of fluids, rest, and analgesia prn. Diagnosis and treatment plan were discussed and questions were answered to the patient's satisfaction. Pt acknowledged understanding of concepts and follow up plan. Specific signs and symptoms that would indicate the need for higher level of care were discussed in detail warranting prompt ER evaluation. JEFFERSON Boyle [facility] 12-11-2023 History of Presen t illness Narrative This note was created using [employer]. Subjective Sekou Ruth is a 23 year old male. HPI 23-year-old male presents for sinus congestion, sore throat, cough for about 8 or 9 days. Patient was seen here yesterday and had COVID/flu/RSV and strep swabs which were negative. Patient states that today symptoms are worse. He is having worsening nasal congestion, sinus pressure, sinus pain, cough. He was wheezing yesterday. No chest pain or shortness of breath. States he has a history of asthma as a child, does not use inhalers regularly. He was given Tessalon Perles yesterday for his cough which helped slightly. Patient denies any vomiting or diarrhea. His kids were recently sick as well. No other complaint. No past medical history on file. No past surgical history on file. ALLERGIES Banana and Iodine MEDICATIONS benzonatate (TESSALON PERLE) 100 mg capsule Take 1 capsule by mouth every 8 hours as needed for cough for up to 15 days. amoxicillin-clavulanate potassium (AUGMENTIN) 875-125 mg per tablet Take 1 tablet by mouth two times a day for 7 days. No family history on file. Social History Tobacco Use Smoking status: Never Passive exposure: Yes Smokeless tobacco: Current Tobacco comments: mom smokes outside of home, vape Substance Use Topics Alcohol use: No Drug use: Never Review of Systems Constitutional: Positive for fever (Last week, resolved). Negative for chills. HENT: Positive for congestion, sinus pressure, sinus pain and sore throat. Respiratory: Positive for cough and wheezing. Negative for shortness of breath. Gastrointestinal: Negative for diarrhea and vomiting. Objective BP 112/78 Pulse 107 Temp 36.9 C (98.5 F) Resp 21 Wt 104 kg (229 lb 4.5 oz) SpO2 97% Physical Exam Vitals and nursing note reviewed. Constitutional: General: He is not in acute distress. Appearance: Normal appearance. He is not toxic-appearing. HENT: Right Ear: Tympanic membrane and ear canal normal. Left Ear: Tympanic membrane and ear canal normal. Nose: Mucosal edema and congestion present. Right Sinus: Maxillary sinus tenderness and frontal sinus tenderness present. Left Sinus: Maxillary sinus tenderness and frontal sinus tenderness present. Mouth/Throat: Mouth: Mucous membranes are moist. Eyes: Conjunctiva/sclera: Conjunctivae normal. Cardiovascular: Rate and Rhythm: Normal rate and regular rhythm. Pulmonary: Effort: Pulmonary effort is normal. Breath sounds: Normal breath sounds. No wheezing, rhonchi or rales. Skin: General: Skin is warm and dry. Neurological: Mental Status: He is alert. Assessment and Plan ASSESSMENT/PLAN: 1. Bacterial sinusitis - ICD9: 473.9, 041.9, ICD10: J32.9, B96.89 -Symptoms x 8 to 9 days. Seen yesterday, viral swabs negative. Worsening sinus symptoms today. - Will begin treatment with Augmentin 875 mg PO BID for 7 days - The patient should also be given OTC decongestants prn for the first 5-7 days of treatment. - Supportive care with plenty of fluids, rest, and analgesia prn. Diagnosis and treatment plan were discussed and questions were answered to the patient's satisfaction. Pt acknowledged understanding of concepts and follow up plan. Specific signs and symptoms that would indicate the need for higher level of care were discussed in detail warranting prompt ER evaluation. JEFFERSON Boyle documented in this encounter [facility] 12-10-2023 Note HNO ID: [id number] Author: STEPAN NICOLAS MD Service: ? Author Type: Physician Type: Progress Notes Filed: 12/10/2023 11:16 Note Text: Patient presents with: Cough: Cough, congestion, ANDRES and sinus x 1 week HPI: Feeling sick for 1 week. One of his kids were sick last week. Positive symptoms: Cough, wheezing, sputum production, Sinus pressure, Headache, Nasal Congestion, Chills, Malaise, Fatigue, Diarrhea, improving sore throat Negative symptoms: Fever, Vomiting, OTC: Tylenol MEDICATIONS: No current outpatient medications on file. No current facility-administered medications for this visit. ALLERGIES: ALLERGIES Allergen Reactions Banana Other: See Comments Iodine Rash VITALS: BP 114/78 Pulse 79 Temp 36.4 ?C (97.5 ?F) (Tympanic) Resp 16 Wt 103.2 kg (227 lb 8.2 oz) SpO2 97% PHYSICAL EXAM: GEN: mildly ill appearing HEENT: PERRL, EOMI, conjunctiva clear Ears: canals clear. TMs without erythema, bulge, or effusion Sinuses: non-tender frontal sinus, non-tender maxillary sinuses Throat: moist mucous membranes, mild erythema, no exudate Neck: supple, no thyromegaly, no lymphadenopathy HEART: regular rate and rhythm, no murmurs LUNGS: clear to auscultation, no wheezes or crackles, no increased WOB ASSESSMENT/PLAN: 1. URI, acute - ICD9: 465.9, ICD10: J06.9 - suspect viral URI, differential includes COVID-19 which is prevalent in the community. - Discussed supportive care treatment with home isolation, rest, cold medicine, and analgesia. - Red flags to seek further treatment include chest pain, shortness of breath, and lethargy; in the ER if severe. - COVID AND INFLUENZA A/B AND RSV PCR, ROUTINE - BENZONATATE 100 MG CAPSULE Stepan Nicolas MD [facility] 12-10-2023 History of Presen t illness Narrative Patient presents with: Cough: Cough, congestion, ANDRES and sinus x 1 week HPI: Feeling sick for 1 week. One of his kids were sick last week. Positive symptoms: Cough, wheezing, sputum production, Sinus pressure, Headache, Nasal Congestion, Chills, Malaise, Fatigue, Diarrhea, improving sore throat Negative symptoms: Fever, Vomiting, OTC: Tylenol MEDICATIONS: No current outpatient medications on file. No current facility-administered medications for this visit. ALLERGIES: ALLERGIES Allergen Reactions Banana Other: See Comments Iodine Rash VITALS: BP 114/78 Pulse 79 Temp 36.4 C (97.5 F) (Tympanic) Resp 16 Wt 103.2 kg (227 lb 8.2 oz) SpO2 97% PHYSICAL EXAM: GEN: mildly ill appearing HEENT: PERRL, EOMI, conjunctiva clear Ears: canals clear. TMs without erythema, bulge, or effusion Sinuses: non-tender frontal sinus, non-tender maxillary sinuses Throat: moist mucous membranes, mild erythema, no exudate Neck: supple, no thyromegaly, no lymphadenopathy HEART: regular rate and rhythm, no murmurs LUNGS: clear to auscultation, no wheezes or crackles, no increased WOB ASSESSMENT/PLAN: 1. URI, acute - ICD9: 465.9, ICD10: J06.9 - suspect viral URI, differential includes COVID-19 which is prevalent in the community. - Discussed supportive care treatment with home isolation, rest, cold medicine, and analgesia. - Red flags to seek further treatment include chest pain, shortness of breath, and lethargy; in the ER if severe. - COVID & INFLUENZA A/B & RSV PCR, ROUTINE - BENZONATATE 100 MG CAPSULE Stepan Nicolas MD documented in this encounter [facility] 11-11-2023 Note HNO ID: [id number] Author: NURIS SANCHEZ PA Service: ? Author Type: Physician Senior Production Manager Type: Progress Notes Filed: 11/11/2023 13:16 Note Text: This note was created using [employer]. Subjective Sekou Ruth is a 23 year old male. HPI 23-year-old male presents for runny nose, sore throat, headache x 4 days. Patient states he started getting sore throat and headache about 4 days ago. He started getting runny nose and mild cough yesterday. No vomiting or diarrhea. Still able to eat and drink. No fevers. No chest pain or shortness of breath. No sick contacts that he is aware of. Has not tried anything [id number] for symptoms. No other complaint. History reviewed. No pertinent past medical history. No past surgical history on file. ALLERGIES Banana and Iodine MEDICATIONS predniSONE (DELTASONE) 10 mg tablet Take 4 tabs daily for 3 days, then 2 tabs daily for 3 days, then 1 tab daily for 3 days with food. (Patient not taking: Reported on 06/24/2023) polyethylene glycol 3350 (MIRALAX) 17 gram packet Take 1 Packet by mouth once daily. Dissolve dose in 4 - 8 ounces of liquid and take as directed. (Patient not taking: Reported on 06/24/2023) No family history on file. Social History Tobacco Use Smoking status: Never Passive exposure: Yes Smokeless tobacco: Current Tobacco comments: mom smokes outside of home, vape Substance Use Topics Alcohol use: No Drug use: Never Review of Systems Constitutional: Negative for chills and fever. HENT: Positive for congestion and sore throat. Respiratory: Positive for cough. Negative for shortness of breath. Gastrointestinal: Negative for diarrhea and vomiting. Neurological: Positive for headaches. Objective BP 110/72 Pulse 114 Temp 37.2 ?C (98.9 ?F) (Tympanic) Resp 16 Wt 104.1 kg (229 lb 8 oz) SpO2 96% Physical Exam Vitals and nursing note reviewed. Constitutional: General: He is not in acute distress. Appearance: Normal appearance. He is not toxic-appearing. HENT: Right Ear: Tympanic membrane and ear canal normal. Left Ear: Tympanic membrane and ear canal normal. Nose: Nose normal. Mouth/Throat: Mouth: Mucous membranes are moist. Pharynx: Uvula midline. Posterior oropharyngeal erythema present. Tonsils: No tonsillar exudate or tonsillar abscesses. 1+ on the right. 1+ on the left. Eyes: Conjunctiva/sclera: Conjunctivae normal. Cardiovascular: Rate and Rhythm: Normal rate and regular rhythm. Pulmonary: Effort: Pulmonary effort is normal. Breath sounds: Normal breath sounds. No wheezing, rhonchi or rales. Skin: General: Skin is warm and dry. Neurological: Mental Status: He is alert. Assessment and Plan ASSESSMENT/PLAN: 1. Sore throat - ICD9: 462, ICD10: J02.9 (primary diagnosis) - suspect viral - Group A strep molecular testing negative - Discussed supportive care treatment with fluids, rest and analgesia. - The patient may also use warm salt water gargles, throat lozenges and/or OTC throat spray as needed. - STREP A MOLECULAR (POC) 2. URI, acute - ICD9: 465.9, ICD10: J06.9 - Discussed viral etiology and rationale for treatment. - Symptomatic treatment with prn analgesia - Supportive care with fluids and rest -Declines COVID/flu swab. Diagnosis and treatment plan were discussed and questions were answered to the patient's satisfaction. Pt acknowledged understanding of concepts and follow up plan. Specific signs and symptoms that would indicate the need for higher level of care were discussed in detail warranting prompt ER evaluation. JEFFERSON Boyle [facility] 11-11-2023 History of Presen t illness Narrative This note was created using [employer]. Subjective Sekou Ruth is a 23 year old male. HPI 23-year-old male presents for runny nose, sore throat, headache x 4 days. Patient states he started getting sore throat and headache about 4 days ago. He started getting runny nose and mild cough yesterday. No vomiting or diarrhea. Still able to eat and drink. No fevers. No chest pain or shortness of breath. No sick contacts that he is aware of. Has not tried anything [id number] for symptoms. No other complaint. History reviewed. No pertinent past medical history. No past surgical history on file. ALLERGIES Banana and Iodine MEDICATIONS predniSONE (DELTASONE) 10 mg tablet Take 4 tabs daily for 3 days, then 2 tabs daily for 3 days, then 1 tab daily for 3 days with food. (Patient not taking: Reported on 06/24/2023) polyethylene glycol 3350 (MIRALAX) 17 gram packet Take 1 Packet by mouth once daily. Dissolve dose in 4 - 8 ounces of liquid and take as directed. (Patient not taking: Reported on 06/24/2023) No family history on file. Social History Tobacco Use Smoking status: Never Passive exposure: Yes Smokeless tobacco: Current Tobacco comments: mom smokes outside of home, vape Substance Use Topics Alcohol use: No Drug use: Never Review of Systems Constitutional: Negative for chills and fever. HENT: Positive for congestion and sore throat. Respiratory: Positive for cough. Negative for shortness of breath. Gastrointestinal: Negative for diarrhea and vomiting. Neurological: Positive for headaches. Objective BP 110/72 Pulse 114 Temp 37.2 C (98.9 F) (Tympanic) Resp 16 Wt 104.1 kg (229 lb 8 oz) SpO2 96% Physical Exam Vitals and nursing note reviewed. Constitutional: General: He is not in acute distress. Appearance: Normal appearance. He is not toxic-appearing. HENT: Right Ear: Tympanic membrane and ear canal normal. Left Ear: Tympanic membrane and ear canal normal. Nose: Nose normal. Mouth/Throat: Mouth: Mucous membranes are moist. Pharynx: Uvula midline. Posterior oropharyngeal erythema present. Tonsils: No tonsillar exudate or tonsillar abscesses. 1+ on the right. 1+ on the left. Eyes: Conjunctiva/sclera: Conjunctivae normal. Cardiovascular: Rate and Rhythm: Normal rate and regular rhythm. Pulmonary: Effort: Pulmonary effort is normal. Breath sounds: Normal breath sounds. No wheezing, rhonchi or rales. Skin: General: Skin is warm and dry. Neurological: Mental Status: He is alert. Assessment and Plan ASSESSMENT/PLAN: 1. Sore throat - ICD9: 462, ICD10: J02.9 (primary diagnosis) - suspect viral - Group A strep molecular testing negative - Discussed supportive care treatment with fluids, rest and analgesia. - The patient may also use warm salt water gargles, throat lozenges and/or OTC throat spray as needed. - STREP A MOLECULAR (POC) 2. URI, acute - ICD9: 465.9, ICD10: J06.9 - Discussed viral etiology and rationale for treatment. - Symptomatic treatment with prn analgesia - Supportive care with fluids and rest -Declines COVID/flu swab. Diagnosis and treatment plan were discussed and questions were answered to the patient's satisfaction. Pt acknowledged understanding of concepts and follow up plan. Specific signs and symptoms that would indicate the need for higher level of care were discussed in detail warranting prompt ER evaluation. JEFFERSON Boyle documented in this encounter [facility] 11-11-2023 Instructions Nuris Sanchez PA - 11/11/2023 1:10 PM EDT Rest, increase water intake Motrin or Tylenol as needed for fever or pain. Salt water gargles, chloraseptic spray or lozenges as needed for sore throat. Warm beverages, honey. Nasal saline spray as needed Cool mist humidifier at night A cold normally lasts 7-10 days. If your symptoms are lasting longer, develop fever, or worsening by that time instead of improving then return to clinic or follow up with PCP for re-evaluation. Tylenol (generic acetaminophen) 500 mg-2 tabs every 8 hrs. as needed for fever and aches Ibuprofen 600 mg (3-200mg tablets) every 6 hours -Mucinex (generic is fine) Guaifenesin 1200 mg twice daily to help with cough and to thin out mucus documented in this encounter [facility] 07-02-2023 Miscellaneous Notes Jackeline nurse from [facility] calling in regards to pt who in currently an inmate there. She states pt told them he is positive for chlamydia and is supposed to be on an antibiotic. Pt told her he had a prescription at the pharmacy. He told her either [facility] or [facility] in [place]. Jackeline called both pharmacies and they do not have a prescription for the patient. Per epic, pt did test positive for chlamydia and was prescribed Doxycycline which is supposed to be at [facility]. Called [facility] [place] and prescription is there and ready to be picked up. Called Jackeline back and notified. She states pt will not be able to leave and pick it up. Prescription name, dosage and directions given to Jackeline. documented in this encounter [facility] 06-25-2023 Miscellaneous Notes Spoke with pt and information listed below given. Pt verbalizes understanding. Thuy Hawley LPN Left message for pt to call back. Yelitza Davenport MA Positive for chlamydia. Negative for gonorrhea. Negative for trichomonas. Chlamydia is an STI. IT is treatable with ATB. Doxycyline called into [facility] [place]. Partners need tested and treated. No sex for 2 weeks. Please advise patient. documented in this encounter [facility] 06-24-2023 Note HNO ID: [id number] Author: STONEY BULLOCK APRN.TERESA Service: ? Author Type: Nurse Practitioner Type: Progress Notes Filed: 06/24/2023 13:10 Note Text: Subjective HPI HPI Sekou Ruth is a 22 year old male who presents today for CC of girlfriend cheated, concerns for std. Denies any s/s. Denies gu rash, drainage. Denies urinary s/s. .Patient presents with: STD: Testing wanted d/t GF cheating, no s/s No past medical history on file. No past surgical history on file. ALLERGIES Banana and Iodine MEDICATIONS predniSONE (DELTASONE) 10 mg tablet Take 4 tabs daily for 3 days, then 2 tabs daily for 3 days, then 1 tab daily for 3 days with food. (Patient not taking: Reported on 06/24/2023) polyethylene glycol 3350 (MIRALAX) 17 gram packet Take 1 Packet by mouth once daily. Dissolve dose in 4 - 8 ounces of liquid and take as directed. (Patient not taking: Reported on 06/24/2023) No family history on file. Social History Tobacco Use Smoking status: Never Passive exposure: Yes Smokeless tobacco: Current Tobacco comments: mom smokes outside of home, vape Substance Use Topics Alcohol use: No Drug use: Never Review of Systems Constitutional: Negative for chills, fever and weight loss. Respiratory: Negative for cough, shortness of breath and wheezing. Cardiovascular: Negative for chest pain and palpitations. Gastrointestinal: Negative for abdominal pain, blood in stool, constipation, diarrhea, heartburn, melena, nausea and vomiting. Genitourinary: Negative for dysuria, flank pain, frequency, hematuria and urgency. Musculoskeletal: Negative for myalgias. Objective Blood pressure 138/84, pulse 80, temperature 36.7 ?C (98.1 ?F), resp. rate 20, weight 98 kg (216 lb 0.8 oz), SpO2 98%. Physical Exam Constitutional: General: He is not in acute distress. Appearance: Normal appearance. He is not toxic-appearing. Cardiovascular: Rate and Rhythm: Normal rate and regular rhythm. Heart sounds: Normal heart sounds. Pulmonary: Effort: Pulmonary effort is normal. Breath sounds: Normal breath sounds. Abdominal: General: Bowel sounds are normal. Palpations: Abdomen is soft. Tenderness: There is no abdominal tenderness. Skin: General: Skin is warm and dry. ASSESSMENT/PLAN: 1. Possible exposure to STD - ICD9: V01.6, ICD10: Z20.2 No treatment today Call/treat per results. - TRICHOMONAS VAGINALIS NAAT - GONORRHEA/CHLAMYDIA NAAT Stoney Bullock APRN.[facility] 06-24-2023 History of Presen t illness Narrative Subjective HPI HPI Sekou Ruth is a 22 year old male who presents today for CC of girlfriend cheated, concerns for std. Denies any s/s. Denies gu rash, drainage. Denies urinary s/s. .Patient presents with: STD: Testing wanted d/t GF cheating, no s/s No past medical history on file. No past surgical history on file. ALLERGIES Banana and Iodine MEDICATIONS predniSONE (DELTASONE) 10 mg tablet Take 4 tabs daily for 3 days, then 2 tabs daily for 3 days, then 1 tab daily for 3 days with food. (Patient not taking: Reported on 06/24/2023) polyethylene glycol 3350 (MIRALAX) 17 gram packet Take 1 Packet by mouth once daily. Dissolve dose in 4 - 8 ounces of liquid and take as directed. (Patient not taking: Reported on 06/24/2023) No family history on file. Social History Tobacco Use Smoking status: Never Passive exposure: Yes Smokeless tobacco: Current Tobacco comments: mom smokes outside of home, vape Substance Use Topics Alcohol use: No Drug use: Never Review of Systems Constitutional: Negative for chills, fever and weight loss. Respiratory: Negative for cough, shortness of breath and wheezing. Cardiovascular: Negative for chest pain and palpitations. Gastrointestinal: Negative for abdominal pain, blood in stool, constipation, diarrhea, heartburn, melena, nausea and vomiting. Genitourinary: Negative for dysuria, flank pain, frequency, hematuria and urgency. Musculoskeletal: Negative for myalgias. Objective Blood pressure 138/84, pulse 80, temperature 36.7 C (98.1 F), resp. rate 20, weight 98 kg (216 lb 0.8 oz), SpO2 98%. Physical Exam Constitutional: General: He is not in acute distress. Appearance: Normal appearance. He is not toxic-appearing. Cardiovascular: Rate and Rhythm: Normal rate and regular rhythm. Heart sounds: Normal heart sounds. Pulmonary: Effort: Pulmonary effort is normal. Breath sounds: Normal breath sounds. Abdominal: General: Bowel sounds are normal. Palpations: Abdomen is soft. Tenderness: There is no abdominal tenderness. Skin: General: Skin is warm and dry. ASSESSMENT/PLAN: 1. Possible exposure to STD - ICD9: V01.6, ICD10: Z20.2 No treatment today Call/treat per results. - TRICHOMONAS VAGINALIS NAAT - GONORRHEA/CHLAMYDIA NAAT Stoney Bullock APRN.[employer] ELECTRICAL ENGINEER documented in this encounter [facility] 03-26-2023 Miscellaneous Notes Patient given results and verbalized understanding of instructions given. Janett Britt Remaining labs have resulted. Hepatitis negative HIV negative Syphilis negative Follow up with PCP as needed. documented in this encounter [facility] 03-25-2023 History of Presen t illness Narrative Images from the original note were not included. Subjective HPI HPI Sekou Ruth is a 22 year old male who presents today for CC of stitches removed from left hand, placed 10 days ago. Has been getting red and painful. Possible std exposure, has been having urinary frequency/burning. Denies testicular pain or rash. .Patient presents with: STD check and suture removal: STD check-fatigue and burning x 1 month and suture removal x 1 left hand placed in ER x 10 days History reviewed. No pertinent past medical history. No past surgical history on file. ALLERGIES Banana and Iodine MEDICATIONS doxycycline monohydrate 100 mg tablet Take 1 tablet by mouth two times a day for 7 days. predniSONE (DELTASONE) 10 mg tablet Take 4 tabs daily for 3 days, then 2 tabs daily for 3 days, then 1 tab daily for 3 days with food. (Patient not taking: Reported on 02/03/2023) polyethylene glycol 3350 (MIRALAX) 17 gram packet Take 1 Packet by mouth once daily. Dissolve dose in 4 - 8 ounces of liquid and take as directed. (Patient not taking: No sig reported) No family history on file. Social History Tobacco Use Smoking status: Never Passive exposure: Yes Smokeless tobacco: Current Tobacco comments: mom smokes outside of home, vape Substance Use Topics Alcohol use: No Drug use: Never Review of Systems Constitutional: Negative for chills, fever and weight loss. Respiratory: Negative for cough, shortness of breath and wheezing. Cardiovascular: Negative for chest pain and palpitations. Gastrointestinal: Negative for abdominal pain, blood in stool, constipation, diarrhea, heartburn, melena, nausea and vomiting. Genitourinary: Positive for dysuria and frequency. Negative for flank pain, hematuria and urgency. Musculoskeletal: Negative for myalgias. Objective Blood pressure 110/80, pulse 94, temperature 36.3 C (97.4 F), temperature source Tympanic, resp. rate 16, weight 98.4 kg (217 lb), SpO2 97%. Physical Exam Constitutional: General: He is not in acute distress. Appearance: Normal appearance. He is not toxic-appearing. Cardiovascular: Rate and Rhythm: Normal rate and regular rhythm. Heart sounds: Normal heart sounds. Pulmonary: Effort: Pulmonary effort is normal. Breath sounds: Normal breath sounds. Abdominal: General: Bowel sounds are normal. Palpations: Abdomen is soft. Tenderness: There is no abdominal tenderness. Musculoskeletal: Hands: Skin: General: Skin is warm and dry. ASSESSMENT/PLAN: 1. Possible exposure to STD - ICD9: V01.6, ICD10: Z20.2 (primary diagnosis) Testing as below, treat per results Will be on doxy for infection around hand laceration - SYPHILIS TOTAL W/REFLEX - HIV 1 2 COMBO(AG/AB),WITH REFLEX TO DIFFERENTIATION - HEPATITIS C ANTIBODY IA WITH CONFIRMATION - HEP B SURF AG SCRN - GONORRHEA/CHLAMYDIA NAAT 2. Skin infection - ICD9: 686.9, ICD10: L08.9 - Begin treatment with doxy - No lymphangetic streaking, this was defined for patient to watch for and to seek medical care immediately if appears - Follow up for recheck in three days if no better or worse - DOXYCYCLINE MONOHYDRATE 100 MG TABLET 3. Visit for suture removal - ICD9: V58.32, ICD10: Z48.02 Site cleansed and 2 simple interrupted sutures removed. Laceration remained well approximated after removal. Stoney Bullock APRN.TERESA documented in this encounter [facility] 03-25-2023 Note HNO ID: [id number] Author: Stoney Bullock APRN.TERESA Service: ? Author Type: Nurse Practitioner Type: Progress Notes Filed: 03/25/2023 1:52 PM Note Text: Subjective HPI HPI Sekou Ruth is a 22 year old male who presents today for CC of stitches removed from left hand, placed 10 days ago. Has been getting red and painful. Possible std exposure, has been having urinary frequency/burning. Denies testicular pain or rash. .Patient presents with: STD check and suture removal: STD check-fatigue and burning x 1 month and suture removal x 1 left hand placed in ER x 10 days History reviewed. No pertinent past medical history. No past surgical history on file. ALLERGIES Banana and Iodine MEDICATIONS doxycycline monohydrate 100 mg tablet Take 1 tablet by mouth two times a day for 7 days. predniSONE (DELTASONE) 10 mg tablet Take 4 tabs daily for 3 days, then 2 tabs daily for 3 days, then 1 tab daily for 3 days with food. (Patient not taking: Reported on 02/03/2023) polyethylene glycol 3350 (MIRALAX) 17 gram packet Take 1 Packet by mouth once daily. Dissolve dose in 4 - 8 ounces of liquid and take as directed. (Patient not taking: No sig reported) No family history on file. Social History Tobacco Use Smoking status: Never Passive exposure: Yes Smokeless tobacco: Current Tobacco comments: mom smokes outside of home, vape Substance Use Topics Alcohol use: No Drug use: Never Review of Systems Constitutional: Negative for chills, fever and weight loss. Respiratory: Negative for cough, shortness of breath and wheezing. Cardiovascular: Negative for chest pain and palpitations. Gastrointestinal: Negative for abdominal pain, blood in stool, constipation, diarrhea, heartburn, melena, nausea and vomiting. Genitourinary: Positive for dysuria and frequency. Negative for flank pain, hematuria and urgency. Musculoskeletal: Negative for myalgias. Objective Blood pressure 110/80, pulse 94, temperature 36.3 ?C (97.4 ?F), temperature source Tympanic, resp. rate 16, weight 98.4 kg (217 lb), SpO2 97%. Physical Exam Constitutional: General: He is not in acute distress. Appearance: Normal appearance. He is not toxic-appearing. Cardiovascular: Rate and Rhythm: Normal rate and regular rhythm. Heart sounds: Normal heart sounds. Pulmonary: Effort: Pulmonary effort is normal. Breath sounds: Normal breath sounds. Abdominal: General: Bowel sounds are normal. Palpations: Abdomen is soft. Tenderness: There is no abdominal tenderness. Musculoskeletal: Hands: Skin: General: Skin is warm and dry. ASSESSMENT/PLAN: 1. Possible exposure to STD - ICD9: V01.6, ICD10: Z20.2 (primary diagnosis) Testing as below, treat per results Will be on doxy for infection around hand laceration - SYPHILIS TOTAL W/REFLEX - HIV 1 2 COMBO(AG/AB),WITH REFLEX TO DIFFERENTIATION - HEPATITIS C ANTIBODY IA WITH CONFIRMATION - HEP B SURF AG SCRN - GONORRHEA/CHLAMYDIA NAAT 2. Skin infection - ICD9: 686.9, ICD10: L08.9 - Begin treatment with doxy - No lymphangetic streaking, this was defined for patient to watch for and to seek medical care immediately if appears - Follow up for recheck in three days if no better or worse - DOXYCYCLINE MONOHYDRATE 100 MG TABLET 3. Visit for suture removal - ICD9: V58.32, ICD10: Z48.02 Site cleansed and 2 simple interrupted sutures removed. Laceration remained well approximated after removal. Stoney Bullock APRN.[facility] 02-03-2023 Note HNO ID: [id number] Author: Santo Dela Cruz PA-C Service: ? Author Type: Physician Senior Production Manager Type: Progress Notes Filed: 02/03/2023 3:12 PM Note Text: 02/03/2023 Patient presents with: Kidney Problem: Lower back/kidney pain on right side x 4 months SUBJECTIVE: This is a 22 year old that is here today for Complaint(s) of right flank pain x 4 months intermittent. No pain currently. Was having a dull aching pain this morning. States he notices when he runs the pain is worse. The past few days drinking more caffeine, soda. Denies fever/chills, hematuria, dysuria, increase frequency. Questionable history of kidney stones, never formally diagnosed with imaging. Denies nausea, vomiting, diarrhea, cough, SOB, No past medical history on file. ALLERGIES Banana and Iodine MEDICATIONS Current Outpatient Medications Medication Sig predniSONE (DELTASONE) 10 mg tablet Take 4 tabs daily for 3 days, then 2 tabs daily for 3 days, then 1 tab daily for 3 days with food. (Patient not taking: Reported on 02/03/2023) polyethylene glycol 3350 (MIRALAX) 17 gram packet Take 1 Packet by mouth once daily. Dissolve dose in 4 - 8 ounces of liquid and take as directed. (Patient not taking: No sig reported) No current facility-administered medications for this visit. SOCIAL HISTORY Social History Tobacco Use Smoking status: Never Passive exposure: Yes Smokeless tobacco: Current Tobacco comments: mom smokes outside of home, vape Substance Use Topics Alcohol use: No Drug use: Never REVIEW OF SYSTEMS See HPI OBJECTIVE: BP 112/78 Pulse 92 Temp 37.1 ?C (98.7 ?F) Resp 21 Wt 94.3 kg (207 lb 12.8 oz) SpO2 97% APPEARANCE Well appearing, alert, in no acute distress, well-hydrated, well nourished. HEART RRR with normal S1 and S2, LUNG clear to auscultation, No wheezing, rhonchi, rales. ABDOMEN soft, non-tender, non-distended, without organomegaly or palpable masses, no tenderness to palpation. Negative Roberts's, no rebound, rigidity , guarding BACK: Normal exam, no CVA TTP ASSESSMENT/PLAN: 1. Right-sided low back pain without sciatica, unspecified chronicity - ICD9: 724.2, ICD10: M54.50 Reviewed red flags and when to seek care sooner. US kidney to evaluate, - UA DIP, URINE (POC)- + protein and bilirubin - URINE CULTURE - COMP METABOLIC PANEL - CBC + DIFF - US KIDNEY/BLADDER The patient indicates understanding of these issues and agrees with the plan. Santo Dela Cruz PA-C 02/03/2023 [facility] 02-03-2023 History of Presen t illness Narrative 02/03/2023 Patient presents with: Kidney Problem: Lower back/kidney pain on right side x 4 months SUBJECTIVE: This is a 22 year old that is here today for Complaint(s) of right flank pain x 4 months intermittent. No pain currently. Was having a dull aching pain this morning. States he notices when he runs the pain is worse. The past few days drinking more caffeine, soda. Denies fever/chills, hematuria, dysuria, increase frequency. Questionable history of kidney stones, never formally diagnosed with imaging. Denies nausea, vomiting, diarrhea, cough, SOB, No past medical history on file. ALLERGIES Banana and Iodine MEDICATIONS Current Outpatient Medications Medication Sig predniSONE (DELTASONE) 10 mg tablet Take 4 tabs daily for 3 days, then 2 tabs daily for 3 days, then 1 tab daily for 3 days with food. (Patient not taking: Reported on 02/03/2023) polyethylene glycol 3350 (MIRALAX) 17 gram packet Take 1 Packet by mouth once daily. Dissolve dose in 4 - 8 ounces of liquid and take as directed. (Patient not taking: No sig reported) No current facility-administered medications for this visit. SOCIAL HISTORY Social History Tobacco Use Smoking status: Never Passive exposure: Yes Smokeless tobacco: Current Tobacco comments: mom smokes outside of home, vape Substance Use Topics Alcohol use: No Drug use: Never REVIEW OF SYSTEMS See HPI OBJECTIVE: BP 112/78 Pulse 92 Temp 37.1 C (98.7 F) Resp 21 Wt 94.3 kg (207 lb 12.8 oz) SpO2 97% APPEARANCE Well appearing, alert, in no acute distress, well-hydrated, well nourished. HEART RRR with normal S1 and S2, LUNG clear to auscultation, No wheezing, rhonchi, rales. ABDOMEN soft, non-tender, non-distended, without organomegaly or palpable masses, no tenderness to palpation. Negative Roebrts's, no rebound, rigidity , guarding BACK: Normal exam, no CVA TTP ASSESSMENT/PLAN: 1. Right-sided low back pain without sciatica, unspecified chronicity - ICD9: 724.2, ICD10: M54.50 Reviewed red flags and when to seek care sooner. US kidney to evaluate, - UA DIP, URINE (POC)- + protein and bilirubin - URINE CULTURE - COMP METABOLIC PANEL - CBC + DIFF - US KIDNEY/BLADDER The patient indicates understanding of these issues and agrees with the plan. Santo Dela Cruz PA-C 02/03/2023 documented in this encounter [facility] 11-29-2022 Hospital Discharg e instructions Patient Education 11/29/2022 19:16:51 AA Junie PALUMBO(CUSTOM) What causes lesions on your scalp? Painful sores, blisters, or bumps that form on the scalp may be caused by: Infection of the hair shafts (folliculitis) or the skin (such as impetigo). An allergic skin reaction (contact dermatitis). Viral infections, such as chickenpox and shingles. Document Released: 03/31/2006 Document Revised: 03/17/2013 Document Reviewed: 04/01/2014 ExitCare Patient Information 2014 [email or web address]. This information is not intended to replace advice given to you by your health care provider. Make sure you discuss any questions you have with your health care provider. Follow Up Care 11/29/2022 18:33:51 With:varun cardona dermatology Address: When:5 to 7 days Comments:[facility] 11-29-2022 Note Discharge Instructions Thank you for allowing [facility] to assist you with your healthcare needs. The following is important discharge information regarding your hospital visit. Diagnosis from Today's Visit Headache Skin lesion What to Do Next Instructions from Your Care Team No qualifying data available. Post Acute Orders No qualifying data available. You Need to Schedule the Following Appointments Follow Up with varun elliott When Within 5 to 7 days Why: [facility] Where: Allergies Bananas povidone iodine topical Medications Please ask your primary doctor or pharmacist before taking any other medication not listed, including over the counter drugs, herbal medications, vitamins and or supplements as they may interact with your home medications. Please take this list to your next doctor s visit. Bring all medications you take, including over the counter medications, herbals and other supplements with you to your doctor s visit. Patients and families are reminded to discard old lists and to update any records with all medication providers or retail pharmacies. Education Materials What causes lesions on your scalp? Painful sores, blisters, or bumps that form on the scalp may be caused by: Infection of the hair shafts (folliculitis) or the skin (such as impetigo). An allergic skin reaction (contact dermatitis). Viral infections, such as chickenpox and shingles. Document Released: 03/31/2006 Document Revised: 03/17/2013 Document Reviewed: 04/01/2014 ExitCare Patient Information 2014 [email or web address]. This information is not intended to replace advice given to you by your health care provider. Make sure you discuss any questions you have with your health care provider. Additional Information VACCINATE! IT SAVES LIVES! Members of the community who have not yet received the COVID-19 vaccine and would like to receive it can visit one of [facility] vaccine clinics. There are many vaccine clinic locations within the [facility]. For locations and available times, please visit [email or web address] It is important to note that some COVID mobile vaccine clinics are held outdoors and may be canceled in rainy or stormy conditions. To learn more about pediatric vaccinations (ages 5-11), we invite you to visit the [facility] webpage. [email or web address] To learn more about the COVID-19 vaccine, we invite you to visit the CDC website for a list of frequently asked questions. https://www.cdc.gov/coronavirus/ 2019-ncov/vaccines/faq.html [facility] Patient Portal Access Instructions: Stay connected with your healthcare team and access your personal medical information anytime with the [facility] Patient Portal. If you would like a full copy of your medical records please contact the [facility] Medical Records Department Friday through Friday between 8a.m. and 4:30p.m. Please follow the directions below to access the portal: 1.Access the email account you provided upon registration to the hospital.2.Look for an invitation email from [facility].3.Open the email and access the invitation link: Accept Invitation to [facility]4.Fill in the required kim to create your account. Sign into [email or web address] with your username and password that you created in the above steps to stay up to date. You can then view a summary of results, a summary of your visits, and the ability to download your summaries to your computer or send the information securely to a physician. Remember that your healthcare information is confidential, so carefully consider who you will allow to register on the [facility] Patient Portal for access to your information. You can also access the [facility] Patient Portal on the Stepsss. Simply click on Health Records under Health Data and then click on the [facility] logo. HOW TO SAFELY DISPOSE OF PRESCRIPTION MEDICATIONS Please use one of the following methods to safely dispose of your unused medications. 1.Use a drug disposal kit: the drug disposal pouch allows you to safely discard your old and unused drugs. Ask your nurse to give you one when you are discharged.2.Visit a local take-back location: Many local pharmacies and police departments have programs that collect old and unwanted prescription drugs. Call your local pharmacy or go to http://Ogin.Avimoto/3K3Zu6t to find one close to you.3.Make use of household items: Use cat litter or old coffee grounds to dispose medications if other options are not available. Mix your drugs with these household products, seal them in an airtight container and throw it into the garbage. Call [facility]: [phone] to be sure your drugs can be disposed of in this way. Some medicines may require a different approach.4.Never flush your medications down the toilet. IF YOU HAVE BEEN PRESCRIBED AN OPIOIDS FOR PAIN If you have been prescribed an opioid (such as hydrocodone, oxycodone or morphine), it is critical to understand the possible side effects and risks of opioid pain medications. Even when taken as directed, opioids can have several side effects including: Tolerance, meaning you might need to take more of a medication for the same pain relief. Nausea, vomiting and/or constipation. Sleepiness, dizziness, dry mouth, confusion, depression or itching. Physical dependence, meaning you have withdrawal symptoms when a medication is stopped ? this can develop within a few days. KNOW YOUR RESPONSIBILITIES It is important to know exactly how much and how often to take the opioid pain medications you are prescribed. Never take opioids in higher amounts or more often than prescribed. Do not combine opioids with alcohol or other drugs that cause drowsiness, such as benzodiazepines, also known as benzos, including diazepam and alprazolam, muscle relaxants or sleep aids. Never sell or share prescription opioids. This is illegal. Store opioids in a secure place and out of reach of others (including children, family, friends and visitors). The last page(s) of this document has been signed and retained as a CHART COPY Signatures Patient Education Materials JERROD Zaman DI(CUSTOM) Medication Leaflets My discharge plan and instructions have been reviewed and explained to me and IFARAZ TREY-QUAN understand my current condition and have read and understand these discharge instructions. I have received a written copy of the plan/instructions. If I have questions, I am aware that I should contact my doctor. 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 Dr Dolan was assigned to Pt, but Pt had never seen her. Pt no showed Homa Aguirre SNOW PLOW TRACTOR OPERATOR on 08/01/21 and Lizet Damian POWER SYSTEM ELECTRICAL ENGINEER on 10/23/21 for establish care appointment. Then he no showed a EC f/u with Tati Chan SNOW PLOW TRACTOR OPERATOR on 09/19/22. Removed Dr Dolan as his PCP as he has never had an establish care visit with her or any other provider her. Tried to call Pt back and let him know that she isn't his provider and that we do not have any providers that are accepting Pts at this point in time. documented in this encounter [facility] 09-16-2022 Hospital Discharg e instructions Patient Education 09/16/2022 12:21:08 Chest Wall Pain, Costochondritis Chest Wall Pain: Costochondritis The chest pain that you have had today is caused by costochondritis. This condition is caused by an inflammation of the cartilage joining your ribs to your breastbone. It is not caused by heart or lung problems. Your healthcare team has made sure that the chest pain you feel is not from a life threatening cause of chest pain such as heart attack, collapsed lung, blood clot in the lung, tear in the aorta, or esophageal rupture. The inflammation may have been brought on by a blow to the chest, lifting heavy objects, intense exercise, or an illness that made you cough and sneeze a lot. It often occurs during times of emotional stress. It can be painful, but it is not dangerous. It usually goes away in 1 to 2 weeks. But it may happen again. Rarely, a more serious condition may cause symptoms similar to costochondritis. That s why it s important to watch for the warning signs listed below. Home care Follow these guidelines when caring for yourself at home: If you feel that emotional stress is a cause of your condition, try to figure out the sources of that stress. It may not be obvious. Learn ways to deal with the stress in your life. This can include regular exercise, muscle relaxation, meditation, or simply taking time out for yourself. You may use acetaminophen, ibuprofen, or naproxen to control pain, unless another pain medicine was prescribed. If you have liver or kidney disease or ever had a stomach ulcer, talk with your healthcare provider before using these medicines. You can also help ease pain by using a hot, wet compress or heating pad. Use this with or without a medicated skin cream that helps relieves pain. Do stretching exercise as advised by your provider. Take any prescribed medicines as directed. Follow-up care Follow up with your healthcare provider, or as advised, if you do not start to get better in the next 2 days. When to seek medical advice Call your healthcare provider right away if any of these occur: A change in the type of pain. Call if it feels different, becomes more serious, lasts longer, or spreads into your shoulder, arm, neck, jaw, or back. Shortness of breath or pain gets worse when you breathe Weakness, dizziness, or fainting Cough with dark-colored sputum (phlegm) or blood Abdominal pain Dark red or black stools Fever of 100.4 F (38 C) or higher, or as directed by your healthcare provider [id number] The [employer]. [address] [place] [address], [place] [address]. All rights reserved. This information is not intended as a substitute for professional medical care. Always follow your healthcare professional's instructions. Follow Up Care 09/16/2022 10:07:54 With:DODIE JOHNSON MD Address: [place] [address]- When:2-4 days [facility] 09-16-2022 Note Discharge Instructions Thank you for allowing [facility] to assist you with your healthcare needs. The following is important discharge information regarding your hospital visit. Diagnosis from Today's Visit Costochondritis Chest pain What to Do Next Instructions from Your Care Team Discharge Return to Work, School, or Sports (Return to Work, School, or Sports) - Ordered -- 09/17/22, May return to: work, 09/16/22 12:35:00 EDT Post Acute Orders No qualifying data available. You Need to Schedule the Following Appointments Follow Up with DODIE JOHNSON MD When Within 2-4 days Where: [place] [address]- Allergies Bananas povidone iodine topical Medications Please ask your primary doctor or pharmacist before taking any other medication not listed, including over the counter drugs, herbal medications, vitamins and or supplements as they may interact with your home medications. Please take this list to your next doctor s visit. Bring all medications you take, including over the counter medications, herbals and other supplements with you to your doctor s visit. Patients and families are reminded to discard old lists and to update any records with all medication providers or retail pharmacies. Education Materials Chest Wall Pain: Costochondritis The chest pain that you have had today is caused by costochondritis. This condition is caused by an inflammation of the cartilage joining your ribs to your breastbone. It is not caused by heart or lung problems. Your healthcare team has made sure that the chest pain you feel is not from a life threatening cause of chest pain such as heart attack, collapsed lung, blood clot in the lung, tear in the aorta, or esophageal rupture. The inflammation may have been brought on by a blow to the chest, lifting heavy objects, intense exercise, or an illness that made you cough and sneeze a lot. It often occurs during times of emotional stress. It can be painful, but it is not dangerous. It usually goes away in 1 to 2 weeks. But it may happen again. Rarely, a more serious condition may cause symptoms similar to costochondritis. That s why it s important to watch for the warning signs listed below. Home care Follow these guidelines when caring for yourself at home: If you feel that emotional stress is a cause of your condition, try to figure out the sources of that stress. It may not be obvious. Learn ways to deal with the stress in your life. This can include regular exercise, muscle relaxation, meditation, or simply taking time out for yourself. You may use acetaminophen, ibuprofen, or naproxen to control pain, unless another pain medicine was prescribed. If you have liver or kidney disease or ever had a stomach ulcer, talk with your healthcare provider before using these medicines. You can also help ease pain by using a hot, wet compress or heating pad. Use this with or without a medicated skin cream that helps relieves pain. Do stretching exercise as advised by your provider. Take any prescribed medicines as directed. Follow-up care Follow up with your healthcare provider, or as advised, if you do not start to get better in the next 2 days. When to seek medical advice Call your healthcare provider right away if any of these occur: A change in the type of pain. Call if it feels different, becomes more serious, lasts longer, or spreads into your shoulder, arm, neck, jaw, or back. Shortness of breath or pain gets worse when you breathe Weakness, dizziness, or fainting Cough with dark-colored sputum (phlegm) or blood Abdominal pain Dark red or black stools Fever of 100.4 F (38 C) or higher, or as directed by your healthcare provider [phone] [employer]. [address] [place] [address]. All rights reserved. This information is not intended as a substitute for professional medical care. Always follow your healthcare professional's instructions. Additional Information VACCINATE! IT SAVES LIVES! Members of the community who have not yet received the COVID-19 vaccine and would like to receive it can visit one of [facility] vaccine clinics. There are many vaccine clinic locations within the [facility]. For locations and available times, please visit [email or web address] [email or web address] It is important to note that some COVID mobile vaccine clinics are held outdoors and may be canceled in rainy or stormy conditions. To learn more about pediatric vaccinations (ages 5-11), we invite you to visit the [facility] webpage. [email or web address] [email or web address] [email or web address] To learn more about the COVID-19 vaccine, we invite you to visit the CDC website for a list of frequently asked questions. https://www.cdc.gov/coronavirus/ 2019-ncov/vaccines/faq.html [facility] Patient Portal Access Instructions: Stay connected with your healthcare team and access your personal medical information anytime with the [facility] Patient Portal. If you would like a full copy of your medical records please contact the [facility] Medical Records Department Friday through Friday between 8a.m. and 4:30p.m. Please follow the directions below to access the portal: 1.Access the email account you provided upon registration to the [facility].2.Look for an invitation email from [facility].3.Open the email and access the invitation link: Accept Invitation to [facility]4.Fill in the required kim to create your account. Sign into [email or web address] with your username and password that you created in the above steps to stay up to date. You can then view a summary of results, a summary of your visits, and the ability to download your summaries to your computer or send the information securely to a physician. Remember that your healthcare information is confidential, so carefully consider who you will allow to register on the [facility] Patient Portal for access to your information. You can also access the [facility] Patient Portal on the Joy[employer] pau. Simply click on Health Records under Health Data and then click on the [place] logo. HOW TO SAFELY DISPOSE OF PRESCRIPTION MEDICATIONS Please use one of the following methods to safely dispose of your unused medications. 1.Use a drug disposal kit: the drug disposal pouch allows you to safely discard your old and unused drugs. Ask your nurse to give you one when you are discharged.2.Visit a local take-back location: Many local pharmacies and police departments have programs that collect old and unwanted prescription drugs. Call your local pharmacy or go to http://bit.Avimoto/9V6Vy7t to find one close to you.3.Make use of household items: Use cat litter or old coffee grounds to dispose medications if other options are not available. Mix your drugs with these household products, seal them in an airtight container and throw it into the garbage. Call [facility]: [phone] to be sure your drugs can be disposed of in this way. Some medicines may require a different approach.4.Never flush your medications down the toilet. IF YOU HAVE BEEN PRESCRIBED AN OPIOIDS FOR PAIN If you have been prescribed an opioid (such as hydrocodone, oxycodone or morphine), it is critical to understand the possible side effects and risks of opioid pain medications. Even when taken as directed, opioids can have several side effects including: Tolerance, meaning you might need to take more of a medication for the same pain relief. Nausea, vomiting and/or constipation. Sleepiness, dizziness, dry mouth, confusion, depression or itching. Physical dependence, meaning you have withdrawal symptoms when a medication is stopped ? this can develop within a few days. KNOW YOUR RESPONSIBILITIES It is important to know exactly how much and how often to take the opioid pain medications you are prescribed. Never take opioids in higher amounts or more often than prescribed. Do not combine opioids with alcohol or other drugs that cause drowsiness, such as benzodiazepines, also known as benzos, including diazepam and alprazolam, muscle relaxants or sleep aids. Never sell or share prescription opioids. This is illegal. Store opioids in a secure place and out of reach of others (including children, family, friends and visitors). The last page(s) of this document has been signed and retained as a CHART COPY Signatures Patient Education Materials Chest Wall Pain, Costochondritis Medication Leaflets My discharge plan and instructions have been reviewed and explained to me and IFARAZ TREY-QUAN understand my current condition and have read and understand these discharge instructions. I have received a written copy of the plan/instructions. If I have questions, I am aware that I should contact my doctor. 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 HISTORY: ORDERING SYSTEM PROVIDED HISTORY: Reason for Exam: chest pain FINDINGS: The cardiomediastinal silhouette demonstrates a normal appearance. No consolidative opacity is identified. There is no pleural effusion or pneumothorax. No free air seen beneath the level of the diaphragm. The bony thorax appears acutely intact. IMPRESSION: No evidence of an acute process. Interpreted by: Wellington Martinez MD Preliminary Report By: Wellington Martinez MD Electronically signed By Wellington Martinez MD Dictated Date: 09/16/2022 11:28:15 AM Prelim Date: 09/16/2022 11:29:00 AM Sign Date: 09/16/2022 11:29:00 AM Ordering Provider: [facility] 09-16-2022 Note ORIGINAL EXAMINATION: ONE XRAY VIEW OF THE CHEST 09/16/2022 11:25 am COMPARISON: None. HISTORY: ORDERING SYSTEM PROVIDED HISTORY: Reason for Exam: chest pain FINDINGS: The cardiomediastinal silhouette demonstrates a normal appearance. No consolidative opacity is identified. There is no pleural effusion or pneumothorax. No free air seen beneath the level of the diaphragm. The bony thorax appears acutely intact. IMPRESSION: No evidence of an acute process. Interpreted by: Wellington Martinez MD Preliminary Report By: Wellington Martinez MD Electronically signed By Wellington Martinez MD Dictated Date: 09/16/2022 11:28:15 AM Prelim Date: 09/16/2022 11:29:00 AM Sign Date: 09/16/2022 11:29:00 AM Ordering Provider: [facility] 09-13-2022 History of Presen t illness Narrative This note was created using NoteWriter. Subjective Sekou Ruth is a 21 year old male. 21 year old male with PMH left knee MCL repair presents for complaints of knee pain. Acute onset several months ago. Bilateral knees Clicking Endorses that at times he feels that it will give out. 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 He has a history of MCL surgical repair, last year He is seen by [facility] Denies new trauma or injury Denies skin rash or lesions. Denies that he has followed up with [facility]. The history is provided by the patient. No bilingual speech language pathologist was used. Right knee injury: No Left knee injury: No Right knee condition: Recurrent Left knee condition: Recurrent Right knee severity: Moderate Left knee severity: Moderate Right knee progression: Unchanged Left knee progression: Unchanged Patient reports that right knee feels unstable. Patient reports that left knee feels unstable. Patient reports feeling right knee locking, popping and catching. Patient reports feeling left knee locking, popping and catching. Right job related: No Left job related: No Right knee aggravating factors: Bending or twisting, excessive training, change in inclines, deep squatting and regular daily ambulation. Left knee aggravating factors: Bending of twisting, excessive training, change in inclines, deep squatting and regular daily ambulation. Right knee alleviating factors: None. Left knee alleviating factors: None. No past medical history on file. No past surgical history on file. ALLERGIES Banana and Iodine MEDICATIONS predniSONE (DELTASONE) 10 mg tablet Take 4 tabs daily for 3 days, then 2 tabs daily for 3 days, then 1 tab daily for 3 days with food. polyethylene glycol 3350 (MIRALAX) 17 gram packet Take 1 Packet by mouth once daily. Dissolve dose in 4 - 8 ounces of liquid and take as directed. (Patient not taking: No sig reported) No family history on file. Social History Tobacco Use Smoking status: Never Passive exposure: Yes Smokeless tobacco: Current Tobacco comments: mom smokes outside of home, vape Substance Use Topics Alcohol use: No Drug use: Never Review of Systems Constitutional: Positive for activity change. Negative for appetite change, chills, diaphoresis, fatigue and fever. Respiratory: Negative for apnea, cough, choking and chest tightness. Cardiovascular: Negative for chest pain, palpitations and leg swelling. Gastrointestinal: Negative for abdominal pain, diarrhea, nausea and vomiting. Musculoskeletal: Bilateral knee pain Skin: Negative for color change, pallor, rash and wound. Allergic/Immunologic: Positive for food allergies. Negative for environmental allergies and immunocompromised state. Hematological: Negative for adenopathy. Does not bruise/bleed easily. Psychiatric/Behavioral: Negative for agitation and behavioral problems. Objective BP 122/68 Pulse 93 Temp 37 C (98.6 F) (Tympanic) Resp 18 Wt 102.2 kg (225 lb 6.4 oz) SpO2 97% Physical Exam Vitals and nursing note reviewed. Constitutional: General: He is not in acute distress. Appearance: Normal appearance. He is not ill-appearing, toxic-appearing or diaphoretic. HENT: Head: Normocephalic and atraumatic. Right Ear: External ear normal. Left Ear: External ear normal. Nose: Nose normal. No congestion or rhinorrhea. Mouth/Throat: Mouth: Mucous membranes are moist. Pharynx: Oropharynx is clear. No oropharyngeal exudate or posterior oropharyngeal erythema. Eyes: General: Right eye: No discharge. Left eye: No discharge. Extraocular Movements: Extraocular movements intact. Conjunctiva/sclera: Conjunctivae normal. Pupils: Pupils are equal, round, and reactive to light. Cardiovascular: Rate and Rhythm: Normal rate and regular rhythm. Pulses: Normal pulses. Heart sounds: Normal heart sounds. No murmur heard. No friction rub. No gallop. Pulmonary: Effort: Pulmonary effort is normal. No respiratory distress. Breath sounds: Normal breath sounds. No stridor. No wheezing, rhonchi or rales. Chest: Chest wall: No tenderness. Abdominal: General: Abdomen is flat. There is no distension. Palpations: Abdomen is soft. There is no mass. Tenderness: There is no abdominal tenderness. There is no guarding or rebound. Hernia: No hernia is present. Musculoskeletal: General: No swelling, tenderness, deformity or signs of injury. Normal range of motion. Cervical back: Normal range of motion and neck supple. No rigidity or tenderness. Right knee: No swelling, deformity, effusion, erythema or bony tenderness. Normal range of motion. No tenderness. No LCL laxity or MCL laxity. Normal alignment. Left knee: No swelling, deformity, effusion, erythema or bony tenderness. Normal range of motion. No tenderness. No LCL laxity or MCL laxity.Normal alignment. Right lower leg: No swelling, deformity, lacerations, tenderness or bony tenderness. No edema. Left lower leg: No swelling, deformity, lacerations, tenderness or bony tenderness. No edema. Lymphadenopathy: Cervical: No cervical adenopathy. Skin: General: Skin is warm and dry. Capillary Refill: Capillary refill takes less than 2 seconds. Coloration: Skin is not jaundiced or pale. Findings: No bruising, lesion or rash. Neurological: General: No focal deficit present. Mental Status: He is alert and oriented to person, place, and time. Cranial Nerves: No cranial nerve deficit. Sensory: No sensory deficit. Motor: No weakness. Coordination: Coordination normal. Gait: Gait normal. Deep Tendon Reflexes: Reflexes normal. Psychiatric: Mood and Affect: Mood normal. Behavior: Behavior normal. Thought Content: Thought content normal. Assessment and Plan ASSESSMENT/PLAN: 1. Acute pain of both knees - ICD9: 338.19, 719.46, ICD10: M25.561, M25.562 Ongoing for several months No knew trauma or injury Has an ortho, related to prior MCL Xrays ordered, but not obtained as imaging closed at time of exam Will return RX Prednisone Will follow up with ortho for further management Cielo Bailey APRN.POWER SYSTEM ELECTRICAL ENGINEER documented in this encounter [facility] 07-04-2022 Miscellaneous Notes Patient calling with request for lab result. from [facility]. Patient denies any new or worsening symptoms of which a provider is not aware: Yes. I conf to the [facility]. GO TO THE EMERGENCY ROOM OR CALL 911 IF: * You develop any new symptoms * Your condition worsens * You are concerned or anxious about your condition for any other reason. I documented in this encounter [facility] 07-03-2022 History of Presen t illness Narrative Subjective HPI Nontoxic-appearing male presents urgent care chief complaint dysuria. Duration of symptoms 3 to 4 days. Associated symptoms dysuria. Concerned about possible STD. States girlfriend was diagnosed with yeast infection. He was sexually active with or without protection. Presents today for evaluation. Denies any other concerns. Has had chlamydia in the past this does not feel similar. Denies any testicular pain scrotal swelling penile drainage rashes urinary frequency urgency. Denies any fever body aches chills productive cough chest pain shortness of breath pleuritic pain hemoptysis nausea vomiting abdominal pain change in bowel or bladder habits. Past medical history prescription medication use and allergies reviewed. .Patient presents with: STD check: STD check-burning x 3-4 days History reviewed. No pertinent past medical history. History reviewed. No pertinent surgical history. ALLERGIES Iodine MEDICATIONS polyethylene glycol 3350 (MIRALAX) 17 gram packet Take 1 Packet by mouth once daily. Dissolve dose in 4 - 8 ounces of liquid and take as directed. (Patient not taking: No sig reported) History reviewed. No pertinent family history. Social History Tobacco Use Smoking status: Never Passive exposure: Yes Smokeless tobacco: Never Tobacco comments: mom smokes outside of home Substance Use Topics Alcohol use: No Drug use: Never BP 108/72 Pulse 102 Temp 36.7 C (98.1 F) (Tympanic) Resp 16 Wt 106.8 kg (235 lb 6.4 oz) SpO2 97% Review of Systems Constitutional: Negative for chills, fever and malaise/fatigue. HENT: Negative for congestion, ear discharge, ear pain, sinus pain and sore throat. Eyes: Negative for blurred vision, pain, discharge and redness. Respiratory: Negative for cough, hemoptysis, sputum production, shortness of breath, wheezing and stridor. Cardiovascular: Negative for chest pain. Gastrointestinal: Negative for abdominal pain, diarrhea, nausea and vomiting. Genitourinary: Positive for dysuria. Negative for flank pain, frequency, hematuria and urgency. Musculoskeletal: Negative for myalgias. Skin: Negative for itching and rash. Neurological: Negative for dizziness and headaches. Objective Physical Exam Constitutional: General: He is not in acute distress. Appearance: He is not diaphoretic. HENT: Head: Normocephalic. Mouth/Throat: Mouth: Mucous membranes are moist. Pharynx: Oropharynx is clear. No oropharyngeal exudate or posterior oropharyngeal erythema. Eyes: Conjunctiva/sclera: Conjunctivae normal. Pupils: Pupils are equal, round, and reactive to light. Cardiovascular: Rate and Rhythm: Normal rate and regular rhythm. Heart sounds: Normal heart sounds. Pulmonary: Effort: Pulmonary effort is normal. No tachypnea, accessory muscle usage or respiratory distress. Breath sounds: Normal breath sounds. No stridor. Abdominal: Palpations: Abdomen is soft. Tenderness: There is no abdominal tenderness. There is no right CVA tenderness, left CVA tenderness, guarding or rebound. Genitourinary: Pubic Area: No rash. Penis: Circumcised. No tenderness or discharge. Testes: Right: Tenderness or swelling not present. Left: Tenderness or swelling not present. Epididymis: Right: No tenderness. Left: No tenderness. Musculoskeletal: Cervical back: Normal range of motion and neck supple. No rigidity or tenderness. Lymphadenopathy: Cervical: No cervical adenopathy. Lower Body: No right inguinal adenopathy. No left inguinal adenopathy. Skin: General: Skin is warm and dry. Neurological: Mental Status: He is alert and oriented to person, place, and time. ASSESSMENT/PLAN: 1. Burning with urination - ICD9: 788.1, ICD10: R30.0 (primary diagnosis) - UA DIP, URINE (POC) - URINE CULTURE - SYPHILIS TOTAL W/REFLEX - HIV 1 2 COMBO(AG/AB),WITH REFLEX TO DIFFERENTIATION - HEP C AB IA W/CONF SCRN - HEP B SURF AG SCRN - GC/CHLAMYDIA AMPLIF, URINE 2. Screening for STD (sexually transmitted disease) - ICD9: V74.5, ICD10: Z11.3 - SYPHILIS TOTAL W/REFLEX - HIV 1 2 COMBO(AG/AB),WITH REFLEX TO DIFFERENTIATION - HEP C AB IA W/CONF SCRN - HEP B SURF AG SCRN - GC/CHLAMYDIA AMPLIF, URINE Trace amount of blood noted on urine dip. No antibiotics at today's visit. STD panel obtained. Treat accordingly to test results. Follow-up with PCP 7 to 10 days for repeat evaluation and urine dip. Patient was educated on supportive therapies. Patient was instructed to immediately proceed to emergency room for any new, worsening, or symptoms lasting longer than anticipated. The patient's clinical presentation is otherwise unremarkable at this time. Based on exam and clinical finding, the patient is stable for discharge. Plan of care was discussed with patient. Patient verbalizes understanding and agrees to plan of care. This note was generated using Dragon software. It may contain errors in wording, punctuation, or spelling. Jerad Shultz APRN.CNP documented in this encounter [facility] 03-27-2022 History of Presen t illness Narrative This note was created using [employer]Hire[employer]. Subjective Sekou Ruth is a 21 year old male. Nasal Congestion Associated symptoms include congestion, coughing and headaches. Pt present with headache, nasal congestion and drainage x 2 days. Son is +RSV and step-daughter +Influenza. Yossi any fevers or chills. He has not used any OTC medications. Review of Systems HENT: Positive for congestion. Respiratory: Positive for cough. Neurological: Positive for headaches. Objective BP 110/62 Pulse 88 Temp 36.6 C (97.8 F) Resp 16 Wt 108.4 kg (239 lb) SpO2 98% Physical Exam HENT: Nose: Congestion present. Mouth/Throat: Mouth: Mucous membranes are moist. Cardiovascular: Rate and Rhythm: Regular rhythm. Pulmonary: Breath sounds: Normal breath sounds. Neurological: Mental Status: He is alert. Assessment and Plan ASSESSMENT/PLAN: 1. URI, acute - ICD9: 465.9, ICD10: J06.9 - Discussed viral etiology and rationale for treatment. - Symptomatic treatment with prn analgesia - Supportive care with fluids and rest - Follow up in one week if symptoms persist or sooner if worsening of symptoms - COVID WITH FLUA+B, ROUTINE Rosaura Hatch APRN.CNP Medical Decision Making: Problems: Low: Acute, uncomplicated illness or injury Data: Unique test(s) ordered: 1 Risk: Low: Low risk from testing/treatment Medical Decision Making Level: 3 - Low documented in this encounter [facility] 02-12-2022 Miscellaneous Notes Patient given results and verbalized understanding of instructions given. Janett Britt Please notify that covid/flu testing negative. Continue with plan of care as discussed during visit. documented in this encounter [facility] 12-25-2021 Miscellaneous Notes Patient notified of results and provider's instructions. Patient verbalizes understanding. Cora Longo RN Unable to reach patient. Mailbox full/Mailbox not set up/ Number incorrect. Please try again later. Janett Britt Negative for covid and flu please notify thank you documented in this encounter [facility] 12-12-2021 Miscellaneous Notes Patient given results and verbalized understanding of instructions given. Janett Britt Please notify that covid/flu testing negative. Continue with plan of care as discussed during visit. documented in this encounter [facility] 12-11-2021 Instructions Cielo Bailey APRN.CNP - 12/11/2021 8:38 AM EDT Beginning Home Isolation Isolation is used to separate people infected with SARS-CoV-2, the virus that causes COVID-19, from people who are not infected. People who are in isolation should stay home until it s safe for them to be around others. In the home, anyone sick or infected should separate themselves from others by staying in a specific sick room or area and using a separate bathroom (if available). Isolation or Quarantine: What's the difference? Quarantine keeps someone who might have been exposed to the virus away from others. Isolation keeps someone who is infected with the virus away from others, even in their home. Who needs to isolate People who have COVID-19 People who have symptoms of COVID-19 and are able to recover at home People who have no symptoms (are asymptomatic) but have tested positive for infection with SARS-CoV-2 Steps to take Stay home except to get medical care Monitor your symptoms. Stay in a separate room from other household members, if possible Use a separate bathroom, if possible Avoid contact with other members of the household and pets Don t share personal household items, like cups, towels, and utensils Wear a mask when around other people, if you are able to When to seek emergency medical attention Look for emergency warning signs* for COVID-19. If someone is showing any of these signs, seek emergency medical care immediately: Trouble breathing Persistent pain or pressure in the chest New confusion Inability to wake or stay awake Bluish lips or face *This list is not all possible symptoms. Please call your medical provider for any other symptoms that are severe or concerning to you. Call 911 or call ahead to your local emergency facility: Notify the pen ruler operator that you are seeking care for someone who has or may have COVID-19. Ending Home Isolation - When you can be around others after you had or likely had COVID-19 When you can be around others after you had or likely had COVID-19 If You Test Positive for COVID-19 (Isolation) Everyone, regardless of vaccination status: Stay home for 5 days. Note: Day 0 is your first day of symptoms or the date of collection of a positive viral test if no symptoms. Day 1 is the first full day after symptoms developed or test specimen was collected. If you have no symptoms or your symptoms are resolving after 5 days, you can leave your house. Continue to wear a mask around others for 5 additional days. If you have a fever, continue to stay home until your fever resolves, even if it is longer than 5 days. If You Were Exposed to Someone with COVID-19 (Quarantine) If you: 1. Have been boosted OR 2. Completed the primary series of Pfizer or Moderna vaccine within the last 6 months OR 3. Completed the primary series of J&J vaccine within the last 2 months THEN: 1. Wear a mask around others for 10 days. 2. Test on day 5, if possible. If you develop symptoms get a test and stay home. If You Were Exposed to Someone with COVID-19 (Quarantine) If you: 1. Completed the primary series of Pfizer or Moderna vaccine over 6 months ago and are not boosted OR 2. Completed the primary series of J&J over 2 months ago and are not boosted OR 3. Are unvaccinated THEN: 1. Stay home for 5 days. After that continue to wear a mask around others for 5 additional days. 2. If you can't quarantine you must wear a mask for 10 days. 3. Test on day 5 if possible. If you develop symptoms get a test and stay home. I had COVID-19 or I tested positive for COVID-19 and I have a weakened immune system If you have a weakened immune system (immunocompromised) due to a health condition or medication, you might need to stay home and isolate longer than 10 days. Talk to your healthcare provider for more information. Your doctor may work with an infectious disease expert at your local health department to determine when you can be around others. documented in this encounter [facility] 12-11-2021 History of Presen t illness Narrative This note was created using [employer]ate [employer]. Subjective Sekou Ruth is a 21 year old male. 21 year old male with no PMH presents for complaints of illness and concerns for possible COVID. 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 States +exposure, citing his sister is sick. States he took x 3 tests, citing 2 seemed to not run properly. +Advil The history is provided by the patient. No bilingual speech language pathologist was used. Illness The current episode started today. The onset was sudden. The problem occurs continuously. The problem has been unchanged. The problem is mild. Nothing relieves the symptoms. Nothing aggravates the symptoms. Associated symptoms include diarrhea, rhinorrhea, sore throat and muscle aches. Pertinent negatives include no fever, no decreased vision, no double vision, no eye itching, no photophobia, no constipation, no nausea, no vomiting, no congestion, no ear discharge, no ear pain, no headaches, no hearing loss, no mouth sores, no stridor, no swollen glands, no neck pain, no cough, no rash, no eye discharge, no eye pain and no eye redness. He has been Eating and drinking normally. No past medical history on file. No past surgical history on file. ALLERGIES Iodine MEDICATIONS polyethylene glycol 3350 (MIRALAX) 17 gram packet Take 1 Packet by mouth once daily. Dissolve dose in 4 - 8 ounces of liquid and take as directed. (Patient not taking: Reported on 10/18/2021 ) No family history on file. Social History Tobacco Use Smoking status: Never Passive exposure: Yes Smokeless tobacco: Never Tobacco comments: mom smokes outside of home Substance Use Topics Alcohol use: No Drug use: Never Review of Systems Constitutional: Negative for fever. HENT: Positive for rhinorrhea and sore throat. Negative for congestion, ear discharge, ear pain, hearing loss and mouth sores. Eyes: Negative for double vision, photophobia, pain, discharge, redness and itching. Respiratory: Negative for cough and stridor. Gastrointestinal: Positive for diarrhea. Negative for constipation, nausea and vomiting. Musculoskeletal: Negative for neck pain. Skin: Negative for rash. Neurological: Negative for headaches. Objective BP 120/72 Pulse 86 Temp 36.1 C (97 F) Resp 16 Wt 103.9 kg (229 lb) SpO2 99% Physical Exam Vitals and nursing note reviewed. Constitutional: General: He is not in acute distress. Appearance: Normal appearance. He is not ill-appearing, toxic-appearing or diaphoretic. HENT: Head: Normocephalic and atraumatic. Right Ear: External ear normal. Left Ear: External ear normal. Nose: Nose normal. No congestion or rhinorrhea. Mouth/Throat: Mouth: Mucous membranes are moist. Pharynx: Oropharynx is clear. No oropharyngeal exudate or posterior oropharyngeal erythema. Eyes: General: Right eye: No discharge. Left eye: No discharge. Extraocular Movements: Extraocular movements intact. Conjunctiva/sclera: Conjunctivae normal. Pupils: Pupils are equal, round, and reactive to light. Cardiovascular: Rate and Rhythm: Normal rate and regular rhythm. Pulses: Normal pulses. Heart sounds: Normal heart sounds. No murmur heard. No friction rub. No gallop. Pulmonary: Effort: Pulmonary effort is normal. No respiratory distress. Breath sounds: Normal breath sounds. No stridor. No wheezing, rhonchi or rales. Chest: Chest wall: No tenderness. Abdominal: General: Abdomen is flat. There is no distension. Palpations: Abdomen is soft. There is no mass. Tenderness: There is no abdominal tenderness. There is no guarding or rebound. Hernia: No hernia is present. Musculoskeletal: General: No swelling, tenderness, deformity or signs of injury. Normal range of motion. Cervical back: Normal range of motion and neck supple. No rigidity or tenderness. Right lower leg: No edema. Left lower leg: No edema. Lymphadenopathy: Cervical: No cervical adenopathy. Skin: General: Skin is warm and dry. Capillary Refill: Capillary refill takes less than 2 seconds. Coloration: Skin is not jaundiced or pale. Findings: No bruising, lesion or rash. Neurological: General: No focal deficit present. Mental Status: He is alert and oriented to person, place, and time. Cranial Nerves: No cranial nerve deficit. Sensory: No sensory deficit. Motor: No weakness. Coordination: Coordination normal. Gait: Gait normal. Deep Tendon Reflexes: Reflexes normal. Psychiatric: Mood and Affect: Mood normal. Behavior: Behavior normal. Thought Content: Thought content normal. Assessment and Plan ASSESSMENT/PLAN: 1. Exposure to COVID-19 virus - ICD9: V01.79, ICD10: Z20.822 Endorses his sister tested positive. 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 To help treat a fever: Drink plenty of fluids and stay well hydrated. Eat small amounts of easy to digest food. Rest. Your body needs rest to recover, but getting up and moving around the house frequently is a good idea. You should try to continue doing your normal daily activities (bathing, toileting, grooming, cooking), though you will probably feel tired, and need to rest often. Avoid any heavy activity or exercise, as this will increase your body temperature. Dress in light clothing and stay covered in a light sheet. Keep the room temperature cool. Take a slightly warm (not cold or cool) bath, or apply damp washcloths to the forehead and wrists. Cough- Cough is a common symptom associated with COVID and can be bothersome. To help treat a cough: Stay well hydrated. Try warm water or tea with lemon and/or honey to help soothe the cough. Use a humidifier to add moisture to the air. Try a product with menthol, like a cough drop or a rub for your chest such as Vicks, which can help reduce cough. Try cough drops. Avoid smoking and other strong odors or perfumes. Try breathing exercises to keep your lungs open and clear. Take a big deep breath through your nose and hold for 5 seconds before slowly releasing. Repeat frequently, while you are awake. Congestion- Runny nose or nasal congestion can occur with COVID. Treatment can help relieve symptoms: Try OTC nasal saline spray, or nasal saline rinse to relieve mucus congestion. Nasal strips can help keep nasal passages open, to increase airflow. Elevating your head with an extra pillow in bed can help reduce congestion. Using a humidifier can increase moisture in the air, and make breathing easier. Sore Throat- Another common symptom with COVID, can be managed at home by: Stay well hydrated. Gargle with salt water mix teaspoon salt with 1 cup of warm water and gargle. This helps to loosen mucus in the back of the throat and may reduce discomfort. Try ice chips, popsicles or lozenges to soothe the throat. Nausea/Vomiting/Diarrhea- These are common symptoms, and staying hydrated is most important. If you are nauseous or vomiting, start with small sips of water every 10-15 minutes and increase as tolerated. You can try sucking an ice cube too. If tolerating, you can try pedialyte or Gatorade, or flat sprite or ari-martha. Start slowly and increase as you are able to. Instead of meals, try smaller, more frequent snacks. Try eating bland foods like crackers, toast, rice, and applesauce. Avoid spicy, greasy or fried foods and dairy containing foods. Even if you aren't feeling hungry due to lack of smell or taste, it is important to try to take in some food when you are able. After drinking and eating, rest in an upright position for up to two hours as needed to help decrease nauseous feelings. Try closing your eyes, avoid moving and watching TV. Avoid strong odors that can make you feel more nauseated. When to seek emergency medical attention Look for emergency warning signs for COVID-19. If having any of these symptoms, seek emergency medical care immediately: Trouble breathing Persistent pain or pressure in the chest New confusion Inability to wake or stay awake Bluish lips or face *This list is not all possible symptoms. Please call your medical provider for any other symptoms that are severe or concerning to you. documented in this encounter [facility] 10-18-2021 History of Presen t illness Narrative Subjective HPI Nontoxic-appearing male presents urgent care chief complaint sore throat loose stools. Duration of symptoms 1 day. Associated symptoms for loose stools upon arising sore throat. States he did have abdominal pain that has since subsided. Has been able to eat and drink. States feeling better now. Presents today for COVID-19 testing. No known exposures. No OTC medications. Denies any pain. No fever body aches chills nausea vomiting abdominal pain chest pain shortness of breath difficulty swallowing difficulty handling secretions decreased range of motion of neck. Past medical history prescription medication use allergies reviewed. .Patient presents with: Sore Throat: ST and diarrhea-symptoms started this am History reviewed. No pertinent past medical history. History reviewed. No pertinent surgical history. ALLERGIES Iodine MEDICATIONS polyethylene glycol 3350 (MIRALAX) 17 gram packet Take 1 Packet by mouth once daily. Dissolve dose in 4 - 8 ounces of liquid and take as directed. History reviewed. No pertinent family history. Social History Tobacco Use Smoking status: Passive Smoke Exposure - Never Smoker Smokeless tobacco: Never Used Tobacco comment: mom smokes outside of home Substance Use Topics Alcohol use: No Drug use: Never BP 106/74 Pulse 77 Temp 36.6 C (97.8 F) (Tympanic) Resp 16 Wt 101.4 kg (223 lb 9.6 oz) SpO2 96% Review of Systems Constitutional: Negative for chills, fever and malaise/fatigue. HENT: Positive for sore throat. Negative for congestion, ear discharge, ear pain and sinus pain. Eyes: Negative for blurred vision, pain, discharge and redness. Respiratory: Negative for cough, hemoptysis, sputum production, shortness of breath, wheezing and stridor. Cardiovascular: Negative for chest pain. Gastrointestinal: Positive for diarrhea. Negative for abdominal pain, nausea and vomiting. Musculoskeletal: Negative for myalgias. Skin: Negative for itching and rash. Neurological: Negative for dizziness and headaches. Objective Physical Exam Constitutional: General: He is not in acute distress. Appearance: He is not diaphoretic. HENT: Head: Normocephalic. Nose: Nose normal. Mouth/Throat: Mouth: Mucous membranes are moist. Pharynx: Oropharynx is clear. No oropharyngeal exudate or posterior oropharyngeal erythema. Eyes: Conjunctiva/sclera: Conjunctivae normal. Pupils: Pupils are equal, round, and reactive to light. Cardiovascular: Rate and Rhythm: Normal rate and regular rhythm. Heart sounds: Normal heart sounds. Pulmonary: Effort: Pulmonary effort is normal. No tachypnea, accessory muscle usage or respiratory distress. Breath sounds: Normal breath sounds. No stridor. No wheezing, rhonchi or rales. Abdominal: General: Bowel sounds are normal. There is no distension. Palpations: Abdomen is soft. Tenderness: There is no abdominal tenderness. There is no guarding or rebound. Musculoskeletal: Cervical back: Normal range of motion and neck supple. No rigidity or tenderness. Lymphadenopathy: Cervical: No cervical adenopathy. Skin: General: Skin is warm and dry. Neurological: Mental Status: He is alert and oriented to person, place, and time. ASSESSMENT/PLAN: 1. Pharyngitis, unspecified etiology - ICD9: 462, ICD10: J02.9 (primary diagnosis) - STREP A MOLECULAR (POC) 2. Viral illness - ICD9: 079.99, ICD10: B34.9 - COVID WITH FLUA+B, ROUTINE Strep test negative. We will treat as viral etiology. Alternative diagnosis discussed. Patient was educated on supportive therapies. Patient will follow up with primary care provider as needed. Patient was instructed to immediately proceed to emergency room for any new, worsening, or symptoms lasting longer than anticipated. The patient's clinical presentation is otherwise unremarkable at this time. Based on exam and clinical finding, the patient is stable for discharge. Plan of care was discussed with patient. Patient verbalizes understanding and agrees to plan of care. This note was generated using Brayola software. It may contain errors in wording, punctuation, or spelling. Jerad Shultz APRN.TERESA documented in this encounter [facility] 09-07-2021 Miscellaneous Notes Phone call placed patient advised (see prior provider encounter) Patient verbalized understanding, agreed with plan of care. Fiona Hawley LPN Negative for flu and covid please notify thank you documented in this encounter [facility] 09-06-2021 Instructions Cielo Bailey APRN.TERESA - 09/06/2021 7:45 PM EDT Beginning Home Isolation Isolation is used to separate people infected with SARS-CoV-2, the virus that causes COVID-19, from people who are not infected. People who are in isolation should stay home until it s safe for them to be around others. In the home, anyone sick or infected should separate themselves from others by staying in a specific sick room or area and using a separate bathroom (if available). Isolation or Quarantine: What's the difference? Quarantine keeps someone who might have been exposed to the virus away from others. Isolation keeps someone who is infected with the virus away from others, even in their home. Who needs to isolate People who have COVID-19 People who have symptoms of COVID-19 and are able to recover at home People who have no symptoms (are asymptomatic) but have tested positive for infection with SARS-CoV-2 Steps to take Stay home except to get medical care Monitor your symptoms. Stay in a separate room from other household members, if possible Use a separate bathroom, if possible Avoid contact with other members of the household and pets Don t share personal household items, like cups, towels, and utensils Wear a mask when around other people, if you are able to When to seek emergency medical attention Look for emergency warning signs* for COVID-19. If someone is showing any of these signs, seek emergency medical care immediately: Trouble breathing Persistent pain or pressure in the chest New confusion Inability to wake or stay awake Bluish lips or face *This list is not all possible symptoms. Please call your medical provider for any other symptoms that are severe or concerning to you. Call 911 or call ahead to your local emergency facility: Notify the pen ruler operator that you are seeking care for someone who has or may have COVID-19. Ending Home Isolation - When you can be around others after you had or likely had COVID-19 When you can be around others after you had or likely had COVID-19 If You Test Positive for COVID-19 (Isolation) Everyone, regardless of vaccination status: 1. Stay home for 5 days. Note: Day 0 is your first day of symptoms or the date of collection of a positive viral test if no symptoms. Day 1 is the first full day after symptoms developed or test specimen was collected. 2. If you have no symptoms or your symptoms are resolving after 5 days, you can leave your house. 3. Continue to wear a mask around others for 5 additional days. If you have a fever, continue to stay home until your fever resolves, even if it is longer than 5 days. If You Were Exposed to Someone with COVID-19 (Quarantine) If you: 1. Have been boosted OR 2. Completed the primary series of Pfizer or Moderna vaccine within the last 6 months OR 3. Completed the primary series of J&J vaccine within the last 2 months THEN: 1. Wear a mask around others for 10 days. 2. Test on day 5, if possible. If you develop symptoms get a test and stay home. If You Were Exposed to Someone with COVID-19 (Quarantine) If you: 1. Completed the primary series of Pfizer or Moderna vaccine over 6 months ago and are not boosted OR 2. Completed the primary series of J&J over 2 months ago and are not boosted OR 3. Are unvaccinated THEN: 1. Stay home for 5 days. After that continue to wear a mask around others for 5 additional days. 2. If you can't quarantine you must wear a mask for 10 days. 3. Test on day 5 if possible. If you develop symptoms get a test and stay home. I had COVID-19 or I tested positive for COVID-19 and I have a weakened immune system If you have a weakened immune system (immunocompromised) due to a health condition or medication, you might need to stay home and isolate longer than 10 days. Talk to your healthcare provider for more information. Your doctor may work with an infectious disease expert at your local health department to determine when you can be around others. documented in this encounter [facility] 09-06-2021 History of Presen t illness Narrative This note was created using [employer]. Subjective Sekou Ruth is a 20 year old male. 20 year old male with anemia presents for illness. Acute onset this morning. +feelings of illness +fatigue +sore throat +post nasal drainage +fever Denies N/V/D Denies SOB or dyspnea. Denies cough States that his son tested positive for COVID He is here with additional family members who are being seen for the same. The history is provided by the patient. No bilingual speech language pathologist was used. Sore Throat This is a new problem. The current episode started today. The problem has been unchanged. Neither side of throat is experiencing more pain than the other. There has been no fever. The pain is at a severity of 6/10. The pain is moderate. Pertinent negatives include no abdominal pain, congestion, coughing, diarrhea, drooling, ear discharge, ear pain, headaches, hoarse voice, plugged ear sensation, neck pain, shortness of breath, stridor, swollen glands, trouble swallowing or vomiting. He has had no exposure to strep or mono. He has tried nothing for the symptoms. The treatment provided no relief. No past medical history on file. No past surgical history on file. ALLERGIES Iodine MEDICATIONS polyethylene glycol 3350 (MIRALAX) 17 gram packet Take 1 Packet by mouth once daily. Dissolve dose in 4 - 8 ounces of liquid and take as directed. No family history on file. Social History Tobacco Use Smoking status: Passive Smoke Exposure - Never Smoker Smokeless tobacco: Never Used Tobacco comment: mom smokes outside of home Substance Use Topics Alcohol use: No Drug use: Never Review of Systems Constitutional: Positive for activity change, chills, fatigue and fever. HENT: Positive for sore throat. Negative for congestion, drooling, ear discharge, ear pain, hoarse voice and trouble swallowing. Eyes: Negative for pain, discharge, redness and itching. Respiratory: Negative for apnea, cough, chest tightness, shortness of breath and stridor. Cardiovascular: Negative for chest pain, palpitations and leg swelling. Gastrointestinal: Negative for abdominal pain, constipation, diarrhea and vomiting. Musculoskeletal: Negative for arthralgias, back pain and neck pain. Skin: Negative for color change, pallor, rash and wound. Allergic/Immunologic: Negative for environmental allergies, food allergies and immunocompromised state. Neurological: Negative for dizziness, facial asymmetry and headaches. Hematological: Negative for adenopathy. Does not bruise/bleed easily. Psychiatric/Behavioral: Negative for agitation and behavioral problems. Objective BP 120/76 Pulse 81 Temp 36.9 C (98.4 F) Resp 14 Wt 101.8 kg (224 lb 6.4 oz) SpO2 97% Physical Exam Vitals and nursing note reviewed. Constitutional: General: He is not in acute distress. Appearance: Normal appearance. He is not ill-appearing, toxic-appearing or diaphoretic. HENT: Head: Normocephalic and atraumatic. Right Ear: External ear normal. Left Ear: External ear normal. Nose: Nose normal. No congestion or rhinorrhea. Mouth/Throat: Mouth: Mucous membranes are moist. Pharynx: Oropharynx is clear. No oropharyngeal exudate or posterior oropharyngeal erythema. Eyes: General: Right eye: No discharge. Left eye: No discharge. Extraocular Movements: Extraocular movements intact. Conjunctiva/sclera: Conjunctivae normal. Pupils: Pupils are equal, round, and reactive to light. Cardiovascular: Rate and Rhythm: Normal rate and regular rhythm. Pulses: Normal pulses. Heart sounds: Normal heart sounds. No murmur heard. No friction rub. No gallop. Pulmonary: Effort: Pulmonary effort is normal. No respiratory distress. Breath sounds: Normal breath sounds. No stridor. No wheezing, rhonchi or rales. Chest: Chest wall: No tenderness. Abdominal: General: Abdomen is flat. There is no distension. Palpations: Abdomen is soft. There is no mass. Tenderness: There is no abdominal tenderness. There is no guarding or rebound. Hernia: No hernia is present. Musculoskeletal: General: No swelling, tenderness, deformity or signs of injury. Normal range of motion. Cervical back: Normal range of motion and neck supple. No rigidity or tenderness. Right lower leg: No edema. Left lower leg: No edema. Lymphadenopathy: Cervical: No cervical adenopathy. Skin: General: Skin is warm and dry. Capillary Refill: Capillary refill takes less than 2 seconds. Coloration: Skin is not jaundiced or pale. Findings: No bruising, lesion or rash. Neurological: General: No focal deficit present. Mental Status: He is alert and oriented to person, place, and time. Cranial Nerves: No cranial nerve deficit. Sensory: No sensory deficit. Motor: No weakness. Coordination: Coordination normal. Gait: Gait normal. Deep Tendon Reflexes: Reflexes normal. Psychiatric: Mood and Affect: Mood normal. Behavior: Behavior normal. Thought Content: Thought content normal. Assessment and Plan ASSESSMENT/PLAN: ASSESSMENT/PLAN: 1. Pharyngitis, unspecified etiology - ICD9: 462, ICD10: J02.9 (primary diagnosis) - suspect viral - Alere Strep Test NEGATIVE, no culture pending - Discussed supportive care treatment with fluids, rest and analgesia. - The patient may also use OTC cough and cold meds as needed, warm salt water gargles, throat lozenges and/or OTC throat spray as needed and nasal saline gtts and suction prn. - Contagious dz precautions discussed- including considered contagious until on antibiotics for 24 hours - The patient should follow up in 3-5 days if symptoms persist or worsen - Call back if drooling, increased temperature, symptoms of dehydration and/or still sick in one week - COVID WITH FLUA+B, ROUTINE - STREP A MOLECULAR (POC) 2. Exposure to COVID-19 virus - ICD9: V01.79, ICD10: Z20.822 Son tested positive for COVID Family member here for same 3. URI, acute - ICD9: 465.9, ICD10: J06.9 - Discussed viral etiology and rationale for treatment. - Symptomatic treatment with prn analgesia - Supportive care with fluids and rest - The patient may also use OTC cough and cold meds as needed, warm salt water gargles, throat lozenges and/or OTC throat spray as needed and nasal saline gtts and suction prn. - Follow up in 3-5 days if symptoms persist or sooner if worsening of symptoms Cielo Bailey APRN.POWER SYSTEM ELECTRICAL ENGINEER documented in this encounter [facility] 09-06-2021 Miscellaneous Notes Patient called and notified that was negative for Covid. Patient voiced understanding. Cora Longo RN Unable to reach patient-try again later.Justyna Ellison LPN ----- Message from Stepan Nicolas MD sent at 09/06/2021 7:46 AM EDT ----- COVID-negative. documented in this encounter [facility] 09-05-2021 History of Presen t illness Narrative Subjective HPI HPI Sekou Ruth is a 20 year old male who presents today for CC of diarrhea, chills, body aches, intermittent chest achy/pain. This started 1 day ago. Has tried nothing for relief. Symptoms are worsened by nothing. Risk factors covid exposures at home currently. Denies sob, cough, congestion, st, ear pain, abd pain, vomiting. vapes. .Patient presents with: Diarrhea: chills, low back pain x last night No past medical history on file. No past surgical history on file. ALLERGIES Iodine MEDICATIONS polyethylene glycol 3350 (MIRALAX) 17 gram packet Take 1 Packet by mouth once daily. Dissolve dose in 4 - 8 ounces of liquid and take as directed. No family history on file. Social History Tobacco Use Smoking status: Passive Smoke Exposure - Never Smoker Smokeless tobacco: Never Used Tobacco comment: mom smokes outside of home Substance Use Topics Alcohol use: No Drug use: Not on file ROS Objective Blood pressure 110/72, pulse 92, temperature 37.1 C (98.7 F), resp. rate 16, weight 101.2 kg (223 lb), SpO2 99 %. Physical Exam Constitutional: General: He is not in acute distress. Appearance: He is not toxic-appearing or diaphoretic. HENT: Head: Normocephalic and atraumatic. Cardiovascular: Rate and Rhythm: Normal rate and regular rhythm. Heart sounds: Normal heart sounds, S1 normal and S2 normal. Pulmonary: Effort: Pulmonary effort is normal. Breath sounds: Normal breath sounds. Abdominal: General: Bowel sounds are normal. Palpations: Abdomen is soft. There is no hepatomegaly or splenomegaly. Tenderness: There is no abdominal tenderness. There is no right CVA tenderness or left CVA tenderness. Lymphadenopathy: Cervical: No cervical adenopathy. Right cervical: No superficial cervical adenopathy. Left cervical: No superficial cervical adenopathy. Neurological: Mental Status: He is alert and oriented to person, place, and time. Gait: Gait is intact. ASSESSMENT/PLAN: 1. Close exposure to COVID-19 virus - ICD9: V01.79, ICD10: Z20.822 (primary diagnosis) Discussed quarantine, social distancing otc medications discussed Push fluids -If you experience chest pain/shortness of breath go to ER - 2019 CORONAVIRUS 2. Viral syndrome - ICD9: 079.99, ICD10: B34.9 - Discussed viral etiology and rationale for treatment. - Symptomatic treatment with prn analgesia - Supportive care with fluids and rest - 2019 CORONAVIRUS Agrees to plan Stoney Bullock APRN.TERESA documented in this encounter [facility] 02-25-2021 Hospital Discharg e instructions Patient Education 02/25/2021 21:59:20 Knee Pain with Possible Torn Meniscus Knee Pain with Possible Torn Meniscus The meniscus is a tough cartilage pad that cushions the inside of the knee joint. It helps absorb the shock from movement. It also spreads the weight of your body evenly across the knee joint. This prevents excess wear and tear to the bones of that joint. The most common causes of meniscal tears are injuries, especially related to sports and degenerative disease that happens with aging. A meniscus tear commonly happens during a twisting injury when the knee is bent. This causes pain, swelling, reduced movement of the knee, and trouble walking. There may be popping, clicking, joint locking or inability to completely straighten the knee. Ligaments of the knee may also be injured. A torn meniscus is diagnosed by physical exam and X-rays. In the case of a severe injury, the knee may be too painful to examine fully. A more accurate exam can be done after the initial swelling goes down. An MRI may be done to make a final diagnosis. If your healthcare provider suspects a meniscal injury, you will treat your knee with ice and rest and preventing movement of the knee. A splint or knee brace that keeps your leg straight may be put on to protect the joint. Depending on the severity of the injury, surgery may be needed. A cartilage injury may take 4 to 12 weeks to heal depending on how bad it is. Home care Stay off the injured leg as much as possible until you can walk on it without pain. If you have a lot of pain when walking, crutches or a walker may be prescribed. (These can be rented or bought at many pharmacies and surgical or orthopedic supply stores). Follow your healthcare provider's advice about when to begin putting weight on that leg. Keep your leg elevated to reduce pain and swelling. When sleeping, place a pillow under the injured leg. When sitting, support the injured leg so it is above heart level. This is very important during the first 48 hours. Apply an ice pack over the injured area for 15 to 20 minutes every 3 to 6 hours. You should do this for the first 24 to 48 hours. You can make an ice pack by filling a plastic bag that seals at the top with ice cubes and then wrapping it with a thin towel. Continue to use ice packs for relief of pain and swelling as needed. As the ice melts, be careful not to get your wrap, splint, or cast wet. After 48 hours, apply heat (warm shower or warm bath) for 15 to 20 minutes several times a day, or alternate ice and heat. You can place the ice pack directly over the splint. If you have to wear a uebn-ibd-xokz knee brace, you can open it to apply the ice pack, or heat, directly to the knee. Never put ice directly on the skin. Always wrap the ice in a towel or other type of cloth. You may use pfnm-loq-tiqlchc pain medicine to control pain, unless another pain medicine was prescribed. If you have chronic liver or kidney disease or ever had a stomach ulcer or gastrointestinal bleeding, talk with your healthcare provider before using these medicines. If you were given a splint, keep it dry at all times. Bathe with your splint out of the water. Protect it with a large plastic bag that is rubber-banded or taped at the top end. If a fiberglass splint gets wet, you can dry it with a chair maker set on cool. If you have a fidk-zpq-dcvv knee brace, you can remove this to bathe, unless told otherwise. Check with your healthcare provider before returning to sports or full work duties. Follow-up care Follow up with your healthcare provider, or as advised. This is usually within 1 to 2 weeks. Further testing may be required to check the extent of your injury. If X-rays were taken, you will be told of any new findings that may affect your care. Call 911 Call 911 if you have: Shortness of breath Chest pain When to seek medical advice Call your healthcare provider right away if any of these occur: Toes or foot gets swollen, cold, blue, numb, or tingly Pain or swelling spreads over the knee or calf Warmth or redness appears over the knee or calf Fever of 100.4 F (38 C) or higher, or as directed by your healthcare provider Patrick [phone] [email or web address]. [address] [place] [address], [place] [address]. All rights reserved. This information is not intended as a substitute for professional medical care. Always follow your healthcare professional's instructions. Follow Up Care 02/25/2021 20:29:30 With:RYAN DUNCAN Address: [address] [place] [address] [address] [place] [id number] Business (1) When:2-4 days Comments:Ice, Tylenol, a ibuprofen for pain, you may bear weight on the leg as tolerated, follow with orthopedics if no improvement. [facility] Evaluation + Plan note No data available for this section [facility] Evaluation note Diagnosis Close exposure to COVID-19 virus- Primary Viral syndrome Unspecified viral infection, in conditions classified elsewhere and of unspecified site documented in this encounter [facility] note* Diagnosis Pharyngitis, unspecified etiology- Primary Exposure to COVID-19 virus URI, acute Acute upper respiratory infections of unspecified site [facility] Diagnosis Pharyngitis, unspecified etiology- Primary Viral illness Unspecified viral infection, in conditions classified elsewhere and of unspecified site [facility] Diagnosis Exposure to COVID-19 virus- Primary [facility] Diagnosis URI, acute- Primary Acute upper respiratory infections of unspecified site [facility] Diagnosis Burning with urination- Primary Dysuria Screening for STD (sexually transmitted disease) Screening examination for venereal disease [facility]* Diagnosis Acute pain of both knees- Primary [facility] Diagnosis Right-sided low back pain without sciatica, unspecified chronicity- Primary [facility]* Diagnosis Possible exposure to STD- Primary Other specified personal history presenting hazards to health Skin infection Unspecified local infection of skin and subcutaneous tissue Visit for suture removal Encounter for removal of sutures [facility] Diagnosis Possible exposure to STD- Primary Other specified personal history presenting hazards to health [facility]* Diagnosis Sore throat- Primary Acute pharyngitis URI, acute Acute upper respiratory infections of unspecified site [facility] Diagnosis URI, acute- Primary Acute upper respiratory infections of unspecified site [facility]* Diagnosis Bacterial sinusitis- Primary Unspecified sinusitis (chronic) [facility] Diagnosis Generalized abdominal pain Abdominal pain, generalized Acute constipation Unspecified constipation documented in this encounter [facility] for referral (narrative)* Diagnostic Procedure Only (Urgent) - Pending Review Specialty Diagnoses / Procedures Referred By Contac t Referred To Contact XR IMAGING Diagnoses Acute pain of both knees Procedures XR KNEE GENERAL 4V AP BOTH/PA BOTH/LAT/MERC BILATERAL RADIOLOGIC EXAM KNEE COMPLETE 4/MORE VIEWS Cielo Bailey APRN.CNP [address] [place] [address] Xr Imaging Referral ID Status Reason Start Date Expiration Date Visits Requested Visits Authorized [id number] Pending Review Auto-Generat ed Referral 09/13/2022 10/13/2023 1 1 [facility] for referral (narrative)* Diagnostic Procedure Only (Routine) - Authorized Specialty Diagnoses / Procedures Referred By Contac t Referred To Contact US IMAGING Diagnoses Right-sided low back pain without sciatica, unspecified chronicity Procedures US KIDNEY/BLADDER US RETROPERITONEAL REAL TIME W/IMAGE COMPLETE Santo Dela Cruz PA-C [address] [place] [address] [place] [address] Referral ID Status Reason Start Date Expiration Date Visits Requested Visits Authorized [id number] Authorized Auto-Generat ed Referral 3 03/04/2024 1 1 [facility] for referral (narrative)* Diagnostic Procedure Only (Urgent) - Closed Specialty Diagnoses / Procedures Referred By Contac t Referred To Contact XR IMAGING Diagnoses Generalized abdominal pain Acute constipation Procedures XR ABDOMEN 1V SUPINE RADIOLOGIC EXAM ABDOMEN 1 VIEW Cielo Bailey APRN.CNP [address] [place] [address] [place] [address] Referral ID Status Reason Start Date Expiration Date V isits Requested Visits Authorized [id number] Closed Auto-Generate d Referral 05/15/2021 06/14/2022 1 1 [facility] for visit Narrative* Diagnostic Procedure Only (Urgent) - Closed Specialty Diagnoses / Procedures Referred By Colton t Referred To Contact XR IMAGING Diagnoses Generalized abdominal pain Acute constipation Procedures XR ABDOMEN 1V SUPINE RADIOLOGIC EXAM ABDOMEN 1 VIEW Cielo Bailey APRN.POWER SYSTEM ELECTRICAL ENGINEER [address] [place] [address] [place] [address] Referral ID Status Reason Start Date Expiration Date V isits Requested Visits Authorized [id number] Closed Auto-Generate d Referral 05/15/2021 06/14/2022 1 1 [facility] Summary Purpose Family History No Family History Records FoundNo Family History Records Found No data available for this section No Family History Records Found Advance Directives No Advanced Directives Records FoundNo Advanced Directives Records FoundNo Advanced Directives Records Found Health Concerns Infection Onset Date Last Indicated Resolved Time COVID-19 Rule-Out 09/06/2021 09/06/2021 Infection Onset Date Last Indicated Resolved Time COVID-19 Rule-Out 09/06/2021 09/06/2021 09/07/2021 8:19 AM EDT Infection Onset Date Last Indicated Resolved Time COVID-19 Rule-Out 12/11/2021 12/11/2021 Infection Onset Date Last Indicated Resolved Time COVID-19 Rule-Out 12/11/2021 12/11/2021 12/12/2021 4:06 AM EDT Infection Onset Date Last Indicated Resolved Time COVID-19 Rule-Out 12/24/2021 12/24/2021 12/25/2021 3:14 AM EDT Infection Onset Date Last Indicated Resolved Time COVID-19 Rule-Out 02/11/2022 02/11/2022 02/12/2022 3:54 AM EDT Additional Source Comments (unrecognized sect ion and content) No Status Records FoundNo Status Records FoundNo Status Records Found INFORMATION SOURCE (unrecogn ized section and content) DATE CREATED AUTHOR 04/06/2020 [facility] DATE CREATED AUTHOR AUTHOR'S ORGANIZ ATION 09/23/2022 [facility] ([place]) DATE CREATED AUTHOR AUTHOR'S MARISOL ATION 12/12/2023 [facility] Source Comments (unrecognize d section and content) In the event this informatio n is protected by the Federal Confidentiality of Alcohol and Drug Abuse Patient Records regulations: The Federal rules restrict any use of the information to criminally investigate or prosecute any alcohol or drug abuse patient.[facility] HospitalIn the event this information is protected by the Federal Confidentiality of Alcohol and Drug Abuse Patient Records regulations: The Federal rules restrict any use of the information to criminally investigate or prosecute any alcohol or drug abuse patient.[facility] HospitalIn the event this information is protected by the Federal Confidentiality of Alcohol and Drug Abuse Patient Records regulations: The Federal rules restrict any use of the information to criminally investigate or prosecute any alcohol or drug abuse patient.[facility] HospitalIn the event this information is protected by the Federal Confidentiality of Alcohol and Drug Abuse Patient Records regulations: The Federal rules restrict any use of the information to criminally investigate or prosecute any alcohol or drug abuse patient.[facility] HospitalIn the event this information is protected by the Federal Confidentiality of Alcohol and Drug Abuse Patient Records regulations: The Federal rules restrict any use of the information to criminally investigate or prosecute any alcohol or drug abuse patient.[facility] HospitalIn the event this information is protected by the Federal Confidentiality of Alcohol and Drug Abuse Patient Records regulations: The Federal rules restrict any use of the information to criminally investigate or prosecute any alcohol or drug abuse patient.[facility] HospitalIn the event this information is protected by the Federal Confidentiality of Alcohol and Drug Abuse Patient Records regulations: The Federal rules restrict any use of the information to criminally investigate or prosecute any alcohol or drug abuse patient.[facility] HospitalIn the event this information is protected by the Federal Confidentiality of Alcohol and Drug Abuse Patient Records regulations: The Federal rules restrict any use of the information to criminally investigate or prosecute any alcohol or drug abuse patient.[facility] HospitalIn the event this information is protected by the Federal Confidentiality of Alcohol and Drug Abuse Patient Records regulations: The Federal rules restrict any use of the information to criminally investigate or prosecute any alcohol or drug abuse patient.[facility] HospitalIn the event this information is protected by the Federal Confidentiality of Alcohol and Drug Abuse Patient Records regulations: The Federal rules restrict any use of the information to criminally investigate or prosecute any alcohol or drug abuse patient.[facility] HospitalIn the event this information is protected by the Federal Confidentiality of Alcohol and Drug Abuse Patient Records regulations: The Federal rules restrict any use of the information to criminally investigate or prosecute any alcohol or drug abuse patient.[facility] HospitalIn the event this information is protected by the Federal Confidentiality of Alcohol and Drug Abuse Patient Records regulations: The Federal rules restrict any use of the information to criminally investigate or prosecute any alcohol or drug abuse patient.[facility] HospitalIn the event this information is protected by the Federal Confidentiality of Alcohol and Drug Abuse Patient Records regulations: The Federal rules restrict any use of the information to criminally investigate or prosecute any alcohol or drug abuse patient.[facility] HospitalIn the event this information is protected by the Federal Confidentiality of Alcohol and Drug Abuse Patient Records regulations: The Federal rules restrict any use of the information to criminally investigate or prosecute any alcohol or drug abuse patient.[facility] HospitalIn the event this information is protected by the Federal Confidentiality of Alcohol and Drug Abuse Patient Records regulations: The Federal rules restrict any use of the information to criminally investigate or prosecute any alcohol or drug abuse patient.[facility] HospitalIn the event this information is protected by the Federal Confidentiality of Alcohol and Drug Abuse Patient Records regulations: The Federal rules restrict any use of the information to criminally investigate or prosecute any alcohol or drug abuse patient.[facility] HospitalIn the event this information is protected by the Federal Confidentiality of Alcohol and Drug Abuse Patient Records regulations: The Federal rules restrict any use of the information to criminally investigate or prosecute any alcohol or drug abuse patient.[facility] HospitalIn the event this information is protected by the Federal Confidentiality of Alcohol and Drug Abuse Patient Records regulations: The Federal rules restrict any use of the information to criminally investigate or prosecute any alcohol or drug abuse patient.[facility] HospitalIn the event this information is protected by the Federal Confidentiality of Alcohol and Drug Abuse Patient Records regulations: The Federal rules restrict any use of the information to criminally investigate or prosecute any alcohol or drug abuse patient.[facility] HospitalIn the event this information is protected by the Federal Confidentiality of Alcohol and Drug Abuse Patient Records regulations: The Federal rules restrict any use of the information to criminally investigate or prosecute any alcohol or drug abuse patient.[facility] HospitalIn the event this information is protected by the Federal Confidentiality of Alcohol and Drug Abuse Patient Records regulations: The Federal rules restrict any use of the information to criminally investigate or prosecute any alcohol or drug abuse patient.[facility] HospitalIn the event this information is protected by the Federal Confidentiality of Alcohol and Drug Abuse Patient Records regulations: The Federal rules restrict any use of the information to criminally investigate or prosecute any alcohol or drug abuse patient.[facility] HospitalIn the event this information is protected by the Federal Confidentiality of Alcohol and Drug Abuse Patient Records regulations: The Federal rules restrict any use of the information to criminally investigate or prosecute any alcohol or drug abuse patient.[facility] HospitalIn the event this information is protected by the Federal Confidentiality of Alcohol and Drug Abuse Patient Records regulations: The Federal rules restrict any use of the information to criminally investigate or prosecute any alcohol or drug abuse patient.[facility] Reason for Visit (unrecogniz ed section and content) Reason Comments Diarrhea chills, low back bernardo n x last night Reason Comments Results Reason Comments Sore Throat pain rated 7, x1 day exposure to Covid, negative results Reason Comments Sore Throat ST and diarrhea-symp toms started this am Reason Comments Headache sore throat, covid e xposure x this am Reason Comments Nasal Congestion drainage, headache x 2 days Reason Comments STD check STD check-burning x 3-4 days Reason Comments Results, Lab Reason Comments Pain Pt reported knee bernardo n, Hx surgery bilateral. Reason Comments Patient Question Reason Comments Kidney Problem Lower back/kidney pa in on right side x 4 months Reason Comments STD check and suture removal STD check-f atigue and burning x 1 month and suture removal x 1 left hand placed in ER x 10 days Reason Comments STD Testing wanted d/t G F cheating, no s/s Reason Comments Patient Question antibiotic Reason Comments Cough Cough, congestion, S T, sinus and runny nose x 5 days Reason Comments Cough Cough, congestion, H A and sinus x 1 week Reason Comments Sore Throat Runny nose, cough, c ongestion x 1 week Care Teams (unrecognized sec tion and content) Relish Blender Relationship Specialty Start Date End Date Aysha Dolan MD [address] [place], [place] [id number] PCP - General Internal Medicine 10/18/21 Relish Blender Relationship Specialty Start Date End Date Aysha Dolan MD [address] [place], [place] [id number] PCP - General Internal Medicine 10/18/21 Relish Blender Relationship Specialty Start Date End Date Aysha Dolan MD [address] [facility] [address] PCP - General Internal Medicine 10/18/21 Relish Blender Relationship Specialty [place] [address] [place] [id number] PCP - General Internal Medicine 10/18/21 Relish Blender Relationship Specialty Start [place] [address] [place] [id number] PCP - General Internal [facility] 10/18/21 Relish Blender Relationship Specialty Start Date End Date Aysha Dolan MD [address] [place] [id number] PCP - General Internal Medicine 10/18/21 Relish Blender Relationship Specialty Start Date End Date Aysha Dolan MD [address] [place] [id number] PCP - General Internal Medicine 10/18/21 Relish Blender Relationship Specialty Start Date End Date Aysha Dolan MD [address] [place] [id number] PCP - General Internal Medicine 10/18/21 Relish Blender Relationship Specialty Start Date End Date Tomas Wheeler (Hist) NO FORWARDING ADDRESS PCP - General 02/05/02 06/17/21 FOR RECORDS PERTAINING TO PATIENTS WHO ARE OR HAVE BEEN ENROLLED IN A CHEMICAL DEPENDENCY/SUBSTANCEABUSE PROGRAM, SOME INFORMATION MAY BE OMITTED. This clinical summary was aggregated from multiple sources. Caution should be exercised in using it in the provision of clinical care. This summary normalizes information from multiple sources, and as a consequence, information in this document may materially change the coding, format and clinical context of patient data. In addition, data may be omitted in some cases. CLINICAL DECISIONS SHOULD BE BASED ON THE PRIMARY CLINICAL RECORDS. [facility]. provides no warranty or guarantee of the accuracy or completeness of information in this document.
[2024-02-04] MEDS: 0.9% Normal Saline (500mL Bag) 500 ML 999 ML IV (01:07)
[2024-02-04 01:11] VITALS: BP 143/94; PULSE 65; RESP 18; O2SAT 99
[2024-02-04 01:19] LABS: Absolute Lymphocyte Count 2.91 X10^3/uL (0.83-4.51); Absolute Neutrophil Count 1.8 X10^3/uL (2.0-7.7); Basophil# 0.03 X10^3/uL; Basophil% 0.6 % (0-1); Eosinophil# 0.15 X10^3/uL; Eosinophils% 2.8 % (0-5); Hematocrit 41.5 % (40-54); Hemoglobin 13.9 g/dL (13.0-16.5); Lymphocyte # 2.91 X10^3/ul (0.83-4.51); Lymphocyte % 54.8 % (19-41); Mean Corp Hgb Conc 33.5 g/dL (32-36); Mean Corpuscular Hgb 26.1 pg (27.0-32.0); Mean Corpuscular Volume 77.9 fL (80-94); Mean Platelet Vol. 10.2 fl (6.2-12.0); Monocyte# 0.43 X10^3/uL; Monocyte% 8.1 % (0-10); NRBC Flagged by Analyzer 0 % (0-5); Neutrophil # 1.78 X10^3/uL (2.7-7.7); Neutrophil % 33.5 % (47-70); POSITIVE MORPHOLOGY YES; Platelet Count 257 K/mm3 (150-450); RBC Distribution Width CV 12.9 % (11.6-14.6); RBC Distribution Width SD 36.3 fl (35.1-43.9); Red Blood Count 5.33 M/mm3 (4.6-6.2); White Blood Count 5.3 K/mm3 (4.4-11.0)
[2024-02-04 01:38] LABS: AST(SGOT) 18 U/L (15-37); Alanine Aminotransfer ALT/SGPT 27 U/L (16-61); Albumin, Serum 4.1 g/dL (3.2-5.0); Alkaline Phosphatase 83 U/L (45-117); Anion Gap 5 (5-15); BUN 12 mg/dL (7-18); BUN/Creat Ratio 10.9 RATIO (10-20); Calcium,Total 9.1 mg/dL (8.5-10.1); Chloride 107 mmol/L (98-107); Differential Indicated SCAN CRITERIA MET; EST Glomerular Filtration Rate 87 mL/min (>60); Est Glom Filt Rate - Afr Amer 105 mL/min (>60); Estimated Creatinine Clearance 126.22 ml/min; Globulin 3.7 g/dL (2.2-4.2); Glucose 102 mg/dL (74-106); Magnesium 2.2 mg/dL (1.6-2.6); Potassium 3.8 mmol/L (3.5-5.1); Protein, Total 7.8 g/dL (6.4-8.2); Sodium Level 140 mmol/L (136-145)
[2024-02-04 01:56] VITALS: BP 137/100; PULSE 69; RESP 16; TEMP 36.6; O2SAT 100
[2024-02-04 01:57] LABS: Reactive Lymphocyte RARE
--- NOTE | 2024-02-04 02:07 | EX.ED.DYSGE1 ---
HPI History of Present Illness Chief Complaint: Syncope Informant: patient Narrative Narrative: Patient is a 23-year-old male with past medical history of anxiety and depression. He also reports a past medical history of seizures but states he grew out of them when he was younger. He states he has not had to be on antiseizure medication for 10 to 15 years. He reports over the last few days he has been feeling bouts of lightheadedness and near syncope. He states has been no associated nausea vomiting or diarrhea. He denies any induction or cessation of medication. He states that he felt this way before he used to have a seizure and has concern he may develop them once again and therefore comes in for evaluation [facility] Medical History Depression Anxiety Rash Anemia Injury of head and neck Seizures Former smoker Shortness of breath on exertion Home Medications ?Medication ?Instructions ?Recorded ?Last Taken ?Type NK 12/08/21 Unknown History Allergy/AdvReac Type Severity Reaction Status Date / Time iodine Allergy Hives Verified 02/03/24 23:20 banana AdvReac Nausea/Vom/ Verified 02/03/24 23:20 Diarrhea Surgical History History of foot surgery Social History Smoking Status: Current every day smoker tobacco type: e-cigarettes ROS ROS ED Constitutional Constitutional ED: Denies chills or fever(s) Eyes Eyes: Denies blurry vision or change in vision ENT ENT ED: Denies sore throat Cardiovascular Cardiovascular: Reports other Details: Positive lightheadedness/near syncope ; Denies chest pain, palpitations or racing heartbeat Respiratory/Chest Respiratory/Chest: Denies cough or dyspnea Gastrointestinal Gastrointestinal: Denies abdominal pain, diarrhea, nausea or vomiting Genitourinary Genitourinary ED: Denies dysuria Musculoskeletal Musculoskeletal: Denies myalgias Integumentary Denies rash Neurologic Neurologic: Reports other Details: Positive dizziness ; Denies headache(s), paresthesias or weakness Hematologic/Lymphatic Hematologic/Lymphatic: Denies easy bleeding or easy bruising EXAM Physical Exam Const Vital Signs: 02/03/24 23:20 02/04/24 01:09 02/04/24 01:11 Temperature 96.7 F L Temperature Source Temporal Pulse Rate 67 65 Respiratory Rate 18 18 Respiratory Effort Normal Blood Pressure 129/109 H 143/94 H Blood Pressure Mean 115 110 Pulse Ox 99 99 Oxygen Delivery Method Room Air Room Air 02/04/24 01:56 Temperature 98 F Temperature Source Pulse Rate 69 Respiratory Rate 16 Respiratory Effort Blood Pressure 137/100 H Blood Pressure Mean 112 Pulse Ox 100 Oxygen Delivery Method Positive well nourished and well developed General Appearance ED: well developed; Negative for pallor HEENT Reports TM's clear HEENT Narrative: Mucous membranes are slightly dry and tacky No tongue or cheek biting No signs of infection noted in the posterior pharynx Tympanic Membrane ED: Yes TM's clear Eyes PERRL and EOMs intact bilaterally General Eye ED: Negative for pale conjunctiva or scleral icterus Neck supple Neck Narrative: No nuchal rigidity or meningeal signs Chest Wall palpation of chest normal Resp normal respiratory effort and clear to auscultation bilaterally Cardio regular rate and regular rhythm Rate: other Other Details: Heart is regular rate and rhythm without murmurs rubs or gallops Radial and carotid pulses are equal and symmetric No carotid bruit GI normal to inspection, nondistended, normoactive bowel sounds, non-tender, non-distended and no masses Auscultation: normoactive bowel sounds Palpation: soft Extremity normal to inspection Neuro oriented x3, CN's II-XII intact bilaterally and no sensory deficits noted Neuro Narrative: GCS of 15 Cranial nerves II through XII are grossly intact there are no focal neurologic deficits No pronator drift no dysmetria no truncal ataxia NIH stroke scale score of 0 No nystagmus noted Sensorium / Orientation: alert Motor Exam: strength 5/5 throughout Psych mental status grossly normal Skin no rashes or lesions noted and no wounds General Skin Exam: Negative for jaundice or pallor MDM MDM MDM Narrative Medical decision making narrative: Patient arrived to the ER hypertensive but otherwise with stable vitals. He reported a sensation of lightheadedness/dizziness. With concern this could be from acute blood loss anemia versus acute kidney injury versus electrolyte abnormality I did elect to perform basic laboratory studies. H&H was stable going against blood loss creatinine was normal going against GISSELLE and there was no clinically significant electrolyte abnormality. His physical exam did show mild dehydration with mildly dry mucous membrane. He was given 500 mL of fluid and after doing so reported feeling better. Therefore at this time he has not had a seizure his labs do not reveal any clinically significant findings and he reports feeling better after mild hydration therefore there is negative further workup and he is otherwise safe for discharge. History & Record Review Discussion w/independent historian: Patient Lab Data Attestation: I reviewed the patient's lab results. Labs: Laboratory Results - last 24 hr 02/04/24 01:00 WBC 5.3 RBC 5.33 Hgb 13.9 Hct 41.5 MCV 77.9 L MCH 26.1 L MCHC 33.5 RDW Std Deviation 36.3 RDW Coeff of Rhonda 12.9 Plt Count 257 MPV 10.2 Immature Gran % (Auto) 0.200 Neut % (Auto) 33.5 L Lymph % (Auto) 54.8 H Chicot % (Auto) 8.1 Eos % (Auto) 2.8 Baso % (Auto) 0.6 Absolute Neuts (auto) 1.8 L Absolute Lymphs (auto) 2.91 Nucleated RBC % 0 Reactive Lymphocytes RARE Sodium 140 Potassium 3.8 Chloride 107 Carbon Dioxide 28.0 Anion Gap 5 BUN 12 Creatinine 1.10 Estim Creat Clear Calc 126.22 Est GFR (MDRD) Af Amer 105 Est GFR (MDRD) Non-Af 87 BUN/Creatinine Ratio 10.9 Glucose 102 Calcium 9.1 Magnesium 2.2 Total Bilirubin 0.80 Direct Bilirubin 0.20 AST 18 ALT 27 Alkaline Phosphatase 83 Total Protein 7.8 Albumin 4.1 Globulin 3.7 Discharge Plan Triage Chief Complaint: Syncope ED Provider: Oz Summers Dx/Rx/DC Orders Clinical Impression: Near syncope, Anxiety and depression Instructions: Dizziness Fainting Causes, ED Near-Fainting, Uncertain Cause Prescriptions: No Action NK Primary Care Provider: Care Physician,No Primary Referrals: Abdoul Epstein MD [Med Staff - Active Staff] - Care Physician,No Primary [Primary Care Provider] - Activity Restrictions/Additional Instructions: Your workup today showed no clinically significant findings such as low blood volume kidney failure or electrolyte abnormality. Please follow-up with Dr. Epstein or your family doctor for further testing and to discuss potential neurology referral based on your history of epilepsy. Return to the ER should you have any further concerns Print Language: [place] Disposition Disposition: Home, Self Care Discharge Date/Time: 02/04/24 02:15
== END 2024-02-04 02:15 | disposition home or self-care (01) ==
PROVIDERS: Emergency Provider Emergency Medicine; Visit Provider Emergency Medicine
DX: R55 Syncope and collapse (principal); F41.9 Anxiety disorder, unspecified; F32.A Depression, unspecified; F17.290 Nicotine dependence, other tobacco product, uncomplicated
CPT/HCPCS: 80048; 80076; 83735; 85025; 96360; 99283; J7030; J7040; A4216

== ENCOUNTER → 2025-03-17 | Outpatient (CLI) | payer MEDICAID, SELFPAY ==
--- NOTE | 2025-03-17 16:09 | MRI_ITS ---
PROCEDURE: LOWER EXT JOINT ONLY (ROUTINE) 03/17/2025 REASON FOR EXAM: SPRAIN OF OTHER UNSPECIFIED PARTS OF LEFT KNEE, INIT ENCOUNTER TECHNIQUE: Procedure Code: MRILEJ Modality: MR Procedure: LOWER EXT JOINT ONLY (ROUTINE) Multiplanar and multisequence images were obtained without IV contrast administration. COMPARISON: COMPARISON : None FINDINGS: Intact medial meniscus Intact lateral meniscus. Normal medial collateral ligament. Normal lateral collateral (fibular) ligament. Normal patellar retinaculae. Normal patellar ligament and quadriceps tendon. Normal anterior cruciate ligament (ACL). Normal posterior cruciate ligament (PCL). Normal Hoffa's fat pad. Normal distal semimembranosus, gracilis and semitendinosus tendons. Normal popliteus tendon. Intact biceps femoris tendon. Intact flex-articular musculature. Minimal knee joint effusion. Normal articular cartilage of the articulating bones. Normal marrow signal of the examined bones, no marrow edema or infiltrations. Intact femorotibial and tibiofibular articulations. MRI/Lower Ext Joint Only (Routine) IMPRESSION: No internal knee derangement. Minimal knee joint effusion. Reading [facility]
--- OUTSIDE RECORDS SUMMARY | 2025-03-17 18:35 | XMS RPT_ITS | CCD ---
Author Organization [facility] Care Team Providers Care Credit Investigator Name Role Phone [facility] Admitting Unava ilable [facility] Attending Unava ilable [facility] Primary Care Unava ilable [facility] Attending [facility]ava ilable [facility] Primary Care Unava ilable [facility] Admitting Unava ilable DR DODIE JOHNSON MD Primary Care Physician [phone] Unavailable Primary Care Provider UnavailAysha Sanders MD Primary Care Provider Aysha Dolan MD Primary Care Provider Aysha Dolan MD Primary Care Provider DR DODIE JOHNSON MD Primary Care Physician DR DODIE JOHNSON MD Primary Care Unavailab MARSHA Watkins DO Attending Unavailable Unavailable Primary Care Provider Unavailabl e Unavailable Primary Care Provider Unavailabl Tomas Calvert (Hist) Primary Care Provider Un available Care Physician, No Primary Primary Care Unava ilable Ramez Partida Attending Unavailable Care Physician, No Primary Primary Care Unava ilable Oz Summers Attending Unavailable Care Physician, No Primary Primary Care Unava ilable Pedro Goodman Attending Unavailable Max Krueger Attending Unavailable Care Physician, No Primary Primary Care Unava ilable PHYSICIAN, NONE Primary Care Physician Unavailab JERAD Roberts Referring Unavailable PHYSICIAN, NONE Primary Care Unavailable CHAYA CHUN, ANNEL Og Attending Unavailable MICHELLE CHUN, DR JOE Collier Attending Unavailbud JOHNSON MD, DR DODIE Pizano Primary Care Unavailab le Generic Provider MD, No Assigned Pcp Primary Car e Provider Unavailable Generic Provider MD, No Assigned Pcp Primary Car e Provider Unavailable SYSTEM, PROVIDER NOT IN Referring Unavaila ble SYSTEM, PROVIDER NOT IN Attending Unavaila ble NO, PHYSICIAN Primary Care Unavailable No, Physician Primary Care Provider Unavailabl e GENERIC PROVIDER, NO ASSIGNED PCP Primary Care Unavailable GENERIC PROVIDER, NO ASSIGNED PCP Primary Care Unavailable KEVIN HERNANDEZ Attending Unavailable GENERIC PROVIDER, NO ASSIGNED PCP Primary Care Unavailable HUMPHREY JOHNSON Attending Unavailable ELOISA CEVALLOS Attending Unavailable NO, PHYSICIAN Primary Care Unavailable RAQUEL DOSS Attending Unavailab le NO, PHYSICIAN Primary Care Unavailable NANCY PALUMBO Attending Unavaila ble NO, PHYSICIAN Primary Care Unavailable RAQUEL DOSS Attending Unavailab le NO, PHYSICIAN Primary Care Unavailable LEILA JAIME Attending Unavailable NO, PHYSICIAN Primary Care Unavailable RAQUEL DOSS Attending Unavailab le FROY GAMEZ Attending Unava ilable NO, PHYSICIAN Primary Care Unavailable NANCY PALUMBO Attending Unavaila ble NO, PHYSICIAN Primary Care Unavailable BETTIE STEELE Attending Unavailable NO, PHYSICIAN Primary Care Unavailable NO, PHYSICIAN Primary Care Unavailable FROY GAMEZ Attending Unava ilable Allergies Allergy Classification Reported Allergen(s) Allergy Type Date of Onset Reaction(s) Facility (5 sources) Bananas Food allergy [facility] (5 sources) Povidone-Iodine ; Translations: [povidone iodine topical] Drug Allergy [facility] Comment on above: Hives (20 sources) Banana Extract; Translations: [BANANA] Drug Allergy 1 Other: See Comments, Unknown [facility] (20 sources) Iodine; Translations: [IODINE] Drug Allergy 1 Rash, Unknown [facility] (1 source) Banana Extract Drug Allergy 4 [facility] (1 source) Iodine Drug Allergy 4 [facility] Repository (2 sources) Ct: Iodinated Contrast- Oral And Iv Dye; Translations: [CT: IODINATED CONTRAST- ORAL AND IV DYE] Propensity to adverse reactions to drug 1 Hives, Rash, Unknown [facility] Medications Current Medications Medication Drug Class(es) Dates Sig (Normalized) Sig (Original) acetaminophen 325 mg / HYDROcodone bitartrate 5 mg oral tablet (6 sources) Opioid Agonist Start: 11-20-2021 take 1 tablet by mouth every six hours as needed Hydrocodone-Aceta minophen Active 1 TABLET PO EVERY 6 HOURS NEEDED 10 November 20, 2021 Start: 06-06-2019 End: 06-09-2019 take 1 tablet by mouth every six hours as needed Hydrocodone-Acetaminophen Discontinued 1 TABLET PO EVERY 6 HOURS NEEDED 10 June 06, 2019 June 09, 2019 12:08am amoxicillin 875 mg / clavulanate 125 mg oral tablet (1 source) Penicillin-class Antibacterial Start: 12-11-2023 End: 12-18-2023 take 1 tablet by mouth twice daily amoxicillin-clavulanate potassium (AUGMENTIN) 875-125 mg per tablet [...] 15 days. 30 capsule 12/10/2023 12/25/2023 Active cephalexin 500 mg oral tablet (3 sources) Cephalosporin Antibacterial Start: 05-02-2024 End: 05-09-2024 take 1 tablet by mouth four times daily Keflex use cephalexin Dose : 500 mg =, Oral, QID, X 7 day(s), # 28 tab(s), 0 Refill(s), 05/09/24 6:14:00 PM EST, 95.5 Start Date: 05/02/24 Stop Date: 05/09/24 Status: Ordered Quantity: 28.0 Unit: tab(s) Repeat number: 1 Start: 04-29-2024 End: 05-06-2024 cephalexin 500 mg oral capsu le Dose : 500 mg = 1 cap(s), Oral, TID, # 21 cap(s), 0 Refill(s), 95.5 Start Date: 04/29/24 Stop Date: 05/06/24 Status: Ordered Quantity: 21.0 Unit: cap(s) Repeat number: 1 ciprofloxacin 500 mg oral tablet (2 sources) Quinolone Antimicrobial Start: 10-25-2021 take 500 mg by mouth twice daily Ciprofloxacin Hcl Active 500 MG PO TWICE A DAY October 25, 2021 12:00am doxycycline hyclate 100 mg oral capsule (5 sources) Tetracycline-class Drug Start: 01-31-2025 End: 02-10-2025 doxycycline (Vibramycin) 100 mg capsule Indications: UTI (urinary tract infection), bacterial , STD exposure Take 1 capsule (100 mg) by mouth 2 times a day for 10 days. Take with at least 8 ounces (large glass) of water, do not lie down for 30 minutes after 20 capsule 01/31/2025 02/10/2025 Active Start: 06-25-2023 End: 07-02-2023 take 1 capsule [...] 7 days. [facility]. naproxen 500 mg oral tablet (1 source) Nonsteroidal Anti-inflammatory Drug Start: 11-20-2021 take 500 mg by mouth twice daily as needed Naproxen Active 500 MG PO TWICE DAILY NEEDED November 20, 2021 12:00am [place] (Nk) (2 sources) Start: 12-08-2021 [place] (Nk) Active December 07, 2021 11:00pm Start: 12-08-2021 [place] (Nk) A ctive December 08, 2021 12:00am ondansetron 4 mg disintegrating oral tablet (2 sources) Serotonin-3 Receptor Antagonist Start: 08-19-2024 End: 08-21-2024 take 1 tablet by mouth every eight hours for nausea ondansetron ODT (Zofran-ODT) 4 mg disintegrating tablet Indications: Nausea and vomiting, unspecified vomiting type Dissolve 1 tablet (4 mg) in the mouth every 8 hours if needed for vomiting or nausea for up to 2 days. 6 tablet 08/19/2024 08/21/2024 Active Start: 08-19-2024 End: 08-19-2024 take 4 mg by mouth once 4 mg, oral, Once, On Lola 08/19 at 1110, For 1 dose sulfamethoxazole 800 mg / trimethoprim 160 mg oral tablet (1 source) Dihydrofolate Reductase Inhibitor Antibacterial, Sulfonamide Antimicrobial Start: 05-02-2024 End: 05-09-2024 take 1 tablet by mouth every twelve hours sulfamethoxazole-trimethoprim 800 mg-160 mg oral tablet 160 mg, Oral, q12h, X 7 day(s), # 14 tab(s), 0 Refill(s), 95.5 Start Date: 05/02/24 Stop Date: 05/09/24 Status: Ordered Quantity: 14.0 Unit: tab(s) Repeat number: 1 Completed/Discontinued Medications Medication Drug Class(es) Dates Sig (Normalized) Sig (Original) cefTRIAXone 1000 mg injection (1 source) Cephalosporin Antibacterial Start: 02-01-2025 End: 02-01-2025 1 g, intramuscular, Once, On Fri02/01/25 at 0000, For 1 dose, For IM injection, reconstitute 1 g vial with 2.1 mL sterile water or lidocaine 1%, final concentration 350 mg/mL., Suspected Indication (Select all that apply): Urinary Tract Infection, Type of Therapy: Empiric, Type of Urinary Tract Infection: Uncomplicated, Indications: Urinary Tract Infection Lidocaine (1 source) Antiarrhythmic, Amide Local Anesthetic Start: 01-31-2025 End: 02-01-2025 5 mL, intradermal, Once, On Fri01/31/25 at 2350, For 1 dose oxyCODONE hydrochloride 5 mg oral tablet (5 sources) Opioid Agonist Start: 06-09-2019 End: 06-12-2019 take 5 mg by mouth every six hours as needed Oxycodone Discontinued 5 MG PO EVERY 6 HOURS NEEDED 10 3 June 09, 2019 June 12, 2019 12:09am polyethylene glycol 3350 54008 mg powder for oral solution (20 sources) Osmotic Laxative Start: 05-15-2021 End: 12-10-2023 polyethylene glycol 3350 (MIRALAX) 17 gram packet Take 1 Packet by mouth once daily. Dissolve dose in 4 - 8 ounces of liquid and take as directed. 14 Each 05/15/2021 12/10/2023 Discontinued Comment on above: Take 1 Packet by frankie once daily. Dissolve dose in 4 - [...] Active Problems Problem Classification Problem Date Documented Date Episodic/Chronic Abdominal pain (9 sources) Abdominal pain; Translations: [Unspecified abdominal pain] Onset: 5 08-18-2019 Episodic Administrative/social admission (6 sources) Person with feared health complaint in whom no diagnosis is made; Translations: [Concern about sexually transmitted disease in male without diagnosis] 08-18-2019 Episodic Bacterial infection; unspecified site (2 sources) Bacterial infection, unspecified; Translations: [Bacterial infection, unspecified] Onset: 5 Episodic [place] (6 sources) Partial thickness burn; Translations: [Partial thickness burn] 06-08-2019 Episodic Diseases of mouth; excluding dental (2 sources) Diseases of lips; Translations: [Diseases of lips] Onset: 5 Episodic Fracture of lower limb (12 sources) Metatarsal bone fracture; Translations: [Displaced fracture of fifth metatarsal bone, unspecified foot, initial encounter for closed fracture] 08-17-2019 Episodic Genitourinary symptoms and ill-defined conditions (1 source) Scalding pain on urination ; Translations: [Dysuria] Episodic Headache; including migraine (2 sources) Headache; including migraine; Translations: [Headache, unspecified] Onset: 5 Immunizations and screening for infectious disease (13 sources) Contact with or exposure to other viral diseases; Translations: [Close exposure to COVID-19 virus] Onset: 4 Episodic Intracranial injury (12 sources) Concussion with no loss of consciousness; Translations: [Concussion without loss of consciousness, initial encounter] 05-24-2019 Episodic Mood disorders (3 sources) Dysthymic disorder; Translations: [Dysthymic disorder] Onset: 5 12-16-2024 Chronic Open wounds of extremities (10 sources) Puncture wound of left foot; Translations: [Puncture wound without foreign body, left foot, initial encounter] Onset: 3 03-12-2023 Episodic Open wounds of head; neck; and trunk (6 sources) Facial laceration ; Translations: [Laceration without foreign body of other part of head, initial encounter] 07-10-2020 Episodic Other aftercare (6 sources) Wound finding; Translations: [Encounter for other specified aftercare] 07-18-2020 Episodic Other aftercare (6 sources) Surgical follow-up; Translations: [Encounter for removal of sutures] 07-18-2020 Episodic Other aftercare (1 source) Removal of sutures done; Translations: [Encounter for removal of sutures] 03-25-2023 Episodic Other bone disease and musculoskeletal deformities (1 source) Tietze's disease; Translations: [Chondrocostal junction syndrome [Tietze]] Onset: 3 Episodic Other ear and sense organ disorders (6 sources) Impacted cerumen; Translations: [Impacted cerumen, unspecified ear] 07-09-2020 Episodic Other ear and sense organ disorders (2 sources) Other infective otitis externa, left ear; Translations: [Other infective otitis externa, left ear] Onset: 5 Episodic Other gastrointestinal disorders (1 source) Acute constipation; Translations: [Constipation, unspecified] 05-15-2021 Episodic Other injuries and conditions due to external causes (1 source) Injury of lower leg; Translations: [Unspecified injury of unspecified lower leg, initial encounter] Onset: 1 Episodic Other injuries and conditions due to external causes (6 sources) Closed injury of head; Translations: [Unspecified injury of head, initial encounter] 06-06-2019 Episodic Other injuries and conditions due to external causes (1 source) Injury of left hand; Translations: [Unspecified injury of left wrist, hand and finger(s), initial encounter] 03-12-2023 Episodic Other injuries and conditions due to external causes (1 source) Unspecified injury of head, initial encounter; Translations: [Unspecified injury of head, initial encounter] Onset: 4 Episodic Other non-traumatic joint disorders (1 source) Pain in right knee; Translations: [Other acute pain] Episodic Other skin disorders (2 sources) Lesion of scalp; Translations: [Disorder of the skin and subcutaneous tissue, unspecified] 12-16-2021 Episodic Other skin disorders (1 source) Disorder of skin; Translations: [Disorder of the skin and subcutaneous tissue, unspecified] Onset: 3 Episodic Other upper respiratory infections (1 source) Bacterial sinusitis; Translations: [Chronic sinusitis, unspecified] 12-11-2023 Chronic Other upper respiratory infections (13 sources) Pharyngitis; Translations: [Acute pharyngitis, unspecified] Episodic Residual codes; unclassified (6 sources) Sleep apnea; Translations: [Sleep apnea, unspecified] 10-24-2020 Chronic Residual codes; unclassified (1 source) History of operative procedure on foot; Translations: [Other specified postprocedural states] 06-07-2019 Episodic Skin and subcutaneous tissue infections (5 sources) Infection of skin; Translations: [Local infection of the skin and subcutaneous tissue, unspecified] Onset: 5 03-25-2023 Episodic Spondylosis; intervertebral disc disorders; other back problems (1 source) Low back pain; Translations: [Right-sided low back pain without sciatica, unspecified chronicity] 02-03-2023 Episodic Sprains and strains (7 sources) Shoulder strain; Translations: [Strain of unspecified muscle, fascia and tendon at shoulder and upper arm level, right arm, initial encounter] Onset: 5 11-28-2021 Episodic Superficial injury; contusion (12 sources) Contusion of rib; Translations: [Contusion of right front wall of thorax, initial encounter] Onset: 5 11-28-2020 Episodic Syncope (1 source) Syncope and collapse; Translations: [Syncope and collapse] Onset: 4 Episodic Unclassified (1 source) Sprain of metacarpophalangeal (MCP) joint of left thumb, initial encounter 11-25-2024 Unclassified (1 source) Contusion of right shoulder 11-25-2024 Unclassified (1 source) Flank pain, right side; Translations: [Flank pain, right side] Onset: 5 Urinary tract infections (3 sources) Bacterial urinary infection; Translations: [Urinary tract infection, site not specified] Onset: 5 01-31-2025 Episodic Viral infection (2 sources) Viral disease; Translations: [Viral infection, unspecified] Episodic Past or Other Problems Problem Classification Problem Date Documented Da te Episodic/Chronic Nausea and vomiting (4 sources) Nausea and vomiting; Translations: [Nausea with vomiting, unspecified] Onset: 08-19-2024 08-19-2024 Episodic Other ear and sense organ disorders (1 source) Otalgia, right ear; Translations: [Otalgia, right ear] Onset: 11-08-2023 Episodic Unclassified (1 source) Flank pain, right side; Translations: [Flank pain, right side] Onset: 01-17-2025 Results Test Name Value Interpretation Reference Range [facility] ED Prov Noteon 02-23-2025 ED Prov Note [facility] ATTENDING NOTE: NAME: Lesa Prakash CSN: [id number] 24 y.o. PCP: No, Physician History: Chief Complaint: Abscess HPI: The history was obtained from the patient. Lesa is a 24 y.o. male who presents with a chief complaint of Abscess. As per the patient he has been dealing with left lower lip abscess for the 10 days has an appointment to see a ENT on Friday comes in because of increased swelling and drainage from the site. No fever no chills PMHx: Past Medical History: Diagnosis Date Known health problems: none PMSx: Past Surgical History: Procedure Laterality Date ORTHOPEDIC SURGERY 5th metatarsal/ mcl FAM. Hx: History reviewed. No pertinent family history. SOC. Hx: Social History [1] MEDs: Previous Medications Medication Sig cephALEXin (KEFLEX) 500 MG capsule Take 1 (one) capsule (500 mg total) by mouth 4 (four) times a day for 5 days . ketorolac (TORADOL) 10 mg tablet Take 1 (one) tablet (10 mg total) by mouth every 6 (six) hours as needed . ondansetron (ZOFRAN-ODT) 4 MG disintegrating tablet Dissolve 1 (one) tablet (4 mg total) on top of tongue every 8 (eight) hours as needed . sulfamethoxazole-tri methoprim (BACTRIM DS,SEPTRA DS) 800-160 mg per tablet Take 1 (one) tablet by mouth 2 (two) times a day for 10 days . ALL: Allergies[2] ROS: Review of Systems Positives and pertinent negatives as per HPI. All other systems were reviewed and are negative. Physical Exam: Patient Vitals for the past 24 hrs: BP Temp Temp src Pulse Resp SpO2 Height Weight 02/23/252011 (!) 157/102 99.1 degrees F (37.3 degrees C) Temporal 87 16 98 % 5' 11 102.1 kg (225 lb) Physical Exam Vitals reviewed. HENT: Mouth/Throat: Mouth: Mucous membranes are moist. Comments: Small left lower lip on the lateral aspect is a small area of fluctuation 1 x 1 cm firm tender Cardiovascular: Rate and Rhythm: Normal rate. Neurological: Mental Status: He is alert. Laboratory & Radiological Imaging (if done): Labs Reviewed - No data to display No orders to display Procedures: Incision/Drainage Date/Time: 02/23/2025 8:36 PM Performed by: Leila Jaime MD Authorized by: Leila Jaime MD Verbal consent: obtained Type: abscess Body area: head Location details: face Anesthesia: local infiltration Anesthesia: Local Anesthetic: lidocaine 1% without epinephrine Anesthetic total: 1.5 mL Patient sedated: no Skin preparation: Chloraprep Needle gauge: 21. Incision depth: dermal Complexity: simple Drainage: bloody Drainage amount: scant Patient tolerance: patient tolerated the procedure well with no immediate complications ED Course / Medical Decision Making: I did personally review Lesa's past medical history, surgical history, social history, as well as family history (when relevant). In this case, I also oversaw the his drug management by reviewing his medication list, allergy list, as well as the medications that I prescribed during the ED course and/or recommended as an out-patient (including possible OTC medications such as acetaminophen, NSAIDs , etc). His past medical problem list included: Active Ambulatory Problems Diagnosis Date Noted No Active Ambulatory Problems Resolved Ambulatory Problems Diagnosis Date Noted No Resolved Ambulatory Problems Past Medical History: Diagnosis Date Known health problems: none ED MEDICATIONS GIVEN: Medications doxycycline hyclate (VIBRAMYCIN) capsule 100 mg (has no administration in time range) After reviewing the items above, I did not look at previous medical documentation, such as recent hospitalizations, office visits, and/or recent consultations with PCP/specialist. SDOH: Another factor that I considered in Lesa's care was his Social Determinants of Health (SDOH). During this ED encounter, he did NOT appear to have any significant issues identified. ED COURSE: Patient at this time had lip abscess, only got some bloody drainage, patient was reassured put on different antibiotic already as an appointment see ENT on Friday patient reassured and advised to ensure he keeps appointment with Clinical Impression: 1. Lip abscess Disposition: ED Disposition ED Disposition Discharge Condition Stable Comment Lesa Prakash discharged to home/self care in stable condition. New Prescriptions doxycycline hyclate (VIBRA-TABS) 100 MG tablet Take 1 (one) tablet (100 mg total) by mouth 2 (two) times a day for 7 days . Leila Jaime MD, MD ED Attending Physician [facility] [1] Social History Socioeconomic History Marital status: Single Tobacco Use Smoking status: Never Passive exposure: Current Smokeless tobacco: Never Vaping Use Vaping status: Every Day Substances: Nicotine Substance and Sexual Activity Alcohol use: Never Drug use: Never [2] Allergies (more content not included)... [facility] ED Prov Noteon 02-22-2025 ED Prov Note ED PROVIDER NOTE [facility] NAME: Lesa Prakash AGE: 24 y.o. : 2000 VISIT DATE: 02/22/2025 CSN: [id number] PCP: No, Physician Chief Complaint Patient presents with Abscess Chief complaint abscess History of present illness this is a 24-year-old male who is here with a lip abscess has been seen here multiple times change antibiotics he still swelling on the left lower lip and wants it drained Past Medical History: Diagnosis Date Known health problems: none Past Surgical History: Procedure Laterality Date ORTHOPEDIC SURGERY 5th metatarsal/ mcl History reviewed. No pertinent family history. Social History [1] Previous Medications Medication Sig cephALEXin (KEFLEX) 500 MG capsule Take 1 (one) capsule (500 mg total) by mouth 4 (four) times a day for 5 days . ketorolac (TORADOL) 10 mg tablet Take 1 (one) tablet (10 mg total) by mouth every 6 (six) hours as needed . ondansetron (ZOFRAN-ODT) 4 MG disintegrating tablet Dissolve 1 (one) tablet (4 mg total) on top of tongue every 8 (eight) hours as needed . sulfamethoxazole-tri methoprim (BACTRIM DS,SEPTRA DS) 800-160 mg per tablet Take 1 (one) tablet by mouth 2 (two) times a day for 10 days . Allergies[2] Review of Systems Patient Vitals for the past 24 hrs: BP Temp Pulse Resp SpO2 Height Weight 02/22/25 1429 (!) 152/92 97.6 degrees F (36.4 degrees C) 89 18 98 % 5' 11 102.1 kg (225 lb) Physical Exam Vitals and nursing note reviewed. Exam conducted with a branch mechanic present. Constitutional: Appearance: Normal appearance. He is normal weight. HENT: Head: Normocephalic and atraumatic. Mouth/Throat: Comments: Left lower lip swollen slightly draining Cardiovascular: Rate and Rhythm: Normal rate and regular rhythm. Musculoskeletal: Cervical back: Normal range of motion and neck supple. Pulmonary: Effort: Pulmonary effort is normal. Breath sounds: Normal breath sounds. Neurological: Mental Status: He is alert. Laboratory & Radiographic Imaging (if done): No results found for this visit on 02/22/25. No orders to display Procedures Medical Decision Making Differential diagnosis Lip abscess Attempt to place a needle in the left lower lip was attempted to drain out fluid but unsuccessful Clinical Impression: 1. Lip abscess ED Disposition ED Disposition Discharge Condition Stable Comment Lesa Prakash discharged to home/self care in stable condition. Follow-up Information 1. Rufus Busby MD. Specialty: Otolaryngology (ENT) [facility] [place] [address] 2. Chester Avelar MD. Specialties: Otolaryngology (ENT), Pediatric Otolaryngology (ENT) [address] [facility] [address] Contact information for after-discharge care Follow-up information has not been specified. [1] Social History Socioeconomic History Marital status: Single Tobacco Use Smoking status: Never Passive exposure: Current Smokeless tobacco: Never Vaping Use Vaping status: Every Day Substances: Nicotine Substance and Sexual Activity Alcohol use: Never Drug use: Never [2] Allergies Allergen Reactions Ct: Iodinated Contrast- Oral And Iv Dye Hives, Rash and Unknown Raquel Doss MD 02/22/25 1447 AUTHENTICATED BY RAQUEL DOSS, ON 02/22/2025 14:47:12 [facility] ED Prov Noteon 02-19-2025 ED Prov Note ED PROVIDER NOTE [facility] NAME: Lesa Prakash AGE: 24 y.o. : 2000 VISIT DATE: 02/19/2025 CSN: [id number] PCP: No, Physician Chief Complaint Patient presents with Wound Check Pt to ER for abscess to lower left lip, pt states completed atbx's, not sure if its getting better Patient is a 24-year-old male with no significant past medical history presents today for concern of lip abscess. Patient states he was seen in emergency department 4 days prior and placed on Keflex. Patient states his lip abscess is unchanged and is concerned that he needs additional antibiotics. Patient denies any wound drainage or formation of vesicular lesions. Patient denies any significant nerve pain or paresthesias associated with the lesion. Patient denies any fever or history of MRSA or additional constitutional symptoms Past Medical History: Diagnosis Date Known health problems: none Past Surgical History: Procedure Laterality Date ORTHOPEDIC SURGERY 5th metatarsal/ mcl No family history on file. Social History [1] Previous Medications Medication Sig ketorolac (TORADOL) 10 mg tablet Take 1 (one) tablet (10 mg total) by mouth every 6 (six) hours as needed . ondansetron (ZOFRAN-ODT) 4 MG disintegrating tablet Dissolve 1 (one) tablet (4 mg total) on top of tongue every 8 (eight) hours as needed .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 [facility] has implemented the eGFR calculation approach that does not have a coefficient for race that conforms to the NKF-ASN Task Force Recommendations. Potassium [Moles/Vol] 4.4 mmol/L Normal 3.5-5.1 [facility] Comment on above: Order Comment: [facility] has implemented the eGFR calculation approach that does not have a coefficient for race that conforms to the NKF-ASN Task Force Recommendations. Sodium [Moles/Vol] 143 mmol/L Normal 135-145 [facility] Comment on above: Order Comment: [facility] has implemented the eGFR calculation approach that does not have a coefficient for race that conforms to the NKF-ASN Task Force Recommendations. Urea nitrogen [Mass/Vol] 14 mg/dL Normal 8-25 [facility] Comment on above: Order Comment: [facility] has implemented the eGFR calculation approach that does not have a coefficient for race that conforms to the NKF-ASN Task Force Recommendations. POC CBC AND DIFFERENTIALon 1 BASOPHILS ABSOLUTE COUNT 0.02 K/mcL Normal 0.00-0.30 [facility] Basophils/100 WBC (Bld) 0.3 % Normal [facility] Eosinophils (Bld) [#/Vol] 0.08 10*3/uL Normal 0.00-0.50 [facility] Eosinophils/100 WBC (Bld) 1.2 % Normal [facility] Erythrocyte distribution width (RBC) [Ratio] 12.7 % Normal 11.6-14.8 [facility] Hematocrit (Bld) [Volume fraction] 41.5 % Normal 41.0-53.0 [facility] Hemoglobin (Bld) [Mass/Vol] 13.9 g/dL Normal 13.5-17.5 [facility] IG ABSOLUTE 0.01 K/mcL Normal 0.00-0.30 [facility] IG PERCENT 0.10 % Normal [facility] Comment on above: Result Comment: The IG parameter is the percentage of metamyelocytes, myelocytes and promyelocytes. An immature granulocyte count (IG) of 1% or more suggests the possibility of infection, an IG count of 3% is very likely related to an infection. Lymphocytes (Bld) [#/Vol] 1.33 10*3/uL Normal 0.90-4.00 [facility] Lymphocytes/100 WBC (Bld) 19.7 % Normal [facility] MCH (RBC) [Entitic mass] 26.0 pg Normal 26.0-34.0 [facility] MCV (RBC) [Entitic vol] 77.7 fL Low 80.0-100.0 [facility] MEAN CORPUSCULAR HEMOGLOBIN CONC 33.5 g/dL Normal 31.0-37.0 [facility] Monocytes (Bld) [#/Vol] 0.41 10*3/uL Normal 0.30-0.90 [facility] Monocytes/100 WBC (Bld) 6.1 % Normal [facility] NEUTROPHILS ABSOLUTE COUNT 4.90 K/mcL Normal 1.70-7.00 [facility] Neutrophils/100 WBC (Bld) 72.6 % Normal [facility] Platelet mean volume (Bld) [Entitic vol] 10.0 fL Normal 9.4-12.4 [facility] Platelets (Bld) [#/Vol] 234 10*3/uL Normal 150-400 [facility] RBC (Bld) [#/Vol] 5.34 10*6/uL Normal 4.50-5.90 [facility] WBC (Bld) [#/Vol] 6.75 10*3/uL Normal 4.50-11.00 [facility] POC LIVER PANEL PLUS [facility] 01-17-2025 Albumin [Mass/Vol] 4.2 g/dL Normal 3.2-5.2 [facility] ALP [Catalytic activity/Vol] 76 U/L Normal 40-140 [facility] ALT [Catalytic activity/Vol] 26 U/L Normal 0-40 [facility] Amylase [Catalytic activity/Vol] 70 U/L Normal 25-115 [facility] Amylase [Catalytic activity/Vol] 29 U/L Normal 11-51 [facility] AST [Catalytic activity/Vol] 32 U/L Normal 0-45 [facility] Bilirubin [Mass/Vol] 1.0 mg/dL Normal 0.0-1.3 [facility] Protein [Mass/Vol] 8.0 g/dL Normal 6.0-8.0 [facility] POC URINALYSIS DIPSTICK,AUTO - [facility] 01-17-2025 POC BILIRUBIN, URINE Negative Normal Negative [facility] POC BLOOD, URINE Negative Normal Negative [facility] POC GLUCOSE, URINE Negative Normal Negative [facility] POC KETONES, URINE Negative Normal Negative [facility] POC LEUKOCYTE ESTERASE, URINE Negative Normal Negative [facility] POC NITRITE, URINE Negative Normal Negative [facility] POC PH, URINE 6.5 Normal 5.0-7.0 [facility] POC PROTEIN, URINE Negative Normal Negative [facility] POC SPECIFIC GRAVITY 1.025 Normal 1.005-1.025 [facility] POC UROBILINOGEN 0.2 mg/dL Normal < 2.0 [facility] ED Prov Noteon 01-15-2025 ED Prov Note ED PROVIDER NOTE [facility] EM[facility] NAME: Lesa Prakash AGE: 24 y.o. : 2000 VISIT DATE: 01/15/2025 CSN: [id number] PCP: No, Physician Chief Complaint Patient presents with Abscess Chief complaint facial abscess History of present illness this is a 24-year-old male whose had swelling here follicle for a year every time he pops it it has pus come out of Past Medical History: Diagnosis Date Known health problems: none Past Surgical History: Procedure Laterality Date ORTHOPEDIC SURGERY 5th metatarsal/ mcl History reviewed. No pertinent family history. Social History [1] No current outpatient medications on file prior to encounter. Allergies[2] Review of Systems All other systems reviewed and are negative. Patient Vitals for the past 24 hrs: BP Temp Temp src Pulse Resp SpO2 Height Weight 01/15/25 2136 126/79 98 degrees F (36.7 degrees C) Temporal 79 16 98 % 5' 11 102.1 kg (225 lb) Physical Exam Vitals and nursing note reviewed. Exam conducted with a branch mechanic present. Constitutional: Appearance: Normal appearance. He is normal weight. HENT: Head: Normocephalic and atraumatic. Comments: Right facial boil Nose: Nose normal. Eyes: Extraocular Movements: Extraocular movements intact. Pupils: Pupils are equal, round, and reactive to light. Cardiovascular: Rate and Rhythm: Normal rate and regular rhythm. Neurological: Mental Status: He is alert. Laboratory & Radiographic Imaging (if done): No results found for this visit on 01/15/25. No orders to display Procedures Medical Decision Making Differential diagnosis Boil Abscess Cellulitis Clinical Impression: 1. Boil ED Disposition ED Disposition Discharge Condition Stable Comment Lesa Prakash discharged to home/self care in stable condition. Follow-up Information Follow-up information has not been specified. Contact information for after-discharge care Follow-up information has not been specified. New Prescriptions doxycycline hyclate (VIBRA-TABS) 100 MG tablet Take 1 (one) tablet (100 mg total) by mouth 2 (two) times a day for 10 days . [1] Social History Socioeconomic History Marital status: Single Tobacco Use Smoking status: Never Passive exposure: Current Smokeless tobacco: Never Vaping Use Vaping status: Every Day Substances: Nicotine Substance and Sexual Activity Alcohol use: Never Drug use: Never [2] Allergies Allergen Reactions Ct: Iodinated Contrast- Oral And Iv Dye Hives, Rash and Unknown Raquel Doss MD 01/15/252147 AUTHENTICATED BY RAQUEL DOSS, ON 01/15/2025 21:48:[address] [facility] ACUTE TOXICOLOGY PANEL, DESTINYO Tutu 12-15-2024 Acetaminophen [Mass/Vol] ug/mL Normal 10.0-30.0 [facility] Comment on above: Performed By: #### D RUBL #### NANCY VERAS ([id number]) [facility] ([facility]) [address] [place] [address] 71646 Ethanol [Mass/Vol] mg/dL Normal <=10 [facility] Comment on above: Performed By: #### D RUBL #### NANCY VERAS ([id number]) [facility] ([facility]) [address] [place] [address] 10535 Salicylates [Mass/Vol] mg/dL Normal 4-20 [facility] Comment on above: Performed By: #### D RUBL #### NANCY VERAS ([id number]) [facility] ([facility]) [address] [place] [address] 96459 Acute Toxicology Panel, Bloo don 12-15-2024 Acetaminophen [Mass/Vol] ug/mL 10.0 - 30.0 ug/mL [facility] Ethanol [Mass/Vol] mg/dL NINF - 10 mg/dL [facility] Salicylates [Mass/Vol] mg/dL 4 - 20 mg/dL [facility] CBC W Auto Differential pane l (Bld)on 12-15-2024 Basophils (Bld) [#/Vol] 0.04 10*3/uL [facility] Basophils/100 WBC (Bld) 0.6 % 0.0 - 2.0 % [facility] Eosinophils (Bld) [#/Vol] 0.19 10*3/uL [facility] Eosinophils/100 WBC (Bld) 2.9 % 0.0 - 6.0 % [facility] Erythrocyte distribution width (RBC) [Ratio] 13.1 % 11.5 - 14.5 % [facility] Hematocrit (Bld) [Volume fraction] 41.0 % 41.0 - 52.0 % [facility] Hemoglobin (Bld) [Mass/Vol] 13.5 g/dL 13.5 - 17.5 g/dL [facility] Immature granulocytes (Bld) [#/Vol] 0.03 10*3/uL [facility] Immature granulocytes/100 WBC (Bld) 0.5 % 0.0 - 0.9 % [facility] Comment on above: Immature Granulocyte Count (IG) includes promyelocytes, myelocytes and metamyelocytes but does not include bands. Percent differential counts (%) should be interpreted in the context of the absolute cell counts (cells/UL). Interpretation and review of laboratory results Abnormal [facility] Lymphocytes (Bld) [#/Vol] 2.69 10*3/uL [facility] Lymphocytes/100 WBC (Bld) 40.4 % 13.0 - 44.0 % [facility] MCH (RBC) [Entitic mass] 25.9 pg Low 26.0 - 34.0 pg [facility] MCHC (RBC) [Mass/Vol] 32.9 g/dL 32.0 - 36.0 g/dL [facility] MCV (RBC) [Entitic vol] 79 fL Low 80 - 100 fL [facility] Monocytes (Bld) [#/Vol] 0.54 10*3/uL [facility] Monocytes/100 WBC (Bld) 8.1 % 2.0 - 10.0 % [facility] Neutrophils (Bld) [#/Vol] 3.17 10*3/uL [facility] Comment on above: Percent differential counts (%) should be interpreted in the context of the absolute cell counts (cells/uL). Neutrophils/100 WBC (Bld) 47.5 % 40.0 - 80.0 % [facility] Nucleated RBC/100 WBC (Bld) [Ratio] 0.0 % [facility] Platelets (Bld) [#/Vol] 231 10*3/uL [facility] RBC (Bld) [#/Vol] 5.22 10*6/uL [facility] WBC (Bld) [#/Vol] 6.7 10*3/uL [facility] Basophils (Bld) [#/Vol] 0.04 x10*3/uL Normal 0.00-0.10 [facility] Comment on above: Performed By: #### 5 7021-8 #### NANCY VERAS ([id number]) [facility] ([facility]) [address] [place] [address] 09041 Basophils/100 WBC (Bld) 0.6 % Normal 0.0-2.0 [facility] Comment on above: Performed By: #### 5 7021-8 #### NANCY VERAS ([id number]) [facility] ([facility]) [address] [place] [address] 30001 Eosinophils (Bld) [#/Vol] 0.19 x10*3/uL Normal 0.00-0.70 [facility] Comment on above: Performed By: #### 5 7021-8 #### NANCY VERAS ([id number]) [facility] ([facility]) [address] [place] [address] 45440 Eosinophils/100 WBC (Bld) 2.9 % Normal 0.0-6.0 [facility] Comment on above: Performed By: #### 5 7021-8 #### NANCY VERAS ([id number]) [facility] ([facility]) [address] [place] [address] 56344 Erythrocyte distribution width (RBC) [Ratio] 13.1 % Normal 11.5-14.5 [facility] Comment on above: Performed By: #### 5 7021-8 #### NANCY VERAS ([id number]) [facility] ([facility]) [address] [place] [address] 66586 Hematocrit (Bld) [Volume fraction] 41.0 % Normal 41.0-52.0 [facility] Comment on above: Performed By: #### 5 7021-8 #### NANCY VERAS ([id number]) [facility] ([facility]) [address] [place] [address] 80540 Hemoglobin (Bld) [Mass/Vol] 13.5 g/dL Normal 13.5-17.5 [facility] Comment on above: Performed By: #### 5 7021-8 #### NANCY VERAS ([id number]) [facility] ([facility]) [address] [place] [address] 46791 Immature granulocytes (Bld) [#/Vol] 0.03 x10*3/uL Normal 0.00-0.70 [facility] Comment on above: Performed By: #### 5 7021-8 #### NANCY VERAS ([id number]) [facility] ([facility]) [address] [place] [address] 88656 Immature granulocytes/100 WBC (Bld) 0.5 % Normal 0.0-0.9 [facility] Comment on above: Result Comment: Alanis ture Granulocyte Count (IG) includes promyelocytes, myelocytes and metamyelocytes but does not include bands. Percent differential counts (%) should be interpreted in the context of the absolute cell counts (cells/UL). Performed By: #### 5 7021-8 #### NANCY VERAS ([id number]) [facility] ([facility]) [address] [place] [address] 43915 Lymphocytes (Bld) [#/Vol] 2.69 x10*3/uL Normal 1.20-4.80 [facility] Comment on above: Performed By: #### 5 7021-8 #### NANCY VERAS ([id number]) [facility] ([facility]) [address] [place] [address] 96408 Lymphocytes/100 WBC (Bld) 40.4 % Normal 13.0-44.0 [facility] Comment on above: Performed By: #### 5 7021-8 #### NANCY VERAS ([id number]) [facility] ([facility]) [address] [place] [address] 62773 MCH (RBC) [Entitic mass] 25.9 pg Low 26.0-34.0 [facility] Comment on above: Performed By: #### 5 7021-8 #### NANCY VERAS ([id number]) [facility] ([facility]) [address] [place] [address] 43073 MCHC (RBC) [Mass/Vol] 32.9 g/dL Normal 32.0-36.0 [facility] Comment on above: Performed By: #### 5 7021-8 #### NANCY VERAS ([id number]) [facility] ([facility]) [address] [place] [address] 12521 MCV (RBC) [Entitic vol] 79 fL Low 80-100 [facility] Comment on above: Performed By: #### 5 7021-8 #### NANCY VERAS ([id number]) [facility] ([facility]) [address] [place] [address] 91314 Monocytes (Bld) [#/Vol] 0.54 x10*3/uL Normal 0.10-1.00 [facility] Comment on above: Performed By: #### 5 7021-8 #### NANCY VERAS ([id number]) [facility] ([facility]) [address] [place] [address] 66484 Monocytes/100 WBC (Bld) 8.1 % Normal 2.0-10.0 [facility] Comment on above: Performed By: #### 5 7021-8 #### NANCY VERAS ([id number]) [facility] ([facility]) [address] [place] [address] 03679 Neutrophils (Bld) [#/Vol] 3.17 x10*3/uL Normal 1.20-7.70 [facility] Comment on above: Result Comment: Perc ent differential counts (%) should be interpreted in the context of the absolute cell counts (cells/uL). Performed By: #### 5 7021-8 #### NANCY VERAS ([id number]) [facility] ([facility]) [address] [place] [address] 77693 Neutrophils/100 WBC (Bld) 47.5 % Normal 40.0-80.0 [facility] Comment on above: Performed By: #### 5 7021-8 #### NANCY VERAS ([id number]) [facility] ([facility]) [address] [place] [address] 18209 Nucleated RBC/100 WBC (Bld) [Ratio] 0.0 /100 WBCs Normal 0.0-0.0 [facility] Comment on above: Performed By: #### 5 7021-8 #### NANCY VERAS ([id number]) [facility] ([facility]) [address] [place] [address] 80116 Platelets (Bld) [#/Vol] 231 x10*3/uL Normal 150-450 [facility] Comment on above: Performed By: #### 5 7021-8 #### NANCY VERAS ([id number]) [facility] ([facility]) [address] [place] [address] 27605 RBC (Bld) [#/Vol] 5.22 x10*6/uL Normal 4.50-5.90 [facility] Comment on above: Performed By: #### 5 7021-8 #### NANCY VERAS ([id number]) [facility] ([facility]) [address] [place] [address] 43710 WBC (Bld) [#/Vol] 6.7 x10*3/uL Normal 4.4-11.3 [facility] Comment on above: Performed By: #### 5 7021-8 #### NANCY VERAS ([id number]) [facility] ([facility]) [address] [place] [address] 96108 Comprehensive metabolic 2000 panelon 12-15-2024 Albumin BCP dye [Mass/Vol] 4.6 g/dL 3.4 - 5.0 g/dL [facility] ALP [Catalytic activity/Vol] 73 U/L 33 - 120 U/L [facility] ALT With P-5'-P [Catalytic activity/Vol] 24 U/L 10 - 52 U/L [facility] Comment on above: Patients treated wit h Sulfasalazine may generate falsely decreased results for ALT. Anion gap [Moles/Vol] 10 mmol/L 10 - 20 mmol/L [facility] AST With P-5'-P [Catalytic activity/Vol] 17 U/L 9 - 39 U/L [facility] Bilirubin [Mass/Vol] 0.7 mg/dL 0.0 - 1.2 mg/dL [facility] Calcium [Mass/Vol] 10.0 mg/dL 8.6 - 10.3 mg/dL [facility] Chloride [Moles/Vol] 102 mmol/L 98 - 107 mmol/L [facility] CO2 [Moles/Vol] 30 mmol/L 21 - 32 mmol/L [facility] Creatinine [Mass/Vol] 1.14 mg/dL 0.50 - 1.30 mg/dL [facility] eGFR - PINF [facility] Comment on above: Calculations of eliana mated GFR are performed using the 2020 CKD-EPI Study Refit equation without the race variable for the IDMS-Traceable creatinine methods. https://jasn.asnjournals.org/content/early//ASN.6489672 988 Glucose [Mass/Vol] 93 mg/dL 74 - 99 mg/dL [facility] Potassium [Moles/Vol] 4.0 mmol/L 3.5 - 5.3 mmol/L [facility] Protein [Mass/Vol] 7.2 g/dL 6.4 - 8.2 g/dL [facility] Sodium [Moles/Vol] 138 mmol/L 136 - 145 mmol/L [facility] Urea nitrogen [Mass/Vol] 14 mg/dL 6 - 23 mg/dL [facility] Albumin BCP dye [Mass/Vol] 4.6 g/dL Normal 3.4-5.0 [facility] Comment on above: Performed By: #### 2 4323-8 #### NANCY VERAS ([id number]) [facility] ([facility]) [address] [place] [address] 93979 ALP [Catalytic activity/Vol] 73 U/L Normal 33-120 [facility] Comment on above: Performed By: #### 2 4323-8 #### NANCY VERAS ([id number]) [facility] ([facility]) [address] [place] [address] 90121 ALT With P-5'-P [Catalytic activity/Vol] 24 U/L Normal 10-52 [facility] Comment on above: Result Comment: Josefina ents treated with Sulfasalazine may generate falsely decreased results for ALT. Performed By: #### 2 4323-8 #### NANCY VERAS ([id number]) [facility] ([facility]) [address] [place] [address] Anion gap [Moles/Vol] 10 mmol/L Normal 10-20 [facility] Comment on above: Performed By: #### 2 4323-8 #### NANCY VERAS ([id number]) [facility] ([facility]) [address] [place] [address] AST With P-5'-P [Catalytic activity/Vol] 17 U/L Normal 9-39 [facility] Comment on above: Performed By: #### 2 4322-8 #### NANCY VERAS ([id number]) [facility] ([facility]) [address] [place] [address] Bilirubin [Mass/Vol] 0.7 mg/dL Normal 0.0-1.2 [facility] Comment on above: Performed By: #### 2 4322-8 #### NANCY VERAS ([id number]) [facility] ([facility]) [address] [place] [address] Calcium [Mass/Vol] 10.0 mg/dL Normal 8.6-10.3 [facility] Comment on above: Performed By: #### 2 4323-8 #### NANCY VERAS ([id number]) [facility] ([facility]) [address] [place] [address] Chloride [Moles/Vol] 102 mmol/L Normal 98-107 [facility] Comment on above: Performed By: #### 2 4323-8 #### NANCY VERAS ([id number]) [facility] ([facility]) [address] [place] [address] CO2 [Moles/Vol] 30 mmol/L Normal 21-32 [facility] Comment on above: Performed By: #### 2 4323-8 #### NANCY VERAS ([id number]) [facility] ([facility]) [address] [place] [address] 49569 Creatinine [Mass/Vol] 1.14 mg/dL Normal 0.50-1.30 [facility] Comment on above: Performed By: #### 2 4323-8 #### NANCY VERAS ([id number]) [facility] [facility] [address] [place] [address] [id number] Glomerular filtration rate >90 Normal >60 [facility] Comment on above: Result Comment: Calc ulations of estimated GFR are performed using the 2020 CKD-EPI Study Refit equation without the race variable for the IDMS-Traceable creatinine methods. https://jasn.asnjournals.org/content/early/ASN.7257362 988 Performed By: #### 2 432-8 #### NANCY VERAS ([id number]) [facility] ([facility]) [address] [place] [address] 79411 Glucose [Mass/Vol] 93 mg/dL Normal 74-99 [facility] Comment on above: Performed By: #### 2 432-8 #### NANCY VERAS ([id number]) [facility] ([facility]) [address] [place] [address] 14261 Potassium [Moles/Vol] 4.0 mmol/L Normal 3.5-5.3 [facility] Comment on above: Performed By: #### 2 432-8 #### NANCY VERAS ([id number]) [facility] ([facility]) [address] [place] [address] 49379 Protein [Mass/Vol] 7.2 g/dL Normal 6.4-8.2 [facility] Comment on above: Performed By: #### 2 4323-8 #### NANCY VERAS ([id number]) [facility] ([facility]) [address] [place] [address] 58428 Sodium [Moles/Vol] 138 mmol/L Normal 136-145 [facility] Comment on above: Performed By: #### 2 4323-8 #### NANCY VERAS ([id number]) [facility] ([facility]) [address] [id number] Urea nitrogen [Mass/Vol] 14 mg/dL Normal 6- [facility] Comment on above: Performed By: #### 2 4323-8 #### NANCY VEARS ([id number]) [facility] ([facility]) [address] [phone] DRUG SCREEN,URINEon 12-16-19 25 Amphetamines Screen Ql (U) Negative Normal Presumptive Negative [facility] Comment on above: Order Comment: Drug screen results are presumptive and should not be used to assess compliance with prescribed medication. Contact the performing [facility] laboratory to add-on definitive confirmatory testing if clinically indicated. Toxicology screening results are reported qualitatively. The concentration must ???be greater than or equal to the cutoff to be reported as positive. The concentration at which the screening test can detect an individual drug or metabolite varies. The absence of expected drug(s) and/or drug metabolite(s) may indicate non-compliance, inappropriate timing of specimen collection relative to drug administration, poor drug absorption, diluted/adulterated urine, or limitations of testing. For medical purposes only; not valid for forensic use. Interpretive questions should be directed to the laboratory medical directors. Result Comment: CUTO FF LEVEL: 500 NG/ML Cross-reactivity has been reported with high concentrations of the following drugs: buproprion, chloroquine, chlorpromazine, ephedrine, mephentermine, fenfluramine, phentermine, phenylpropanolamine, pseudoephedrine, and propranolol. Performed By: #### D RUG3 #### NANCY VERAS ([id number]) [facility] ([facility]) [address] [phone] Barbiturates Screen Ql (U) Negative Normal Presumptive Negative [facility] Comment on above: Order Comment: Drug screen results are presumptive and should not be used to assess compliance with prescribed medication. Contact the performing [facility] laboratory to add-on definitive confirmatory testing if clinically indicated. Toxicology screening results are reported qualitatively. The concentration must ???be greater than or equal to the cutoff to be reported as positive. The concentration at which the screening test can detect an individual drug or metabolite varies. The absence of expected drug(s) and/or drug metabolite(s) may indicate non-compliance, inappropriate timing of specimen collection relative to drug administration, poor drug absorption, diluted/adulterated urine, or limitations of testing. For medical purposes only; not valid for forensic use. Interpretive questions should be directed to the laboratory medical directors. Result Comment: CUTO FF LEVEL: 200 NG/ML Performed By: #### D RUG3 #### NANCY VERAS ([id number]) [facility] ([facility]) [address] [place] [address] Benzodiazepines Ql (U) Negative Normal Presumptive Negative [facility] Comment on above: Order Comment: Drug screen results are presumptive and should not be used to assess compliance with prescribed medication. Contact the performing [facility] laboratory to add-on definitive confirmatory testing if clinically indicated. Toxicology screening results are reported qualitatively. The concentration must ???be greater than or equal to the cutoff to be reported as positive. The concentration at which the screening test can detect an individual drug or metabolite varies. The absence of expected drug(s) and/or drug metabolite(s) may indicate non-compliance, inappropriate timing of specimen collection relative to drug administration, poor drug absorption, diluted/adulterated urine, or limitations of testing. For medical purposes only; not valid for forensic use. Interpretive questions should be directed to the laboratory medical directors. Result Comment: CUTO FF LEVEL: 200 NG/ML Performed By: #### D RUG3 #### NANCY VERAS ([id number]) [facility] ([facility]) [address] [place] [address] Benzoylecgonine Screen Ql (U) Negative Normal Presumptive Negative [facility] Comment on above: Order Comment: Drug screen results are presumptive and should not be used to assess compliance with prescribed medication. Contact the performing [facility] laboratory to add-on definitive confirmatory testing if clinically indicated. Toxicology screening results are reported qualitatively. The concentration must ???be greater than or equal to the cutoff to be reported as positive. The concentration at which the screening test can detect an individual drug or metabolite varies. The absence of expected drug(s) and/or drug metabolite(s) may indicate non-compliance, inappropriate timing of specimen collection relative to drug administration, poor drug absorption, diluted/adulterated urine, or limitations of testing. For medical purposes only; not valid for forensic use. Interpretive questions should be directed to the laboratory medical directors. Result Comment: CUTO FF LEVEL: 150 NG/ML Performed By: #### D RUG3 #### NANCY VERAS ([id number]) [facility] ([facility]) [address] [place] [address] Cannabinoids Screen Ql (U) Negative Normal Presumptive Negative [facility] Comment on above: Order Comment: Drug screen results are presumptive and should not be used to assess compliance with prescribed medication. Contact the performing [facility] laboratory to add-on definitive confirmatory testing if clinically indicated. Toxicology screening results are reported qualitatively. The concentration must ???be greater than or equal to the cutoff to be reported as positive. The concentration at which the screening test can detect an individual drug or metabolite varies. The absence of expected drug(s) and/or drug metabolite(s) may indicate non-compliance, inappropriate timing of specimen collection relative to drug administration, poor drug absorption, diluted/adulterated urine, or limitations of testing. For medical purposes only; not valid for forensic use. Interpretive questions should be directed to the laboratory medical directors. Result Comment: CUTO FF LEVEL: 50 NG/ML Performed By: #### D RUG3 #### NANCY VERAS ([id number]) [facility] ([facility]) [address] [place] [address] fentaNYL+Norfentanyl Screen Ql (U) Negative Normal Presumptive Negative [facility] Comment on above: Order Comment: Drug screen results are presumptive and should not be used to assess compliance with prescribed medication. Contact the performing [facility] laboratory to add-on definitive confirmatory testing if clinically indicated. Toxicology screening results are reported qualitatively. The concentration must ???be greater than or equal to the cutoff to be reported as positive. The concentration at which the screening test can detect an individual drug or metabolite varies. The absence of expected drug(s) and/or drug metabolite(s) may indicate non-compliance, inappropriate timing of specimen collection relative to drug administration, poor drug absorption, diluted/adulterated urine, or limitations of testing. For medical purposes only; not valid for forensic use. Interpretive questions should be directed to the laboratory medical directors. Result Comment: CUTO FF LEVEL: 5 NG/ML Performed By: #### D RUG3 #### NANCY VERAS ([id number]) [facility] ([facility]) [address] [place] [address] Methadone Screen Ql (U) Negative Normal Presumptive Negative [facility] Comment on above: Order Comment: Drug screen results are presumptive and should not be used to assess compliance with prescribed medication. Contact the performing [facility] laboratory to add-on definitive confirmatory testing if clinically indicated. Toxicology screening results are reported qualitatively. The concentration must ???be greater than or equal to the cutoff to be reported as positive. The concentration at which the screening test can detect an individual drug or metabolite varies. The absence of expected drug(s) and/or drug metabolite(s) may indicate non-compliance, inappropriate timing of specimen collection relative to drug administration, poor drug absorption, diluted/adulterated urine, or limitations of testing. For medical purposes only; not valid for forensic use. Interpretive questions should be directed to the laboratory medical directors. Result Comment: CUTO FF LEVEL: 150 NG/ML The metabolite F-gmiay-fukeayatahqklt (LAAM) is not detected by this method in concentrations that would be found in the urine of patients on LAAM therapy. Performed By: #### D RUG3 #### NANCY VERAS ([id number]) [facility] ([facility]) [facility] [place] [address] Opiates Screen Ql (U) Negative Normal Presumptive Negative [facility] Comment on above: Order Comment: Drug screen results are presumptive and should not be used to assess compliance with prescribed medication. Contact the performing [facility] laboratory to add-on definitive confirmatory testing if clinically indicated. Toxicology screening results are reported qualitatively. The concentration must ???be greater than or equal to the cutoff to be reported as positive. The concentration at which the screening test can detect an individual drug or metabolite varies. The absence of expected drug(s) and/or drug metabolite(s) may indicate non-compliance, inappropriate timing of specimen collection relative to drug administration, poor drug absorption, diluted/adulterated urine, or limitations of testing. For medical purposes only; not valid for forensic use. Interpretive questions should be directed to the laboratory medical directors. Result Comment: CUTO FF LEVEL: 300 NG/ML The opiate screen does not detect fentanyl, meperidine, or tramadol. Oxycodone is not consistently detected (refer to Oxycodone Screen, Urine result). Performed By: #### D RUG3 #### NANCY VERAS ([id number]) [facility] ([facility]) [facility] [place] [address] oxyCODONE+oxyMORphon e Screen Ql (U) Negative Normal Presumptive Negative [facility] Comment on above: Order Comment: Drug screen results are presumptive and should not be used to assess compliance with prescribed medication. Contact the performing [facility] laboratory to add-on definitive confirmatory testing if clinically indicated. Toxicology screening results are reported qualitatively. The concentration must ???be greater than or equal to the cutoff to be reported as positive. The concentration at which the screening test can detect an individual drug or metabolite varies. The absence of expected drug(s) and/or drug metabolite(s) may indicate non-compliance, inappropriate timing of specimen collection relative to drug administration, poor drug absorption, diluted/adulterated urine, or limitations of testing. For medical purposes only; not valid for forensic use. Interpretive questions should be directed to the laboratory medical directors. Result Comment: CUTO FF LEVEL: 100 NG/ML This test will accurately detect both oxycodone and oxymorphone. Performed By: #### D RUG3 #### NANCY VERAS ([id number]) [facility] ([facility]) [address] [place], [place] [phone] Phencyclidine Ql (U) Negative Normal Presump tive Negative [facility] Comment on above: Order Comment: Drug screen results are presumptive and should not be used to assess compliance with prescribed medication. Contact the performing [facility] laboratory to add-on definitive confirmatory testing if clinically indicated. Toxicology screening results are reported qualitatively. The concentration must ???be greater than or equal to the cutoff to be reported as positive. The concentration at which the screening test can detect an individual drug or metabolite varies. The absence of expected drug(s) and/or drug metabolite(s) may indicate non-compliance, inappropriate timing of specimen collection relative to drug administration, poor drug absorption, diluted/adulterated urine, or limitations of testing. For medical purposes only; not valid for forensic use. Interpretive questions should be directed to the laboratory medical directors. Result Comment: CUTO FF LEVEL: 25 NG/ML Cross-reactivity has been reported with dextromethorphan. Performed By: #### D RUG3 #### CRUZ EDA ([id number]) [facility] ([facility]) [address] [phone] Drug Screen, Urineon 025 Amphetamines Screen Ql (U) Negative Presumptive Negative [facility] Comment on above: CUTOFF LEVEL: 500 NG /ML Cross-reactivity has been reported with high concentrations of the following drugs: buproprion, chloroquine, chlorpromazine, ephedrine, mephentermine, fenfluramine, phentermine, phenylpropanolamine, pseudoephedrine, and propranolol. Barbiturates Screen Ql (U) Negative Presumptive Negative [facility] Comment on above: CUTOFF LEVEL: 200 NG /ML Benzodiazepines Ql (U) Negative Presumptive Negative [facility] Comment on above: CUTOFF LEVEL: 200 NG /ML Benzoylecgonine Screen Ql (U) Negative Presumptive Negative [facility] Comment on above: CUTOFF LEVEL: 150 NG /ML Cannabinoids Screen Ql (U) Negative Presumptive Negative [facility] Comment on above: CUTOFF LEVEL: 50 NG/ ML fentaNYL+Norfentanyl Screen Ql (U) Negative Presumptive Negative [facility] Comment on above: CUTOFF LEVEL: 5 NG/M L Interpretation and review of laboratory results Normal [facility] Methadone Screen Ql (U) Negative Presumptive Negative [facility] Comment on above: CUTOFF LEVEL: 150 NG /ML The metabolite U-uiaio-fspvfsiafbwfyr (LAAM) is not detected by this method in concentrations that would be found in the urine of patients on LAAM therapy. Opiates Screen Ql (U) Negative Presumptive Negative [facility] Comment on above: CUTOFF LEVEL: 300 NG /ML The opiate screen does not detect fentanyl, meperidine, or tramadol. Oxycodone is not consistently detected (refer to Oxycodone Screen, Urine result). oxyCODONE+oxyMORphon e Screen Ql (U) Negative Presumptive Negative [facility] Comment on above: CUTOFF LEVEL: 100 NG /ML This test will accurately detect both oxycodone and oxymorphone. Phencyclidine Ql (U) Negative Presump tive Negative [facility] Comment on above: CUTOFF LEVEL: 25 NG/ ML Cross-reactivity has been reported with dextromethorphan. Drug screen results are presumptive and should not be used to assess compliance with prescribed medication. Contact the performing [facility] laboratory to add-on definitive confirmatory testing if clinically indicated. Toxicology screening results are reported qualitatively. The concentration must be greater than or equal to the cutoff to be reported as positive. The concentration at which the screening test can detect an individual drug or metabolite varies. The absence of expected drug(s) and/or drug metabolite(s) may indicate non-compliance, inappropriate timing of specimen collection relative to drug administration, poor drug absorption, diluted/adulterated urine, or limitations of testing. For medical purposes only; not valid for forensic use. Interpretive questions should be directed to the laboratory medical directors. [facility] No Panel Informationon 12-15 Interpretation and review of laboratory results Normal [facility] CHLAMYDIA/GONORRHOEAE AMPLIF IED RNAon 12-07-2024 CHLAMYDIA/GONORRHOEA E AMPLIFIED RNA CHLAMYDIA TRACHOMATIS AMPLIFIED RNA NEGATIVE NEISSERIA GONORRHOEAE AMPLIFIED RNA NEGATIVE Normal Negative [facility] Comment on above: Performed By: #### L [id number] #### [facility] [address] [place] [address] Froy Ramachandran M.D. [id number] ED Prov Noteon 12-07-2024 ED Prov Note ED PROVIDER NOTE [facility] NAME: Lesa Prakash AGE: 24 y.o. : 2000 VISIT DATE: 12/07/2024 [facility]: [id number] PCP: No, Physician Chief Complaint Patient presents with Headache 24-year-old male patient presents for headache as well as HIV and STD testing, patient states he has had waxing waning lateral headaches for a couple weeks, retro-orbital right-sided, no associate fevers neck stiffness, no chest pain patient also endorses significant other had unprotected sex with an individual who is HIV positive, he is concerned that he could have contracted this. No fevers, myalgias, fatigue, no atypical rashes, no dysuria History reviewed. No pertinent past medical history. Past Surgical History: Procedure Laterality Date ORTHOPEDIC SURGERY History reviewed. No pertinent family history. Social History [1] No current outpatient medications on file prior to encounter. Allergies[2] Review of Systems All other systems reviewed and are negative. Patient Vitals for the past 24 hrs: Weight 12/07/24 0132 102.1 kg (225 lb) Physical Exam Vitals reviewed. Constitutional: Appearance: Normal appearance. HENT: Head: Normocephalic and atraumatic. Right Ear: Tympanic membrane and external ear normal. Left Ear: Tympanic membrane and external ear normal. Nose: Nose normal. Mouth/Throat: Mouth: Mucous membranes are moist. Pharynx: Oropharynx is clear. Eyes: Extraocular Movements: Extraocular movements intact. Pupils: Pupils are equal, round, and reactive to light. Cardiovascular: Rate and Rhythm: Normal rate and regular rhythm. Pulses: Normal pulses. Heart sounds: Normal heart sounds. Musculoskeletal: Cervical back: Normal range of motion and neck supple. Pulmonary: Effort: Pulmonary effort is normal. Breath sounds: Normal breath sounds. Abdominal: General: Abdomen is flat. Palpations: Abdomen is soft. Skin: General: Skin is dry. Capillary Refill: Capillary refill takes less than 2 seconds. Neurological: General: No focal deficit present. Mental Status: He is alert and oriented to person, place, and time. Psychiatric: Mood and Affect: Mood normal. Behavior: Behavior normal. Laboratory & Radiographic Imaging (if done): No results found for this visit on 12/07/24. No orders to display Procedures Medical Decision Making Patient presents for unilateral headache likely secondary to retro-orbital cluster headaches otherwise well-appearing, no acute stress, no traumas or injuries, no meningeal signs, no atypical rashes. He was also tested for STD testing we will follow per protocol, no prophylactic treatment. PCP list was also given as patient has no established care PCP The patient has been informed that they may have pre-hypertension or hypertension based on a blood pressure reading in the Emergency Department. I recommend that the patient call the primary care provider listed on their discharge instructions or a physician of their choice as soon as possible to arrange follow-up in the next 4 weeks for further evaluation of possible pre-hypertension or hypertension. . Clinical Impression: No diagnosis found. ED Disposition None Follow-up Information Follow-up information has not been specified. Contact information for after-discharge care Follow-up information has not been specified. [1] Social History Socioeconomic History Marital status: Single Tobacco Use Smoking status: Never Smokeless tobacco: Never [2] No Known Allergies Nancy Palumbo MD 12/07/24 0135 AUTHENTICATED BY NANCY PALUMBO, ON 12/07/2024 01:35:[address] [facility] HEPATITIS C ANTIBODYon 12-07 HEPATITIS C ANTIBODY Negative Normal Negative [facility] Comment on above: Order Comment: Test performed using Marcelo JEANNA immunoassay system Performed By: #### 4 [id number] #### [facility] [address] [place] [address] Froy Ramachandran M.D. [id number] HIV 1/2 SCREEN ( GENERATI ON)on 12-07-2024 HIV 1-2 SCREEN Negative Normal Negative [facility] Comment on above: Order Comment: This assay screens for the presence of HIV-1, HIV-2 antibodies and for the presence of HIV-1 antigen.Test performed using Marcelo JEANNA immunoassay system Performed By: #### 4 [id number] ####[facility] [address] [place] [address] Froy Ramachandran M.D. [id number] RPRon 12-07-2024 RPR SCREEN Non-Reactive Normal Non-Reactive [facility] Comment on above: Performed By: #### 4 [id number] #### [place] [id number] Froy Ramachandran M.D. [id number] TRICHOMONAS VAGINALIS AMPLIF IED RNAon 12-07-2024 TRICHOMONAS VAGINALIS AMPLIFIED RNA Negative [place] Negative [facility] Comment on above: Performed By: #### L [id number] ####[facility] [address] [place], [place] [id number] Froy Ramachandran M.D. [id number] ED Prov Noteon 11-30-2024 ED Prov Note ED PROVIDER NOTE [facility] NAME: Milly Prakash AGE: 24 y.o. : 2000 VISIT DATE: 11/30/2024 CSN: [id number] PCP: No primary care provider on file. Chief Complaint Patient presents with mouth problem Chief complaint oral check History of present illness this 24-year-old -[place] male who was subjected to a dirty toothbrush. According to his girlfriend she had swishes in the toilet 2 weeks ago and has been brushing with the same toothbrush since he has no dental pain no sores on the throat no sores on the palate History reviewed. No pertinent past medical history. Past Surgical History: Procedure Laterality Date ORTHOPEDIC SURGERY History reviewed. No pertinent family history. Social History [1] No current outpatient medications on file prior to encounter. Allergies[2] Review of Systems All other systems reviewed and are negative. Patient Vitals for the past 24 hrs: BP Temp Temp src Pulse Resp SpO2 Height Weight 11/30/24 2354 123/84 98.1 degrees F (36.7 degrees C) Temporal 87 18 97 % 5' 11 99.8 kg (220 lb) Physical Exam Vitals and nursing note reviewed. Exam conducted with a branch mechanic present. Constitutional: Appearance: Normal appearance. He is obese. HENT: Head: Normocephalic. Mouth/Throat: Comments: No oral sores no abscesses no pus or infection Eyes: Extraocular Movements: Extraocular movements intact. Pupils: Pupils are equal, round, and reactive to light. Musculoskeletal: Cervical back: Normal range of motion. Pulmonary: Effort: Pulmonary effort is normal. Breath sounds: Normal breath sounds. Abdominal: General: Abdomen is flat. Neurological: Mental Status: He is alert. Laboratory & Radiographic Imaging (if done): No results found for this visit on 11/30/24. No orders to display Procedures Medical Decision Making Differential diagnosis Well check visit The patient has been informed that they may have pre-hypertension or hypertension based on a blood pressure reading in the Emergency Department. I recommend that the patient call the primary care provider listed on their discharge instructions or a physician of their choice as soon as possible to arrange follow-up in the next 4 weeks for further evaluation of possible pre-hypertension or hypertension. . Clinical Impression: 1. Adult wellness visit ED Disposition ED Disposition Discharge Condition Stable Comment Milly Prakash discharged to home/self care in stable condition. Follow-up Information Follow-up information has not been specified. Contact information for after-discharge care Follow-up information has not been specified. [1] Social History Tobacco Use Smoking status: Never Smokeless tobacco: Never [2] No Known Allergies Raquel Doss MD 12/01/24 0001 AUTHENTICATED BY RAQUEL DOSS, ON 12/01/2024 00:01:49 [facility] No Panel Informationon 11-24 Radiology Study observation (narrative) [facility] Work Phone: XR HAND LEFT 3+ VIEWSon 11-12 XR HAND LEFT 3+ VIEWS Interpreted By: Barry Ramirez, STUDY: XR HAND LEFT 3+ VIEWS; ; 11/24/2024 11:15 pm INDICATION: Signs/Symptoms:Injur y to thumb. COMPARISON: None. ACCESSION NUMBER(S): [id number] ORDERING CLINICIAN: KEVIN HERNANDEZ FINDINGS: No fracture or dislocation. No radiopaque foreign body. No significant soft tissue swelling. IMPRESSION: Unremarkable exam as above. MACRO: None Signed by: Barry Ramirez 11/24/2024 11:29 PM Dictation workstation: [id number] [facility] XR Hand - left 3 Viewson Unremarkable exam as above. MACRO: None Signed by: Barry Ramirez 11/24/2024 11:29 PM Dictation workstation: [id number] MMODAL Interpreted By: Barry Ramirez, STUDY: XR HAND LEFT 3+ VIEWS; ; 11/24/2024 11:15 pm INDICATION: Signs/Symptoms:Injur y to thumb. COMPARISON: None. ACCESSION NUMBER(S): [id number] ORDERING CLINICIAN: KEVIN HERNANDEZ FINDINGS: No fracture or dislocation. No radiopaque foreign body. No significant soft tissue swelling. [facility] Barry Ramirez DO - 11/24/2024 Interpreted By: Barry Ramirez STUDY: XR HAND LEFT 3+ VIEWS; ; 11/24/2024 11:15 pm INDICATION: Signs/Symptoms:Injur y to thumb. COMPARISON: None. ACCESSION NUMBER(S): [id number] ORDERING CLINICIAN: KEVIN HERNANDEZ FINDINGS: No fracture or dislocation. No radiopaque foreign body. No significant soft tissue swelling. IMPRESSION: Unremarkable exam as above. MACRO: None Signed by: Barry Ramirez 11/24/2024 11:29 PM Dictation workstation: [id number] [facility] Work Phone: [facility] Work Phone: XR SHOULDER RIGHT 2+ VIEWSon 11-24-2024 XR SHOULDER RIGHT 2+ VIEWS Interpreted By: Barry Ramirez, STUDY: XR SHOULDER RIGHT 2+ VIEWS; ; 11/24/2024 11:15 pm INDICATION: Signs/Symptoms:traum a. COMPARISON: None. ACCESSION NUMBER(S): [id number] ORDERING CLINICIAN: KEVIN HERNANDEZ FINDINGS: No fracture or dislocation. No radiopaque foreign body. No significant soft tissue swelling. IMPRESSION: Unremarkable exam as above. MACRO: None Signed by: Barry Ramirez 11/24/2024 11:29 PM Dictation workstation: [id number] [facility] XR Shoulder - right 2 Viewso n 11-24-2024 Unremarkable exam as above. MACRO: None Signed by: Barry Ramirez 11/24/2024 11:29 PM Dictation workstation: [id number] [facility]AL Interpreted By: Barry Ramirez, STUDY: XR SHOULDER RIGHT 2+ VIEWS; ; 11/24/2024 11:15 pm INDICATION: Signs/Symptoms:traum a. COMPARISON: None. ACCESSION NUMBER(S): [id number] ORDERING CLINICIAN: KEVIN HERNANDEZ FINDINGS: No fracture or dislocation. No radiopaque foreign body. No significant soft tissue swelling. [facility] Barry Ramirez, DO - 11/24/2024 Interpreted By: Barry Ramirez, STUDY: XR SHOULDER RIGHT 2+ VIEWS; ; 11/24/2024 11:15 pm INDICATION: Signs/Symptoms:traum a. COMPARISON: None. ACCESSION NUMBER(S): [id number] ORDERING CLINICIAN: KEVIN HERNANDEZ FINDINGS: No fracture or dislocation. No radiopaque foreign body. No significant soft tissue swelling. IMPRESSION: Unremarkable exam as above. MACRO: None Signed by: Barry Ramirez 11/24/2024 11:29 PM Dictation workstation: [id number] [facility] Work Phone: XR Shoulder - right 2 ViewsO rdered By: Barry Ramirez on 11-24-2024 [facility] Work Phone: Virgie 02-14-2024 JOELLEN Telephone (UCTR) SEKOU PRAKASH ([id number]) 2000 M Date Time Provider Department 02/14/24 JERAD SHULTZ [facility] During your visit today, we recorded the following information about you: Jerad Shultz APRN.CNP 02/14/2024 8:14 AM Signed Please inform patient that gonorrhea chlamydia test was negative. Jerad Shultz APRN.Janett Holloway MA 02/14/2024 10:48 AM Signed Unable to reach patient. Mailbox full/Mailbox not set up/ Number incorrect. Please try again later. YUNI Bonner Jeffrey, APRN.CNP 02/14/2024 2:19 PM Signed Please inform patient that STD panel is negative. Jerad Shultz APRN.Janett Holloway MA 02/14/2024 2:58 PM Signed Unable to reach patient. Mailbox full/Mailbox not set up/ Number incorrect. Please try again later. YUNI Bonner Melissa, MA 02/15/2024 8:55 AM Signed Patient given results and verbalized understanding of instructions given. Janett Britt MA Allergies As of Date: 02/14/2024 Noted Allergy Reaction BANANA 11/28/2020 14 - Other: See Comments IODINE 01/26/2021 2 - Rash Date Reviewed: 02/13/2024 Reviewed by: Jerad Shultz APRN.CNP - Fully Assessed Reason for Visit: Results [95] Problem List As Of Date: 02/14/2024 (None) Encounter Status:Closed by JANETT BRITT on 02/15/24 Normal [facility] C. trachomatis+N. gonorrhoea e DNA ISREAL+probe Ql (Unsp spec)on 02-13-2024 C. trachomatis rRNA ISREAL+probe Ql (Unsp spec) Negative Normal Negative for Chlamydia trachomatis by amplificaton [facility] Comment on above: Order Comment: Speci men Type: URINE SPECIMENOrdering Facility: [facility] Address: [address] [place] [address] Performed By: #### 3 6902-5 ####[facility] LABCLIA [id number] [place] [address] [place] N. gonorrhoeae rRNA ISREAL+probe Ql (Unsp spec) Negative Normal Negative for Neisseria gonorrhoeae by amplification [facility] Comment on above: Order Comment: Speci men Type: URINE SPECIMENOrdering Facility: [facility] Address: [address] [place] [address] Performed By: #### 3 6902-5 ####[facility] LABCLIA [id number] [place] [address] [place] CNOVon 02-13-2024 CNOV Office Visit (UCTR) SEKOU PRAKASH ([id number]) 2000 M Date Time Provider Department 02/13/24 2:15 PM JERAD SHULTZ [facility] During your visit today, we recorded the following information about you: Temperature Pulse Respiration Blood pressure 98.3 degrees 78/minute 18/minute 124/82 Weight 103 kg Jerad Shutlz APRN.MANAGER OF PATIENT 02/13/2024 2:42 PM Signed Subjective HPI Nontoxic-appearing male presents urgent care requesting STD testing. Patient states found out that his girlfriend's previous partner may have had HIV. States he has been sexually active with her for 6 to 7 months. Has recently not to use protection. States has noticed some weight loss. No night sweats. Overall feeling well. Denies any testicular pain scrotal swelling penile drainage rashes. Denies history of recent STDs. Did notice a small bump on his penis. Related that shaving. Past medical history prescription medications allergies reviewed. .Patient presents with: STD: Mo sx just being tested, states he wants all testing, states he would like blood work History reviewed. No pertinent past medical history. History reviewed. No pertinent surgical history. ALLERGIES Banana and Iodine MEDICATIONS No prescriptions on file. History reviewed. No pertinent family history. Social History Tobacco Use Smoking status: Never Passive exposure: Yes Smokeless tobacco: Current Tobacco comments: mom smokes outside of home, vape Substance Use Topics Alcohol use: No Drug use: Never BP 124/82 Pulse 78 Temp 36.8 ?C (98.3 ?F) Resp 18 Wt 103 kg (227 lb 1.2 oz) SpO2 99% Review of Systems Constitutional: Positive for weight loss. Negative for chills, fever and malaise/fatigue. HENT: Negative for congestion, ear discharge, ear pain, sinus pain and sore throat. Eyes: Negative for blurred vision, pain, discharge and redness. Respiratory: Negative for cough, hemoptysis, sputum production, shortness of breath, wheezing and stridor. Cardiovascular: Negative for chest pain. Gastrointestinal: Negative for abdominal pain, diarrhea, nausea and vomiting. Genitourinary: Negative. Musculoskeletal: Negative for back pain, falls, joint pain, myalgias and neck pain. Skin: Negative for itching and rash. Neurological: Negative for dizziness, loss of consciousness, weakness and headaches. Objective Physical Exam Constitutional: General: He is not in acute distress. Appearance: He is not diaphoretic. HENT: Head: Normocephalic. Jaw: No trismus, tenderness, swelling or pain on movement. Mouth/Throat: Mouth: Mucous membranes are moist. Pharynx: Oropharynx is clear. Uvula midline. No pharyngeal swelling, oropharyngeal exudate, posterior oropharyngeal erythema or uvula swelling. Eyes: Conjunctiva/sclera: Conjunctivae normal. Pupils: Pupils are equal, round, and reactive to light. Cardiovascular: Rate and Rhythm: Normal rate and regular rhythm. Heart sounds: Normal heart sounds. Pulmonary: Effort: Pulmonary effort is normal. No tachypnea, accessory muscle usage or respiratory distress. Breath sounds: Normal breath sounds. No stridor. No wheezing, rhonchi or rales. Abdominal: General: There is no distension. Palpations: Abdomen is soft. Tenderness: There is no abdominal tenderness. There is no guarding or rebound. Genitourinary: Penis: Circumcised. No erythema or discharge. Testes: Right: Tenderness or swelling not present. Left: Tenderness or swelling not present. Epididymis: Right: No tenderness. Left: No tenderness. Musculoskeletal: Cervical back: Normal range of motion and neck supple. No edema, erythema, rigidity or tenderness. No pain with movement. Normal range of motion. Lymphadenopathy: Cervical: No cervical adenopathy. Lower Body: No right inguinal adenopathy. No left inguinal adenopathy. Skin: General: Skin is warm and dry. Neurological: Mental Status: He is alert and oriented to person, place, and time. ASSESSMENT/PLAN: 1. Screening for STD (sexually transmitted disease) - ICD9: V74.5, ICD10: Z11.3 - SYPHILIS TREPONEMAL W/REFLEX - HIV 1/2 COMBO WITH REFLEX TO DIFFERENTIATION - HEPATITIS C ANTIBODY IA WITH CONFIRMATION - HEPATITIS B SURFACE ANTIGEN - GONORRHEA/CHLAMYDIA NAAT Unremarkable exam. STD panel obtained. Treat accordingly test results. We discussed incubation period of different STDs and appropriate retesting. Patient was educated on supportive therapies. Patient [...] care was discussed with patient. Patient verbalizes (more content not included)... Normal [facility] HBV surface Ag Ser Qlon 11-0 HBV surface Ag Ql (S) Negative Normal Negative [facility] Comment on above: Order Comment: Speci men Type: BLOOD SPECIMENOrdering Facility: [facility] Address: [address] [place] [address] Performed By: #### 3 1201-7, 5195-3, 78271-6 ####[facility] LABCLIA [id number] [place] [address] [place] HCV Ab Ser Qlon 02-13-2024 HCV Ab Ql (S) Negative Normal Negative [facility] Comment on above: Order Comment: Speci men Type: BLOOD SPECIMENOrdering Facility: [facility] Address: [address] [place] [address] Result Comment: The result suggests no evidence of active infection with Hepatitis C virus. Should recent infection be suspected, repeat testing may be considered 4-6 weeks after this draw. Performed By: #### 1 6128-1 ####[facility] LABCLIA [id number] [place] [address] [place] HIV 1+2 Ab IA Qlon 4 HIV 1 and 2 Ab IA.rapid Nom (S/P/Bld) Normal [facility] Comment on above: Order Comment: Speci men Type: BLOOD SPECIMENOrdering Facility: [facility] Address: [address] [place] [address] Result Comment: Test not indicated. Performed By: #### 3 1201-7, 5195-3, 23093-0 ####[facility] LABIA [id number] [place] [address] [place] HIV 1+2 Ab+HIV1 p24 Ag IA Ql Non-Reactive Normal Nonreactive [facility] Comment on above: Order Comment: Speci men Type: BLOOD SPECIMENOrdering Facility: [facility] Address: [address] [place] [address] Performed By: #### 3 1201-7, 5195-3, 89755-5 ####[facility] LABIA [id number] [place] [address] [place] HIV immunoassay testing algorithm interpretation (S/P/Bld) [Interp] Normal [facility] Comment on above: Order Comment: Speci men Type: BLOOD SPECIMENOrdering Facility: [facility] Address: [address] [place] [address] Result Comment: No e vidence of HIV-1 or HIV-2 infection. Should recent infection be suspected, repeat testing may be considered 2-3 weeks after this draw. [place] Rev. Code 3701.243(E): This information has been [...] diagnoses. Performed By: #### 3 1201-7, 5195-3, 71887-8 ####[facility] LABCLIA [id number] [place] [address] [place] Reagin and Treponema pallidu m IgG and IgM [Interp]on 02-13-2024 T. pallidum IgG+IgM IA Ql (S) Non-Reactive Normal Nonreactive [facility] Comment on above: Order Comment: Speci men Type: BLOOD SPECIMENOrdering Facility: [facility] Address: [address] [place] [address] Performed By: #### 3 1201-7, 5195-3, 14134-3 ####[facility] LABIA [id number] [place] [id number] [place] Reagin+T pallidum IgG+IgM Se rPl-Impon 02-13-2024 Reagin and Treponema pallidum IgG and IgM [Interp] Cannot exclude recent Treponemal infection if specimen collected within 7-10 days after appearance of suspect lesions or 2-3 weeks after an exposure. Clinical correlation is required. Normal [facility] Comment on above: Order Comment: Speci men Type: BLOOD SPECIMENOrdering Facility: [facility] Address: [address] [place] [address] Performed By: #### 3 1201-7, 5195-3, 58726-3 ####[facility] LABCLIA [id number] [place] [id number] [place] Basic Metabolic Profile (BMP )on 02-04-2024 BUN/CRE 10.9 RATIO Normal 10-20 [facility] Comment on above: Performed By: #### L 100.0100, L500.2500, L500.3400, L501.5200 #### [facility] [address] [place], [address] CA,Total 9.1 mg/dL Normal 8.5-10.1 [facility] Comment on above: Performed By: #### L 100.0100, L500.2500, L500.3400, L501.5200 #### [facility] [address] [place], [address] Chloride [Moles/Vol] 107 mmol/L Normal 98-107 [facility] Comment on above: Performed By: #### L 100.0100, L500.2500, L500.3400, L501.5200 #### [facility] [address] [place], [address] CO2 [Moles/Vol] 28.0 mmol/L Normal 21.0-32.0 [facility] Comment on above: Performed By: #### L 100.0100, L500.2500, L500.3400, L501.5200 #### [facility] [address] [place], [address] Creatinine [Mass/Vol] 1.10 mg/dL Normal 0.70-1.30 [facility] Comment on above: Result Comment: The validity of the calculated GFR GFRAA in patients over 70 years has not been determined. Clinical correlation is essential. Performed By: #### L 100.0100, L500.2500, L500.3400, L501.5200 #### [facility] [address] [place], [address] ECRCL 126.22 ml/min Normal [facility] Comment on above: Performed By: #### L 100.0100, L500.2500, L500.3400, L501.5200 #### [facility] [address] [place], [address] EST GFR - AA 105 mL/min Normal >60 [facility] Comment on above: Result Comment: Afri can [place] GFR Calc Performed By: #### L 100.0100, L500.2500, L500.3400, L501.5200 #### [facility] [address] [place], [address] GAP 5 Normal 5-15 [facility] Comment on above: Performed By: #### L 100.0100, L500.2500, L500.3400, L501.5200 #### [facility] [address] [place], [address] GFR/1.73 sq M.predicted among non-blacks MDRD (S/P/Bld) [Vol rate/Area] 87 mL/min/{1.73_m2} Normal >60 [facility] Comment on above: Result Comment: Non- GFR Calc Performed By: #### L 100.0100, L500.2500, L500.3400, L501.5200 #### [facility] [address] [place], [address] Glucose [Mass/Vol] 102 mg/dL Normal 74-106 [facility] Comment on above: Result Comment: Fast ing Glucose result from 100 to 125 mg/dL suggests IMPAIRED HOMEOSTASIS per A.D.A. criteria. Performed By: #### L 100.0100, L500.2500, L500.3400, L501.5200 #### [facility] [address] [place], [address] Potassium [Moles/Vol] 3.8 mmol/L Normal 3.5-5.1 [facility] Comment on above: Performed By: #### L 100.0100, L500.2500, L500.3400, L501.5200 #### [facility] [address] [place], [address] Sodium [Moles/Vol] 140 mmol/L Normal 136-145 [facility] Comment on above: Performed By: #### L 100.0100, L500.2500, L500.3400, L501.5200 #### [facility] [address] [place], [address] Urea nitrogen [Mass/Vol] 12 mg/dL Normal 7-18 [facility] Comment on above: Performed By: #### L 100.0100, L500.2500, L500.3400, L501.5200 #### [facility] [address] [place], [address] CBC W/Diff, Automatedon 10-2 REACTIVE LYMPH RARE Normal [facility] Comment on above: Performed By: #### L 100.0100, L500.2500, L500.3400, L501.5200 #### [facility] [address] [place], [address] Emergency Department Summary on 02-04-2024 Emergency Department Summary [facility] Medical Records Department [address] [place] [address] Emergency Department Summary 02/04/24 MR#: [id number] Acct: [id number] Name: SEKOU PRAKASH Rep #: [id number] : 2000 23 From: Oz Summers DO PCP: Care Physician,No Primary Status:DEP ER Location: ED HPI History of Present Illness Chief Complaint: Syncope Informant: patient Narrative Narrative: Patient is a 23-year-old male with past medical history of anxiety and depression. He also reports a past medical history of seizures but states he grew out of them when he was younger. He states he has not had to be on antiseizure medication for 10 to 15 years. He reports over the last few days he has been feeling bouts of lightheadedness and near syncope. He states has been no associated nausea vomiting or diarrhea. He denies any induction or cessation of medication. He states that he felt this way before he used to have a seizure and has concern he may develop them once again and therefore comes in for evaluation [facility] Medical History Depression Anxiety Rash Anemia Injury of head and neck Seizures Former smoker Shortness of breath on exertion Home Medications ???Medication ???Instructions ???Recorded ???Last Taken ???Type NK 12/08/21 Unknown History Allergy/AdvReac Type Severity Reaction Status Date / Time iodine Allergy Hives Verified 02/03/24 23:20 banana AdvReac Nausea/Vom/ Verified 02/03/24 23:20 Diarrhea Surgical History History of foot surgery Social History Smoking Status: Current every day smoker tobacco type: e-cigarettes ROS ROS ED Constitutional Constitutional ED: Denies chills or fever(s) Eyes Eyes: Denies blurry vision or change in vision ENT ENT ED: Denies sore throat Cardiovascular Cardiovascular: Reports other Details: Positive lightheadedness/near syncope ; Denies chest pain, palpitations or racing heartbeat Respiratory/Chest Respiratory/Chest: Denies cough or dyspnea Gastrointestinal Gastrointestinal: Denies abdominal pain, diarrhea, nausea or vomiting Genitourinary Genitourinary ED: Denies dysuria Musculoskeletal Musculoskeletal: Denies myalgias Integumentary Denies rash Neurologic Neurologic: Reports other Details: Positive dizziness ; Denies headache(s), paresthesias or weakness Hematologic/Lymphati c Hematologic/Lymphati c: Denies easy bleeding or easy bruising EXAM Physical Exam Const Vital Signs: 02/03/24 23:20 02/04/24 01:09 02/04/24 01:11 Temperature 96.7 F L Temperature Source Temporal Pulse Rate 67 65 Respiratory Rate 18 18 Respiratory Effort Normal Blood Pressure 129/109 H 143/94 H Blood Pressure Mean 115 110 Pulse Ox 99 99 Oxygen Delivery Method Room Air Room Air 02/04/24 01:56 Temperature 98 F Temperature Source Pulse Rate 69 Respiratory Rate 16 Respiratory Effort Blood Pressure 137/100 H Blood Pressure Mean 112 Pulse Ox 100 Oxygen Delivery Method Positive well nourished and well developed General Appearance ED: well developed; Negative for pallor HEENT Reports TM's clear HEENT Narrative: Mucous membranes are slightly dry and tacky No tongue or cheek biting No signs of infection noted in the posterior pharynx Tympanic Membrane ED: Yes TM's clear Eyes PERRL and EOMs intact bilaterally General Eye ED: Negative for pale conjunctiva or scleral icterus Neck supple Neck Narrative: No nuchal rigidity or meningeal signs Chest Wall palpation of chest normal Resp normal respiratory effort and clear to auscultation bilaterally Cardio regular rate and regular rhythm Rate: other Other Details: Heart is regular rate and rhythm without murmurs rubs or gallops Radial and carotid pulses are equal and symmetric No carotid bruit GI normal to inspection, nondistended, normoactive bowel sounds, non-tender, non-distended and no masses Auscultation: normoactive bowel sounds Palpation: soft Extremity normal to inspection Neuro oriented x3, CN's II-XII intact bilaterally and no sensory deficits noted Neuro Narrative: GCS of 15 Cranial nerves II through XII are grossly intact there are no focal neurologic deficits No pronator drift no dysmetria no truncal ataxia NIH stroke scale score of 0 No nystagmus noted Sensorium / Orientation: alert Motor Exam: strength 5/5 throughout Psych mental status grossly normal Skin no rashes or lesions noted and no wounds General Skin Exam: Negative for jaundice or pallor MDM MDM MDM Narrative Medical decision making narrative: Patient arrived to the ER hypertensiv (more content not included)... Normal [facility] Liver Profileon 02-04-2024 Albumin [Mass/Vol] 4.1 g/dL Normal 3.2-5.0 [facility] Comment on above: Performed By: #### L 100.0100, L500.2500, L500.3400, L501.5200 #### [facility] [address] [place], [place], [address] ALK P 83 U/L Normal 45-117 [facility] Comment on above: Performed By: #### L 100.0100, L500.2500, L500.3400, L501.5200 #### [facility] [address] [place], [address] ALT [Catalytic activity/Vol] 27 U/L Normal 16-61 [facility] Comment on above: Performed By: #### L 100.0100, L500.2500, L500.3400, L501.5200 #### [facility] [address] [place], [address] AST [Catalytic activity/Vol] 18 U/L Normal 15-37 [facility] Comment on above: Performed By: #### L 100.0100, L500.2500, L500.3400, L501.5200 #### [facility] [address] [place], [address] Bilirubin [Mass/Vol] 0.80 mg/dL Normal 0.20-1.00 [facility] Comment on above: Result Comment: For patients on eltrombopag therapy, use of Dimension [place] TBIL is not recommended. Performed By: #### L 100.0100, L500.2500, L500.3400, L501.5200 #### [facility] [address] [place], [address] Bilirubin.direct [Mass/Vol] 0.20 mg/dL Normal 0.00-0.30 [facility] Comment on above: Performed By: #### L 100.0100, L500.2500, L500.3400, L501.5200 #### [facility] [address] [place], [address] Globulin (S) [Mass/Vol] 3.7 g/dL Normal 2.2-4.2 [facility] Comment on above: Performed By: #### L 100.0100, L500.2500, L500.3400, L501.5200 #### [facility] [address] [place], [address] T PROT 7.8 g/dL Normal 6.4-8.2 [facility] Comment on above: Performed By: #### L 100.0100, L500.2500, L500.3400, L501.5200 #### [facility] [address] [place], [address] Magnesiumon 02-04-2024 Magnesium [Mass/Vol] 2.2 mg/dL Normal 1.6-2.6 [facility] Comment on above: Performed By: #### L 100.0100, L500.2500, L500.3400, L501.5200 #### [facility] [address] [place], [address] Emergency Department Summary on 01-25-2024 Emergency Department Summary [facility] Medical Records Department [address] [place] [address] Emergency Department Summary 01/25/24 MR#: [id number] Acct: [id number] Name: SEKOU PRAKASH Rep #: [id number] : 2000 23 From: Pedro Goodman MD PCP: Care Physician,No Primary Status:PRE ER Location: ED HPI History of Present Illness Chief Complaint: Other, Pain/Inj Informant: patient Onset/Context/Timing Onset: Today and Hours Mechanism/Context: Blunt Injury Current Severity: Mild Maximum Severity: Mild Narrative Narrative: Healthy 23-year-old male was playing with a little boy when the little boy accidentally moved his head quickly and hit the patient in the nose. No LOC. No vomiting. No bleeding. He is not on any blood thinners. Denies any other acute complaints. Prior similar symptoms: No Recent Illness/Hospitalizat ion: No PFSH PFSH Medical History Depression Anxiety Rash Anemia Injury of head and neck Seizures Former smoker Shortness of breath on exertion Home Medications ???Medication ???Instructions ???Recorded ???Last Taken ???Type NK 12/08/21 Unknown History Allergy/AdvReac Type Severity Reaction Status Date / Time iodine Allergy Hives Verified 01/25/24 22:27 banana AdvReac Nausea/Vom/ Verified 01/25/24 22:27 Diarrhea Surgical History History of foot surgery Social History Smoking Status: Current every day smoker tobacco type: e-cigarettes ROS ROS ED ROS Narrative Denies recent illness. Constitutional Constitutional ED: Denies chills or fever(s) Eyes Eyes: Denies blurry vision ENT ENT ED: Denies ear pain Cardiovascular Cardiovascular: Denies chest pain Respiratory/Chest Respiratory/Chest: Denies cough Gastrointestinal Gastrointestinal: Denies abdominal pain Genitourinary Genitourinary ED: Denies dysuria Musculoskeletal Musculoskeletal: Denies arthralgias Integumentary Denies abscess Neurologic Neurologic: Denies headache(s) Psychiatric Psychiatric: Denies anxiety Endocrine Endocrinology: Denies cold intolerance Hematologic/Lymphati c Hematologic/Lymphati c: Denies easy bleeding Allergic/Immunologic Allergic/Immunologic ED: Denies mouth swelling EXAM Physical Exam Narrative Exam Narrative: Well-appearing 23-year-old male. Vital signs stable afebrile. H EENT exam pupils round react to light. Minimal tenderness of the proximal nasal bridge. No deformity. No laceration. No significant swelling. There is no blood in his nares or active bleeding. No blood in his posterior pharynx. TMs are normal bilaterally. Scalp and the rest of his face there is no tenderness or bruising or swelling. Neck nontender full range of motion. Lungs clear. Heart regular rate and rhythm. Otherwise exam normal. Neurologic exam normal. GCS 15. NIH 0. He ambulates without any difficulty. Const Vital Signs: 01/25/24 22:25 Temperature 98 F Temperature Source Oral Pulse Rate 77 Respiratory Rate 16 Blood Pressure 139/88 H Blood Pressure Mean 105 Pulse Ox 98 Oxygen Delivery Method Room Air Positive well nourished and well developed; Negative for cachectic, contractures or unkempt General Appearance ED: well developed; Negative for unkempt, cachectic or contractures Nutritional Appearance: Negative for cachectic HEENT Reports TM's clear HEENT Narrative: Minimal nasal bridge tenderness. No bony deformity or swelling. trauma and tenderness; Negative for atraumatic Tympanic Membrane ED: Yes TM's clear Eyes PERRL and EOMs intact bilaterally Neck full ROM General: Negative for tenderness Chest Wall inspection of chest normal and palpation of chest normal Resp normal respiratory effort and clear to auscultation bilaterally Cardio regular rhythm, S1 normal heart sound, S2 normal heart sound and no murmurs GI normal to inspection, nondistended, normoactive bowel sounds, non-tender, non-distended and no masses Back/Spine normal to inspection and no thoracic nor lumbar tenderness Extremity normal to inspection and full ROM Neuro oriented x3, CN's II-XII intact bilaterally, moves all extremities, no focal motor deficits, no sensory deficits noted and gait normal Freedom Coma Scale: document GCS findings Spontaneous Obeys Commands Oriented 15 Sensorium / Orientation: alert Motor Exam: strength 5/5 throughout Psych mental status grossly normal and thought process normal Appearance: Negative for unkempt Skin no rashes or lesions noted, no wounds, skin turgor normal and no jaundice MDM MDM MDM Narrative Medical decision making narrative: 23-year-old male with minor head injury earlier today. No LOC. No (more content not included)... [facility] SEKOU PRAKASH ([id number]) 2000 M Date Time Provider Department 12/11/23 11:00 AM NURIS HUA [facility] During your visit today, we recorded the following information about you: Temperature Pulse Respiration Blood pressure 98.5 degrees 107/minute 21/minute 112/78 Weight 104 kg Nuris Hua PA 12/11/2023 11:22 AM Signed This note was created using Mamayariter. Subjective Sekou Prakash is a 23 year old male. HPI [...] Status:Closed b (more content not included)... Normal [facility] Virgie 12-11-2023 [facility] Telephone ([facility]) SEKOU PRAKASH ([id number]) 2000 M Date Time Provider Department 12/11/23 NURSI HUA [facility] During your visit today, we recorded the following information about you: Nuris Hua PA 12/11/2023 7:18 AM Signed Negative for COVID flu RSV Harleen Martinez MA 12/11/2023 8:24 AM Signed Left VM instructing patient to return call to receive results. YUNI Gray Stephanie, RN 12/11/2023 10:36 AM Signed Patient notified of results. Patient verbalizes understanding. Patient states that he continues to feel terrible and had to call off of work today. Patient asking if a note can be written to take him off of work today? Cora Longo RN Allergies As of Date: 12/11/2023 Noted Allergy Reaction BANANA 11/28/2020 14 - Other: See Comments IODINE 01/26/2021 2 - Rash Date Reviewed: 12/11/2023 Reviewed by: Yelitza Davenport MA - Fully Assessed Reason for Visit: Results [95] Problem List As Of Date: 12/11/2023 (None) Encounter Status:Closed by NURIS HUA on 05/02/24 [facility] CNOVon 12-10-2023 CNOV Office Visit ([facility]WSTR) SEKOU PRAKASH ([id number]) 2000 M Date Time Provider Department 12/10/23 11:00 AM STEPAN LAYNE [facility] During your visit today, we recorded the following information about you: Temperature Pulse Respiration Blood pressure 97.5 degrees 79/minute 16/minute 114/78 Weight 103.2 kg Stepan Layne MD 12/10/2023 11:16 AM Signed Patient presents [...] ROUTINE - BENZONATATE 100 MG CAPSULE Stepan Lanye MD Allergies As of Date: 12/10/2023 Noted Allergy Reaction BANANA 11/28/2020 14 - Other: See Comments IODINE 01/26/2021 2 - Rash Date Reviewed: 12/10/2023 Reviewed by: Justyna Ellison LPN - Fully Assessed Reason for Visit: Cough [28] Cmt: Cough, congestion, ANDRES and sinus x 1 week Primary Visit Diagnosis:URI, acute [J06.9] Order(s):COVID AND INFLUENZA A/B AND RSV PCR, ROUTINE [SQCVFLRS] Order #: [id number] FUTURE benzonatate (TESSALON PERLE) 100 mg capsuleTake 1 capsule by mouth every 8 hours as needed for cough for up to 15 days.Disp: 30 capsuleRfl: 0 COVID AND INFLUENZA A/B AND RSV PCR, ROUTINE [SQCVFLRS] Order #: [id number]. #:[id number] Prescriptions as of 12/10/2023 - benzonatate (TESSALON [...] Service: OFFICE/OUTPATIENT ESTABLISHED MOD MDM 30 MIN [59918] Letter Text Encounter Status:Closed by STEPAN LAYNE on 12/10/23 Normal [facility] COVID AND INFLUENZA A/B AND RSV PCR, ROUTINEon 12-10-2023 SARS-CoV-2 (COVID-19) RNA ISREAL+probe Ql (Unsp spec) SARS-COV-2 (AGENT OF COVID-19) RNA: Not detected INFLUENZA A RNA: Not detected INFLUENZA B RNA: Not detected RESPIRATORY SYNCYTIAL VIRUS (RSV) RNA: Not detected Normal [facility] Comment on above: Performed By: #### C VFLRS ####[facility] [id number] [address] [place] CNOVon 11-11-2023 CNOV Office Visit ([facility]WSTR) SEKOU PRAKASH ([id number]) 2000 M Date Time Provider Department 11/11/23 1:15 PM NURIS HUA [facility] During your visit today, we recorded the following information about you: Temperature Pulse Respiration Blood pressure 98.9 degrees 114/minute 16/minute 110/72 Weight 104.1 kg Nuris Hua PA 11/11/2023 1:10 PM Signed Rest, increase [...] cough and to thin out mucus Nuris Hua PA 11/11/2023 1:16 PM Signed This note was created using Mamayariter. Subjective Sekou Prakash is a 23 year old male. HPI [...] is aware of. Has not tried anything [id number] for symptoms. No other complaint. History reviewed. [...] Visit Di (more content not included)... Normal [facility] STREP A MOLECULAR (POC)on Procedural Control Valid [facility] Strep A (POCT) Negative Negative [facility] Emergency Department Summary on 10-24-2023 Emergency Department Summary [facility] Medical Records Department [address] [place] [address] Emergency Department Summary 10/24/23 MR#: [id number] Acct: [id number] Name: SEKOU PRAKASH Rep #: [id number] : 2000 22 From: Ramez Partida MD PCP: Care Physician,No Primary Status:REG ER Location: ED HPI History of Present Illness Chief Complaint: Ear Problem Detail of Chief Complaint: Decreased hearing, right ear pain and wooziness Informant: patient Onset/Context/Timing Onset: Yesterday Context: Sudden Onset Timing: Continuous and Waxes and wanes Quality: Pain Location: Right ear Current Severity: Mild Maximum Severity: Severe Worsened by: Lying on his right side Relieved by: Nothing Associated Symptoms Associated Symptoms: Movement/motion Narrative Narrative: Patient is 22-year-old male. Patient's symptoms started after he used a Q-tip. He had decreased hearing. He also complains of ear pain. Complains of wooziness or his balance being off. He denies double vision blurred vision loss of vision. He does report mild nasal congestion. Eyes postnasal drainage. No sore throat. Nuys cough. No shortness of breath. Nuys fever or chills. He denies dental pain. Prior similar symptoms: No Recent Illness/Hospitalizat ion: No PFSH PFSH Medical History Depression Anxiety Rash Anemia Injury of head and neck Seizures Former smoker Shortness of breath on exertion Home Medications ???Medication ???Instructions ???Recorded ???Last Taken ???Type NK 12/08/21 Unknown History Allergy/AdvReac Type Severity Reaction Status Date / Time iodine Allergy Hives Verified 10/24/23 19:59 banana AdvReac Nausea/Vom/ Verified 10/24/23 19:59 Diarrhea Surgical History History of foot surgery Social History Smoking Status: Current every day smoker tobacco type: e-cigarettes ROS ROS ED Constitutional Constitutional ED: Denies chills, fever(s), subjective, sweats or weight loss Eyes Eyes: Denies blurry vision, change in vision or diplopia ENT ENT ED: Reports ear pain right; Denies rhinorrhea or sore throat Cardiovascular Cardiovascular: Denies chest pain Respiratory/Chest Respiratory/Chest: Denies cough, dyspnea or dyspnea on exertion Gastrointestinal Gastrointestinal: Denies nausea or vomiting Musculoskeletal Musculoskeletal: Denies neck pain Neurologic Neurologic: Denies headache(s) or paresthesias Allergic/Immunologic Allergic/Immunologic ED: Denies mouth swelling, tongue swelling or urticaria EXAM Physical Exam Const Vital Signs: 10/24/23 19:57 Temperature 99.0 F Temperature Source Oral Pulse Rate 96 Respiratory Rate 16 Blood Pressure 142/90 H Blood Pressure Mean 107 Pulse Ox 97 Oxygen Delivery Method Room Air Positive well nourished and well developed General Appearance ED: well developed and NAD; Negative for pallor HEENT Reports moist mucous membranes HEENT Narrative: Ears are normal. Patient complains of pain with pulling on the right auricle portion of the right tragus. External auditory canal on the right is remarkable for cerumen impaction. There is mild amount of wax noted in the left external canal. TM on the left is normal. There is no discomfort or pulling on the auricle portion of the tragus. There is no TMJ tenderness. Posterior pharynx is normal. Uvula is midline. There is no deviation with protrusion. Eyes PERRL and EOMs intact bilaterally General Eye ED: Negative for pale conjunctiva or scleral icterus Neck no lymphadenopathy, supple and no JVD Resp normal respiratory effort Cardio regular rate and regular rhythm Neuro oriented x3 and CN's II-XII intact bilaterally Sensorium / Orientation: alert Psych mental status grossly normal Skin no rashes or lesions noted, no wounds and skin turgor normal General Skin Exam: Negative for jaundice or pallor MDM MDM MDM Narrative Medical decision making narrative: Patient has symptoms consistent with peripheral positional vertigo due to cerumen impaction. Will instill/place Debrox right side and then irrigate. Will reassess patient after treatments. This would explain all of his symptoms. Treatment and Re-Evaluation :: Nurse did Debrox. She was unsuccessful in removing the cerumen. Patient's ear was irrigated multiple times by me. The cerumen has been removed. Able to see the TM. There is significant irritation of the external auditory canal. Will prescribe Cortisporin otic drops. Discharge Plan Triage Chief Complaint: Ear Problem ED Provider: Ramez Partida Dx/Rx/DC Orders Clinical Impression: Hearing loss of right ear due to cerumen impaction, Otitis externa (more content not included)... Normal [facility] 07-02-2023 [facility] Telephone ([facility]) SEKOU PRAKASH ([id number]) 2000 M Date Time Provider Department [facility] During your visit today, we recorded the following information about you: Rory Rawls, RN 07/02/2023 1:13 PM Signed Jackeline nurse from [facility] calling in regards to pt who in currently an inmate there. She states pt told them he is positive for chlamydia and is supposed to be on an antibiotic. Pt told her he had a prescription at the pharmacy. He told her either [facility] or [facility] [place]. Jackeline called both pharmacies and they do not have a prescription for the patient. Per epic, pt did test positive for chlamydia and was prescribed Doxycycline which is supposed to be at [facility]. Called [facility] and prescription is there and ready [...] Date Reviewed: 06/24/2023 Reviewed by: Stoney Bullock APRN.MANAGER OF PATIENT - Fully Assessed Reason for Visit: Patient Question [2667] antibiotic [Other] Prescriptions as of 07/02/2023 - [...] Date: 07/02/2023 (None) Encounter Status:Closed by RORY RAWLS on 07/02/23 [facility] 06-25-2023 [facility] SEK[facility] ([id number]) 2000 M Date Time Provider Department 06/25/23 CIELO BAILEY TYRON During your visit today, we recorded the following information about you: Cielo Bailey APRN.MANAGER OF PATIENT 06/25/2023 8:48 AM Signed Positive for chlamydia. Negative for gonorrhea. Negative for trichomonas. Chlamydia is an STI. IT is treatable with ATB. Doxycyline called into [facility] [place] need tested and treated. No sex [...] Date Reviewed: 06/24/2023 Reviewed by: Stoney Bullock APRN.MANAGER OF PATIENT - Fully Assessed Reason for Visit: Results [...] Status:Closed by THUY HAWLEY on 06/25/23 Normal [facility] C. trachomatis+N. gonorrhoea e DNA ISREAL+probe Ql (Unsp spec)on 06-24-2023 C. trachomatis rRNA ISREAL+probe Ql (Unsp spec) Positive Abnormal Negative for Chlamydia trachomatis by amplificaton [facility] Comment on above: Order Comment: Speci men Type: URINE SPECIMENOrdering Facility: [facility] Address: [address] [place] [address] Performed By: #### T RVAMP, 35911-3 ####[facility] LABCLIA [id number] [place] [address] [place] N. gonorrhoeae rRNA ISREAL+probe Ql (Unsp spec) Negative Normal Negative for Neisseria gonorrhoeae by amplification [facility] Comment on above: Order Comment: Speci men Type: URINE SPECIMENOrdering Facility: [facility] Address: [address] [place] [address] Performed By: #### T RVAMP, 55359-4 ####[facility] [id number] [address] [place] CNOVon 06-24-2023 CNOV Office Visit (UCWSTR) SEKOU PRAKASH ([id number]) 2000 M Date Time Provider Department 06/24/23 12:45 PM STONEY BULLOCK [facility] During your visit today, we recorded the following information about you: Temperature Pulse Respiration Blood pressure 98.1 degrees 80/minute 20/minute 138/84 Weight 98 kg Stoney Bullock APRN.CNP 06/24/2023 1:10 PM Signed Subjective HPI HPI Sekou Prakash is a 22 year old male who [...] VAGINALIS NAAT - GONORRHEA/CHLAMYDIA NAAT Stoney Bullock APRN.CNP Allergies As of Date: 06/24/2023 Noted Allergy Reaction BANANA 11/28/2020 14 - Other: See Comments IODINE 01/26/2021 2 - Rash Date Reviewed: 06/24/2023 Reviewed by: Stoney Bullock APRN.CNP - Fully Assessed Reason for Visit: STD [102] Cmt: Testing wanted d/t GF cheating, no s/s Primary Visit Diagnosis:Possible exposure to STD [Z20.2] Order(s):TRICHOMONAS VAGINALIS NAAT [SQTRVAMP] Order #: [id number]. #:[id number] GONORRHEA/CHLAMYDIA NAAT [SQGCCT] Order #: [id number]. #:[id number] Prescriptions as of 06/24/2023 - predniSONE (DELTASONE) [...] Status:Closed by STONEY BULLOCK on 06/24/23 Normal [facility] TRICHOMONAS VAGINALIS NAATon 06-24-2023 T. vaginalis DNA ISREAL+probe Ql (Unsp spec) Negative Normal Negative for Trichomonas vaginalis by amplification [facility] Comment on above: Order Comment: Speci men Type: URINE SPECIMENOrdering Facility: [facility] Address: [address] [place] [address] Performed By: #### T RV[facility], 68421-7 ####[facility] LABCLIA [id number] [place] [address] [place] Emergency Department Summary on 03-12-2023 Emergency Department Summary [facility] Medical Records Department [address] [id number] Emergency Department Summary 03/12/23 MR#: [id number] Acct: [id number] Name: SEKOU PRAKASH Rep #: [id number] : 2000 22 From: Max Stewart PCP: Care Physician,No Primary Status:DEP ER Location: ED HPI History of Present Illness Chief Complaint: Laceration Informant: patient Narrative Narrative: Ambidextrous male presents with laceration left hand prior to arrival. Open of car door handle that had broken plastic he pulled on it cut his hand. Bleeding controlled. Tetanus 2 years ago. No anticoagulation medicines. History of sutures in the past. [facility] Medical History Anemia Anxiety Depression Former smoker Injury of head and neck Rash Seizures Shortness of breath on exertion Home Medications NK 12/08/21 [History Last Taken Unknown] Allergy/AdvReac Type Severity Reaction Status Date / Time iodine Allergy Hives Verified 03/12/23 12:47 banana AdvReac Nausea/Vom/ Verified 03/12/23 12:47 Diarrhea Surgical History History of foot surgery Social History Smoking Status: Current every day smoker tobacco type: e-cigarettes ROS ROS ED Constitutional Constitutional ED: Denies chills, fever(s) or sweats Eyes Eyes: Denies change in vision ENT ENT ED: Denies dysphagia or sore throat Cardiovascular Cardiovascular: Denies chest pain, leg edema, palpitations or racing heartbeat Respiratory/Chest Respiratory/Chest: Denies cough, dyspnea or dyspnea on exertion Gastrointestinal Gastrointestinal: Denies abdominal pain, diarrhea, nausea or vomiting Genitourinary Genitourinary ED: Denies dysuria, hematuria or urinary frequency Musculoskeletal Musculoskeletal: Denies back pain, extremity pain or neck pain Integumentary Reports wounds; Denies rash Neurologic Neurologic: Denies headache(s), paresthesias or weakness EXAM Physical Exam Const Vital Signs: 03/12/23 12:46 Temperature 97.2 F L Temperature Source Temporal Pulse Rate 97 Respiratory Rate 16 Blood Pressure 141/103 H Blood Pressure Mean 115 Pulse Ox 99 Oxygen Delivery Method Room Air Positive well nourished and well developed General Appearance ED: well developed and NAD HEENT Reports moist mucous membranes normocephalic and atraumatic Eyes PERRL, EOMs intact bilaterally and conjunctivae normal General Eye ED: Yes normal appearance of both eyes Neck no lymphadenopathy and supple General: Negative for tenderness Chest Wall Chest: Negative for tenderness Resp normal respiratory effort and normal air movement Effort and Inspection: symmetric chest movement; Negative for respiratory distress Cardio regular rate, regular rhythm and no murmurs Peripheral Pulses: pulses 2+ throughout GI normal to inspection, nondistended, normoactive bowel sounds and non-tender Palpation: Negative for guarding or rebound tenderness present Back/Spine no CVA tenderness and no thoracic nor lumbar tenderness Extremity Extremity Narrative: Left upper extremity: Hand examination. First webspace between thumb and index 1 cm laceration right the middle of the web, no subcu to exposure. There is dried blood around the area, there is no active bleeding. Full range of motion of the digits without paresthesias. General Extremety ED: Negative for edema or tenderness General Extremity: Negative for edema Neuro oriented x3 and no sensory deficits noted Sensorium / Orientation: awake and alert Skin Skin Narrative: See above MDM MDM MDM Narrative Medical decision making narrative: Interventions / MDM: Differential diagnosis: Left hand laceration Diagnosis considered but do not suspect: No clinical tendon injury My EKG interpretation: N/A Imaging independently reviewed and interpreted by myself: N/A External documents reviewed: N/A Test considered but not ordered:N/A ED course: Patient laceration is superficial injury dried blood however in a high tension area at the webspace. Area was cleansed and 2 sutures were placed. Discussed refraining from heavy lifting and allow this to heal. Wound care discussed. Outpatient follow-up given. All questions answered. Procedure note: Verbal consent. Normal sterile conditions. Skin areas prepped normal sterile fashion. 2 cc 1% lidocaine used for local analgesia. wound cleansed with normal saline. Total of 2, 5-0 simple interrupted nylon sutures were placed with good approximation. Bacitracin placed myself, dressing placed by myself. Patient tolerated procedure well. Re-evaluation: stable Disposition discussed with patient/family/signi ficant other: Patient (more content not included)... Normal [facility] UA DIP, URINE (POC)on 2022 BILIRUBIN UA (POCT) Small Abnormal Negative [facility] CLARITY UA (POCT) Clear [facility] COLOR UA (POCT) Dark yellow [facility] GLUCOSE UA (POCT) Negative Negative mg/dL [facility] Hemoglobin Ql (U) Negative Negative [facility] KETONE UA (POCT) 15 mg/dL Abnormal Negative mg/dL [facility] LEUKOCYTES UA (POCT) Negative Negative [facility] NITRITE UA (POCT) Negative Negative [facility] PH UA (POCT) 5.5 4.5 - 8.0 [facility] Protein Ql (U) 30 mg/dL Abnormal Negative mg/dL [facility] SPECIFIC GRAVITY UA (POCT) 1.020 1.005 - 1.030 [facility] UROBILINOGEN UA (POCT) 1.0 E.U./dL Normal E.U./dL [facility] .Auto Diffon 09-16-2022 Basophil, Absolute 0.0 10 3/mcL Normal 0.0-0.2 [facility] ([place] Comment on above: Performed By: #### C CLINTON, ARBEN NESBITT, W, BMP, GFR, TROPHS #### [address] [address] Basophils/100 WBC (Bld) 0.5 % Normal 0.0-2.5 [facility] ([place] Comment on above: Performed By: #### C DELICIA ALONZO, ARBEN, W, BMP, GFR, TROPHS #### [address] [address] Eosinophil, Absolute 0.1 10 3/mcL Normal 0.0-0.4 [facility] ([place] Comment on above: Performed By: #### C DELICIA ALONZO ANEU, W, BMP, GFR, TROPHS #### [address] [address] Eosinophils/100 WBC (Bld) 2.5 % Normal 0.0-7.0 [facility] ([place] Comment on above: Performed By: #### C DELICIA ALONZO ANEU, W, BMP, GFR, TROPHS #### [address] [address] Lymphocyte, Absolute 1.9 10 3/mcL Normal 0.8-3.9 [facility] ([place] Comment on above: Performed By: #### C DELICIA ALONZO ANEU, W, BMP, GFR, TROPHS #### [address] [address] Lymphocytes/100 WBC (Bld) 40.6 % Normal 10.0-50.0 [facility] ([place] Comment on above: Performed By: #### C BC, ADIFF, ANEU, MDW, BMP, GFR, TROPHS #### [address] [address] Monocyte, Absolute 0.4 10 3/mcL Normal 0.2-1.0 [facility] ([place] Comment on above: Performed By: #### C BC, ADIFF, ANEU, MDW, BMP, GFR, TROPHS #### [address] [address] Monocytes/100 WBC (Bld) 8.5 % Normal 1.7-13.0 [facility] ([place] Comment on above: Performed By: #### C BC, ADSANTOS, ANEU, MDW, BMP, GFR, TROPHS #### [address] [address] Neutrophils/100 WBC (Bld) 47.9 % Normal 37.0-80.0 [facility] ([place] Comment on above: Performed By: #### C BC, ADIFF, ANEU, MDW, BMP, GFR, TROPHS #### [address] [address] .GFRon 09-16-2022 GFR 106 ml/min/1.73sqm Normal [facility] ([place] Comment on above: Result Comment: GFR Population [...] mL/min/1.73 square meters Performed By: #### C BC, ADIFF, ANEU, MDW, BMP, GFR, TROPHS #### [address] [address] GFR Non- 88 ml/min/1.73sqm Normal [facility] ([place] Comment on above: Result Comment: GFR Population [...] Performed By: #### C DELICIA ALONZO ANEU, W, BMP, GFR, TROPHS #### [address] [address] .MDWon 09-16-2022 Monocyte Distribution Width 17.24 Normal 0.00-20.00 [facility] ([place] Comment on above: Result Comment: For ED adult patients suspected of sepsis, MDW<=20.0 does not rule out sepsis or risk of sepsis Performed By: #### C DELICIA ALONZO ANEU, MDW, BMP, GFR, TROPHS #### [address] [address] .NEUABSon 09-16-2022 Neutrophil, Absolute 2.3 10 3/mcL Low 2.9-6.2 [facility] ([place] Comment on above: Performed By: #### C DELICIA ALONZO ANEU, MDW, BMP, GFR, TROPHS #### [address] [address] BMPon 09-16-2022 BUN/Creatinine Ratio 12 ratio Normal 7-27 [facility] ([place] Comment on above: Performed By: #### C DELICIA ALONZO ANEU, W, BMP, GFR, TROPHS #### [address] [address] Calcium [Mass/Vol] 9.1 mg/dL Normal 8.4-10.2 [facility] ([place] Comment on above: Performed By: #### C BC, ADIFF, ANEU, MDW, BMP, GFR, TROPHS #### [address] [address] Chloride [Moles/Vol] 103 mmol/L Normal 98-107 [facility] ([place] Comment on above: Performed By: #### C BC, ADIFF, ANEU, MDW, BMP, GFR, TROPHS #### [address] [address] CO2 [Moles/Vol] 28 mmol/L Normal 22-29 [facility] ([place] Comment on above: Performed By: #### C BC, ADIFF, ANEU, MDW, BMP, GFR, TROPHS #### [address] [address] Creatinine [Mass/Vol] 1.05 mg/dL Normal 0.70-1.30 [facility] ([place] Comment on above: Performed By: #### C BC, ADIFF, ANEU, MDW, BMP, GFR, TROPHS #### [address] [address] Electrolyte Balance 9.0 mEq/L Normal 4.0-15.0 [facility] ([place] Comment on above: Performed By: #### C BC, ADIFF, ANEU, MDW, BMP, GFR, TROPHS #### [address] [address] Glucose [Mass/Vol] 95 mg/dL Normal 70-105 [facility] ([place] Comment on above: Performed By: #### C BC, ADIFF, ANEU, MDW, BMP, GFR, TROPHS #### [address] [address] Potassium [Moles/Vol] 4.1 mmol/L Normal 3.5-5.1 [facility] ([place] Comment on above: Performed By: #### C BC, ADIFF, ANEU, MDW, BMP, GFR, TROPHS #### [address] [address] Sodium [Moles/Vol] 140 mmol/L Normal 136-145 [facility] ([place] Comment on above: Performed By: #### C DELICIA ALONZO ANEU, W, BMP, GFR, TROPHS #### [address] [address] Urea nitrogen [Mass/Vol] 13 mg/dL Normal 7-18 [facility] ([place] Comment on above: Performed By: #### C CLINTON, ARBEN NESBITT, MDW, BMP, GFR, TROPHS #### [address] [address] CBCon 09-16-2022 Erythrocyte distribution width (RBC) [Ratio] 13.5 % Normal 11.5-14.5 [facility] ([place] Comment on above: Performed By: #### C DELICIA ALONZO ANEU, W, BMP, GFR, TROPHS #### [address] [address] Hematocrit (Bld) [Volume fraction] 42.4 % Normal 42.0-52.0 [facility] ([place] Comment on above: Performed By: #### C DELICIA ALONZO ANEU, W, BMP, GFR, TROPHS #### [address] [address] Hgb 14.1 G/dL Normal 14.0-18.0 [facility] ([place] Comment on above: Performed By: #### C DELICIA ALONZO ANEU, MDW, BMP, GFR, TROPHS #### [address] [address] MCH (RBC) [Entitic mass] 26.0 pg Low 27.0-31.2 [facility] ([place] Comment on above: Performed By: #### C DELICIA ALONZO ANEU, MDW, BMP, GFR, TROPHS #### [address] [address] MCHC 33.2 G/dL Normal 31.8-35.4 [facility] ([place] Comment on above: Performed By: #### C BC, DELICIA, ANEU, MDW, BMP, GFR, TROPHS #### [address] [address] MCV (RBC) [Entitic vol] 78.4 fL Low 80.0-94.0 [facility] ([place] Comment on above: Performed By: #### C BC, ADIFF, ANEU, MDW, BMP, GFR, TROPHS #### [place] [id number] Platelet 224 10 3/mcL Normal 130-400 [facility] ([place] Comment on above: Performed By: #### C BC, DELICIA, ANEU, MDW, BMP, GFR, TROPHS #### [place] [address] Platelet mean volume (Bld) [Entitic vol] 8.0 fL Normal 7.4-10.4 [facility] ([place] Comment on above: Performed By: #### C BC, DELICIA, ARBEN, MDW, BMP, GFR, TROPHS #### [place] [address] RBC 5.41 10 6/mcL Normal 4.04-6.13 [facility] ([place] Comment on above: Performed By: #### C BC, ADSANTOS, ANEU, MDW, BMP, GFR, TROPHS #### [place] [id number] WBC 4.8 10 3/mcL Normal 4.6-10.8 [facility] ([place] Comment on above: Performed By: #### C BC, ADSANTOS, ANEU, MDW, BMP, GFR, TROPHS #### [address] [address] LABORATORYOrdered By: Cindy Valle on 09-16-2022 Basophil, [...] I High Sensitivity 4.5 ng/L Normal 0.0-76.2 [facility] ([place] Comment on above: Performed By: #### C BC, DELICIA, ARBEN, MDW, BMP, GFR, TROPHS #### [place] [address] [place], [place] [address] XR CHEST 1 VIEWon 09-16-2022 XR CHEST [...] Date: 09/16/2022 11:29:00 AM Ordering Provider: MARSHA SHANKS [facility] ([place] UA DIP, URINE (POC)on 2022 BILIRUBIN UA (POCT) Negative Negative [facility] CLARITY UA (POCT) Clear [facility] COLOR UA (POCT) Yellow [facility] GLUCOSE UA (POCT) Negative Negative mg/dL [facility] HEMOGLOBIN/BLOOD UA (POCT) Trace-intact Abnormal Negative [facility] KETONE UA (POCT) Negative Negative mg/dL [facility] LEUKOCYTES UA (POCT) Negative Negative [facility] NITRITE UA (POCT) Negative Negative [facility] PH UA (POCT) 7.0 4.5 - 8.0 [facility] Protein Ql (U) Negative Negative mg/dL [facility] SPECIFIC GRAVITY UA (POCT) 1.010 1.005 - 1.030 [facility] UROBILINOGEN UA (POCT) 0.2 E.U./dL Normal E.U./dL [facility] STREP A MOLECULAR (POC)on Procedural Control Valid [facility] Strep A (POCT) Negative Negative [facility] STREP A MOLECULAR (POC)on Procedural Control Valid [facility] Strep A (POCT) Negative Negative [facility] XR Abdomen Supine and Uprigh ton 05-15-2021 IMPRESSION: Nonobstructive bowel gas pattern. Sand Screener: [id number] Transcribe Date/Time: May 15 2021 2:47P Dictated by : LAURIE OVIEDO MD This examination was interpreted and the report reviewed and electronically signed by: LAURIE OVIEDO MD on May 15 2021 2:48PM EST DIVISION OF RADIOLOGY * * *Final Report* [...] structures appear intact. DIVISION OF RADIOLOGY Provider, [facility] - 05/15/2021 * * *Final Report* * [...] intact. IMPRESSION IMPRESSION: Nonobstructive bowel gas pattern. Sand Screener: [id number] Transcribe Date/Time: May 15 2021 2:47P Dictated by : LAURIE OVIEDO MD This examination was interpreted and the report reviewed and electronically signed by: LAURIE OVIEDO MD on May 15 2021 2:48PM EST [facility] Radiology Study observation (narrative) [facility] XR Abdomen Supine and Uprigh tOrdered By: [facility] Provider on 05-15-2021 [facility] Vital Signs Date Time Vital Sign Value Performing Clinician Facility 01-31-2025 23:06-0400 Body height 180.3 cm Eloisa Cveallos DO Work Phone: [facility] 01-31-2025 23:06-0400 Body mass index (BMI) [Ratio] 29.99 kg/m2 Eloisa Cevallos DO Work Phone: [facility] 01-31-2025 23:06-0400 Body temperature 98.71 [degF] Eloisa Cevallos DO Work Phone: [facility] 01-31-2025 23:06-0400 Body weight 97.52 kg Eloisa Cevallos DO Work Phone: [facility] 01-31-2025 23:06-0400 Diastolic blood pressure 83 mm[Hg] Eloisa Cevallos DO Work Phone: [facility] 01-31-2025 23:06-0400 Heart rate 93 /min Eloisa Cevallos DO Work Phone: [facility] 01-31-2025 23:06-0400 Respiratory rate 18 /min Eloisa Cevallos DO Work Phone: [facility] 01-31-2025 23:06-0400 SaO2% (BldA) [Mass fraction] 97 % Eloisa Cevallos DO Work Phone: [facility] 01-31-2025 23:06-0400 Systolic blood pressure 141 mm[Hg] Eloisa Cevallos DO Work Phone: [facility] 12-16-2024 00:48-0400 Diastolic blood pressure 86 mm[Hg] Humphrey Johnson DO Work Phone: [facility] 12-16-2024 00:48-0400 Heart rate 89 /min Humphrey Johnson DO Work Phone: [facility] 12-16-2024 00:48-0400 Respiratory rate 16 /min Humphrey Johnson DO Work Phone: [facility] 12-16-2024 00:48-0400 SaO2% (BldA) [Mass fraction] 100 % Humphrey Johnson DO Work Phone: [facility] 12-16-2024 00:48-0400 Systolic blood pressure 124 mm[Hg] Humphrey Johnson DO Work Phone: [facility] 12-15-2024 21:58-0400 Body height 180.3 cm Humphrey Johnson DO Work Phone: [facility] 12-15-2024 21:58-0400 Body mass index (BMI) [Ratio] 30.68 kg/m2 Humphrey Johnson DO Work Phone: [facility] 12-15-2024 21:58-0400 Body temperature 98.49 [degF] Humphrey Johnson DO Work Phone: [facility] 12-15-2024 21:58-0400 Body weight 99.79 kg Humphrey Johnson DO Work Phone: [facility] 11-25-2024 00:05-0400 Diastolic blood pressure 88 mm[Hg] Kevin Vazquezersen DO Work Phone: [facility] 11-25-2024 00:05-0400 Heart rate 63 /min Kevin Vazquezersen DO Work Phone: [facility] 11-25-2024 00:05-0400 Respiratory rate 18 /min Kevin Vazquezersen DO Work Phone: [facility] 11-25-2024 00:05-0400 SaO2% (BldA) [Mass fraction] 98 % Kevin Vazquezersen DO Work Phone: [facility] 11-25-2024 00:05-0400 Systolic blood pressure 123 mm[Hg] Kevin Vazquezersen DO Work Phone: [facility] 11-24-2024 22:51-0400 Body height 180.3 cm Kevin Vazquezersen DO Work Phone: [facility] 11-24-2024 22:51-0400 Body mass index (BMI) [Ratio] 31.38 kg/m2 Kevin Hernandez DO Work Phone: [facility] 11-24-2024 22:51-0400 Body temperature 97.39 [degF] Kevin Hernandez DO Work Phone: [facility] 11-24-2024 22:51-0400 Body weight 102.06 kg Kevin Hernandez DO Work Phone: [facility] 08-19-2024 10:44-0400 Body height 180.3 cm No Generic Provider [facility] 08-19-2024 10:44-0400 Body mass index (BMI) [Ratio] 29.99 kg/m2 No Generic Provider [facility] 08-19-2024 10:44-0400 Body temperature 97.9 [degF] No Generic Provider [facility] 08-19-2024 10:44-0400 Body weight 97.52 kg No Generic Provider [facility] 08-19-2024 10:44-0400 Diastolic blood pressure 85 mm[Hg] No Generic Provider [facility] 08-19-2024 10:44-0400 Heart rate 88 /min No Generic Provider [facility] 08-19-2024 10:44-0400 Respiratory rate 16 /min No Generic Provider [facility] 08-19-2024 10:44-0400 SaO2% (BldA) [Mass fraction] 97 % No Generic Provider [facility] 08-19-2024 10:44-0400 Systolic blood pressure 137 mm[Hg] No Generic Provider [facility] 05-02-2024 18:35-0500 Diastolic Blood Pressure Non-Invasive 80 mm[Hg] ANNEL LARKIN MD [facility] 05-02-2024 18:35-0500 Heart rate 80 /min ANNEL LARKIN MD [facility] 05-02-2024 18:35-0500 Respiratory rate 16 /min ANNEL LARKIN MD [facility] 05-02-2024 18:35-0500 Systolic Blood Pressure Non-Invasive 130 mm[Hg] ANNEL LARKIN MD [facility] 05-02-2024 17:18-0500 Body temperature 97.16 [degF] ANNEL LARKIN MD [facility] 05-02-2024 17:18-0500 Diastolic Blood Pressure Non-Invasive 82 mm[Hg] ANNEL LARKIN MD [facility] 05-02-2024 17:18-0500 Heart rate 82 /min ANNEL LARKIN MD [facility] 05-02-2024 17:18-0500 Respiratory rate 16 /min ANNEL LARKIN MD [facility] 05-02-2024 17:18-0500 Systolic Blood Pressure Non-Invasive 132 mm[Hg] ANNEL LARKIN MD [facility] 04-29-2024 14:32-[address] JOE MARTINEZ MD [facility] 04-29-2024 14:32-[address] JOE MARTINEZ MD [facility] 04-29-2024 14:32-0500 Body height 180.[address] JOE MARTINEZ MD [facility] 04-29-2024 14:32-0500 Body temperature 100.58 [degF] DR JOE MARTINEZ MD [facility] 04-29-2024 14:32-0500 Body weight 95.[address] JOE MARTINEZ MD [facility] 04-29-2024 14:32-0500 Diastolic Blood Pressure Non-Invasive 77 mm[Hg] DR JOE MARTINEZ MD [facility] 04-29-2024 14:32-0500 Heart rate 102 /min DR JOE MARTINEZ MD [facility] 04-29-2024 14:32-0500 Respiratory rate 16 /min DR JOE MARTINEZ MD [facility] 04-29-2024 14:32-0500 Systolic Blood Pressure Non-Invasive 126 mm[Hg] DR JOE MARTINEZ MD [facility] 02-13-2024 14:07-0400 Body temperature 98.29 [degF] [facility] [employer].MANAGER OF PATIENT Work Phone: [facility] 02-13-2024 14:07-0400 Body weight 103 kg [facility] [employer].MANAGER OF PATIENT Work Phone: [facility] 02-13-2024 14:07-0400 Diastolic blood pressure 82 mm[Hg] [facility] [employer].MANAGER OF PATIENT Work Phone: [facility] 02-13-2024 14:07-0400 Heart rate 78 /min [facility] [employer].MANAGER OF PATIENT Work Phone: [facility] 02-13-2024 14:07-0400 Respiratory rate 18 /min [facility] [employer].MANAGER OF PATIENT Work Phone: [facility] 02-13-2024 14:07-0400 SaO2% (BldA) [Mass fraction] 99 % [facility] [employer].MANAGER OF PATIENT Work Phone: [facility] 02-13-2024 14:07-0400 Systolic blood pressure 124 mm[Hg] [facility] [employer].MANAGER OF PATIENT Work Phone: [facility] 12-11-2023 11:07-0400 Body temperature 98.49 [degF] Nuris PAULINO Work Phone: [facility] 12-11-2023 11:07-0400 Body weight 104 kg Krislyn Aberegg PA Work Phone: [facility] 12-11-2023 11:07-0400 Diastolic blood pressure 78 mm[Hg] Krislyn Aberegg PA Work Phone: [facility] 12-11-2023 11:07-0400 Heart rate 107 /min Krislyn Aberegg PA Work Phone: [facility] 12-11-2023 11:07-0400 Respiratory rate 21 /min Krislyn Aberegg PA Work Phone: [facility] 12-11-2023 11:07-0400 SaO2% (BldA) [Mass fraction] 97 % Krislyn Aberegg PA Work Phone: [facility] 12-11-2023 11:07-0400 Systolic blood pressure 112 mm[Hg] Krislyn Aberegg PA Work Phone: [facility] 12-10-2023 10:48-0400 Body temperature 97.5 [degF] Stepan Layne MD Work Phone: [facility] 12-10-2023 10:48-0400 Body weight 103.2 kg Stepan Layne MD Work Phone: [facility] 12-10-2023 10:48-0400 Diastolic blood pressure 78 mm[Hg] Stepan Layne MD Work Phone: [facility] 12-10-2023 10:48-0400 Heart rate 79 /min Stepan Layne MD Work Phone: [facility] 12-10-2023 10:48-0400 Respiratory rate 16 /min Stepan Layne MD Work Phone: [facility] 12-10-2023 10:48-0400 SaO2% (BldA) [Mass fraction] 97 % Stepan Layne MD Work Phone: [facility] 12-10-2023 10:48-0400 Systolic blood pressure 114 mm[Hg] Stepan Layne MD Work Phone: [facility] 11-11-2023 13:01-0400 Body temperature 98.91 [degF] Krislyn Aberegg PA Work Phone: [facility] 11-11-2023 13:01-0400 Body weight 104.1 kg Krislyn Aberegg PA Work Phone: [facility] 11-11-2023 13:01-0400 Diastolic blood pressure 72 mm[Hg] Krislyn Aberegg PA Work Phone: [facility] 11-11-2023 13:01-0400 Heart rate 114 /min Krislyn Aberegg PA Work Phone: [facility] 11-11-2023 13:01-0400 Respiratory rate 16 /min Krislyn Aberegg PA Work Phone: [facility] 11-11-2023 13:01-0400 SaO2% (BldA) [Mass fraction] 96 % Krislyn Aberegg PA Work Phone: [facility] 11-11-2023 13:01-0400 Systolic blood pressure 110 mm[Hg] Krislyn Aberegg PA Work Phone: [facility] 06-24-2023 12:49-0400 Body temperature 98.1 [degF] Stoney Bullock APRN.MANAGER OF PATIENT Work Phone: [facility] 06-24-2023 12:49-0400 Body weight 98 kg Stoney Bullock [employer].MANAGER OF PATIENT Work Phone: [facility] 06-24-2023 12:49-0400 Diastolic blood pressure 84 mm[Hg] Stoney Bullock APRN.MANAGER OF PATIENT Work Phone: [facility] 06-24-2023 12:49-0400 Heart rate 80 /min Stoney Bullock [employer].MANAGER OF PATIENT Work Phone: [facility] 06-24-2023 12:49-0400 Respiratory rate 20 /min Stoney Kobe [employer].MANAGER OF PATIENT Work Phone: [facility] 06-24-2023 12:49-0400 SaO2% (BldA) [Mass fraction] 98 % Stoney Kobe [employer].MANAGER OF PATIENT Work Phone: [facility] 06-24-2023 12:49-0400 Systolic blood pressure 138 mm[Hg] Stoney Kobe [employer].MANAGER OF PATIENT Work Phone: [facility] 03-25-2023 12:55-0500 Body temperature 97.39 [degF] Stoney Kobe [employer]WORK[employer].MANAGER OF PATIENT Work Phone: [facility] 03-25-2023 12:55-0500 Body weight 98.43 kg Stoney Kobe [employer].MANAGER OF PATIENT Work Phone: [facility] 03-25-2023 12:55-0500 Diastolic blood pressure 80 mm[Hg] Stoney Kobe [employer].MANAGER OF PATIENT Work Phone: [facility] 03-25-2023 12:55-0500 Heart rate 94 /min Stoney Kobe [employer].MANAGER OF PATIENT Work Phone: [facility] 03-25-2023 12:55-0500 Respiratory rate 16 /min Stoney Kobe [employer].MANAGER OF PATIENT Work Phone: [facility] 03-25-2023 12:55-0500 SaO2% (BldA) [Mass fraction] 97 % Stoney Kobe [employer].MANAGER OF PATIENT Work Phone: [facility] 03-25-2023 12:55-0500 Systolic blood pressure 110 mm[Hg] Stoney Kobe [employer]WORK[employer].MANAGER OF PATIENT Work Phone: [facility] 03-12-2023 12:46-0500 Body height 180.34 cm [facility] 03-12-2023 12:46-0500 Body mass index (BMI) [Ratio] 29.1 kg/m2 [facility] 03-12-2023 12:46-0500 Body temperature 97.2 [degF] [facility] 03-12-2023 12:46-0500 Body weight 94.8 kg [facility] 03-12-2023 12:46-0500 Diastolic blood pressure 103 mm[Hg] [facility] 03-12-2023 12:46-0500 Heart rate 97 /min [facility] 03-12-2023 12:46-0500 Respiratory rate 16 /min [facility] 03-12-2023 12:46-0500 SaO2% (BldA) [Mass fraction] 99 % [facility] 03-12-2023 12:46-0500 Systolic blood pressure 141 mm[Hg] [facility] 02-03-2023 14:29-0400 Heart rate 92 /min Johana Bogner PA-C Work Phone: [facility] 02-03-2023 14:11-0400 Body temperature 98.71 [degF] Johana Bogner PA-C Work Phone: [facility] 02-03-2023 14:11-0400 Body weight 94.26 kg Johana Bogner PA-C Work Phone: [facility] 02-03-2023 14:11-0400 Diastolic blood pressure 78 mm[Hg] Johana Bogner PA-C Work Phone: [facility] 02-03-2023 14:11-0400 Respiratory rate 21 /min Johana Bogner PA-C Work Phone: [facility] 02-03-2023 14:11-0400 SaO2% (BldA) [Mass fraction] 97 % Johana Bogner PA-C Work Phone: [facility] 02-03-2023 14:11-0400 Systolic blood pressure 112 mm[Hg] Johana Bogner PA-C Work Phone: [facility] 11-29-2022 18:53-0400 Body height 178 cm CARMELITA DANIELLE MD [facility] 11-29-2022 18:53-0400 Body temperature 98.78 [degF] CARMELITA DANIELLE MD [facility] 11-29-2022 18:53-0400 Body weight 102 kg CARMELITA DANIELLE MD [facility] 11-29-2022 18:53-0400 Diastolic Blood Pressure Non-Invasive 76 1 CARMELITA DANIELLE MD [facility] 11-29-2022 18:53-0400 Heart rate 86 /min CARMELITA DANIELLE MD [facility] 11-29-2022 18:53-0400 Respiratory rate 16 /min CARMELITA DANIELLE MD [facility] 11-29-2022 18:53-0400 Systolic Blood Pressure Non-Invasive 119 1 CARMELITA DANIELLE [facility] [facility] 09-16-2022 13:13-0400 Diastolic Blood Pressure Non-Invasive 74 1 MARSHA FROMMELT DO [facility] 09-16-2022 13:13-0400 Heart rate 75 /min MARSHA FROMMELT DO [facility] 09-16-2022 13:13-0400 Respiratory rate 16 /min MARSHA FROMMELT DO [facility] 09-16-2022 13:13-0400 Systolic Blood Pressure Non-Invasive 119 1 MARSHA FROMMELT DO [facility] 09-16-2022 12:14-0400 Heart rate 68 /min MARSHA FROMMELT DO [facility] 09-16-2022 12:14-0400 Respiratory rate 16 /min MARSHA FROMMELT DO [facility] 09-16-2022 11:30-0400 Diastolic Blood Pressure Non-Invasive 70 1 MARSHA FROMANDREWT DO [facility] 09-16-2022 11:30-0400 Heart rate 72 /min MARSHA FROMMELT DO [facility] 09-16-2022 11:30-0400 Respiratory rate 16 /min MARSHA FROMMELT DO [facility] 09-16-2022 11:30-0400 Systolic Blood Pressure Non-Invasive 108 1 MARSHA FROMANDREWT DO [facility] 09-16-2022 10:27-0400 Body height 177.8 cm MARSHA FROMMELT DO [facility] 09-16-2022 10:27-0400 Body temperature 97.16 [degF] MARSHA FROMMELT DO [facility] 09-16-2022 10:27-0400 Body weight 104.5 kg MARSHA FROMANDREWT DO [facility] 09-16-2022 10:27-0400 Diastolic Blood Pressure Non-Invasive 62 1 MARSHA VILLARREALMELT DO [facility] 09-16-2022 10:27-0400 Heart rate 90 /min MARSHA VILLARREALMELT DO [facility] 09-16-2022 10:27-0400 Systolic Blood Pressure Non-Invasive 109 1 MARSHA JUAREZT DO [facility] 09-13-2022 16:59-0400 Body temperature 98.6 [degF] Cielo Bailey [employer].MANAGER OF PATIENT Work Phone: [facility] 09-13-2022 16:59-0400 Body weight 102.24 kg Cielo Bailey [employer].MANAGER OF PATIENT Work Phone: [facility] 09-13-2022 16:59-0400 Diastolic blood pressure 68 mm[Hg] Cielo Bailey [employer].MANAGER OF PATIENT Work Phone: [facility] 09-13-2022 16:59-0400 Heart rate 93 /min Cielo Bailey [employer].MANAGER OF PATIENT Work Phone: [facility] 09-13-2022 16:59-0400 Respiratory rate 18 /min Cielo Bailey [employer].MANAGER OF PATIENT Work Phone: [facility] 09-13-2022 16:59-0400 SaO2% (BldA) [Mass fraction] 97 % Cielo Bailey [employer].MANAGER OF PATIENT Work Phone: [facility] 09-13-2022 16:59-0400 Systolic blood pressure 122 mm[Hg] Cielo Bailey [employer].MANAGER OF PATIENT Work Phone: [facility] 07-03-2022 11:04-0400 Body temperature 98.1 [degF] Jerad Pendlebury [employer].MANAGER OF PATIENT Work Phone: [facility] 07-03-2022 11:04-0400 Body weight 106.78 kg Jerad Pendlebury [employer].MANAGER OF PATIENT Work Phone: [facility] 07-03-2022 11:04-0400 Diastolic blood pressure 72 mm[Hg] Jerad Pendlebury [employer].MANAGER OF PATIENT Work Phone: [facility] 07-03-2022 11:04-0400 Heart rate 102 /min Jerad Pendlebury [employer].MANAGER OF PATIENT Work Phone: [facility] 07-03-2022 11:04-0400 Respiratory rate 16 /min Jerad Pendlebury [employer].MANAGER OF PATIENT Work Phone: [facility] 07-03-2022 11:04-0400 SaO2% (BldA) [Mass fraction] 97 % Jerad Pendlebury [employer].MANAGER OF PATIENT Work Phone: [facility] 07-03-2022 11:04-0400 Systolic blood pressure 108 mm[Hg] Jerad Shultz [employer].MANAGER OF PATIENT Work Phone: [facility] 03-27-2022 11:57-0500 Body temperature 97.81 [degF] Rosaura Holden [employer].MANAGER OF PATIENT Work Phone: [facility] 03-27-2022 11:57-0500 Body weight 108.41 kg Rosaura Holden [employer].MANAGER OF PATIENT Work Phone: [facility] 03-27-2022 11:57-0500 Diastolic blood pressure 62 mm[Hg] Rosaura Holden [employer].MANAGER OF PATIENT Work Phone: [facility] 03-27-2022 11:57-0500 Heart rate 88 /min Rosaura Holden [employer].MANAGER OF PATIENT Work Phone: [facility] 03-27-2022 11:57-0500 Respiratory rate 16 /min Rosaura Holden [employer].MANAGER OF PATIENT Work Phone: [facility] 03-27-2022 11:57-0500 SaO2% (BldA) [Mass fraction] 98 % Rosaura Coolidge [employer].MANAGER OF PATIENT Work Phone: [facility] 03-27-2022 11:57-0500 Systolic blood pressure 110 mm[Hg] Rosaura Coolidge [employer].MANAGER OF PATIENT Work Phone: [facility] 12-11-2021 08:24-0400 Body temperature 97 [degF] Cielo Bailey [employer].MANAGER OF PATIENT Work Phone: [facility] 12-11-2021 08:24-0400 Body weight 103.87 kg Cielo Bailey [employer].MANAGER OF PATIENT Work Phone: [facility] 12-11-2021 08:24-0400 Diastolic blood pressure 72 mm[Hg] Cielo Bailey [employer].MANAGER OF PATIENT Work Phone: [facility] 12-11-2021 08:24-0400 Heart rate 86 /min Cielo Bailey [employer].MANAGER OF PATIENT Work Phone: [facility] 12-11-2021 08:24-0400 Respiratory rate 16 /min Cielo Bailey [employer].MANAGER OF PATIENT Work Phone: [facility] 12-11-2021 08:24-0400 SaO2% (BldA) [Mass fraction] 99 % Cielo Bailey [employer].MANAGER OF PATIENT Work Phone: [facility] 12-11-2021 08:24-0400 Systolic blood pressure 120 mm[Hg] Cielo Bailey [employer].MANAGER OF PATIENT Work Phone: [facility] 12-08-2021 22:01-0400 Diastolic blood pressure 76 mm[Hg] [facility] Work Phone: 12-08-2021 22:01-0400 Heart rate 79 /min [facility] Work Phone: 12-08-2021 22:01-0400 Respiratory rate 18 /min [facility] Work Phone: 12-08-2021 22:01-0400 SaO2% (BldA) [Mass fraction] 100 % [facility] Work Phone: 12-08-2021 22:01-0400 Systolic blood pressure 120 mm[Hg] [facility] Work Phone: 12-08-2021 20:04-0400 Body height 177.8 cm [facility] Work Phone: 12-08-2021 20:04-0400 Body mass index (BMI) [Ratio] 32.3 kg/m2 [facility] Work Phone: 12-08-2021 20:04-0400 Body temperature 98.6 [degF] [facility] Work Phone: 12-08-2021 20:04-0400 Body weight 102.05 kg [facility] Work Phone: 12-05-2021 17:08-0400 Diastolic blood pressure 77 mm[Hg] [facility] Work Phone: 12-05-2021 17:08-0400 Heart rate 62 /min [facility] Work Phone: 12-05-2021 17:08-0400 Respiratory rate 15 /min [facility] Work Phone: 12-05-2021 17:08-0400 SaO2% (BldA) [Mass fraction] 98 % [facility] Work Phone: 12-05-2021 17:08-0400 Systolic blood pressure 124 mm[Hg] [facility] Work Phone: 12-05-2021 16:05-0400 Body height 177.8 cm [facility] Work Phone: 12-05-2021 16:05-0400 Body mass index (BMI) [Ratio] 32.8 kg/m2 [facility] Work Phone: 12-05-2021 16:05-0400 Body temperature 98.4 [degF] [facility] Work Phone: 12-05-2021 16:05-0400 Body weight 103.6 kg [facility] Work Phone: 11-20-2021 10:24-0400 Body height 177.8 cm [facility] Work Phone: 11-20-2021 10:24-0400 Body mass index (BMI) [Ratio] 33.1 kg/m2 [facility] Work Phone: 11-20-2021 10:24-0400 Body temperature 97.8 [degF] [facility] Work Phone: 11-20-2021 10:24-0400 Body weight 104.77 kg [facility] Work Phone: 11-20-2021 10:24-0400 Diastolic blood pressure 93 mm[Hg] [facility] Work Phone: 11-20-2021 10:24-0400 Heart rate 67 /min [facility] Work Phone: 11-20-2021 10:24-0400 Respiratory rate 18 /min [facility] Work Phone: 11-20-2021 10:24-0400 SaO2% (BldA) [Mass fraction] 100 % [facility] Work Phone: 11-20-2021 10:24-0400 Systolic blood pressure 145 mm[Hg] [facility] Work Phone: 10-25-2021 07:57-0400 Body height 180.34 cm [facility] Work Phone: 10-25-2021 07:57-0400 Body mass index (BMI) [Ratio] 31.4 kg/m2 [facility] Work Phone: 10-25-2021 07:57-0400 Body temperature 98 [degF] [facility] Work Phone: 10-25-2021 07:57-0400 Body weight 102.05 kg [facility] Work Phone: 10-25-2021 07:57-0400 Diastolic blood pressure 85 mm[Hg] [facility] Work Phone: 10-25-2021 07:57-0400 Heart rate 67 /min [facility] Work Phone: 10-25-2021 07:57-0400 Respiratory rate 16 /min [facility] Work Phone: 10-25-2021 07:57-0400 SaO2% (BldA) [Mass fraction] 100 % [facility] Work Phone: 10-25-2021 07:57-0400 Systolic blood pressure 134 mm[Hg] [facility] Work Phone: 10-18-2021 11:10-0400 Body temperature 97.81 [degF] Jerad Shultz APRN.CNP Work Phone: [facility] 10-18-2021 11:10-0400 Body weight 101.42 kg Jerad Shultz [employer].MANAGER OF PATIENT Work Phone: [facility] 10-18-2021 11:10-0400 Diastolic blood pressure 74 mm[Hg] Jerad Renettalebury [employer].MANAGER OF PATIENT Work Phone: [facility] 10-18-2021 11:10-0400 Heart rate 77 /min Jerad Salinasbury [employer].MANAGER OF PATIENT Work Phone: [facility] 10-18-2021 11:10-0400 Respiratory rate 16 /min Jerad Shultz [employer].MANAGER OF PATIENT Work Phone: [facility] 10-18-2021 11:10-0400 SaO2% (BldA) [Mass fraction] 96 % Jerad Shultz [employer].MANAGER OF PATIENT Work Phone: [facility] 10-18-2021 11:10-0400 Systolic blood pressure 106 mm[Hg] Jerad Salinasbury [employer].MANAGER OF PATIENT Work Phone: [facility] 09-06-2021 19:14-0400 Body temperature 98.4 [degF] Cielo Bailey [employer].MANAGER OF PATIENT Work Phone: [facility] 09-06-2021 19:14-0400 Body weight 101.79 kg Cielo Bailey [employer].MANAGER OF PATIENT Work Phone: [facility] 09-06-2021 19:14-0400 Diastolic blood pressure 76 mm[Hg] Cielo Bailey [employer].MANAGER OF PATIENT Work Phone: [facility] 09-06-2021 19:14-0400 Heart rate 81 /min Cielo Bailey [employer].MANAGER OF PATIENT Work Phone: [facility] 09-06-2021 19:14-0400 Respiratory rate 14 /min Cielo Bailey [employer].MANAGER OF PATIENT Work Phone: [facility] 09-06-2021 19:14-0400 SaO2% (BldA) [Mass fraction] 97 % Cielo Bailey [employer].MANAGER OF PATIENT Work Phone: [facility] 09-06-2021 19:14-0400 Systolic blood pressure 120 mm[Hg] Cielo Bailey [employer].MANAGER OF PATIENT Work Phone: [facility] 09-05-2021 12:17-0400 Body temperature 98.71 [degF] Stoney Bullock [employer].MANAGER OF PATIENT Work Phone: [facility] 09-05-2021 12:17-0400 Body weight 101.15 kg Stoney Bullock [employer].MANAGER OF PATIENT Work Phone: [facility] 09-05-2021 12:17-0400 Diastolic blood pressure 72 mm[Hg] Stoney Bullock [employer].MANAGER OF PATIENT Work Phone: [facility] 09-05-2021 12:17-0400 Heart rate 92 /min Stoney Bullock [employer].MANAGER OF PATIENT Work Phone: [facility] 09-05-2021 12:17-0400 Respiratory rate 16 /min Stoney Bullock [employer].MANAGER OF PATIENT Work Phone: [facility] 09-05-2021 12:17-0400 SaO2% (BldA) [Mass fraction] 99 % Stoney Bullock [employer].MANAGER OF PATIENT Work Phone: [facility] 09-05-2021 12:17-0400 Systolic blood pressure 110 mm[Hg] Stoney Bullock [employer].MANAGER OF PATIENT Work Phone: [facility] 07-23-2021 13:40-0400 Body temperature 97.3 [degF] [facility] Work Phone: 07-23-2021 13:40-0400 Diastolic blood pressure 68 mm[Hg] [facility] Work Phone: 07-23-2021 13:40-0400 Heart rate 71 /min [facility] Work Phone: 07-23-2021 13:40-0400 Respiratory rate 16 /min [facility] Work Phone: 07-23-2021 13:40-0400 SaO2% (BldA) [Mass fraction] 100 % [facility] Work Phone: 07-23-2021 13:40-0400 Systolic blood pressure 121 mm[Hg] [facility] Work Phone: 07-23-2021 08:47-0400 Body height 177.8 cm [facility] Work Phone: 07-23-2021 08:47-0400 Body mass index (BMI) [Ratio] 32 kg/m2 [facility] Work Phone: 07-23-2021 08:47-0400 Body weight 101.3 kg [facility] Work Phone: 02-25-2021 20:38-0500 Body temperature 98.6 [degF] DR KIRTI ARORA MD [facility] 02-25-2021 20:38-0500 Diastolic blood pressure 88 mm[Hg] DR KIRTI ARORA MD [facility] 02-25-2021 20:38-0500 Heart rate 80 /min DR KIRTI ARORA MD [facility] 02-25-2021 20:38-0500 Mean blood pressure 100 mm[Hg] DR KIRTI ARORA MD [facility] 02-25-2021 20:38-0500 Respiratory rate 16 /min DR KIRTI ARORA MD [facility] 02-25-2021 20:38-0500 Systolic blood pressure 124 mm[Hg] DR KIRTI ARORA MD [facility] Encounters Encounter Date Encounter Type Care Provider Facility Start: 02-23-2025 End: 02-23-2025 Emergency department patient visit PHYSICIAN KARLA [facility] Start: 02-22-2025 End: 02-22-2025 Emergency department patient visit PHYSICIAN KARLA [facility] Start: 02-19-2025 End: 02-19-2025 Emergency department patient visit FROY GAMEZ [facility] Start: 02-18-2025 End: 02-18-2025 Emergency department patient visit NANCY PALUMBO [facility] Start: 02-08-2025 End: 02-08-2025 Emergency department patient visit BETTIE COTTO ORLY [facility] Start: 01-31-2025 End: 02-01-2025 Emergency department patient visit Eloisa Natalya Cevallos DO Work Phone: [facility] Comment on above: UTI (urinary tract i nfection), bacterial (Primary Dx); STD exposure Start: 01-17-2025 End: 01-17-2025 Emergency department patient visit PHYSICIAN KARLA [facility] Start: 01-15-2025 End: 01-15-2025 Emergency department patient visit PHYSICIAN KARLA [facility] Start: 12-15-2024 End: 12-16-2024 Emergency department patient visit Humphrey Johnson DO Work Phone: [facility] Comment on above: Persistent depressiv e disorder (Primary Dx) Start: 12-07-2024 End: 02-06-2025 Follow-up encounter Inga Marshall RN [facility] Comment on above: HIV 1/2 Screen (4th Generation), Hepatitis C Antibody, RPR, Additional followed-up results: 2 Start: 12-07-2024 End: 12-07-2024 Emergency department patient visit PHYSICIAN KARLA [facility] Start: 12-06-2024 End: 12-06-2024 ambulatory PROVIDER NOT IN SYSTEM [facility] Start: 11-30-2024 End: 12-01-2024 Emergency department patient visit PHYSICIAN KARLA [facility] Start: 11-30-2024 End: 12-01-2024 Encounter for general adult medical examination without abnormal findings RAQUEL DOSS [facility] Start: 11-24-2024 End: 11-25-2024 Emergency department patient visit Kevin Hernandez DO Work Phone: [facility] Comment on above: Sprain of metacarpop halangeal (MCP) joint of left thumb, initial encounter (Primary Dx); Contusion of right shoulder, initial encounter Start: 08-19-2024 End: 08-19-2024 Emergency department patient visit No Generic Provider [facility] Comment on above: Nausea and vomiting, unspecified vomiting type (Primary Dx) Start: 06-20-2024 End: 06-20-2024 Emergency department patient visit NO ASSIGNED PCP GENERIC PROVIDER [facility] Start: 05-02-2024 End: 05-02-2024 Emergency department patient visit ANNEL LARKIN MD [facility] Start: 04-29-2024 End: 04-29-2024 Emergency department patient visit DR JOE MARTINEZ MD [facility] Start: 02-14-2024 End: 02-15-2024 Telephone encounter Jerad Shultz APRN.MANAGER OF PATIENT Work Phone: [facility] Comment on above: Results Start: 02-13-2024 End: 02-13-2024 ambulatory [facility] Facility:[facility] Start: 02-13-2024 End: 02-13-2024 Office outpatient visit 15 minutes Jerad Shultz APRN.MANAGER OF PATIENT Work Phone: [facility] Comment on above: Screening for STD (s exually transmitted disease) (Primary Dx) Start: 02-03-2024 End: 02-04-2024 Emergency department patient visit No Primary Care Physician Facility:[facility] Start: 01-25-2024 End: 01-25-2024 Emergency department patient visit No Primary Care Physician Facility:[facility] Start: 12-11-2023 End: 05-02-2024 Telephone encounter Nuris PAULINO Work Phone: [facility] Comment on above: Results Start: 12-11-2023 End: 12-11-2023 [facility] Facility:[facility] Start: 12-11-2023 End: 12-11-2023 Patient encounter procedure Nuris PAULINO Work Phone: [facility] Comment on above: Bacterial sinusitis (Primary Dx) Start: 12-10-2023 End: 12-10-2023 [facility] Facility:[facility] Start: 12-10-2023 End: 12-10-2023 Office outpatient visit 25 minutes Stepan Layne MD Work Phone: [facility] Comment on above: URI, acute (Primary Dx) Start: 11-11-2023 End: 11-11-2023 [facility] Facility:[facility] Start: 11-11-2023 End: 11-11-2023 Patient encounter procedure Nuris PAULINO Work Phone: [facility] Comment on above: Sore throat (Primary Dx); URI, acute Start: 10-24-2023 End: 10-25-2023 Emergency department patient visit No Primary Care Physician Facility:[facility] Start: 07-02-2023 Telephone encounter [facility] Work Phone: [facility] Comment on above: Patient Question; an tibiotic Start: 06-25-2023 Telephone encounter Cielo aquino [employer].MANAGER OF PATIENT Work Phone: [facility] Comment on above: Results Start: 06-24-2023 End: 06-24-2023 [facility] Facility:[facility] Start: 06-24-2023 End: 06-24-2023 Patient encounter procedure Stoney Bullock [employer].MANAGER OF PATIENT Work Phone: [facility] Comment on above: Possible exposure to STD (Primary Dx) Start: 03-26-2023 Telephone encounter Cielo aquino [employer].MANAGER OF PATIENT Work Phone: [facility] Comment on above: Results Start: 03-25-2023 End: 03-25-2023 Patient encounter procedure Stoney Bullock [employer].MANAGER OF PATIENT Work Phone: [facility] Comment on above: Possible exposure to STD (Primary Dx); Skin infection; Visit for suture removal Start: 03-12-2023 End: 03-12-2023 Emergency department patient visit [facility] Work Phone: Start: 02-03-2023 End: 02-03-2023 Office outpatient visit 15 minutes Johana Dela Cruz PA-C Work Phone: [facility] Comment on above: Right-sided low back pain without sciatica, unspecified chronicity (Primary Dx) Start: 11-29-2022 End: 11-29-2022 Emergency department patient visit CARMELITA DANIELLE MD [facility] Start: 11-07-2022 Telephone encounter No Pcp [employer] Int [facility] Comment on above: Patient Question Start: 09-16-2022 End: 09-16-2022 Emergency department patient visit DR DODIE JOHNSON MD Facility:[facility] Start: 09-16-2022 End: 09-16-2022 Emergency department patient visit MARSHA SHANKS DO [facility] Start: 09-13-2022 End: 09-13-2022 Patient encounter procedure Cielo Bailey [employer].MANAGER OF PATIENT Work Phone: [facility] Comment on above: Acute pain of both k nees (Primary Dx) Start: 07-04-2022 ambulatory Crissy clinton RN [facility] [employer] [employer] Comment on above: Results, Lab Start: 07-03-2022 End: 07-03-2022 Office outpatient visit 15 minutes Jerad Shultz [employer].MANAGER OF PATIENT Work Phone: [facility] Comment on above: Burning with urinati on (Primary Dx); Screening for STD (sexually transmitted disease) Start: 03-27-2022 End: 03-27-2022 Patient encounter procedure Rosaura Hatch [employer].MANAGER OF PATIENT Work Phone: [facility] Comment on above: URI, acute (Primary Dx) Start: 02-12-2022 Telephone encounter Stoney cifuentes [employer].MANAGER OF PATIENT Work Phone: [facility] Comment on above: Results Start: 12-25-2021 Telephone encounter Arabella Tran APRN.MANAGER OF PATIENT Work Phone: [facility] Comment on above: Results Start: 12-12-2021 Telephone encounter Stoney icfuentes [employer].MANAGER OF PATIENT Work Phone: [facility] Comment on above: Results Start: 12-11-2021 End: 12-11-2021 Patient encounter procedure Cielo Bailey [employer].MANAGER OF PATIENT Work Phone: [facility] Comment on above: Exposure to COVID-19 virus (Primary Dx) Start: 12-08-2021 End: 12-08-2021 [facility] Start: 12-05-2021 End: 12-05-2021 [facility] Start: 11-20-2021 End: 11-20-2021 [facility] Start: 10-25-2021 End: 10-25-2021 [facility] Start: 10-18-2021 End: 10-18-2021 Patient encounter procedure Jerad Shultz [employer].MANAGER OF PATIENT Work Phone: [facility] Comment on above: Pharyngitis, unspeci fied etiology (Primary Dx); Viral illness Start: 09-07-2021 Telephone encounter Arabella Tran APRN.MANAGER OF PATIENT Work Phone: [facility] Comment on above: Results Start: 09-06-2021 End: 09-06-2021 Patient encounter procedure Cielo Bailey [employer].MANAGER OF PATIENT Work Phone: [facility] Comment on above: Pharyngitis, unspeci fied etiology (Primary Dx); Exposure to COVID-19 virus; URI, acute Start: 09-06-2021 Telephone encounter Stepan Burton MD Work Phone: [facility] Comment on above: Results Start: 09-05-2021 End: 09-05-2021 Patient encounter procedure Stoney Bullock APRN.MANAGER OF PATIENT Work Phone: [facility] Comment on above: Close exposure to [place] VID-19 virus (Primary Dx); Viral syndrome Start: 07-23-2021 End: 07-23-2021 Admission to same day surgery [facility] Start: 05-15-2021 End: 05-15-2021 Subsequent hospital visit by physician Xr [facility] Work Phone: Radiology Comment on above: Generalized abdomina l pain [R10.84] Start: 02-25-2021 End: 02-25-2021 Emergency department patient visit DR KIRTI ARORA MD [facility] Start: 04-05-2020 End: 04-05-2020 Patient encounter procedure [facility] Start: 11-12-2019 End: 11-12-2019 Patient encounter procedure [facility] Procedures Date Procedure Procedure Detail Performing Clinician Start: 01-31-2025 Urinalysis microscop ic panel - Urine Qualitative by Automated Eloisa Cevallos DO Work Phone: Start: 01-31-2025 Urnls dip stick/tabl et reagent auto microscopy Eloisa Cevallos DO Work Phone: Start: 12-15-2024 Drug tst prsmv instr mnt chem analyzers pr date Humphrey Earle Alejandro DO Work Phone: Start: 12-15-2024 ACUTE TOXICOLOGY CHAPARRO EL, BLOOD Humphrey Johnson DO Work Phone: Start: 12-15-2024 Comprehensive metabo lic panel Humphrey Johnson DO Work Phone: Start: 11-24-2024 Radex shoulder compl ete minimum 2 views Kevin Hernandez DO Work Phone: Start: 11-11-2023 STREP A MOLECULAR (POC) Nuris PAULINO Work Phone: Start: 02-03-2023 Urnls dip stick/tabl et rgnt auto w/o microscopy Stepan Layne MD Work Phone: Start: 07-03-2022 Urnls dip stick/tabl et rgnt auto w/o microscopy Stoney Bullock [employer].MANAGER OF PATIENT Work Phone: Start: 12-05-2021 Plain x-ray of hand Start: 11-20-2021 Plain X-ray of shoulder Start: 10-25-2021 X-ray of both feet Start: 10-18-2021 STREP A MOLECULAR (POC) Jerad Shultz [employer].MANAGER OF PATIENT Work Phone: Start: 09-06-2021 STREP A MOLECULAR (POC) Cielo Bailey [employer].MANAGER OF PATIENT Work Phone: Start: 07-23-2021 End: 07-23-2021 Viral antigen assay Start: 07-23-2021 Arthroscopy of knee Start: 05-15-2021 Radiologic exam abdo men 1 view Cielo Bailey [employer].MANAGER OF PATIENT Work Phone: Arthroscopy of knee MARSHA SHANKS DO Comment on above: left mcl H/O: surgery S/P foot surgery , left None (qualifier value) [facility]ITAL[facility]itt[facility] DO Open reduction of fracture with internal fixation CARMELITA DANIELLE MD Comment on above: metatarsal Viral antigen assay Plan of Treatment Date Care Activity Detail Author Start: 2073 RSV Vaccines (1 - 1- dose 75+ series) RSV Vaccines (1 - 1-dose 75+ series) [facility] Start: 2048 Administration of he rpes zoster vaccine Zoster Vaccines (1 of 2) [facility] Start: 2048 Zoster Vaccines (1 of 2) Zoster Vacc ge (1 of 2) [facility] Start: 10-26-2031 DTaP/Tdap/Td Vaccine s (7 - Td or Tdap) DTaP/Tdap/Td Vaccines (7 - Td or Tdap) [facility] Start: 10-26-2031 DTaP/Tdap/Td Vaccine s (8 - Td or Tdap) DTaP/Tdap/Td Vaccines (8 - Td or Tdap) [facility] Start: 10-26-2031 Urine microalbumin profile DTaP,Tdap,Td Vaccine (8 - Td or Tdap) [facility] Start: 10-26-2031 Vaccination for diphtheria, pertussis, and tetanus Tetanus/Diphtheria/Pertu ssis (6 - Td or Tdap) [facility] Start: 12-13-2024 COVID-19 Vaccine ( season) COVID-19 Vaccine ( season) [facility] Start: 12-13-2024 COVID-19 Vaccine () COVID-19 Vaccine () [facility] Start: 12-13-2024 Influenza vaccination [facility] Start: 11-12-2024 Influenza vaccination Influenza Vacc ine (#1) [facility] Start: 02-13-2024 End: 05-14-2024 Chlamydia trachomatis+Neisseria gonorrhoeae DNA [Presence] in Unspecified specimen by ISREAL with probe detection GONORRHEA/CHLAMYDIA NAAT Lab Routine Screening for STD (sexually transmitted disease) Expected: 02/13/2024, Expires: 05/14/2024 [facility] Comment on above: Expected: 02/13/2024 , Expires: 05/14/2024 Start: 02-13-2024 End: 05-14-2024 Hepatitis B virus surface Ag [Presence] in Serum [facility] Comment on above: Expected: 02/13/2024 , Expires: 05/14/2024 Start: 02-13-2024 End: 05-14-2024 Hepatitis C virus Ab [Presence] in Serum [facility] Comment on above: Expected: 02/13/2024 , Expires: 05/14/2024 Start: 02-13-2024 End: 05-14-2024 HIV 1+2 Ab [Presence] in Serum or Plasma by Immunoassay [facility] Comment on above: Expected: 02/13/2024 , Expires: 05/14/2024 Start: 02-13-2024 End: 05-14-2024 SYPHILIS TREPONEMAL W/REFLEX [facility] Work Phone: Comment on above: Expected: 02/13/2024 , Expires: 05/14/2024 Start: 12-14-2023 Covid-19 Vaccine ( season) Covid-19 Vaccine () [facility] Start: 12-14-2023 Influenza vaccination Influenza Vacc ine (#1) [facility] Start: 12-10-2023 End: 12-24-2023 COVID & INFLUENZA A/B & RSV PCR, ROUTINE COVID & INFLUENZA A/B & RSV PCR, ROUTINE Microbiology Routine URI, acute Expected: 12/10/2023, Expires: 12/24/2023 [facility] Work Phone: Comment on above: Expected: 12/10/2023 , Expires: 12/24/2023 Start: 04-14-2023 Depression Assessment Depression Ass essment [facility] Start: 03-25-2023 End: 06-24-2023 Chlamydia trachomatis+Neisseria gonorrhoeae DNA [Presence] in Unspecified specimen by ISREAL with probe detection [facility] Work Phone: Comment on above: Expected: 03/25/2023 , Expires: 06/24/2023 Start: 03-25-2023 End: 06-24-2023 Hepatitis B virus surface Ag [Presence] in Serum [facility] Work Phone: Comment on above: Expected: 03/25/2023 , Expires: 06/24/2023 Start: 03-25-2023 End: 06-24-2023 Hepatitis C virus Ab [Presence] in Serum [facility] Work Phone: Comment on above: Expected: 03/25/2023 , Expires: 06/24/2023 Start: 03-25-2023 End: 06-24-2023 HIV 1+2 Ab [Presence] in Serum or Plasma by Immunoassay [facility] Work Phone: Comment on above: Expected: 03/25/2023 , Expires: 06/24/2023 Start: 03-25-2023 End: 06-24-2023 SYPHILIS TOTAL W/REFLEX [facility] Work Phone: Comment on above: Expected: 03/25/2023 , Expires: 06/24/2023 Start: 03-12-2023 [facility] Start: 02-03-2023 End: 05-05-2023 CBC W Auto Differential panel - Blood CBC + DIFF Lab Routine Right-sided low back pain without sciatica, unspecified chronicity Expected: 02/03/2023, Expires: 05/05/2023 [facility] Work Phone: Comment on above: Expected: 02/03/2023 , Expires: 05/05/2023 Start: 02-03-2023 End: 05-05-2023 Comprehensive metabolic 2000 panel - Serum or Plasma COMP METABOLIC PANEL Lab Routine Right-sided low back pain without sciatica, unspecified chronicity Expected: 02/03/2023, Expires: 05/05/2023 [facility] Work Phone: Comment on above: Expected: 02/03/2023 , Expires: 05/05/2023 Start: 12-13-2022 Covid-19 Vaccine () Covid-19 Vaccine () [facility] Start: 12-13-2022 Influenza vaccination [facility] Start: 07-03-2022 End: 09-02-2022 Hepatitis B virus surface Ag [Presence] in Serum HEP B SURF AG SCRN Lab Routine Burning with urination Screening for STD (sexually transmitted disease) Expected: 07/03/2022, Expires: 09/02/2022 [facility] Work Phone: Comment on above: Expected: 07/03/2022 , Expires: 09/02/2022 Start: 07-03-2022 End: 09-02-2022 Hepatitis C virus Ab [Presence] in Serum HEP C AB IA W/CONF SCRN Lab Routine Burning with urination Screening for STD (sexually transmitted disease) Expected: 07/03/2022, Expires: 09/02/2022 [facility] Work Phone: Comment on above: Expected: 07/03/2022 , Expires: 09/02/2022 Start: 07-03-2022 End: 09-02-2022 HIV 1+2 Ab [Presence] in Serum or Plasma by Immunoassay HIV 1 2 COMBO(AG/AB),WITH REFLEX TO DIFFERENTIATION Lab Routine Burning with urination Screening for STD (sexually transmitted disease) Expected: 07/03/2022, Expires: 09/02/2022 [facility] Work Phone: Comment on above: Expected: 07/03/2022 , Expires: 09/02/2022 Start: 07-03-2022 End: 09-02-2022 SYPHILIS TOTAL W/REFLEX SYPHILIS TOTAL W/REFLEX Lab Routine Burning with urination Screening for STD (sexually transmitted disease) Expected: 07/03/2022, Expires: 09/02/2022 [facility] Work Phone: Comment on above: Expected: 07/03/2022 , Expires: 09/02/2022 Start: 04-14-2022 [facility]MENT [facility] Start: 12-13-2021 Influenza vaccination [facility] Start: 12-11-2021 End: 12-25-2021 Influenza virus A and B RNA and SARS-CoV-2 (COVID-19) N gene panel - Respiratory specimen by ISREAL with probe detection COVID WITH FLUA+B, ROUTINE Microbiology Routine Exposure to COVID-19 virus Expected: 12/11/2021, Expires: 12/25/2021 [facility] Work Phone: Comment on above: Expected: 12/11/2021 , Expires: 12/25/2021 Start: 10-25-2021 X-ray of both feet Foot min 3 Views [facility] Work Phone: Start: 10-25-2021 XR Foot GE 3 Views [facility] Work Phone: Start: 09-06-2021 End: 09-20-2021 Influenza virus A and B RNA and SARS-CoV-2 (COVID-19) N gene panel - Respiratory specimen by ISREAL with probe detection COVID WITH FLUA+B, ROUTINE Microbiology Routine Pharyngitis, unspecified etiology Expected: 09/06/2021, Expires: 09/20/2021 [facility] Work Phone: Comment on above: Expected: 09/06/2021 , Expires: 09/20/2021 Start: 07-23-2021 Anes open/surg arthroscopic proc knee joint nos ANESTH KNEE JOINT SURGERY [facility] Work Phone: Start: 07-23-2021 Arthrs kne surg w/meniscectomy med/lat w/shvg KNEE ARTHROSCOPY/SURGERY [facility] Work Phone: Start: 07-23-2021 Patient discharge [facility] Work Phone: Start: 07-23-2021 Application of ice collar, cap or bag [facility] Work Phone: Start: 07-23-2021 Application of intermittent pneumatic compression device [facility] Work Phone: Start: 07-23-2021 Catheterization of vein [facility] Work Phone: Start: 07-23-2021 Elevation of affecte d extremity [facility] Work Phone: Start: 07-23-2021 Following clinical pathway protocol [facility] Work Phone: Start: 07-23-2021 Medical regimen orde rs management [facility] Work Phone: Start: 07-23-2021 Procedure discontinued [facility] Work Phone: Start: 07-23-2021 Provision of activit y privileges [facility] Work Phone: Start: 07-23-2021 Taking patient vital signs [facility] Work Phone: Start: 07-23-2021 Vital signs measurements [facility] Work Phone: Start: 07-23-2021 Wound care [facility] Work Phone: Start: 07-23-2021 [facility] Work Phone: Start: 07-23-2021 Medication education [facility] Work Phone: Start: 04-14-2021 DEPRESSION ASSESSMENT DEPRESSION ASS ESSMENT [facility] Start: 2017 Pneumococcal Vaccine : Pediatrics and At-Risk Adult Patients (1 of 2 - PCV) Pneumococcal Vaccine: Pediatrics and At-Risk Adult Patients (1 of 2 - PCV) [facility] Start: 2016 Anxiety Screening Anxiety Screening [facility] Start: 2016 Depression Screening Depression Scre ening [facility] Start: 2016 HEPATITIS C SCREENING HEPATITIS C [facility] Start: 2016 Hepatitis C screening Hepatitis C [facility] Start: 2016 HIV SCREENING HIV SCREENING [facility] Start: 2016 HIV screening HIV Screening [facility] Start: 11-19-2014 Yearly Adult Physical Yearly Adult P hysical [facility] Start: 2014 Meningococcal B Vacc ine: Consider Based On Risk (1 of 2 - Patient Seeks Protection) Meningococcal B Vaccine: Consider Based On Risk (1 of 2 - Patient Seeks Protection) [facility] Start: 2014 MENINGOCOCCAL B: Con primer assembler based on risk (1 of 2 - Patient Seeks Protection) MENINGOCOCCAL B: Consider based on risk (1 of 2 - Patient Seeks Protection) [facility] Start: 2013 HPV Vaccine (1 - Mal e 3-dose series) HPV Vaccine (1 - Male 3-dose series) [facility] Start: 2013 HPV Vaccines (1 - Ma le 3-dose series) HPV Vaccines (1 - Male 3-dose series) [facility] Start: 2012 PEDS TO ADULT TRANSI TION ANNUAL ASSESSMENT PEDS TO ADULT TRANSITION ANNUAL ASSESSMENT [facility] Start: 2010 Adult depression screening assessment [facility] Start: 2010 PEDS TO ADULT TRANSI TION INITIAL DISCUSSION PEDS TO ADULT TRANSITION INITIAL DISCUSSION [facility] Start: 2009 HPV VACCINE (1 - Mal e 2-dose series) HPV VACCINE (1 - Male 2-dose series) [facility] Start: 2009 Urine microalbumin profile DTAP,TDAP,TD (5 - Tdap) [facility] Start: 2008 MENINGOCOCCAL B: Con primer assembler based on risk (1 of 2 - Risk Bexsero 2-dose series) MENINGOCOCCAL B: Consider based on risk (1 of 2 - Risk Bexsero 2-dose series) [facility] Start: 11-06-2007 HPV VACCINE (1 - Mal e 2-dose series) HPV VACCINE (1 - Male 2-dose series) [facility] Start: 11-06-2003 COVID-19 VACCINE (#1) COVID-19 VACCI NE (#1) [facility] Start: 2001 History and physical examination, annual for health maintenance Wellness Visit [facility] Start: 07-25-2000 HEPATITIS B (4 of 4 - 4-dose series) HEPATITIS B (4 of 4 - 4-dose series) [facility] Start: 07-25-2000 Hepatitis B vaccination Hepati tis B Vaccines (4 of 4 - 4-dose series) [facility] Start: 07-25-2000 Hepatitis B Vaccines (4 of 4 - 4-dose series) Hepatitis B Vaccines (4 of 4 - 4-dose series) [facility] Start: 05-08-1999 COVID-19 VACCINE (#1) COVID-19 VACCI NE (#1) [facility] Start: 1998 HIV screening HIV Screening [facility] Start: 1998 Lipid panel Lipid Panel [facility] Start: 1998 Yearly Adult Physical Yearly Adult P hysical [facility] Bacteria identified in Urine by Culture URINE CULTURE Microbiology Routine Burning with urination Ordered: 07/03/2022 [facility] Work Phone: Comment on above: Ordered: 07/03/2022 Bacteria identified in Urine by Culture URINE CULTURE Microbiology Routine Right-sided low back pain without sciatica, unspecified chronicity 02/03/2023 2:47 PM EDT [facility] Work Phone: End: 01-31-2025 Bacteria identified in Urine by Culture [facility] Work Phone: Comment on above: Once (Lab) for 1 Occ urrences starting 01/31/2025 until 01/31/2025 End: 01-31-2025 Chlamydia trachomatis and Neisseria gonorrhoeae DNA [Identifier] in Unspecified specimen by ISREAL with probe detection [facility] Work Phone: Comment on above: Once (Lab) for 1 Occ urrences starting 01/31/2025 until 01/31/2025 Chlamydia trachomatis+Neisseria gonorrhoeae DNA [Presence] in Unspecified specimen by ISREAL with probe detection GONORRHEA/CHLAMYDIA NAAT Lab Routine Possible exposure to STD 06/24/2023 1:22 PM EDT [facility] Work Phone: Chlamydia trachomatis+Neisseria gonorrhoeae DNA [Presence] in Urine by ISREAL with probe detection GC/CHLAMYDIA AMPLIF, URINE Microbiology Routine Burning with urination Screening for STD (sexually transmitted disease) Ordered: 07/03/2022 [facility] Work Phone: Comment on above: Ordered: 07/03/2022 End: 12-15-2024 Electrocardiogram, 12-lead Electrocardiogram, 12-lead ECG STAT Once for 1 Occurrences starting 12/15/2024 until 12/15/2024 [facility] Work Phone: Comment on above: Once for 1 Occurrenc es starting 12/15/2024 until 12/15/2024 End: 01-31-2025 Extra Urine [employer] [facility] Work Phone: Comment on above: Once for 1 Occurrenc es starting 01/31/2025 until 01/31/2025 Influenza virus A an d B RNA and SARS-CoV-2 (COVID-19) N gene panel - Respiratory specimen by ISREAL with probe detection COVID WITH FLUA+B, ROUTINE Microbiology Routine Viral illness 10/18/2021 11:20 AM EDT [facility] Work Phone: Influenza virus A an d B RNA and SARS-CoV-2 (COVID-19) N gene panel - Respiratory specimen by ISREAL with probe detection COVID WITH FLUA+B, ROUTINE Microbiology Routine URI, acute Ordered: 03/27/2022 [facility] Work Phone: Comment on above: Ordered: 03/27/2022 Patient Education [facility] Work Phone: Patient referral [facility] Work Phone: SARS-CoV-2 (COVID-19 ) RNA [Presence] in Respiratory specimen by ISREAL with probe detection 2019 CORONAVIRUS Microbiology Routine Close exposure to COVID-19 virus Viral syndrome Ordered: 09/05/2021 [facility] Work Phone: Comment on above: Ordered: 09/05/2021 TRICHOMONAS VAGINALI S NAAT TRICHOMONAS VAGINALIS NAAT Lab Routine Possible exposure to STD 06/24/2023 1:22 PM EDT [facility] Work Phone: End: 01-31-2025 Urinalysis complete W Reflex Culture panel - Urine [facility] Work Phone: Comment on above: Once (Lab) for 1 Occ urrences starting 01/31/2025 until 01/31/2025 End: 03-04-2024 US KIDNEY/BLADDER US KIDNEY/BLADDER Radiology Routine Right-sided low back pain without sciatica, unspecified chronicity 1 Occurrences starting 02/03/2023 until 03/04/2024 [facility] Work Phone: Comment on above: 1 Occurrences starti ng 02/03/2023 until 03/04/2024 End: 10-13-2023 XR KNEE GENERAL 4V AP BOTH/PA BOTH/LAT/MERC BILATERAL XR KNEE GENERAL 4V AP BOTH/PA BOTH/LAT/MERC BILATERAL Radiology STAT Acute pain of both knees 1 Occurrences starting 09/13/2022 until 10/13/2023 [facility] Work Phone: Comment on above: 1 Occurrences starti ng 09/13/2022 until 10/13/2023 [facility] Immunizations Immunization Date Immunization Notes Care Provider Fa cility 10-25-2021 tetanus toxoid, reduced diphtheria toxoid, and acellular pertussis vaccine, adsorbed [facility] 05-11-2020 influenza, injectable,quadrivalen t, preservative free, pediatric [facility] 05-11-2020 influenza virus vaccine, unspecified formulation Johana Dela Cruz PA-C Work Phone: [facility] 12-24-2006 measles, mumps and rubella virus vaccine Stoney Bullock [employer].MANAGER OF PATIENT Work Phone: [facility] Work Phone: 12-24-2006 poliovirus vaccine, inactivated Stoney Bullock [employer].MANAGER OF PATIENT Work Phone: [facility] Work Phone: 12-24-2006 tetanus and diphther ia toxoids, adsorbed, preservative free, for adult use (2 Lf of tetanus toxoid and 2 Lf of diphtheria toxoid) Stoney Bullock [employer].MANAGER OF PATIENT Work Phone: [facility] Work Phone: 12-24-2006 varicella virus vaccine Stoney Bullock [employer] Work Phone: [facility] Work Phone: 12-14-2002 pneumococcal conjuga te vaccine, 7 valent Stoney Bullock [employer] Work Phone: [facility] Work Phone: 12-16-2001 haemophilus influenz ae type b vaccine, HbOC conjugate Stoney Bullock [employer].MANAGER OF PATIENT Work Phone: [facility] Work Phone: 11-11-2000 diphtheria, tetanus toxoids and acellular pertussis vaccine Stoney Bullock [employer].MANAGER OF PATIENT Work Phone: [facility] Work Phone: 09-15-2000 diphtheria, tetanus toxoids and acellular pertussis vaccine Stoney Bullock [employer].MANAGER OF PATIENT Work Phone: [facility] Work Phone: 09-15-2000 haemophilus influenz ae type b vaccine, HbOC conjugate Stoney Bullock [employer].MANAGER OF PATIENT Work Phone: [facility] Work Phone: 09-15-2000 pneumococcal conjuga te vaccine, 7 valent Stoney Bullock [employer].MANAGER OF PATIENT Work Phone: [facility] Work Phone: 09-15-2000 poliovirus vaccine, inactivated Stoney Bullock [employer].MANAGER OF PATIENT Work Phone: [facility] Work Phone: 07-21-2000 diphtheria, tetanus toxoids and acellular pertussis vaccine Stoney Kobe [employer].MANAGER OF PATIENT Work Phone: [facility] Work Phone: 07-17-2000 haemophilus influenz ae type b vaccine, HbOC conjugate Stoney Bullock [employer].MANAGER OF PATIENT Work Phone: [facility] Work Phone: 07-17-2000 hepatitis B vaccine, pediatric or pediatric/adolescent dosage Stoney King [employer].MANAGER OF PATIENT Work Phone: [facility] Work Phone: 07-17-2000 pneumococcal conjuga te vaccine, 7 valent Stoney Bullock [employer] Work Phone: [facility] Work Phone: 07-17-2000 poliovirus vaccine, inactivated Stoney Bullock [employer].MANAGER OF PATIENT Work Phone: [facility] Work Phone: 07-17-2000 hepatitis B vaccine, unspecified formulation Cielo Bailey [employer] Work Phone: [facility] 05-30-2000 diphtheria, tetanus toxoids and acellular pertussis vaccine Stoney Bullock [employer].MANAGER OF PATIENT Work Phone: [facility] Work Phone: 05-30-2000 haemophilus influenz ae type b vaccine, HbOC conjugate Stoney Bullock [employer].MANAGER OF PATIENT Work Phone: [facility] Work Phone: 05-30-2000 hepatitis B vaccine, pediatric or pediatric/adolescent dosage Stoney King [employer].MANAGER OF PATIENT Work Phone: [facility] Work Phone: 05-30-2000 poliovirus vaccine, inactivated Stoney Kobe [employer].MANAGER OF PATIENT Work Phone: [facility] Work Phone: 03-10-2000 measles, mumps and rubella virus vaccine Stoney Kobe [employer].MANAGER OF PATIENT Work Phone: [facility] Work Phone: 03-10-2000 varicella virus vaccine Stoney Bullock [employer].MANAGER OF PATIENT Work Phone: [facility] Work Phone: 1998 hepatitis B vaccine, pediatric or pediatric/adolescent dosage Stoney Bullock [employer].MANAGER OF PATIENT Work Phone: [facility] Work Phone: Payers Date Payer Category Payer Self-pay [id number] 2021 Unknown [id number] 2020 Medicaid (Managed Care) 1.2. [id number] 2014 Medicaid [place] [employer] [place] [employer] [id number] 2014-Present [phone] [place] [id number] Medicaid [id number] 2014 Medicaid [id number] 2002 Unknown [id number] 1998 Unknown [id number] [id number] 1998 Unknown [id number] 2.16.840.1.657857.3.579.2.6 1998 Unknown [id number] 2.16.840.1.646830.3.579.2.6 1998 Unknown [id number] 2.16.840.1.220628.3.579.2.9 00 1998 Unknown [id number] 2.16.840.1.508305.3.579.2.1 243 1998 Unknown [id number] 2.16.840.1.197212.3.579.2.1 243 1998 Unknown [id number] 2.16.840.1.108628.3.579.2.1 243 1998 Unknown [id number] 2.16.840.1.291029.3.579.2.1 243 1998 Unknown [id number] 2.16.840.1.974923.3.579.2.1 243 1998 Unknown [id number] 2.16.840.1.967679.3.579.2.9 02 1998 Unknown [id number] 2.16.840.1.449344.3.579.2.9 02 1998 Unknown [id number] 2.16.840.1.940775.3.579.2.9 02 1998 Unknown [id number] 2.16.840.1.888878.3.579.2.9 02 1998 Unknown [id number] 2.16.840.1.328320.3.579.2.9 02 1998 Unknown [id number] 2.16.840.1.120976.3.579.2.9 02 1998 Unknown [id number] 2.16.840.1.631408.3.579.2.9 02 1998 Unknown [id number] 2.16.840.1.871897.3.579.2.9 02 1998 Unknown [id number] 2.16.840.1.294281.3.579.2.9 02 Unknown [id number] 2.16.840.1.182137.3.579.2.4 62 Unknown [id number] 2.16.840.1.040374.3.579.2.4 62 Unknown [id number] 2.16.840.1.171383.3.579.2.4 62 Unknown [id number] 2.16.840.1.904647.3.579.2.4 62 Social History Date Type Detail Facility Start: 12-11-2021 End: 11-30-2024 Never smoked tobacco (finding) [facility] Assigned At [facility] Start: 07-16-2021 End: 03-12-2023 Tobacco smoking status NHIS Unknown if ever smoked [facility] Start: 07-17-2020 None [facility] Start: 07-08-2020 With Family [facility] Start: 06-23-2019 Non-smoker [facility] Start: 1998 Sex Assigned At Male [facility] Start: 09-05-2021 End: 12-11-2023 Alcohol intake Current non-drinker of alcohol (finding) [facility] Start: 1998 Sex Assigned At Not on file [facility] Start: 04-15-2021 End: 08-19-2024 Exposure to SARS-CoV-2 (event) Not sure [facility] Work Phone: History of tobacco use Passive smoker [facility] Work Phone: Start: 12-11-2021 End: 11-30-2024 Tobacco use and exposure Smokeless tobacco non-user [facility] Work Phone: Start: 12-11-2021 Tobacco Comment mom smokes outside of home [facility] Start: 12-01-2021 End: 12-11-2021 Exposure to SARS-CoV-2 (event) Yes [facility] Work Phone: Start: 09-13-2022 Tobacco use and exposure User of smokeless tobacco [facility] Start: 09-13-2022 Tobacco Comment mom smokes outside of home, vape [facility] Tobacco Nicotine Use: Va ping Product in Last 90 Days. Type: Electronic Cigarettes (Vaping). [facility] Start: 09-13-2022 End: 01-15-2025 History of Social function [facility] Start: 09-13-2022 End: 01-15-2025 Tobacco use panel [facility] Start: 03-09-2022 National Score (1-100), lower number is lower risk 80 [facility] Start: 12-13-2014 End: 03-09-2022 Sex Male (finding) [facility] Start: 08-19-2024 End: 01-31-2025 Alcoholic beverage intake Ex-drinker (finding) [facility] Work Phone: Start: 12-01-2024 Gender identity Identifies as male gender (finding) [facility] Start: 12-01-2024 Sexual orientation Heterosexual (finding) [facility] Medical Equipment Procedure Code Equipment Code Equipment Origin al Text Equipment Identifier Dates ORIF, fracture, metatarsal bone CANULATED JFX SCREW FDA Start: 06-24-2019 ORIF, fracture, metatarsal bone CANULATED JFX SCREW FDA Start: 06-24-2019 ORIF, fracture, metatarsal bone CANULATED JFX SCREW FDA Start: 06-24-2019 ORIF, fracture, metatarsal bone CANULATED JFX SCREW FDA Start: 06-24-2019 ORIF, fracture, metatarsal bone CANULATED JFX SCREW FDA Start: 06-24-2019 ORIF, fracture, metatarsal bone CANULATED JFX SCREW FDA Start: 06-24-2019 Goals Date Patient Goal Desired Activity /State Functional Status Date Assessment Result Facility 01-31-2025 [facility] Work Phone: 01-31-2025 Functional status [facility] Work Phone: 01-31-2025 Berger - suicide severity rating scale screener - recent [C-SSRS] [facility] Work Phone: 12-15-2024 Berger - suicide severity rating scale screener - recent [C-SSRS] [facility] Work Phone: 11-24-2024 Berger - suicide severity rating scale screener - recent [C-SSRS] [facility] Work Phone: 08-19-2024 Berger - suicide severity rating scale screener - recent [C-SSRS] [facility] Work Phone: 05-02-2024 Functional Status Independent Emily Casanova [facility] 05-02-2024 Functional Status Standard Safet y ID band on, Call device within reach, Bed in low position, Wheels locked, Bedside Cart Locked, Safety level maintained [facility] 04-29-2024 Functional Status ID band on, Allergy Band on, Call device within reach, Bed in low position, Wheels locked, personal items within reach, Bedside Cart Locked [facility] 11-29-2022 Functional Status ID band on, Allergy Band on, Call device within reach, Bed in low position, Wheels locked [facility] 09-16-2022 Functional Status Up ad rahat Emily [facility] 09-16-2022 Functional Status Standard Safet y Visitor at bedside [facility] 09-16-2022 Functional Status Emily Casanova [facility] 07-23-2021 Functional status Ambulates [facility] Work Phone: Mental Status Date Assessment Result Facility 05-02-2024 Mental Status Orientation Oriented x 4 [facility] 05-02-2024 Mental Status [facility] 04-29-2024 Mental Status Oriented x 4 [facility] 11-29-2022 Mental Status Oriented x 4 [facility] 09-16-2022 Mental Status Orientation Oriented x 4 [facility] 09-16-2022 Mental Status [facility] 12-08-2021 Cognitive function Level Of Cons ciousness Awake;Alert;Appropriate;Follow s Commands [facility] Work Phone: 07-23-2021 Cognitive function Touch/Shaking [facility] Work Phone: Clinical Notes 02-25-2021 to 01-31-2025 Eloisa Cevallos DO - 01/31/2025 11:40 PM EDIraida Hoang Cevallos, DO - 01/31/2025 11:40 PM EDBLANCAmayte Johnson, DO - 12/15/2024 9:58 PM EDAmador Johnson, DO - 12/15/2024 9:58 PM EDTPatient Instructions Note Date & Type Note Facility 01-31-2025 Physician Emergency department Note HPI Chief Complaint Patient presents with Difficulty Urinating Pt concerned that pt's girlfriend exposed him to STDs. Pt reports having some burning with urination. STI Screening 24-year-old male presents after he determined that his girlfriend of 5 years has been having sexual relationships with other men. Patient has developed some dysuria over the last 1 to 2 days. Denies any discharge. The patient will be given 1 g of Rocephin and discharged. History provided by: Patient Patient History Medical History[1] Surgical History[2] Family History[3] Social History[4] Physical Exam ED Triage Vitals [01/31/25 2306] Temperature Heart Rate Respirations BP 37.1 C (98.7 F) 93 18 141/83 Pulse Ox Temp src Heart Rate Source Patient Position 97 % -- Monitor -- BP Location FiO2 (%) -- -- Physical Exam Constitutional: Appearance: Normal appearance. Abdominal: General: Abdomen is flat. Palpations: Abdomen is soft. Skin: General: Skin is warm and dry. Neurological: Mental Status: He is alert. ED Course & MDM Diagnoses as of 01/31/252343 UTI (urinary tract infection), bacterial STD exposure No data recorded Medical Decision Making 1 take medication as prescribed 2 proper sexual behavior and caution 3 follow-up with family medical doctor as needed Procedure Procedures [1] History reviewed. No pertinent past medical history. [2] Past Surgical History: Procedure Laterality Date MEDIAL COLLATERAL LIGAMENT AND LATERAL COLLATERAL LIGAMENT REPAIR, KNEE Left [3] No family history on file. [4] Social History Tobacco Use Smoking status: Never Smokeless tobacco: Never Vaping Use Vaping status: Every Day Substances: Nicotine Substance Use Topics Alcohol use: Not Currently Drug use: Yes Types: Marijuana Eloisa Cevallos DO 01/31/252345 [facility] Work Phone: 01-31-2025 Emergency department Note HPI Chief Complaint Patient presents with Difficulty Urinating Pt concerned that pt's girlfriend exposed him to STDs. Pt reports having some burning with urination. STI Screening 24-year-old male presents after he determined that his girlfriend of 5 years has been having sexual relationships with other men. Patient has developed some dysuria over the last 1 to 2 days. Denies any discharge. The patient will be given 1 g of Rocephin and discharged. History provided by: Patient Patient History Medical History[1] Surgical History[2] Family History[3] Social History[4] Physical Exam ED Triage Vitals [01/31/252305] Temperature Heart Rate Respirations BP 37.1 C (98.7 F) 93 18 141/83 Pulse Ox Temp src Heart Rate Source Patient Position 97 % -- Monitor -- BP Location FiO2 (%) -- -- Physical Exam Constitutional: Appearance: Normal appearance. Abdominal: General: Abdomen is flat. Palpations: Abdomen is soft. Skin: General: Skin is warm and dry. Neurological: Mental Status: He is alert. ED Course & MDM Diagnoses as of 01/31/252343 UTI (urinary tract infection), bacterial STD exposure No data recorded Medical Decision Making 1 take medication as prescribed 2 proper sexual behavior and caution 3 follow-up with family medical doctor as needed Procedure Procedures [1] History reviewed. No pertinent past medical history. [2] Past Surgical History: Procedure Laterality Date MEDIAL COLLATERAL LIGAMENT AND LATERAL COLLATERAL LIGAMENT REPAIR, KNEE Left [3] No family history on file. [4] Social History Tobacco Use Smoking status: Never Smokeless tobacco: Never Vaping Use Vaping status: Every Day Substances: Nicotine Substance Use Topics Alcohol use: Not Currently Drug use: Yes Types: Marijuana Eloisa Cevallos DO 01/31/252345 documented in this encounter [facility] Work Phone: 12-15-2024 Physician Emergency department Note HPI Chief Complaint Patient presents with Suicidal To ED with [employer] for suicidal ideation. [employer] reports patient called them stating he needed someone to talk to before making any impulsive decisions. States he has no plan but has had thoughts of wrecking car. Hx of severe depression and PTSD, is currently in counseling. 1:1 observation initiated upon pt arrival, pt wanded, changed, and belongings secured. Patient presents to the emergency department secondary to suicidal ideation. He called local authorities requesting to talk to somebody. He reports no specific plan. He states for the past year he has had a hard time. History provided by: Patient interpreter used: No Patient History Medical History[1] Surgical History[2] Family History[3] Social History[4] Physical Exam ED Triage Vitals Temp Pulse Resp BP -- -- -- -- SpO2 Temp src Heart Rate Source Patient Position -- -- -- -- BP Location FiO2 (%) -- -- Physical Exam Vitals and nursing note reviewed. Constitutional: General: He is not in acute distress. Appearance: Normal appearance. He is normal weight. He is not ill-appearing, toxic-appearing or diaphoretic. HENT: Head: Normocephalic and atraumatic. Nose: Nose normal. No rhinorrhea. Neck: Comments: Trachea is midline Musculoskeletal: General: Normal range of motion. Cervical back: Normal range of motion. Skin: General: Skin is warm and dry. Findings: No rash. Neurological: General: No focal deficit present. Mental Status: He is alert and oriented to person, place, and time. Mental status is at baseline. Psychiatric: Mood and Affect: Mood normal. Behavior: Behavior normal. Thought Content: Thought content normal. Judgment: Judgment normal. ED Course & MDM No data recorded Medical Decision Making Patient was medically cleared by myself and was evaluated by the [facility] worker. They agree that he is appropriate for discharge home with outpatient follow-up While the patient is here in the ER he states by the way, while I am here can you check out this thing on my scalp? It has been there for about 5 years. The patient has a firm nodule over the anterior left scalp. It is not fluctuant. This may be a calcified granuloma or less likely a lipoma. I explained that this is amendable to outpatient follow-up with dermatology with whom he will be referred Patient will be referred to [facility] as an outpatient. Return at anytime if worse. Procedure Procedures [1] No past medical history on file. [2] No past surgical history on file. [3] No family history on file. [4] Social History Tobacco Use Smoking status: Never Smokeless tobacco: Never Vaping Use Vaping status: Every Day Substance Use Topics Alcohol use: Not Currently Drug use: Yes Types: Marijuana Humphrey Johnson DO 12/16/24 0047 [facility] Work Phone: 12-15-2024 Emergency department Note HPI Chief Complaint Patient presents with Suicidal To ED with [employer] for suicidal ideation. [employer] reports patient called them stating he needed someone to talk to before making any impulsive decisions. States he has no plan but has had thoughts of wrecking car. Hx of severe depression and PTSD, is currently in counseling. 1:1 observation initiated upon pt arrival, pt wanded, changed, and belongings secured. Patient presents to the emergency department secondary to suicidal ideation. He called local authorities requesting to talk to somebody. He reports no specific plan. He states for the past year he has had a hard time. History provided by: Patient interpreter used: No Patient History Medical History[1] Surgical History[2] Family History[3] Social History[4] Physical Exam ED Triage Vitals Temp Pulse Resp BP -- -- -- -- SpO2 Temp src Heart Rate Source Patient Position -- -- -- -- BP Location FiO2 (%) -- -- Physical Exam Vitals and nursing note reviewed. Constitutional: General: He is not in acute distress. Appearance: Normal appearance. He is normal weight. He is not ill-appearing, toxic-appearing or diaphoretic. HENT: Head: Normocephalic and atraumatic. Nose: Nose normal. No rhinorrhea. Neck: Comments: Trachea is midline Musculoskeletal: General: Normal range of motion. Cervical back: Normal range of motion. Skin: General: Skin is warm and dry. Findings: No rash. Neurological: General: No focal deficit present. Mental Status: He is alert and oriented to person, place, and time. Mental status is at baseline. Psychiatric: Mood and Affect: Mood normal. Behavior: Behavior normal. Thought Content: Thought content normal. Judgment: Judgment normal. ED Course & MDM No data recorded Medical Decision Making Patient was medically cleared by myself and was evaluated by the [facility] worker. They agree that he is appropriate for discharge home with outpatient follow-up While the patient is here in the ER he states by the way, while I am here can you check out this thing on my scalp? It has been there for about 5 years. The patient has a firm nodule over the anterior left scalp. It is not fluctuant. This may be a calcified granuloma or less likely a lipoma. I explained that this is amendable to outpatient follow-up with dermatology with whom he will be referred Patient will be referred to [facility] as an [facility]. Return at anytime if worse. Procedure Procedures [1] No past medical history on file. [2] No past surgical history on file. [3] No family history on file. [4] Social History Tobacco Use Smoking status: Never Smokeless tobacco: Never Vaping Use Vaping status: Every Day Substance Use Topics Alcohol use: Not Currently Drug use: Yes Types: Marijuana Humphrey Johnson DO 12/16/24 0047 documented in this encounter [facility] Work Phone: 08-19-2024 Physician Emergency department Note Patient is a 23-year-old male who presents to the emergency room with a chief complaint of vomiting. Patient states that he woke up, was feeling his normal self, went to work and felt slightly lightheaded and shortly thereafter vomited multiple times. He reports body aches. He states that after vomiting he started to feel better but given his symptoms, his aunt felt that he should be evaluated. Patient states that he is back to baseline, he denies any complaints at this time. He states that he is feeling much better. No fever or chills. No chest pain, shortness of breath, abdominal pain or diarrhea. He states that one of his friends was recently ill. Patient is hoping to go back to work. Review of Systems Constitutional: Negative for chills and fever. HENT: Negative for ear pain and sore throat. Eyes: Negative for pain and visual disturbance. Respiratory: Negative for cough and shortness of breath. Cardiovascular: Negative for chest pain and palpitations. Gastrointestinal: Positive for vomiting. Negative for abdominal pain. Genitourinary: Negative for dysuria and hematuria. Musculoskeletal: Negative for arthralgias and back pain. Skin: Negative for color change and rash. Neurological: Negative for seizures and syncope. All other systems reviewed and are negative. Physical Exam Vitals and nursing note reviewed. Constitutional: General: He is not in acute distress. Appearance: Normal appearance. He is well-developed. He is not ill-appearing. HENT: Head: Normocephalic and atraumatic. Mouth/Throat: Pharynx: No oropharyngeal exudate or posterior oropharyngeal erythema. Eyes: Extraocular Movements: Extraocular movements intact. Conjunctiva/sclera: Conjunctivae normal. Pupils: Pupils are equal, round, and reactive to light. Cardiovascular: Rate and Rhythm: Normal rate and regular rhythm. Heart sounds: No murmur heard. Pulmonary: Effort: Pulmonary effort is normal. No respiratory distress. Breath sounds: Normal breath sounds. No stridor. No wheezing, rhonchi or rales. Abdominal: General: There is no distension. Palpations: Abdomen is soft. There is no mass. Tenderness: There is no abdominal tenderness. There is no right CVA tenderness, left CVA tenderness, guarding or rebound. Hernia: No hernia is present. Musculoskeletal: General: No swelling or tenderness. Cervical back: Normal range of motion and neck supple. No rigidity. Skin: General: Skin is warm and dry. Capillary Refill: Capillary refill takes less than 2 seconds. Neurological: General: No focal deficit present. Mental Status: He is alert and oriented to person, place, and time. Cranial Nerves: No cranial nerve deficit. Sensory: No sensory deficit. Motor: No weakness. Coordination: Coordination normal. Gait: Gait normal. Psychiatric: Mood and Affect: Mood normal. Labs Reviewed - No data to display No orders to display Procedures Medical Decision Making Patient is a 23-year-old male who presents to the emergency room with a chief complaint of vomiting associated with lightheadedness that began while at work that resolved nearly immediately after vomiting. Patient states that he decided to be evaluated as it was recommended by his aunt. He states that he is back to baseline. We discussed given his symptoms of vomiting and lightheaded numbness to obtain further workup including EKG, lab work, IV in which he declined. We discussed the risk of not obtaining these exams including worsening condition, disability, and any and all unforeseen events. Patient does verbalize understanding. He states that he was hoping to get his Zofran and go back to work. ODT Zofran given and we will reevaluate the patient with a p.o. challenge. Patient was given zofran and shortly thereafter ate crackers and gatorade without difficulty. Denies any additional nausea or vomiting. States that he is feeling better and would like to go home. Strongly suggested he return for any new or worsening symptoms DDX includes but not limited to: viral gastroenteritis, Covid, dehydration, influenza, acute abdominal pathology Risk Prescription drug management. Diagnoses as of 08/19/24 1207 Nausea and vomiting, unspecified vomiting type Valerie Mcclain PA-C 08/19/24 1207 [facility] Work Phone: 08-19-2024 Emergency department Note Patient is a 23-year-old male who presents to the emergency room with a chief complaint of vomiting. Patient states that he woke up, was feeling his normal self, went to work and felt slightly lightheaded and shortly thereafter vomited multiple times. He reports body aches. He states that after vomiting he started to feel better but given his symptoms, his aunt felt that he should be evaluated. Patient states that he is back to baseline, he denies any complaints at this time. He states that he is feeling much better. No fever or chills. No chest pain, shortness of breath, abdominal pain or diarrhea. He states that one of his friends was recently ill. Patient is hoping to go back to work. Review of Systems Constitutional: Negative for chills and fever. HENT: Negative for ear pain and sore throat. Eyes: Negative for pain and visual disturbance. Respiratory: Negative for cough and shortness of breath. Cardiovascular: Negative for chest pain and palpitations. Gastrointestinal: Positive for vomiting. Negative for abdominal pain. Genitourinary: Negative for dysuria and hematuria. Musculoskeletal: Negative for arthralgias and back pain. Skin: Negative for color change and rash. Neurological: Negative for seizures and syncope. All other systems reviewed and are negative. Physical Exam Vitals and nursing note reviewed. Constitutional: General: He is not in acute distress. Appearance: Normal appearance. He is well-developed. He is not ill-appearing. HENT: Head: Normocephalic and atraumatic. Mouth/Throat: Pharynx: No oropharyngeal exudate or posterior oropharyngeal erythema. Eyes: Extraocular Movements: Extraocular movements intact. Conjunctiva/sclera: Conjunctivae normal. Pupils: Pupils are equal, round, and reactive to light. Cardiovascular: Rate and Rhythm: Normal rate and regular rhythm. Heart sounds: No murmur heard. Pulmonary: Effort: Pulmonary effort is normal. No respiratory distress. Breath sounds: Normal breath sounds. No stridor. No wheezing, rhonchi or rales. Abdominal: General: There is no distension. Palpations: Abdomen is soft. There is no mass. Tenderness: There is no abdominal tenderness. There is no right CVA tenderness, left CVA tenderness, guarding or rebound. Hernia: No hernia is present. Musculoskeletal: General: No swelling or tenderness. Cervical back: Normal range of motion and neck supple. No rigidity. Skin: General: Skin is warm and dry. Capillary Refill: Capillary refill takes less than 2 seconds. Neurological: General: No focal deficit present. Mental Status: He is alert and oriented to person, place, and time. Cranial Nerves: No cranial nerve deficit. Sensory: No sensory deficit. Motor: No weakness. Coordination: Coordination normal. Gait: Gait normal. Psychiatric: Mood and Affect: Mood normal. Labs Reviewed - No data to display No orders to display Procedures Medical Decision Making Patient is a 23-year-old male who presents to the emergency room with a chief complaint of vomiting associated with lightheadedness that began while at work that resolved nearly immediately after vomiting. Patient states that he decided to be evaluated as it was recommended by his aunt. He states that he is back to baseline. We discussed given his symptoms of vomiting and lightheaded numbness to obtain further workup including EKG, lab work, IV in which he declined. We discussed the risk of not obtaining these exams including worsening condition, disability, and any and all unforeseen events. Patient does verbalize understanding. He states that he was hoping to get his Zofran and go back to work. ODT Zofran given and we will reevaluate the patient with a p.o. challenge. Patient was given zofran and shortly thereafter ate crackers and gatorade without difficulty. Denies any additional nausea or vomiting. States that he is feeling better and would like to go home. Strongly suggested he return for any new or worsening symptoms DDX includes but not limited to: viral gastroenteritis, Covid, dehydration, influenza, acute abdominal pathology Risk Prescription drug management. Diagnoses as of 08/19/24 1207 Nausea and vomiting, unspecified vomiting type Valerie Mcclain PA-C 08/19/24 1207 documented in this encounter [facility] Work Phone: 05-02-2024 Hospital Discharge instructions Patient Education 05/02/2024 18:14:34 Cellulitis Skin Infection Cellulitis Cellulitis is an infection of the deep layers of skin. A break in the skin, such as a cut or scratch, can let bacteria under the skin. If the bacteria get to deep layers of the skin, it can be serious. If not treated, cellulitis can get into the bloodstream and lymph nodes. The infection can then spread throughout the body. This causes serious illness. Cellulitis causes the affected skin to become red, swollen, warm, and sore. The reddened areas have a visible border. An open sore may leak fluid (pus). You may have a fever, chills, and pain. Cellulitis is treated with antibiotics taken for 7 to 10 days. An open sore may be cleaned and covered with cool wet gauze. Symptoms should get better 1 to 2 days after treatment is started. Make sure to take all the antibiotics for the full number of days until they are gone. Keep taking the medicine even if your symptoms go away. Home care Follow these tips: Limit the use of the part of your body with cellulitis. If the infection is on your leg, keep your leg raised while sitting. This will help to reduce swelling. Take all of the antibiotic medicine exactly as directed until it is gone. Do not miss any doses, especially during the first 7 days. Don t stop taking the medicine when your symptoms get better. Keep the affected area clean and dry. Wash your hands with soap and warm water before and after touching your skin. Anyone else who touches your skin should also wash his or her hands. Don't share towels. Follow-up care Follow up with your healthcare provider, or as advised. If your infection does not go away on the first antibiotic, your healthcare provider will prescribe a different one. When to seek medical advice Call your healthcare provider right away if any of these occur: Red areas that spread Swelling or pain that gets worse Fluid leaking from the skin (pus) Fever higher of 100.4 F (38.0 C) or higher after 2 days on antibiotics 4159-2680 [employer] [address] [place] [address]. All rights reserved. This information is not intended as a substitute for professional medical care. Always follow your healthcare professional's instructions. Follow Up Care 05/02/2024 17:11:35 With:Follow up with primary care provider Address:Unknown When:2-4 days With:Call Physician Referral Address:Unknown When:2-4 days [facility] 05-02-2024 Note Discharge Instructions Thank you for allowing [facility] to assist you with your healthcare needs. The following is important discharge information regarding your hospital visit. What to Do Next Instructions from Your Care Team Please follow-up with your primary care provider in the next 2-4 days should symptoms not improved. If you have any worsening of the pain, swelling, develop fever or chill, nausea or vomiting, please return to the emergency department. I am discharging you with a prescription for antibiotics. No qualifying data available. Post Acute Orders No qualifying data available. You Need to Schedule the Following Appointments Follow Up with Follow up with primary care provider When:Within 2-4 days Follow Up with Call Physician Referral When:Within 2-4 days Allergies Bananas povidone iodine topical Medications Please ask your primary doctor or pharmacist before taking any other medication not listed, including over the counter drugs, herbal medications, vitamins and or supplements as they may interact with your home medications. What How Much When Instructions Last Dose New sulfamethoxazole-trimethoprim (sulfamethoxazole-trimethoprim 800 mg-160 mg oral tablet) 160 Milligram by mouth Every 12 hours Duration: 7 Days Printed Prescription Changed cephalexin (cephalexin 500 mg oral capsule) 1 cap by mouth Three (3) times a day Duration: 7 Days Changed cephalexin (Keflex use cephalexin ) 500 Milligram by mouth Four (4) times a day Duration: 7 Days Printed Prescription Please take this list to your next doctor s visit. Bring all medications you take, including over the counter medications, herbals and other supplements with you to your doctor s visit. Patients and families are reminded to discard old lists and to update any records with all medication providers or retail pharmacies. Education Materials Cellulitis Cellulitis is an infection of the deep layers of skin. A break in the skin, such as a cut or scratch, can let bacteria under the skin. If the bacteria get to deep layers of the skin, it can be serious. If not treated, cellulitis can get into the bloodstream and lymph nodes. The infection can then spread throughout the body. This causes serious illness. Cellulitis causes the affected skin to become red, swollen, warm, and sore. The reddened areas have a visible border. An open sore may leak fluid (pus). You may have a fever, chills, and pain. Cellulitis is treated with antibiotics taken for 7 to 10 days. An open sore may be cleaned and covered with cool wet gauze. Symptoms should get better 1 to 2 days after treatment is started. Make sure to take all the antibiotics for the full number of days until they are gone. Keep taking the medicine even if your symptoms go away. Home care Follow these tips: Limit the use of the part of your body with cellulitis. If the infection is on your leg, keep your leg raised while sitting. This will help to reduce swelling. Take all of the antibiotic medicine exactly as directed until it is gone. Do not miss any doses, especially during the first 7 days. Don t stop taking the medicine when your symptoms get better. Keep the affected area clean and dry. Wash your hands with soap and warm water before and after touching your skin. Anyone else who touches your skin should also wash his or her hands. Don't share towels. Follow-up care Follow up with your healthcare provider, or as advised. If your infection does not go away on the first antibiotic, your healthcare provider will prescribe a different one. When to seek medical advice Call your healthcare provider right away if any of these occur: Red areas that spread Swelling or pain that gets worse Fluid leaking from the skin (pus) Fever higher of 100.4 F (38.0 C) or higher after 2 days on antibiotics 3676-8472 [employer] [address] [place] [address], [place] [address]. All rights reserved. This information is not intended as a substitute for professional medical care. Always follow your healthcare professional's instructions. Additional Information VACCINATE! IT SAVES LIVES! Members of the community who have not yet received the COVID-19 vaccine and would like to receive it can visit one of [facility] vaccine clinics. There are many vaccine clinic locations within the [facility]. For locations and available times, please visit [email or web address] It is important to note that some COVID mobile vaccine clinics are held outdoors and may be canceled in rainy or stormy conditions. To learn more about pediatric vaccinations (ages 5-11), we invite you to visit the [facility] webpage. [email or web address]://[email or web address]/p [email or web address]-Mmxskmkxpon-Freq nkxqha-Ceaer-Axisqecdf.html To learn more about the COVID-19 vaccine, we invite you to visit the CDC website for a list of frequently asked questions. https://www.cdc.gov/coronavirus/ 2019-ncov/vaccines/faq.html [email or web address] Patient Portal Access Instructions: Stay connected with your healthcare team and access your personal medical information anytime with the [email or web address] Patient Portal. If you would like a full copy of your medical records please contact the [facility] Medical Records Department Friday through Friday between 8a.m. and 4:30p.m. Please follow the directions below to access the portal: 1.Access the email account you provided upon registration to the [facility].2.Look for an invitation email from [facility].3.Open the email and access the invitation link: Accept Invitation to [email or web address].Fill in the required kim to create your account. Sign into [email or web address] with your username and password that you [...] you will allow to register on the [facility] Patient Portal for access to your information. You can also access the [facility] Patient Portal on the [employer] pau. Simply click on Health Records under Health Data and then click on the [employer] logo. HOW TO SAFELY DISPOSE OF PRESCRIPTION [...] Call your local pharmacy or go to [email or web address] to find one close to you.3.Make use of household items: Use cat litter or old coffee grounds to dispose medications if other options are not available. Mix your drugs with these household products, seal them in an airtight container and throw it into the garbage. Call [facility]: [phone] to be sure your drugs can be [...] a CHART COPY Signatures Patient Education Materials Cellulitis Skin Infection Medication Leaflets My discharge plan and instructions have been reviewed and explained to me and I,MILLY PRAKASH understand my current condition and have read and understand these discharge instructions. I have received a written copy of the plan/instructions. If I have questions, I am aware that I should contact my doctor. Patient/Logging Worker Signature: Date/Time: Relationship to Patient: Witness Name/Signature: Date/Time: [facility] 04-29-2024 Hospital Discharge instructions Patient Education 04/29/2024 14:42:08 Laceration, Old: Not Sutured Old Laceration: Not Sutured A laceration is a cut through the skin. This will usually require stitches if it is deep. However, if a laceration remains open for too long, the risk of infection increases. In your case, too much time has passed before coming for treatment. The danger of infection from stitching at this time is too high. That is why your wound was not stitched. If the wound is spread open, it will heal by filling in from the bottom and sides. A wound that is not stitched may take 1 to 4 weeks to heal, depending on the size of the opening. You will probably have a visible scar. You can discuss revision of the scar with your healthcare provider at a later time. Home care The following guidelines will help you care for your laceration at home: Keep the wound clean and dry. If a bandage was applied and it becomes wet or dirty, replace it. Otherwise, leave it in place for the first 24 hours, then change it once a day or as directed. The healthcare provider may prescribe an antibiotic cream or ointment to prevent infection. If you are at high risk for infection, or the wound is very dirty, your provider may prescribe an oral antibiotic medicine to prevent infection. Don't stop using this medicine until you have finished it all, or the provider tells you to stop. The healthcare provider may also prescribe medicine for pain. Follow instructions for taking these medicines. Clean the wound daily: After removing any bandage, wash the area with soap and water. Use a wet cotton swab to loosen and remove any blood or crust that forms. Talk with your healthcare provider before applying any antibiotic ointment to the wound. Reapply a fresh bandage. You may remove the bandage to shower as usual after the first 24 hours, but don't soak the area in water. This means no tub baths or swimming until the wound heals or your provider tells you it's OK. Don't do activities that may reinjure your wound. Check the wound daily for signs of infection listed below. Follow-up care Follow up with your healthcare provider, or as advised. When to seek medical advice Call your healthcare provider right away if any of these occur: Wound bleeding not controlled by direct pressure Signs of infection, including increasing pain in the wound, increasing wound redness or swelling, or pus or bad odor coming from the wound Fever of 100.4 F (38. C) or higher, or as directed by your healthcare provider Wound edges reopen Wound changes colors Numbness around the wound Decreased movement around the injured area [id number] [employer] [address] [place] [address]. All rights reserved. This information is not intended as a substitute for professional medical care. Always follow your healthcare professional's instructions. Follow Up Care 04/29/2024 14:26:27 With:DODIE JOHNSON MD Address: [address] [place] [address]- When:2-4 days [facility] 04-29-2024 Note Discharge Instructions Thank you for allowing [facility] to assist you with your healthcare needs. The following is important discharge information regarding your hospital visit. Diagnosis from Today's Visit Finger laceration What to Do Next Instructions from Your Care Team No qualifying data available. Post Acute Orders No qualifying data available. You Need to Schedule the Following Appointments Follow Up with DODIE JOHNSON MD When:Within 2-4 days Where:[address] [place] [address]- Allergies Bananas povidone iodine topical Medications Please ask your primary doctor or pharmacist before taking any other medication not listed, including over the counter drugs, herbal medications, vitamins and or supplements as they may interact with your home medications. What How Much When Instructions Last Dose New cephalexin (cephalexin 500 mg oral capsule) 1 cap by mouth Three (3) times a day Duration: 7 Days Printed Prescription Please take this list to your next doctor s visit. Bring all medications you take, including over the counter medications, herbals and other supplements with you to your doctor s visit. Patients and families are reminded to discard old lists and to update any records with all medication providers or retail pharmacies. Medication Leaflets cephalexin (sef a ANDRÉS in) What is the most important information I should know about cephalexin? You should not use this medicine if you are allergic to cephalexin or to similar antibiotics, such as Ceftin, Cefzil, Omnicef, and others. Tell your doctor if you are allergic to any drugs, especially penicillins or other antibiotics. What is cephalexin? Cephalexin is a cephalosporin (SEF a low spor in) antibiotic that is used to treat bacterial infections of the lungs, ear, skin, bones, bladder, and kidneys. Cephalexin is used to treat infections in adults and children who are at least 1 year old. Cephalexin may also be used for purposes not listed in this medication guide. What should I discuss with my healthcare provider before taking cephalexin? You should not use this medicine if you are allergic to cephalexin or any other cephalosporin antibiotic (cefdinir, cefadroxil, cefoxitin, cefprozil, ceftriaxone, cefuroxime, Omnicef, and others). Tell your doctor if you have ever had: an allergy to any drug (especially penicillin); liver or kidney disease; or intestinal problems, such as colitis. The liquid form of cephalexin may contain sugar. This may affect you if you have diabetes. Tell your doctor if you are or breast-feeding. How should I take cephalexin? Follow all directions on your prescription label and read all medication guides or instruction sheets. Use the medicine exactly as directed. Do not use cephalexin to treat any condition that has not been checked by your doctor. Measure liquid medicine carefully. Use the dosing syringe provided, or use a medicine dose-measuring device (not a kitchen spoon). Use this medicine for the full prescribed length of time, even if your symptoms quickly improve. Skipping doses can increase your risk of infection that is resistant to medication. Cephalexin will not treat a viral infection such as the flu or a common cold. Do not share cephalexin with another person, even if they have the same symptoms you have. This medicine can affect the results of certain medical tests. Tell any doctor who treats you that you are using cephalexin. Store the tablets and capsules at room temperature away from moisture, heat, and light. Store the liquid medicine in the refrigerator. Throw away any unused liquid after 14 days. What happens if I miss a dose? Take the medicine as soon as you can, but skip the missed dose if it is almost time for your next dose. Do not take two doses at one time. What happens if I overdose? Seek emergency medical attention or call the Poison Help line at . Overdose symptoms may include nausea, vomiting, stomach pain, diarrhea, and blood in your urine. What should I avoid while taking cephalexin? Antibiotic medicines can cause diarrhea, which may be a sign of a new infection. If you have diarrhea that is watery or bloody, call your doctor before using anti-diarrhea medicine. What are the possible side effects of cephalexin? Get emergency medical help if you have signs of an allergic reaction (hives, difficult breathing, swelling in your face or throat) or a severe skin reaction (fever, sore throat, burning eyes, skin pain, red or purple skin rash with blistering and peeling). Call your doctor at once if you have: severe stomach pain, diarrhea that is watery or bloody (even if it occurs months after your last dose); unusual tiredness, feeling light-headed or short of breath; easy bruising, unusual bleeding, purple or red spots under your skin; a seizure; pale skin, cold hands and feet; yellowed skin, dark colored urine; fever, weakness; or pain in your side or lower back, painful urination. Common side effects may include: diarrhea; nausea, vomiting; indigestion, stomach pain; or vaginal itching or discharge. This is not a complete list of side effects and others may occur. Call your doctor for medical advice about side effects. You may report side effects to FDA at 9-717-GCW-1342. What other drugs will affect cephalexin? Tell your doctor about all your other medicines, especially: metformin; or probenecid. This list is not complete. Other drugs may affect cephalexin, including prescription and evek-hhf-cwmsmet medicines, vitamins, and herbal products. Not all possible drug interactions are listed here. Where can I get more information? Your pharmacist can provide more information about cephalexin. Remember, keep this and all other medicines out of the reach of children, never share your medicines with others, and use this medication only for the indication prescribed. Every effort has been made to ensure that the information provided by [employer]. ('[employer]') is accurate, up-to-date, and complete, but no guarantee is made to that effect. Drug information contained herein may be time sensitive. [employer] information has been compiled for use by healthcare practitioners and consumers in the [place] and therefore [employer] does not warrant that uses outside of the [place] are appropriate, unless specifically indicated otherwise. [employer]'s drug information does not endorse drugs, diagnose patients or recommend therapy. [employer] drug information is an informational resource designed to assist licensed healthcare practitioners in caring for their patients and/or to serve consumers viewing this service as a supplement to, and not a substitute for, the expertise, skill, knowledge and judgment of healthcare practitioners. The absence of a warning for a given drug or drug combination in no way should be construed to indicate that the drug or drug combination is safe, effective or appropriate for any given patient. [employer] does not assume any responsibility for any aspect of healthcare administered with the aid of information [employer] provides. The information contained herein is not intended to cover all possible uses, directions, precautions, warnings, drug interactions, allergic reactions, or adverse effects. If you have questions about the drugs you are taking, check with your doctor, nurse or pharmacist. Copyright 2782-3928 [employer]. Version: 03.14. Revision Date: 11/13/2022. Education Materials Old Laceration: Not Sutured A laceration is a cut through the skin. This will usually require stitches if it is deep. However, if a laceration remains open for too long, the risk of infection increases. In your case, too much time has passed before coming for treatment. The danger of infection from stitching at this time is too high. That is why your wound was not stitched. If the wound is spread open, it will heal by filling in from the bottom and sides. A wound that is not stitched may take 1 to 4 weeks to heal, depending on the size of the opening. You will probably have a visible scar. You can discuss revision of the scar with your healthcare provider at a later time. Home care The following guidelines will help you care for your laceration at home: Keep the wound clean and dry. If a bandage was applied and it becomes wet or dirty, replace it. Otherwise, leave it in place for the first 24 hours, then change it once a day or as directed. The healthcare provider may prescribe an antibiotic cream or ointment to prevent infection. If you are at high risk for infection, or the wound is very dirty, your provider may prescribe an oral antibiotic medicine to prevent infection. Don't stop using this medicine until you have finished it all, or the provider tells you to stop. The healthcare provider may also prescribe medicine for pain. Follow instructions for taking these medicines. Clean the wound daily: After removing any bandage, wash the area with soap and water. Use a wet cotton swab to loosen and remove any blood or crust that forms. Talk with your healthcare provider before applying any antibiotic ointment to the wound. Reapply a fresh bandage. You may remove the bandage to shower as usual after the first 24 hours, but don't soak the area in water. This means no tub baths or swimming until the wound heals or your provider tells you it's OK. Don't do activities that may reinjure your wound. Check the wound daily for signs of infection listed below. Follow-up care Follow up with your healthcare provider, or as advised. When to seek medical advice Call your healthcare provider right away if any of these occur: Wound bleeding not controlled by direct pressure Signs of infection, including increasing pain in the wound, increasing wound redness or swelling, or pus or bad odor coming from the wound Fever of 100.4 F (38. C) or higher, or as directed by your healthcare provider Wound edges reopen Wound changes colors Numbness around the wound Decreased movement around the injured area [id number] [employer] [address] [place] [address], [place] [address]. All rights reserved. This information is not intended as a substitute for professional medical care. Always follow your healthcare professional's instructions. Additional Information VACCINATE! IT SAVES LIVES! Members of the community who have not yet received the COVID-19 vaccine and would like to receive it can visit one of [facility] vaccine clinics. There are many vaccine clinic locations within the [facility]. For locations and available times, please visit [email or web address] It is important to note that some COVID mobile vaccine clinics are held outdoors and may be canceled in rainy or stormy conditions. To learn more about pediatric vaccinations (ages 5-11), we invite you to visit the [facility] webpage. https://www.[email or web address].org/p ages/8779-Qgddx-Zppshyhbgug-Freq evizmi-Pvnnd-Qrgxdzdab.html To learn more about the COVID-19 vaccine, we invite you to visit the CDC website for a list of frequently asked questions. https://www.cdc.gov/coronavirus/ 2019-ncov/vaccines/faq.html [email or web address] Patient Portal Access Instructions: Stay connected with your healthcare team and access your personal medical information anytime with the [email or web address] Patient Portal. If you would like a full copy of your medical records please contact the [facility] Medical Records Department Friday through Friday between 8a.m. and 4:30p.m. Please follow the directions below to access the portal: 1.Access the email account you provided upon registration to the hospital.2.Look for an invitation email from [facility].3.Open the email and access the invitation link: Accept Invitation to [email or web address].Fill in the required kim to create your account. Sign into [email or web address] with your username and password that you [...] you will allow to register on the [facility] Patient Portal for access to your information. You can also access the [facility] Patient Portal on the [employer] pau. Simply click on Health Records under Health Data and then click on the [employer] logo. HOW TO SAFELY DISPOSE OF PRESCRIPTION [...] Call your local pharmacy or go to [email or web address] to find one close to you.3.Make use of household items: Use cat litter or old coffee grounds to dispose medications if other options are not available. Mix your drugs with these household products, seal them in an airtight container and throw it into the garbage. Call [facility]: [phone] to be sure your drugs can be [...] a CHART COPY Signatures Patient Education Materials Brooke, Old: Not Sutured Medication Leaflets cephalexin My discharge plan and instructions have been reviewed and explained to me and I,MILLY PRAKASH understand my current condition and have read and understand these discharge instructions. I have received a written copy of the plan/instructions. If I have questions, I am aware that I should contact my doctor. Patient/Logging Worker Signature: Date/Time: Relationship to Patient: Witness Name/Signature: Date/Time: [facility] 02-15-2024 Telephone encounter Note Patient given results and verbalized understanding of instructions given. Janett Britt MA [facility] 02-15-2024 Miscellaneous Notes Patient given results and verbalized understanding of instructions given. Janett Britt MA Unable to reach patient. Mailbox full/Mailbox not set up/ Number incorrect. Please try again later. Janett Britt MA Please inform patient that STD panel is negative. Jerad Shultz APRN.MANAGER OF PATIENT Unable to reach patient. Mailbox full/Mailbox not set up/ Number incorrect. Please try again later. Janett Britt MA Please inform patient that gonorrhea chlamydia test was negative. Jerad Shultz APRN.MANAGER OF PATIENT documented in this encounter [facility] 02-14-2024 Telephone encounter Note Unable to reach patient. Mailbox full/Mailbox not set up/ Number incorrect. Please try again later. Janett Britt MA [facility] 02-14-2024 Telephone encounter Note Please inform patient that STD panel is negative. Jerad Shultz APRN.MANAGER OF PATIENT [facility] 02-14-2024 Telephone encounter Note Unable to reach patient. Mailbox full/Mailbox not set up/ Number incorrect. Please try again later. Janett Britt MA [facility] 02-14-2024 Telephone encounter Note Please inform patient that gonorrhea chlamydia test was negative. Jerad Shultz APRN.MANAGER OF PATIENT [facility] 02-13-2024 Note HNO ID: [id number] Author: JERAD SHULTZ APRN.MANAGER OF PATIENT Service: ? Author Type: Nurse Practitioner Type: Progress Notes Filed: 02/13/2024 14:42 Note Text: Subjective HPI Nontoxic-appearing male presents urgent care requesting STD testing. Patient states found out that his girlfriend's previous partner may have had HIV. States he has been sexually active with her for 6 to 7 months. Has recently not to use protection. States has noticed some weight loss. No night sweats. Overall feeling well. Denies any testicular pain scrotal swelling penile drainage rashes. Denies history of recent STDs. Did notice a small bump on his penis. Related that shaving. Past medical history prescription medications allergies reviewed. .Patient presents with: STD: Mo sx just being tested, states he wants all testing, states he would like blood work History reviewed. No pertinent past medical history. History reviewed. No pertinent surgical history. ALLERGIES Banana and Iodine MEDICATIONS No prescriptions on file. History reviewed. No pertinent family history. Social History Tobacco Use Smoking status: Never Passive exposure: Yes Smokeless tobacco: Current Tobacco comments: mom smokes outside of home, vape Substance Use Topics Alcohol use: No Drug use: Never BP 124/82 Pulse 78 Temp 36.8 ?C (98.3 ?F) Resp 18 Wt 103 kg (227 lb 1.2 oz) SpO2 99% Review of Systems Constitutional: Positive for weight loss. Negative for chills, fever and malaise/fatigue. HENT: Negative for congestion, ear discharge, ear pain, sinus pain and sore throat. Eyes: Negative for blurred vision, pain, discharge and redness. Respiratory: Negative for cough, hemoptysis, sputum production, shortness of breath, wheezing and stridor. Cardiovascular: Negative for chest pain. Gastrointestinal: Negative for abdominal pain, diarrhea, nausea and vomiting. Genitourinary: Negative. Musculoskeletal: Negative for back pain, falls, joint pain, myalgias and neck pain. Skin: Negative for itching and rash. Neurological: Negative for dizziness, loss of consciousness, weakness and headaches. Objective Physical Exam Constitutional: General: He is not in acute distress. Appearance: He is not diaphoretic. HENT: Head: Normocephalic. Jaw: No trismus, tenderness, swelling or pain on movement. Mouth/Throat: Mouth: Mucous membranes are moist. Pharynx: Oropharynx is clear. Uvula midline. No pharyngeal swelling, oropharyngeal exudate, posterior oropharyngeal erythema or uvula swelling. Eyes: Conjunctiva/sclera: Conjunctivae normal. Pupils: Pupils are equal, round, and reactive to light. Cardiovascular: Rate and Rhythm: Normal rate and regular rhythm. Heart sounds: Normal heart sounds. Pulmonary: Effort: Pulmonary effort is normal. No tachypnea, accessory muscle usage or respiratory distress. Breath sounds: Normal breath sounds. No stridor. No wheezing, rhonchi or rales. Abdominal: General: There is no distension. Palpations: Abdomen is soft. Tenderness: There is no abdominal tenderness. There is no guarding or rebound. Genitourinary: Penis: Circumcised. No erythema or discharge. Testes: Right: Tenderness or swelling not present. Left: Tenderness or swelling not present. Epididymis: Right: No tenderness. Left: No tenderness. Musculoskeletal: Cervical back: Normal range of motion and neck supple. No edema, erythema, rigidity or tenderness. No pain with movement. Normal range of motion. Lymphadenopathy: Cervical: No cervical adenopathy. Lower Body: No right inguinal adenopathy. No left inguinal adenopathy. Skin: General: Skin is warm and dry. Neurological: Mental Status: He is alert and oriented to person, place, and time. ASSESSMENT/PLAN: 1. Screening for STD (sexually transmitted disease) - ICD9: V74.5, ICD10: Z11.3 - SYPHILIS TREPONEMAL W/REFLEX - HIV 1/2 COMBO WITH REFLEX TO DIFFERENTIATION - HEPATITIS C ANTIBODY IA WITH CONFIRMATION - HEPATITIS B SURFACE ANTIGEN - GONORRHEA/CHLAMYDIA NAAT Unremarkable exam. STD panel obtained. Treat accordingly test results. We discussed incubation period of different STDs and appropriate retesting. Patient was educated on supportive therapies. Patient [...] of care. This note was generated using [employer] software. It may contain errors in wording, punctuation, or spelling. Jerad Shultz APRN.[facility] 02-13-2024 History of Present illness Narrative Subjective HPI Nontoxic-appearing male presents urgent care requesting STD testing. Patient states found out that his girlfriend's previous partner may have had HIV. States he has been sexually active with her for 6 to 7 months. Has recently not to use protection. States has noticed some weight loss. No night sweats. Overall feeling well. Denies any testicular pain scrotal swelling penile drainage rashes. Denies history of recent STDs. Did notice a small bump on his penis. Related that shaving. Past medical history prescription medications allergies reviewed. .Patient presents with: STD: Mo sx just being tested, states he wants all testing, states he would like blood work History reviewed. No pertinent past medical history. History reviewed. No pertinent surgical history. ALLERGIES Banana and Iodine MEDICATIONS No prescriptions on file. History reviewed. No pertinent family history. Social History Tobacco Use Smoking status: Never Passive exposure: Yes Smokeless tobacco: Current Tobacco comments: mom smokes outside of home, vape Substance Use Topics Alcohol use: No Drug use: Never BP 124/82 Pulse 78 Temp 36.8 C (98.3 F) Resp 18 Wt 103 kg (227 lb 1.2 oz) SpO2 99% Review of Systems Constitutional: Positive for weight loss. Negative for chills, fever and malaise/fatigue. HENT: Negative for congestion, ear discharge, ear pain, sinus pain and sore throat. Eyes: Negative for blurred vision, pain, discharge and redness. Respiratory: Negative for cough, hemoptysis, sputum production, shortness of breath, wheezing and stridor. Cardiovascular: Negative for chest pain. Gastrointestinal: Negative for abdominal pain, diarrhea, nausea and vomiting. Genitourinary: Negative. Musculoskeletal: Negative for back pain, falls, joint pain, myalgias and neck pain. Skin: Negative for itching and rash. Neurological: Negative for dizziness, loss of consciousness, weakness and headaches. Objective Physical Exam Constitutional: General: He is not in acute distress. Appearance: He is not diaphoretic. HENT: Head: Normocephalic. Jaw: No trismus, tenderness, swelling or pain on movement. Mouth/Throat: Mouth: Mucous membranes are moist. Pharynx: Oropharynx is clear. Uvula midline. No pharyngeal swelling, oropharyngeal exudate, posterior oropharyngeal erythema or uvula swelling. Eyes: Conjunctiva/sclera: Conjunctivae normal. Pupils: Pupils are equal, round, and reactive to light. Cardiovascular: Rate and Rhythm: Normal rate and regular rhythm. Heart sounds: Normal heart sounds. Pulmonary: Effort: Pulmonary effort is normal. No tachypnea, accessory muscle usage or respiratory distress. Breath sounds: Normal breath sounds. No stridor. No wheezing, rhonchi or rales. Abdominal: General: There is no distension. Palpations: Abdomen is soft. Tenderness: There is no abdominal tenderness. There is no guarding or rebound. Genitourinary: Penis: Circumcised. No erythema or discharge. Testes: Right: Tenderness or swelling not present. Left: Tenderness or swelling not present. Epididymis: Right: No tenderness. Left: No tenderness. Musculoskeletal: Cervical back: Normal range of motion and neck supple. No edema, erythema, rigidity or tenderness. No pain with movement. Normal range of motion. Lymphadenopathy: Cervical: No cervical adenopathy. Lower Body: No right inguinal adenopathy. No left inguinal adenopathy. Skin: General: Skin is warm and dry. Neurological: Mental Status: He is alert and oriented to person, place, and time. ASSESSMENT/PLAN: 1. Screening for STD (sexually transmitted disease) - ICD9: V74.5, ICD10: Z11.3 - SYPHILIS TREPONEMAL W/REFLEX - HIV 1/2 COMBO WITH REFLEX TO DIFFERENTIATION - HEPATITIS C ANTIBODY IA WITH CONFIRMATION - HEPATITIS B SURFACE ANTIGEN - GONORRHEA/CHLAMYDIA NAAT Unremarkable exam. STD panel obtained. Treat accordingly test results. We discussed incubation period of different STDs and appropriate retesting. Patient was educated on supportive therapies. Patient [...] of care. This note was generated using [employer] software. It may contain errors in wording, punctuation, or spelling. Jerad Shultz APRN.MANAGER OF PATIENT documented in this encounter [facility] 12-11-2023 Note HNO ID: [id number] Author: NURIS HUA PA Service: ? Author Type: Physician Valve Repairer Type: Progress Notes Filed: 12/11/2023 11:22 Note Text: This note was created using [employer]. Subjective Sekou Prakash is a 23 year old male. HPI [...] detail warranting prompt ER evaluation. JEFFERSON Boyle [facility] 12-11-2023 History of Present illness Narrative This note was created using [employer]. Subjective Sekou Prakash is a 23 year old male. HPI [...] evaluation. JEFFERSON Boyle documented in this encounter [facility] 12-11-2023 Telephone encounter Note Patient notified of results. Patient verbalizes understanding. Patient states that he continues to feel terrible and had to call off of work today. Patient asking if a note can be written to take him off of work today? Cora Longo RN [facility] 12-11-2023 Miscellaneous Notes Patient notified of results. Patient verbalizes understanding. Patient states that he continues to feel terrible and had to call off of work today. Patient asking if a note can be written to take him off of work today? Cora Longo RN Left VM instructing patient to return call to receive results. Harleen Martinez MA Negative for COVID flu RSV documented in this encounter [facility] 12-11-2023 Telephone encounter Note Left VM instructing patient to return call to receive results. Harleen Martinez MA [facility] 08-29-2024 Telephone encounter Note Negative for COVID flu RSV [facility] Work Phone: 12-10-2023 Note HNO ID: [id number] Author: STEPAN LAYNE MD Service: ? Author Type: Physician Type: [...] ROUTINE - BENZONATATE 100 MG CAPSULE Stepan Layne MD [facility] 12-10-2023 History of Present illness Narrative Patient presents with: Cough: Cough, [...] ROUTINE - BENZONATATE 100 MG CAPSULE Stepan Layne MD documented in this encounter [facility] 11-11-2023 Note HNO ID: [id number] Author: NURIS HUA PA Service: ? Author Type: Physician Valve Repairer Type: Progress Notes Filed: 11/11/2023 13:16 Note Text: This note was created using [employer]. Subjective Sekou Prakash is a 23 year old male. HPI [...] is aware of. Has not tried anything [id number] for symptoms. No other complaint. History reviewed. [...] detail warranting prompt ER evaluation. JEFFERSON Boyle [facility] 11-11-2023 History of Present illness Narrative This note was created using [employer]. Subjective Sekou Prakash is a 23 year old male. HPI [...] is aware of. Has not tried anything [id number] for symptoms. No other complaint. History reviewed. [...] evaluation. JEFFERSON Boyle documented in this encounter [facility] 11-11-2023 Instructions Nuris Hua PA - 11/11/2023 1:10 PM EDT Rest, [...] thin out mucus documented in this encounter [facility] 07-02-2023 Miscellaneous Notes Jackeline nurse from [facility] calling in regards to pt who in currently an inmate there. She states pt told them he is positive for chlamydia and is supposed to be on an antibiotic. Pt told her he had a prescription at the pharmacy. He told her either [facility] [place] or [facility] in [place]. Jackeline called both pharmacies and they do not have a prescription for the patient. Per epic, pt did test positive for chlamydia and was prescribed Doxycycline which is supposed to be at [facility]. Called [facility] [place] and prescription is there and ready to be picked up. Called Jackeline back and notified. She states pt will not be able to leave and pick it up. Prescription name, dosage and directions given to Jackeline. documented in this encounter [facility] 06-25-2023 Miscellaneous Notes Spoke with pt and information listed below given. Pt verbalizes understanding. Thuy Hawley LPN Left message for pt to call back. Yelitza Davenport MA Positive for chlamydia. Negative for gonorrhea. Negative for trichomonas. Chlamydia is an STI. IT is treatable with ATB. Doxycyline called into [facility]. Partners need tested and treated. No sex for 2 weeks. Please advise patient. documented in this encounter [facility] 06-24-2023 Note HNO ID: [id number] Author: STONEY BULLOCK APRN.MANAGER OF PATIENT Service: ? Author Type: Nurse Practitioner Type: Progress Notes Filed: 06/24/2023 13:10 Note Text: Subjective HPI HPI Sekou Prakash is a 22 year old male who [...] VAGINALIS NAAT - GONORRHEA/CHLAMYDIA NAAT Stoney Bullock APRN.[facility] 06-24-2023 History of Present illness Narrative Subjective HPI HPI Sekou Prakash is a 22 year old male who [...] NAAT - GONORRHEA/CHLAMYDIA NAAT Stoney Bullock APRN.TERESA documented in this encounter [facility] 03-26-2023 Miscellaneous Notes Patient given results and verbalized understanding of instructions given. Janett Britt Remaining labs have resulted. Hepatitis negative HIV negative Syphilis negative Follow up with PCP as needed. documented in this encounter [facility] 03-25-2023 History of Present illness Narrative Images from the original note were not included. Subjective HPI HPI Sekou Prakash is a 22 year old male who [...] remained well approximated after removal. Stoney Bullock APRN.MANAGER OF PATIENT documented in this encounter [facility] 02-26-2023 Hospital Discharge instructions Additional Instructions 2 sutures placed to your left hand. No heavy lifting with left hand avoid dehiscence. Wound care as discussed. Sutures to stay 10 to 14 days before removal. Call for follow-up as given for you. [facility] Work Phone: 02-03-2023 History of Present illness Narrative 02/03/2023 Patient presents with: Kidney [...] these issues and agrees with the plan. Johana Dela Cruz PA-C 02/03/2023 documented in this encounter [facility] 11-29-2022 Hospital Discharge instructions Patient Education 11/29/2022 19:16:51 JERROD PALUMBO(CUSTOM) What causes lesions on your scalp? Painful sores, blisters, or bumps that form on the scalp may be caused by: Infection of the hair shafts (folliculitis) or the skin (such as impetigo). An allergic skin reaction (contact dermatitis). Viral infections, such as chickenpox and shingles. Document Released: 03/31/2006 Document Revised: 03/17/2013 Document Reviewed: 04/01/2014 ExitCare Patient Information 2015 [employer]. This information is not intended to replace advice given to you by your health care provider. Make sure you discuss any questions you have with your health care provider. Follow Up Care 11/29/2022 18:33:51 With:varun elliott Address: When:5 to 7 days Comments:[employer] [facility] 11-29-2022 Note Discharge Instructions Thank you for allowing [facility] to assist you with your healthcare needs. The following is important discharge information regarding your hospital visit. Diagnosis from Today's Visit Headache Skin lesion What to Do Next Instructions from Your Care Team No qualifying data available. Post Acute Orders No qualifying data available. You Need to Schedule the Following Appointments Follow Up with varun elliott When Within 5 to 7 days Why: [employer] Where: Allergies Bananas povidone iodine topical Medications [...] 03/17/2013 Document Reviewed: 04/01/2014 ExitCare Patient Information 2015 [employer]. This information is not intended to replace advice given to you by your health care provider. Make sure you discuss any questions you have with your health care provider. Additional Information VACCINATE! IT SAVES LIVES! Members of the community who have not yet received the COVID-19 vaccine and would like to receive it can visit one of [facility] vaccine clinics. There are many vaccine clinic locations within the [facility]. For locations and available times, please visit [email or web address] It is important to note that some COVID mobile vaccine clinics are held outdoors and may be canceled in rainy or stormy conditions. To learn more about pediatric vaccinations (ages 5-11), we invite you to visit the [facility] webpage. [email or web address] To learn more about the COVID-19 vaccine, we invite you to visit the CDC website for a list of frequently asked questions. https://www.cdc.gov/coronavirus/ 2019-ncov/vaccines/faq.html [email or web address] Patient Portal Access Instructions: Stay connected with your healthcare team and access your personal medical information anytime with the [email or web address] Patient Portal. If you would like a full copy of your medical records please contact the [facility] Medical Records Department Friday through Friday between 8a.m. and 4:30p.m. Please follow the directions below to access the portal: 1.Access the email account you provided upon registration to the hospital.2.Look for an invitation email from [facility].3.Open the email and access the invitation link: Accept Invitation to [email or web address].Fill in the required kim to create your account. Sign into [email or web address] with your username and password that you [...] you will allow to register on the [facility] Patient Portal for access to your information. You can also access the [facility] Patient Portal on the [employer] pau. Simply click on Health Records under Health Data and then click on the [employer] logo. HOW TO SAFELY DISPOSE OF PRESCRIPTION [...] Call your local pharmacy or go to [email or web address] to find one close to you.3.Make use of household items: Use cat litter or old coffee grounds to dispose medications if other options are not available. Mix your drugs with these household products, seal them in an airtight container and throw it into the garbage. Call [facility]: [phone] to be sure your drugs can be [...] CHART COPY Signatures Patient Education Materials JERROD PALUMBO(CUSTOM) Medication Leaflets My discharge plan and instructions have been reviewed and explained to me and I,MILLY PRAKASH understand my current condition and have read and understand these discharge instructions. I have received a written copy of the plan/instructions. If I have questions, I am aware that I should contact my doctor. Patient/Logging Worker Signature: Date/Time: Relationship to Patient: Witness Name/Signature: Date/Time: [facility] 11-07-2022 Miscellaneous Notes Pt called and and reports he doesn't know his PCPs name, but he has a question for her. Dr Dolan was assigned to Pt, but Pt had never seen her. Pt no showed Homa Aguirre UX VISUAL DESIGNER on 08/01/21 and Lizet Damian MANAGER OF PATIENT on 10/23/21 for establish care appointment. Then he no showed a EC f/u with Tati Chan UX VISUAL DESIGNER on 09/19/22. Removed Dr Dolan as his PCP as he has never had an establish care visit with her or any other provider her. Tried to call Pt back and let him know that she isn't his provider and that we do not have any providers that are accepting Pts at this point in time. documented in this encounter [facility] 09-16-2022 Hospital Discharge instructions Patient Education 09/16/2022 12:21:08 Chest Wall [...] or as directed by your healthcare provider [phone] [employer] [address] [place] [address], [place] [address]. All rights reserved. This information is not intended as a substitute for professional medical care. Always follow your healthcare professional's instructions. Follow Up Care 09/16/2022 10:07:54 With:DODIE JOHNSON MD Address: [address] [place] [address]- When:2-4 days [facility] 09-16-2022 Note Discharge Instructions Thank you for allowing [facility] to assist you with your healthcare needs. [...] MD When Within 2-4 days Where: [address] [place] [address]- Allergies Bananas povidone iodine topical Medications Please [...] or as directed by your healthcare provider [phone] [employer] [address] [place] [address], [place] [address]. All rights reserved. This information is not intended as a substitute for professional medical care. Always follow your healthcare professional's instructions. Additional Information VACCINATE! IT SAVES LIVES! Members of the community who have not yet received the COVID-19 vaccine and would like to receive it can visit one of [facility] vaccine clinics. There are many vaccine clinic locations within the State. For locations and available times, please visit [email or web address] It is important to note that some COVID mobile vaccine clinics are held outdoors and may be canceled in rainy or stormy conditions. To learn more about pediatric vaccinations (ages 5-11), we invite you to visit the [facility] webpage. [email or web address]/p [email or web address] To learn more about the COVID-19 vaccine, we invite you to visit the CDC website for a list of frequently asked questions. https://www.cdc.gov/coronavirus/ 2019-ncov/vaccines/faq.html [email or web address] Patient Portal Access Instructions: Stay connected with your healthcare team and access your personal medical information anytime with the [email or web address] Patient Portal. If you would like a full copy of your medical records please contact the [facility] Medical Records Department Friday through Friday between 8a.m. and 4:30p.m. Please follow the directions below to access the portal: 1.Access the email account you provided upon registration to the hospital.2.Look for an invitation email from [facility].3.Open the email and access the invitation link: Accept Invitation to [email or web address].Fill in the required kim to create your account. Sign into [email or web address] with your username and password that you [...] you will allow to register on the [email or web address] Patient Portal for access to your information. You can also access the [email or web address] Patient Portal on the [employer] pau. Simply click on Health Records under Health Data and then click on the Emily logo. HOW TO SAFELY DISPOSE OF PRESCRIPTION [...] Call your local pharmacy or go to [email or web address] to find one close to you.3.Make use of household items: Use cat litter or old coffee grounds to dispose medications if other options are not available. Mix your drugs with these household products, seal them in an airtight container and throw it into the garbage. Call [facility]: [phone] to be sure your drugs can be [...] been reviewed and explained to me and I,MILLY PRAKASH understand my current condition and have read and understand these discharge instructions. I have received a written copy of the plan/instructions. If I have questions, I am aware that I should contact my doctor. Patient/Logging Worker Signature: Date/Time: Relationship to Patient: Witness Name/Signature: Date/Time: [facility] 09-16-2022 Note ORIGINAL EXAMINATION: ONE XRAY [...] Date: 09/16/2022 11:29:00 AM Ordering Provider: MARSHA SHANKS [facility] 09-16-2022 Note ORIGINAL EXAMINATION: ONE XRAY [...] Date: 09/16/2022 11:29:00 AM [facility] History of Present illness Narrative This note was created using [employer]. Subjective Sekou Prakash is a 21 year old male. 21 year old male with PMH left knee MCL repair presents for complaints of knee pain. Acute onset several months ago. Bilateral knees Clicking Endorses that at times he feels that it will give out. 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 He has a history of MCL surgical repair, last year He is seen by [facility] Denies new trauma or injury Denies skin rash or lesions. Denies that he has followed up with [facility]. The history is provided by the patient. No modern languages professor was used. Right knee injury: No Left [...] with ortho for further management Cielo Bailey APRN.MANAGER OF PATIENT documented in this encounter [facility] 07-04-2022 Miscellaneous Notes Patient calling with request for lab result. from [place]. Patient denies any new or worsening symptoms of which a provider is not aware: Yes. I conf to the [facility]. GO TO THE EMERGENCY ROOM OR CALL 911 IF: * You develop any new symptoms * Your condition worsens * You are concerned or anxious about your condition for any other reason. I documented in this encounter [facility] 07-03-2022 History of Present illness Narrative Subjective HPI Nontoxic-appearing male presents [...] of care. This note was generated using [employer] software. It may contain errors in wording, punctuation, or spelling. Jerad Shultz APRN.CNP documented in this encounter [facility] 03-27-2022 History of Present illness Narrative This note was created using [employer]. Subjective Sekou Prakash is a 21 year old male. Nasal [...] 3 - Low documented in this encounter [facility] 02-12-2022 Miscellaneous Notes Patient given results and verbalized understanding of instructions given. Janett Britt Please notify that covid/flu testing negative. Continue with plan of care as discussed during visit. documented in this encounter [facility] 12-25-2021 Miscellaneous Notes Patient notified of results and provider's instructions. Patient verbalizes understanding. Cora Longo RN Unable to reach patient. Mailbox full/Mailbox not set up/ Number incorrect. Please try again later. Janett Britt Negative for covid and flu please notify thank you documented in this encounter [facility] 12-12-2021 Miscellaneous Notes Patient given results and verbalized understanding of instructions given. Janett Britt Please notify that covid/flu testing negative. Continue with plan of care as discussed during visit. documented in this encounter [facility] 12-11-2021 Instructions Cielo Bailey APRN.CNP - 12/11/2021 [...] to your local emergency facility: Notify the hone operator that you are seeking care for [...] be around others. documented in this encounter [facility] 12-11-2021 History of Present illness Narrative This note was created using [employer]. Subjective Sekou Prakash is a 21 year old male. 21 year old male with no PMH presents for complaints of illness and concerns for possible COVID. 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 States +exposure, citing his sister is sick. States he took x 3 tests, citing 2 seemed to not run properly. +Advil The history is provided by the patient. No modern languages professor was used. Illness The current episode started [...] WITH FLUA+B, ROUTINE-obtained and pending Cielo Bailey APRN.MANAGER OF PATIENT documented in this encounter [facility] 10-18-2021 Instructions Jerad Shultz APRN.TERESA - 10/18/2021 [...] concerning to you. documented in this encounter [facility] 10-18-2021 History of Present illness Narrative Subjective HPI Nontoxic-appearing male presents [...] of care. This note was generated using [employer] software. It may contain errors in wording, punctuation, or spelling. Jerad Shultz APRN.TERESA documented in this encounter [facility] 09-07-2021 Miscellaneous Notes Phone call placed patient advised (see prior provider encounter) Patient verbalized understanding, agreed with plan of care. Fiona Hawley LPN Negative for flu and covid please notify thank you documented in this encounter [facility] 09-06-2021 Instructions Cielo Bailey APRN.TERESA - 09/06/2021 [...] to your local emergency facility: Notify the hone operator that you are seeking care for [...] be around others. documented in this encounter [facility] 09-06-2021 History of Present illness Narrative This note was created using [employer]. Subjective Sekou Prakash is a 20 year old male. 20 year old male with anemia presents for illness. Acute onset this morning. +feelings of illness +fatigue +sore throat +post nasal drainage +fever Denies N/V/D Denies SOB or dyspnea. Denies cough States that his infant son tested positive for COVID He is here with additional family members who are being seen for the same. The history is provided by the patient. No modern languages professor was used. Sore Throat This is a [...] sooner if worsening of symptoms Cielo Bailey APRN.MANAGER OF PATIENT documented in this encounter [facility] 09-06-2021 Miscellaneous Notes Patient called and notified that was negative for Covid. Patient voiced understanding. Cora Longo RN Unable to reach patient-try again later.Justyna Ellison LPN ----- Message from Stepan Layne MD sent at 09/06/2021 7:46 AM EDT ----- COVID-negative. documented in this encounter [facility] 09-05-2021 History of Present illness Narrative Subjective HPI HPI Sekou Prakash is a 20 year old male who [...] 2019 CORONAVIRUS Agrees to plan Stoney Bullock APRN.MANAGER OF PATIENT documented in this encounter [facility] 02-25-2021 Hospital Discharge instructions Patient Education 02/25/2021 21:59:20 Knee Pain [...] splint. If you have to wear a jxip-wit-knjr knee brace, you can open it to apply the ice pack, or heat, directly to the knee. Never put ice directly on the skin. Always wrap the ice in a towel or other type of cloth. You may use tlky-lzr-vwlgamn pain medicine to control pain, unless another [...] wet, you can dry it with a hair tinter set on cool. If you have a yopw-gna-nqij knee brace, you can remove this to [...] as directed by your healthcare provider Patrick [phone] [employer] [address] [place] [address], [place] [address]. All rights reserved. This information is not intended as a substitute for professional medical care. Always follow your healthcare professional's instructions. Follow Up Care 02/25/2021 20:29:30 With:RYAN DUNCAN Address: [address] [place] [address] [address] [place] [address] Business (1) When:2-4 days Comments:Ice, Tylenol, a ibuprofen for pain, you may bear weight on the leg as tolerated, follow with orthopedics if no improvement. [facility] Evaluation + Plan note No data available for this section [facility] Evaluation note No assessment inform ation available [facility] Work Phone: Evaluation note Diagnosis Close exposure to COVID-19 virus- Primary Viral syndrome Unspecified viral infection, in conditions classified elsewhere and of unspecified site [facility] Diagnosis Pharyngitis, unspecified etiology- Primary Exposure to COVID-19 virus URI, acute Acute upper respiratory infections of unspecified site [facility] Diagnosis Pharyngitis, unspecified etiology- Primary Viral illness Unspecified viral infection, in conditions classified elsewhere and of unspecified site [facility] Exposure to COVID-19 virus- Primary [facility] URI, acute- Primary Acute upper respiratory infections of unspecified site [facility] Diagnosis Burning with urination- Primary Dysuria Screening for STD (sexually transmitted disease) Screening examination for venereal disease [facility] Diagnosis Acute pain of both knees- Primary [facility] Diagnosis Right-sided low back pain without sciatica, unspecified chronicity- Primary [facility] Diagnosis Possible exposure to STD- Primary Other specified personal history presenting hazards to health Skin infection Unspecified local infection of skin and subcutaneous tissue Visit for suture removal Encounter for removal of sutures [facility] Diagnosis Possible exposure to STD- Primary Other specified personal history presenting hazards to health [facility] Diagnosis Sore throat- Primary Acute pharyngitis URI, acute Acute upper respiratory infections of unspecified site [facility] Diagnosis URI, acute- Primary Acute upper respiratory infections of unspecified site [facility] Diagnosis Bacterial sinusitis- Primary Unspecified sinusitis (chronic) documented in this encounter [facility] note* Diagnosis Generalized abdominal pain Abdominal pain, generalized Acute constipation Unspecified constipation [facility]* Diagnosis Screening for STD (sexually transmitted disease)- Primary Screening examination for venereal disease documented in this encounter [facility] note* Diagnosis Nausea and vomiting, unspecified vomiting type- Primary documented in this encounter [facility] Work Phone: Evaluation note* Diagnosis Sprain of metacarpophalangeal (MCP) joint of left thumb, initial encounter- Primary Contusion of right shoulder, initial encounter documented in this encounter [facility] Work Phone: [phone] note* Diagnosis Persistent depressive disorder- Primary documented in this encounter [facility] Work Phone: Evaluation note* Diagnosis UTI (urinary tract infection), bacterial- Primary STD exposure documented in this encounter [facility] Work Phone: Hospital Discharge instructions* Attachments The following attachments cannot be sent through Care Everywhere. * Nausea and Vomiting, Adult ED ([place]gas[place]) [facility]* Attachments The following attachments cannot be sent through Care Everywhere. * Minor Contusion ED (Monegasque) * Thumb Sprain ED ([place]onegasque) [facility] Discharge instructions* Attachments The following attachments cannot be sent through Care Everywhere. * Persistent Depressive Disorder (Monegasque) [facility] Hospital Discharge instructions* Attachments The following attachments cannot be sent through Care Everywhere. * Preventing HIV after unprotected sex or needle-sharing (Monegasque) [facility]: Reason for referral (narrative)* Diagnostic Procedure Only (Urgent) - Pending Review Specialty Diagnoses / Procedures Referred By Contac t Referred To Contact XR IMAGING Diagnoses Acute pain of both knees Procedures XR KNEE GENERAL 4V AP BOTH/PA BOTH/LAT/MERC BILATERAL RADIOLOGIC EXAM KNEE COMPLETE 4/MORE VIEWS Cielo Bailey APRN.CNP [address] [place] [address] Xr Imaging Referral ID Status Reason Start Date Expiration Date Visits Requested Visits Authorized [id number] Pending Review Auto-Generat ed Referral 09/13/2022 10/13/2023 1 1 [facility] for referral (narrative)* Diagnostic Procedure Only (Routine) - Authorized Specialty Diagnoses / Procedures Referred By Contac t Referred To Contact US IMAGING Diagnoses Right-sided low back pain without sciatica, unspecified chronicity Procedures US KIDNEY/BLADDER US RETROPERITONEAL REAL TIME W/IMAGE COMPLETE Johana Dela Cruz PA-C [address] [place] [address] [place] [address] Referral ID Status Reason Start Date Expiration Date Visits Requested Visits Authorized [id number] Authorized Auto-Generat ed Referral 03/04/2024 1 1 [facility] for referral (narrative)* Diagnostic Procedure Only (Urgent) - Closed Specialty Diagnoses / Procedures Referred By Contac t Referred To Contact XR IMAGING Diagnoses Generalized abdominal pain Acute constipation Procedures XR ABDOMEN 1V SUPINE RADIOLOGIC EXAM ABDOMEN 1 VIEW Cielo Bailey APRN.CNP [address] [place] [address] [place] [address] Referral ID Status Reason Start Date Expiration Date V isits Requested Visits Authorized [id number] Closed Auto-Generate d Referral 05/15/2021 06/14/2022 1 1 [facility] for visit Narrative* Diagnostic Procedure Only (Urgent) - Closed Specialty Diagnoses / Procedures Referred By Colton t Referred To Contact XR IMAGING Diagnoses Generalized abdominal pain Acute constipation Procedures XR ABDOMEN 1V SUPINE RADIOLOGIC EXAM ABDOMEN 1 VIEW Cielo Bailey APRN.CNP [address] [facility] [place] [address] [place] [address] Referral ID Status Reason Start Date Expiration Date V isits Requested Visits Authorized [id number] Closed Auto-Generate d Referral 05/15/2021 06/14/2022 1 1 [facility] Summary Purpose Family History No Family History Records FoundNo Family History Records Found No data available for this section No Family History Records Found No data available for this section No data available for this section No Family History Records FoundNo Family History Records FoundNo Family History Records FoundNo Family History Records FoundNo Family History Records Found Advance Directives No Advanced Directives Records Found Advance Directive Response Recorded Date/ Time Advance Directives No March 5:54pm Living Will No July 16, 2021 3:07pm Power of Gluing Crew Leader No July 16 2 3:07pm Advance Directive Response Recorded Date/ Time Advance Directives No March 5:54pm Living Will No October 25, 2021 8:16am Power of Gluing Crew Leader No October 25 8:16am Advance Directive Response Recorded Date/ Time Advance Directives No March 5:54pm Living Will No November 20, 2021 10:38am Power of Gluing Crew Leader No November 20 10:38am Advance Directive Response Recorded Date/ Time Advance Directives No March 5:54pm Living Will No December 05 2 4:13pm Power of Gluing Crew Leader No December 05 022 4:13pm Advance Directive Response Recorded Date/ Time Advance Directives No March 5:54pm Living Will No December 08 2 8:32pm Power of Gluing Crew Leader No December 08 022 8:32pm Advance Directive Response Recorded Date/ Time Advance Directives No March 4:54pm Living Will No March 12 023 1:29pm Power of Gluing Crew Leader No March 12, 2023 1:29pm Chief Complaint and Reason for Visit Chief Complaint LT KNEE ARTHROSCOPY Chief Complaint LT KNEE ARTHROSCOPY wound Chief Complaint LT KNEE ARTHROSCOPY wound RIGHT SHOULDER PAIN Chief Complaint wound RIGHT SHOULDER PAIN HAND Chief Complaint wound RIGHT SHOULDER PAIN HAND BUMP ON HIS HEAD Chief Complaint LACERATION Health Concerns Infection Onset Date Last Indicated [...] Records FoundNo Status Records FoundNo Status Records FoundNo Status Records FoundNo Status Records FoundNo Status Records FoundNo Status Records FoundNo Status Records Found INFORMATION SOURCE (unrecogn ized section and content) DATE CREATED AUTHOR [facility]06/2020 [facility] DATE CREATED AUTHOR AUTHOR'S ORGANIZ ATION 09/23/2022 [facility] ([place]) DATE CREATED AUTHOR AUTHOR'S ORGANIZ ATION 02/27/2024 [facility] DATE CREATED AUTHOR AUTHOR'S ORGANIZ ATION 05/04/2024 [facility] DATE CREATED AUTHOR AUTHOR'S ORGANIZ ATION 05/04/2024 [facility] DATE CREATED AUTHOR AUTHOR'S ORGANIZ ATION 12/13/2024 [facility] DATE CREATED AUTHOR AUTHOR'S ORGANIZ ATION 02/07/2025 [facility] DATE CREATED AUTHOR AUTHOR'S ORGANIZ ATION 02/24/2025 [facility] Goals (unrecognized section and content) Goals may be documented in a n alternate section Source Comments (unrecognize d section and content) In the event this informatio n is protected by the Federal Confidentiality of Alcohol and Drug Abuse Patient Records regulations: The Federal rules restrict any use of the information to criminally investigate or prosecute any alcohol or drug abuse patient.[facility] the event this information is protected by the Federal Confidentiality of Alcohol and Drug Abuse Patient Records regulations: The Federal rules restrict any use of the information to criminally investigate or prosecute any alcohol or drug abuse patient.[facility] the event this information is protected by the Federal Confidentiality of Alcohol and Drug Abuse Patient Records regulations: The Federal rules restrict any use of the information to criminally investigate or prosecute any alcohol or drug abuse patient.[facility] the event this information is protected by the Federal Confidentiality of Alcohol and Drug Abuse Patient Records regulations: The Federal rules restrict any use of the information to criminally investigate or prosecute any alcohol or drug abuse patient.[facility] Memorial[facility] the event this information is protected by the Federal Confidentiality of Alcohol and Drug Abuse Patient Records regulations: The Federal rules restrict any use of the information to criminally investigate or prosecute any alcohol or drug abuse patient.[facility] Memorial[facility] the event this information is protected by the Federal Confidentiality of Alcohol and Drug Abuse Patient Records regulations: The Federal rules restrict any use of the information to criminally investigate or prosecute any alcohol or drug abuse patient.[facility] Memorial[facility] the event this information is protected by the Federal Confidentiality of Alcohol and Drug Abuse Patient Records regulations: The Federal rules restrict any use of the information to criminally investigate or prosecute any alcohol or drug abuse patient.[facility] Memorial[facility] the event this information is protected by the Federal Confidentiality of Alcohol and Drug Abuse Patient Records regulations: The Federal rules restrict any use of the information to criminally investigate or prosecute any alcohol or drug abuse patient.[facility] the event this information is protected by the Federal Confidentiality of Alcohol and Drug Abuse Patient Records regulations: The Federal rules restrict any use of the information to criminally investigate or prosecute any alcohol or drug abuse patient.[facility] Memorial[facility] the event this information is protected by the Federal Confidentiality of Alcohol and Drug Abuse Patient Records regulations: The Federal rules restrict any use of the information to criminally investigate or prosecute any alcohol or drug abuse patient.[facility] Memorial[facility] the event this information is protected by the Federal Confidentiality of Alcohol and Drug Abuse Patient Records regulations: The Federal rules restrict any use of the information to criminally investigate or prosecute any alcohol or drug abuse patient.[facility] Memorial[facility] the event this information is protected by the Federal Confidentiality of Alcohol and Drug Abuse Patient Records regulations: The Federal rules restrict any use of the information to criminally investigate or prosecute any alcohol or drug abuse patient.[facility] MemorialIn the event this information is protected by the Federal Confidentiality of Alcohol and Drug Abuse Patient Records regulations: The Federal rules restrict any use of the information to criminally investigate or prosecute any alcohol or drug abuse patient.[facility] Memorial[facility] the event this information is protected by the Federal Confidentiality of Alcohol and Drug Abuse Patient Records regulations: The Federal rules restrict any use of the information to criminally investigate or prosecute any alcohol or drug abuse patient.[facility] MemorialIn the event this information is protected by the Federal Confidentiality of Alcohol and Drug Abuse Patient Records regulations: The Federal rules restrict any use of the information to criminally investigate or prosecute any alcohol or drug abuse patient.[facility] Memorial[facility] the event this information is protected by the Federal Confidentiality of Alcohol and Drug Abuse Patient Records regulations: The Federal rules restrict any use of the information to criminally investigate or prosecute any alcohol or drug abuse patient.[facility] MemorialIn the event this information is protected by the Federal Confidentiality of Alcohol and Drug Abuse Patient Records regulations: The Federal rules restrict any use of the information to criminally investigate or prosecute any alcohol or drug abuse patient.[facility] MemorialIn the event this information is protected by the Federal Confidentiality of Alcohol and Drug Abuse Patient Records regulations: The Federal rules restrict any use of the information to criminally investigate or prosecute any alcohol or drug abuse patient.[facility] MemorialIn the event this information is protected by the Federal Confidentiality of Alcohol and Drug Abuse Patient Records regulations: The Federal rules restrict any use of the information to criminally investigate or prosecute any alcohol or drug abuse patient.[facility]In the event this information is protected by the Federal Confidentiality of Alcohol and Drug Abuse Patient Records regulations: The Federal rules restrict any use of the information to criminally investigate or prosecute any alcohol or drug abuse patient.[facility] MemorialIn the event this information is protected by the Federal Confidentiality of Alcohol and Drug Abuse Patient Records regulations: The Federal rules restrict any use of the information to criminally investigate or prosecute any alcohol or drug abuse patient.[facility] MemorialIn the event this information is protected by the Federal Confidentiality of Alcohol and Drug Abuse Patient Records regulations: The Federal rules restrict any use of the information to criminally investigate or prosecute any alcohol or drug abuse patient.[facility] MemorialIn the event this information is protected by the Federal Confidentiality of Alcohol and Drug Abuse Patient Records regulations: The Federal rules restrict any use of the information to criminally investigate or prosecute any alcohol or drug abuse patient.[facility] MemorialIn the event this information is protected by the Federal Confidentiality of Alcohol and Drug Abuse Patient Records regulations: The Federal rules restrict any use of the information to criminally investigate or prosecute any alcohol or drug abuse patient.[facility] MemorialIn the event this information is protected by the Federal Confidentiality of Alcohol and Drug Abuse Patient Records regulations: The Federal rules restrict any use of the information to criminally investigate or prosecute any alcohol or drug abuse patient.[facility] MemorialIn the event this information is protected by the Federal Confidentiality of Alcohol and Drug Abuse Patient Records regulations: The Federal rules restrict any use of the information to criminally investigate or prosecute any alcohol or drug abuse patient.[facility] MemorialIn the event this information is protected by the Federal Confidentiality of Alcohol and Drug Abuse Patient Records regulations: The Federal rules restrict any use of the information to criminally investigate or prosecute any alcohol or drug abuse patient.[facility] Reason for Visit (unrecogniz ed section and [...] nose, cough, c ongestion x 1 week Reason Comments STD Mo sx just being kevon stewart, states he wants all testing, states he would like blood work Reason Comments Vomiting Patient reports he s tarted vomiting this am with light headed and body aches. Denies ST, fever, diarrhea Reason Comments Shoulder Pain To ED after pt repor ts slipping and tumbling down 19 metal steps. Patient denies hitting head/LOC. Reports landing on R shoulder, with known tear in same shoulder. Also reports L thumb pain. Reason Comments Suicidal To ED with [employer] for s uicidal ideation. [employer] reports patient called them stating he needed someone to talk to before making any impulsive decisions. States he has no plan but has had thoughts of wrecking car. Hx of severe depression and PTSD, is currently in counseling. 1:1 observation initiated upon pt arrival, pt wanded, changed, and belongings secured. Reason Comments Difficulty Urinating Pt concerned that p t's girlfriend exposed him to STDs. Pt reports having some burning with urination. STI Screening Care Teams (unrecognized sec tion and content) Credit Investigator Relationship Specialty Start Date End Date Aysha Dolan MD [address] [place] [address] PCP - General Internal Medicine 10/18/21 Credit Investigator Relationship Specialty Start Date End Date Aysha Dolan MD [address] [place] [address] PCP - General Internal Medicine 10/18/21 Credit Investigator Relationship Specialty Start Date End Date Aysha Dolan MD [facility] [place] [address] PCP - General Internal Medicine 10/18/21 Credit Investigator Relationship Specialty Start Date End Date Aysha Dolan MD [address] [place] [address], [place] [address] PCP - General Internal Medicine 10/18/21 Credit Investigator Relationship Specialty Start Date End Date Aysha Dolan MD [facility] [place] [address] PCP - General Internal Medicine 10/18/21 Credit Investigator Relationship Specialty Start Date End Date Aysha Dolan MD [facility] [place] [address] PCP - General Internal Medicine 10/18/21 Credit Investigator Relationship Specialty Start Date End Date Aysha Dolan MD [facility] [place] [address] PCP - General Internal Medicine 10/18/21 Credit Investigator Relationship Specialty Start Date End Date Aysha Dolan MD [facility] [place] [address] PCP - General Internal Medicine 10/18/21 Team Status: Active Member Role Status Dates No Primary Care Physician Family Provider Active No Primary Care Physician Primary Care Provider Active Team Status: Inactive Member Role Status Dates No Primary Care Physician Primary Care Provider Active Dr. Max Krueger , DO Emergency Provider Active Credit Investigator Relationship Specialty Start Date End Date Tomas Wheeler (Hist) NO FORWARDING ADDRESS PCP - General 02/05/02 06/17/21 Credit Investigator Relationship Specialty Start Date End Date Generic Provider, [place] [address] PCP - [facility] Dental Hygienist 06/20/24 Credit Investigator Relationship Specialty Start Date End Date Generic Provider, [place] [address] PCP - General Dental Hygienist 06/20/24 Credit Investigator Relationship Specialty Start Date End Date Generic Provider, No Assigned P[place], [place] [address] PCP - General Dental Hygienist 06/20/24 Credit Investigator Relationship Specialty Start Date End Date Generic Provider, [place] [address] PCP - [facility] Dental Hygienist 06/20/24 Credit Investigator Relationship Specialty Start Date End Date No, Physician [facility] PCP - General 12/01/24 Scheduled Active and Recently Administ ered Medications (unrecognized section and content) Medication Order 08/17/2024 08/18/2024 08/19/2024 ondansetron ODT (Zofran-ODT) disintegrating tablet 4 mg (COMPLETED) 4 mg, oral, Once, On Lola 08/19/24 at 1110, For 1 dose 1125 (Given - Provid er: Kristine Roman RN) Scheduled Medication Order 01/30/2025 01/31/2025 02/01/2025 cefTRIAXone (Rocephin) vial 1 g (COMPLETED) 1 g, intramuscular, Once, On Fri02/01/25 at 0000, For 1 dose, For IM injection, reconstitute 1 g vial with 2.1 mL sterile water or lidocaine 1%, final concentration 350 mg/mL., Suspected Indication (Select all that apply): Urinary Tract Infection, Type of Therapy: Empiric, Type of Urinary Tract Infection: Uncomplicated, Indications: Urinary Tract Infection 0007 (Given - Provid er: Joanna Estes RN) lidocaine (Xylocaine) 10 mg/mL (1 %) injection 5 mL (COMPLETED) 5 mL, intradermal, Once, On 10/20/25 at 2350, For 1 dose 0007 (Given - Provid er: Joanna Estes RN) FOR RECORDS PERTAINING TO PATIENTS WHO ARE [...] BE BASED ON THE PRIMARY CLINICAL RECORDS. [facility]. provides no warranty or guarantee of the accuracy or completeness of information in this document.
== END | disposition home or self-care (01) ==
LOC: MRI 16:06
DX: S83.8X2A Sprain of other specified parts of left knee, initial encounter (principal); M25.562 Pain in left knee
CPT/HCPCS: 73721